=== PATIENT | male | born 1950 | race Caucasian/White ===

== ENCOUNTER 2020-02-17 01:40 | Emergency (ER) | payer MEDICARE ==
[2020-02-17] MEDS ORDERED: fentaNYL (PF) 50 MCG/ML 2 ML AMP IV STA (02:01)
[2020-02-17] MEDS ORDERED: ONDANSETRON 4 MG/2 ML VIAL IVP STA (02:01)
[2020-02-17 02:23] LABS: Basophils # (A) 0.1 k/uL (0-0.2); Basophils % (A) 1 %; Eosinophils # (A) 0.2 k/uL (0-0.7); Eosinophils % (A) 2 %; HCT 42.3 % (39.0-53.0); Lymphocytes # (A) 2.2 k/uL (1.0-4.8); Lymphocytes % (A) 15 %; MCH 30.6 pg (25.0-35.0); MCHC 35.5 g/dL (31.0-37.0); MCV 86.2 fL (80.0-100.0); Mean Platelet Volume 7.1; Monocytes # (A) 0.7 k/uL (0-1.0); Monocytes % (A) 5 %; Neutrophils # (A) 11.3 k/uL (1.3-7.7); Neutrophils % (A) 78 %; Platelet Count 192 k/uL (150-450); RDW 14.1 % (11.5-15.5); WBC 14.6 k/uL (3.8-10.6)
--- NOTE | 2020-02-17 02:24 | ED ---
Abdominal Pain HPI - General Chief Complaint: Abdominal Pain Stated Complaint: Abd Pain Time Seen by Provider: 02/17/20 01:51 Source: EMS Mode of arrival: EMS Limitations: no limitations - History of Present Illness Initial Comments: This patient is a 70-year-old man who complains of having bilateral low back pain and low abdominal pain. He states that things had started around 3 in the afternoon. Initially the pain was mild to moderate but it became severe tonight and he called EMS. The patient was given ketorolac 15 mg for the pain and ondansetron 4 mg for nausea. On arrival he patient states that the nausea has improved but he is still having severe pain. Patient denies change in bowel movement. Patient states that he has felt urge to urinate but has not noted any other changes. MD Complaint: abdominal pain, flank pain Location: LLQ, RLQ, L flank, R flank Radiation: none Migration to: no migration Severity: severe Quality: aching Consistency: constant Improves With: other (Nausea) Worsens With: nothing Associated Symptoms: nausea - Related Data Allergies Allergy/AdvReac Type Severity Reaction Status Date / Time No Known Allergies Allergy Verified 02/17/20 02:01 Review of Systems ROS Statement: Those systems with pertinent positive or pertinent negative responses have been documented in the HPI. ROS Other: All systems not noted in ROS Statement are negative. Constitutional: Denies: fever, chills Respiratory: Denies: cough, dyspnea Cardiovascular: Denies: chest pain, palpitations, edema, syncope Gastrointestinal: Reports: as per HPI, abdominal pain, nausea. Denies: vomiting, diarrhea, constipation, melena, hematochezia Genitourinary: Denies: dysuria, frequency, hematuria, testicular pain, testicular mass Musculoskeletal: Reports: as per HPI, back pain Skin: Denies: rash Neurological: Denies: headache, weakness, numbness Past Medical History Past Medical History: Prostate Disorder History of Any Multi-Drug Resistant Organisms: None Reported Past Surgical History: Orthopedic Surgery, Prostate Surgery Additional Past Surgical History / Comment(s): abdominal aortic stent Past Psychological History: No Psychological Hx Reported Smoking Status: Current every day smoker Past Alcohol Use History: None Reported Past Drug Use History: None Reported General Exam Limitations: no limitations General appearance: alert, in no apparent distress Head exam: Present: atraumatic, normocephalic Eye exam: Present: normal appearance. Absent: scleral icterus, conjunctival injection ENT exam: Present: normal oropharynx Neck exam: Present: normal inspection. Absent: full ROM Respiratory exam: Present: normal lung sounds bilaterally. Absent: respiratory distress, wheezes, rales, rhonchi, stridor Cardiovascular Exam: Present: regular rate, normal rhythm, normal heart sounds. Absent: systolic murmur, diastolic murmur, rubs, gallop GI/Abdominal exam: Present: soft, normal bowel sounds. Absent: distended, tenderness, guarding, rebound, rigid, mass, pulsatile mass, hernia Extremities exam: Present: normal inspection, normal capillary refill. Absent: pedal edema, calf tenderness Back exam: Present: normal inspection. Absent: tenderness, CVA tenderness (R), CVA tenderness (L) Neurological exam: Present: alert. Absent: motor sensory deficit Skin exam: Present: warm, dry, intact, normal color. Absent: rash Course Vital Signs 02/17/20 02/17/20 02/17/20 01:49 02:23 03:05 Temperature 97.9 F Pulse Rate 93 92 85 Respiratory 18 19 18 Rate Blood Pressure 138/100 151/91 141/92 O2 Sat by Pulse 99 96 97 Oximetry 02/17/20 02/17/20 02/17/20 04:00 04:55 05:00 Temperature Pulse Rate 79 91 90 Respiratory 18 18 18 Rate Blood Pressure 126/90 163/106 135/89 O2 Sat by Pulse 97 97 98 Oximetry 02/17/20 05:57 Temperature 98.1 F Pulse Rate 88 Respiratory 18 Rate Blood Pressure 130/87 O2 Sat by Pulse 98 Oximetry Medical Decision Making - Medical Decision Making Patient is 70-year-old man with history of endovascular stenting for AAA which was performed at [facility] in [place] in 2013. The patient on the CAT scan does appear to have small amount leak in the abdominal graft. I did discuss with the vascular surgeon at when [facility] and they do not feel that the patient requires immediate intervention or transfer there. Case also discussed with Dr. Caballero, who is covering rest or surgery here tonight and she did review the computed tomography scan and feels that the patient is stable for follow-up and that the small leak that is visualized is not responsive for the patient's pain. On reevaluation, patient's symptoms have resolved and he states that he would like to go home. Discussed appropriate further care and follow-up as well as return parameters. - Lab Data Result diagrams: 02/17/20 02:13 02/17/20 02:13 Lab Results 02/17/20 02/17/20 02/17/20 Range/Units 02:13 02:13 02:13 WBC 14.6 H (3.8-10.6) k/uL RBC 4.90 (4.30-5.90) m/uL Hgb 15.0 (13.0-17.5) gm/dL Hct 42.3 (39.0-53.0) % MCV 86.2 (80.0-100.0) fL MCH 30.6 (25.0-35.0) pg MCHC 35.5 (31.0-37.0) g/dL RDW 14.1 (11.5-15.5) % Plt Count 192 (150-450) k/uL Neutrophils % 78 % Lymphocytes % 15 % Monocytes % 5 % Eosinophils % 2 % Basophils % 1 % Neutrophils # 11.3 H (1.3-7.7) k/uL Lymphocytes # 2.2 (1.0-4.8) k/uL Monocytes # 0.7 (0-1.0) k/uL Eosinophils # 0.2 (0-0.7) k/uL Basophils # 0.1 (0-0.2) k/uL Sodium 134 L (137-145) mmol/L Potassium 4.0 (3.5-5.1) mmol/L Chloride 105 (98-107) mmol/L Carbon Dioxide 21 L (22-30) mmol/L Anion Gap 8 mmol/L BUN 11 (9-20) mg/dL Creatinine 0.81 (0.66-1.25) mg/dL Est GFR (CKD-EPI)AfAm >90 (>60 ml/min/1.73 sqM) Est GFR (CKD-EPI)NonAf 89 (>60 ml/min/1.73 sqM) Glucose 158 H (74-99) mg/dL Calcium 9.0 (8.4-10.2) mg/dL Total Bilirubin 0.7 (0.2-1.3) mg/dL AST 21 (17-59) U/L ALT 13 (4-49) U/L Alkaline Phosphatase 101 (38-126) U/L Total Protein 7.0 (6.3-8.2) g/dL Albumin 4.0 (3.5-5.0) g/dL Amylase 81 (30-110) U/L Lipase 172 (23-300) U/L Urine Color Yellow Urine Appearance Clear (Clear) Urine pH 7.0 (5.0-8.0) Ur Specific [place] 1.014 (1.001-1.035) Urine Protein Negative (Negative) Urine Glucose (UA) 1+ H (Negative) Urine Ketones 1+ H (Negative) Urine Blood Negative (Negative) Urine Nitrite Negative (Negative) Urine Bilirubin Negative (Negative) Urine Urobilinogen <2.0 (<2.0) mg/dL Ur Leukocyte Esterase Negative (Negative) - EKG Data -: EKG Interpreted by Me EKG shows normal: sinus rhythm, axis (Normal), intervals (OR interval 208 ms, prolonged consistent with first-degree AV block. QRS duration 94 ms, QTC 445 ms, both normal), QRS complexes (Left anterior fascicular block. Possible old septal infarct), ST-T waves (Normal) Rate: normal (Rate 87 bpm) Disposition Clinical Impression: Abdominal pain Narrative: Possible endovascular stent leak. Disposition: HOME SELF-CARE Condition: Fair Instructions (If sedation given, give patient instructions): Abdominal Pain (ED) Additional Instructions: As we discussed, call your vascular surgeon to have follow-up as soon as they're available. Should you have any recurrence of symptoms returned emergency department immediately. Is patient prescribed a controlled substance at d/c from ED?: No Referrals: Moise French MD [Primary Care Provider] - 1-2 days
[2020-02-17 02:31] LABS: ALT 13 U/L (4-49); AST 21 U/L (17-59); African American GFR (CKD) >90 (>60 ml/min/1.73 sqM); Alkaline Phosphatase 101 U/L (38-126); Amylase 81 U/L (30-110); Anion Gap 8 mmol/L; Blood Urea Nitrogen 11 mg/dL (9-20); Carbon Dioxide 21 mmol/L (22-30); Chloride 105 mmol/L (98-107); Glucose 158 mg/dL (74-99); Non-African American GFR(CKD) 89 (>60 ml/min/1.73 sqM); Sodium 134 mmol/L (137-145); Total Bilirubin 0.7 mg/dL (0.2-1.3)
[2020-02-17 03:06] VITALS: RESP 18
[2020-02-17 03:06] LABS: Appearance,Urine Clear (Clear); Bilirubin,Urine Negative (Negative); Blood,Urine Negative (Negative); Color,Urine Yellow; Glucose,Urine (UA) 1+ (Negative); Ketones,Urine 1+ (Negative); Leukocyte Esterase,Urine Negative (Negative); Nitrite,Urine Negative (Negative); Protein,Urine Negative (Negative); Specific Gravity,Urine 1.014 (1.001-1.035); Urobilinogen,Urine <2.0 mg/dL (<2.0)
--- NOTE | 2020-02-17 03:06 | CT ---
EXAMINATION TYPE: CT abdomen pelvis wo con DATE OF EXAM: 02/17/2020 COMPARISON: None HISTORY: Abdominal pain CT DLP: 464.30 mGycm Automated exposure control for dose reduction was used. There is mild pulmonary emphysema. Lung bases are clear. Heart size is normal. There is no pericardia l effusion. There is aortoiliac stent noted. Stent appears in good position. Liver spleen pancreas st omach gallbladder appear intact. Bile ducts are not dilated. There is no adrenal mass. Kidneys have n ormal size. There is cortical thinning lower pole right kidney. There is some cortical thinning anter ior left kidney. There is no hydronephrosis. There is no evidence of a renal mass. There is 5.6 cm an eurysm of the lower abdominal aorta. Bladder distends smoothly. There is no evidence of abdominal or pelvic lymphadenopathy. There is no inguinal hernia. There is no free fluid in the pelvis. Bladder distends smoothly. There a re numerous sigmoid diverticula. There is no sign of diverticulitis. Appendix is posterior and appear s normal. There is no mesenteric edema. There is no ascites or free air. There is no sign of a bowel obstructio n. Lumbar vertebra have normal alignment. There is no compression fracture. The posterior elements are i ntact. Bony pelvis is intact. Hip joints are intact. IMPRESSION: Abdominal aortic aneurysm. No evidence of rupture. Aortoiliac stent appears in good position. Bilateral renal focal cortical atrophy. This could relate to ischemia or chronic pyelonephritis. No e vidence of renal obstruction.
[2020-02-17] MEDS ORDERED: HYDROmorphone 0.5 MG/0.5 ML SYRINGE IVP STA (03:25)
--- NOTE | 2020-02-17 04:29 | CT ---
EXAMINATION TYPE: CT angio thor/abd pel aorta DATE OF EXAM: 02/17/2020 COMPARISON: None HISTORY: Abdominal pain/Flank pain CT DLP: 1077.3 mGycm Automated exposure control for dose reduction was used. CONTRAST: Performed with IV Contrast, patient injected with 100 mL of Isovue 370. Images were obtained from the thoracic inlet to the floor the pelvis without and subsequently with IV contrast Isovue 100 mL. There are 3-D post processed images. FINDINGS: There is diffuse pulmonary emphysema. There is no evidence of a pulmonary mass. There is no pleural e ffusion. Heart size is normal. There is no pericardial effusion. There is no mediastinal adenopathy. Thoracic aorta is atheromatous. The ascending aorta measures 3.5 cm. There is no aneurysm or dissecti on. There is normal contrast opacification of the pulmonary arteries. There are no filling defects. There is patency of the celiac artery and superior mesenteric artery. There is aortoiliac stent. Ther e is bilateral arterial flow in the renal arteries. There is 5.5 cm aneurysm of the lower abdominal a tiffanie. The aortoiliac stent appears in good position. There is arterial flow in the common internal an d external iliac arteries bilaterally. There is arterial flow in both proximal femoral arteries. Blad brittany distends smoothly. There are numerous sigmoid diverticula. There is no sign of diverticulitis. Th ere is no free fluid in the pelvis. There is no mesenteric edema. There is no ascites or free air. There is no sign of a bowel obstructio n. There is small amount of contrast enhancement outside of the stent of the lower abdominal aorta. T his is seen on the left lateral wall of the stent and measures 15 x 10 mm. I see no extravasation of contrast outside of the abdominal aorta. Liver spleen stomach pancreas gallbladder appear normal. Bile ducts are nondilated. Kidneys show sati sfactory contrast opacification. There is no hydronephrosis. There is some cortical thinning anterior left kidney and lower pole right kidney. The thoracic and lumbar spine are intact. IMPRESSION: Aneurysm of the lower abdominal aorta with aortoiliac stent in good position. There is evidence of a small leak of this stent on the left lateral wall. The leak is contained by the picayune abdominal aort a. No evidence of pulmonary embolism. Emphysema. Colonic diverticulosis.
[2020-02-17] MEDS ORDERED: LABETALOL 5 MG/ML VIAL MDV IVP STA (04:40)
[2020-02-17 06:31] VITALS: BP 130/87; PULSE 88; TEMP 98.1
== END 2020-02-17 07:18 | disposition home or self-care (01) ==
LOC: EC 01:40
DX: R10.31 Right lower quadrant pain (principal); R10.32 Left lower quadrant pain; M54.5 Low back pain; F17.200 Nicotine dependence, unspecified, uncomplicated
CPT/HCPCS: 36415; 80053; 82150; 83690; 85025; 81003; 71275; 74176; 74174; 99285; 96374; 96375 ×3; J2405; J3010; J1170; Q9967; 93005

== ENCOUNTER 2020-02-17 13:06 | Emergency (ER) | payer MEDICARE ==
[2020-02-17 13:12] VITALS: TEMP 97.9
--- NOTE | 2020-02-17 13:19 | ED ---
Abdominal Pain HPI - General Chief Complaint: Abdominal Pain Stated Complaint: revisit-abd pain Time Seen by Provider: 02/17/20 13:16 Source: patient Mode of arrival: wheelchair Limitations: no limitations - History of Present Illness Initial Comments: Patient is 70-year-old male with history of intravascular stenting for AAA presenting to the emergency department with a chief complaint of abdominal and back pain. Patient states he was emergency department this morning after developing the exact same pain which has been ongoing for the past day. Patient states upon discharge, he felt much better after he was given pain medication. Patient states he went home and slept. States when he woke up he attempted to have some coffee and the pain gradually return with the same severity as his previous visit. He denies any numbness or tingling or any weakness in his bilateral lower extremity. States most of his pain is located in the lower abdomen and bilateral flank region. Denies any nausea vomiting. Denies any chest pain or shortness of breath. - Related Data Home Medications Medication Instructions Recorded Confirmed Aspirin EC [Ecotrin Low Dose] 81 mg PO BID 02/17/20 02/17/20 Atorvastatin Calcium [Lipitor] 40 mg PO DAILY 02/17/20 02/17/20 Meclizine HCl 12.5 mg PO TID PRN 02/17/20 02/17/20 Warfarin Sodium 2.5 mg PO MOTUWETHFR 02/17/20 02/17/20 Warfarin [Coumadin] 5 mg PO SUSA 02/17/20 02/17/20 amLODIPine [Norvasc] 5 mg PO DAILY 02/17/20 02/17/20 carvediloL [Coreg] 6.25 mg PO BID 02/17/20 02/17/20 Allergies Allergy/AdvReac Type Severity Reaction Status Date / Time morphine AdvReac Nausea & Verified 02/17/20 15:11 Vomiting Review of Systems ROS Statement: Those systems with pertinent positive or pertinent negative responses have been documented in the HPI. ROS Other: All systems not noted in ROS Statement are negative. Past Medical History Past Medical History: Prostate Disorder History of Any Multi-Drug Resistant Organisms: None Reported Past Surgical History: Orthopedic Surgery, Prostate Surgery Additional Past Surgical History / Comment(s): abdominal aortic stent Past Psychological History: No Psychological Hx Reported Smoking Status: Current every day smoker Past Alcohol Use History: None Reported Past Drug Use History: None Reported General Exam Limitations: no limitations General appearance: alert, in no apparent distress Head exam: Present: atraumatic, normocephalic, normal inspection Eye exam: Present: normal appearance, PERRL, EOMI Pupils: Present: normal accommodation ENT exam: Present: normal exam, normal oropharynx, mucous membranes moist, TM's normal bilaterally, normal external ear exam Neck exam: Present: normal inspection, full ROM. Absent: tenderness Respiratory exam: Present: normal lung sounds bilaterally. Absent: respiratory distress, wheezes, rales Cardiovascular Exam: Present: regular rate, normal rhythm, normal heart sounds GI/Abdominal exam: Present: soft, tenderness (Lower abdominal pain). Absent: distended, guarding, rebound, rigid, pulsatile mass Extremities exam: Present: normal inspection, full ROM, normal capillary refill, other (+2 dorsalis pedis and posterior tibials bilaterally.). Absent: tenderness, pedal edema, joint swelling, calf tenderness Back exam: Present: normal inspection, full ROM. Absent: tenderness Neurological exam: Present: alert, oriented X3 Psychiatric exam: Present: normal affect, normal mood Skin exam: Present: warm, dry, intact, normal color Course Vital Signs 02/17/20 02/17/20 02/17/20 13:08 14:24 16:05 Temperature 97.9 F Pulse Rate 87 89 85 Respiratory 20 18 18 Rate Blood Pressure 117/70 135/79 138/85 O2 Sat by Pulse 98 98 98 Oximetry 02/17/20 16:28 Temperature Pulse Rate 87 Respiratory 18 Rate Blood Pressure 136/89 O2 Sat by Pulse 98 Oximetry Medical Decision Making - Medical Decision Making Patient is 70-year-old male presenting to the emergency department with a chief complaint of abdominal pain. Patient has history of AAA with stent repair in 2013. Patient was in emergency department earlier today and was discharged upon clearance from vascular surgery at [facility] and the vascular surgeon from this hospital. Patient returns with the exact same symptoms which include lower abdominal pain that tends to radiate to the back. CBC reveals mild leukocytosis of 14 K. Elevated coags with INR of 4.2. Patient is currently on Coumadin. EKG shows first-degree A-V block. Initial troponin is negative. Repeat CT of the abdominal aorta reveals increase of the size of the aneurysm. 5.7 cm to 5.9 cm. I spoke with [facility] emergency medicine physician, Dr. Perez, who will accept the transfer. The endovascular surgeon was . Patient will be transferred via ambulance. Patient is otherwise hemodynamic stable and his pain is under control. Case discussed with . - Lab Data Result diagrams: 02/17/20 13:29 02/17/20 13:29 Lab Results 02/17/20 02/17/20 02/17/20 Range/Units 13:29 13:29 13:29 WBC 14.6 H (3.8-10.6) k/uL RBC 5.19 (4.30-5.90) m/uL Hgb 15.2 (13.0-17.5) gm/dL Hct 44.1 (39.0-53.0) % MCV 85.0 (80.0-100.0) fL MCH 29.3 (25.0-35.0) pg MCHC 34.5 (31.0-37.0) g/dL RDW 14.2 (11.5-15.5) % Plt Count 258 (150-450) k/uL Neutrophils % 78 % Lymphocytes % 13 % Monocytes % 6 % Eosinophils % 2 % Basophils % 1 % Neutrophils # 11.4 H (1.3-7.7) k/uL Lymphocytes # 1.9 (1.0-4.8) k/uL Monocytes # 0.9 (0-1.0) k/uL Eosinophils # 0.2 (0-0.7) k/uL Basophils # 0.1 (0-0.2) k/uL PT 41.9 H (9.0-12.0) sec INR 4.2 H (<1.2) APTT 43.4 H (22.0-30.0) sec Sodium 133 L (137-145) mmol/L Potassium 4.5 (3.5-5.1) mmol/L Chloride 103 (98-107) mmol/L Carbon Dioxide 22 (22-30) mmol/L Anion Gap 8 mmol/L BUN 10 (9-20) mg/dL Creatinine 0.80 (0.66-1.25) mg/dL Est GFR (CKD-EPI)AfAm >90 (>60 ml/min/1.73 sqM) Est GFR (CKD-EPI)NonAf >90 (>60 ml/min/1.73 sqM) Glucose 124 H (74-99) mg/dL Plasma Lactic Acid Nico (0.7-2.0) mmol/L Calcium 9.2 (8.4-10.2) mg/dL Total Bilirubin 0.8 (0.2-1.3) mg/dL AST 22 (17-59) U/L ALT 13 (4-49) U/L Alkaline Phosphatase 97 (38-126) U/L Troponin I (0.000-0.034) ng/mL Total Protein 7.3 (6.3-8.2) g/dL Albumin 4.1 (3.5-5.0) g/dL Lipase 26 (23-300) U/L Blood Type Blood Type Recheck Bld Type Recheck Status Antibody Screen Spec Expiration Date 02/17/20 02/17/20 02/17/20 Range/Units 13:29 13:29 13:29 WBC (3.8-10.6) k/uL RBC (4.30-5.90) m/uL Hgb (13.0-17.5) gm/dL Hct (39.0-53.0) % MCV (80.0-100.0) fL MCH (25.0-35.0) pg MCHC (31.0-37.0) g/dL RDW (11.5-15.5) % Plt Count (150-450) k/uL Neutrophils % % Lymphocytes % % Monocytes % % Eosinophils % % Basophils % % Neutrophils # (1.3-7.7) k/uL Lymphocytes # (1.0-4.8) k/uL Monocytes # (0-1.0) k/uL Eosinophils # (0-0.7) k/uL Basophils # (0-0.2) k/uL PT (9.0-12.0) sec INR (<1.2) APTT (22.0-30.0) sec Sodium (137-145) mmol/L Potassium (3.5-5.1) mmol/L Chloride (98-107) mmol/L Carbon Dioxide (22-30) mmol/L Anion Gap mmol/L BUN (9-20) mg/dL Creatinine (0.66-1.25) mg/dL Est GFR (CKD-EPI)AfAm (>60 ml/min/1.73 sqM) Est GFR (CKD-EPI)NonAf (>60 ml/min/1.73 sqM) Glucose (74-99) mg/dL Plasma Lactic Acid Nico 1.4 (0.7-2.0) mmol/L Calcium (8.4-10.2) mg/dL Total Bilirubin (0.2-1.3) mg/dL AST (17-59) U/L ALT (4-49) U/L Alkaline Phosphatase (38-126) U/L Troponin I <0.012 (0.000-0.034) ng/mL Total Protein (6.3-8.2) g/dL Albumin (3.5-5.0) g/dL Lipase (23-300) U/L Blood Type A Positive Blood Type Recheck A Pos Bld Type Recheck Status No Antibody Screen NEGATIVE Spec Expiration Date 02/20/2020 - 7750 - EKG Data EKG Comments: First-degree AV block. Ventricular rate 78, OR 232, QRS 92, QTC 414. Disposition Clinical Impression: Abdominal pain Disposition: OTHER INSTITUTION NOT DEFINED Condition: Good Instructions (If sedation given, give patient instructions): Abdominal Pain (ED) Is patient prescribed a controlled substance at d/c from ED?: No Referrals: Moise French MD [Primary Care Provider] - 1-2 days Time of Disposition: 17:41 - Out of Hospital Transfer - Req. Specs Out of Hospital Transfer - Requested Specifics: Other Emergency Center ([facility])
[2020-02-17] MEDS ORDERED: HYDROmorphone 0.5 MG/0.5 ML SYRINGE IVP STA ×2 (13:30→16:07)
[2020-02-17] MEDS ORDERED: ONDANSETRON 4 MG/2 ML VIAL IVP STA (14:10)
[2020-02-17 14:25] VITALS: RESP 18
[2020-02-17 14:55] LABS: Basophils # (A) 0.1 k/uL (0-0.2); Basophils % (A) 1 %; Eosinophils # (A) 0.2 k/uL (0-0.7); Eosinophils % (A) 2 %; HCT 44.1 % (39.0-53.0); HGB 15.2 gm/dL (13.0-17.5); Lymphocytes # (A) 1.9 k/uL (1.0-4.8); Lymphocytes % (A) 13 %; MCH 29.3 pg (25.0-35.0); MCHC 34.5 g/dL (31.0-37.0); Mean Platelet Volume 7.3; Monocytes # (A) 0.9 k/uL (0-1.0); Monocytes % (A) 6 %; Neutrophils # (A) 11.4 k/uL (1.3-7.7); Neutrophils % (A) 78 %; Platelet Count 258 k/uL (150-450); RBC 5.19 m/uL (4.30-5.90); RDW 14.2 % (11.5-15.5); WBC 14.6 k/uL (3.8-10.6)
[2020-02-17 15:03] LABS: ALT 13 U/L (4-49); AST 22 U/L (17-59); African American GFR (CKD) >90 (>60 ml/min/1.73 sqM); Albumin 4.1 g/dL (3.5-5.0); Alkaline Phosphatase 97 U/L (38-126); Anion Gap 8 mmol/L; Blood Urea Nitrogen 10 mg/dL (9-20); Calcium 9.2 mg/dL (8.4-10.2); Carbon Dioxide 22 mmol/L (22-30); Chloride 103 mmol/L (98-107); Glucose 124 mg/dL (74-99); Lipase 26 U/L (23-300); Non-African American GFR(CKD) >90 (>60 ml/min/1.73 sqM); Potassium 4.5 mmol/L (3.5-5.1); Sodium 133 mmol/L (137-145); Total Bilirubin 0.8 mg/dL (0.2-1.3); Total Protein 7.3 g/dL (6.3-8.2)
[2020-02-17 15:07] LABS: INR 4.2 (<1.2); Partial Thromboplastin Time 43.4 sec (22.0-30.0); Prothrombin Time 41.9 sec (9.0-12.0)
[2020-02-17] MEDS ORDERED: SODIUM CHLORIDE 0.9% 1,000 ML IV STA ×2 (15:37)
[2020-02-17 16:29] VITALS: PULSE 87
--- NOTE | 2020-02-17 16:58 | CT ---
EXAMINATION TYPE: CT angio thor/abd pel aorta DATE OF EXAM: 02/17/2020 COMPARISON: Prior exam CTA of the thoracic and abdominal aorta 02/17/2020 and earlier time HISTORY: Increased Abdominal pain with nausea. CT DLP: 668 mGycm. Automated Exposure Control for Dose Reduction was Utilized. CONTRAST: CT scan of the thorax, abdomen and pelvis is performed with IV Contrast, patient injected with 100 mL of Isovue 370. Three-dimensional reconstructions performed on an alternate workstation FINDINGS: LUNGS: The lungs are grossly clear, there is no concerning parenchymal mass or nodule identified. Em physematous changes are present. There is no pleural effusion or pneumothorax seen. The tracheobronc hial tree is patent. MEDIASTINUM: There are no greater than 1 cm hilar or mediastinal lymph nodes. No pericardial effusi on is seen. The aorta is patent. The innominate, left and right common carotid, left and right subclavian, left a nd right vertebral arteries are patent. Aortic root shows a diameter of 3.9 cm. Proximal descending a tiffanie measures approximately 3 cm. At the level of the aortic hiatus there is an aortic stent is been placed across the celiac axis, superior mesenteric artery, renal arteries which are patent. Maximum d iameter is approximately 4.4 cm, there is contrast noted outside of the upper portion of the stent gr aft at the level of the abdominal aorta just cephalad to the renal arteries and just caudal to the drew perior mesenteric artery as noted on prior exam, correlate for device and whether the stent is covere d at this level. Renal arteries is suspected across the stent graft however the superior mesenteric a rtery and celiac axis are not. Infrarenal abdominal aorta measures approximately 5.9 cm, aneurysm licha sured approximately 5.7 cm on prior exam. There is contrast enhancement outside of the stent graft ju st cephalad to the bifurcation level, within the aneurysm. The common iliac branches are patent. LIVER/GB: Contrast in the gallbladder may be due to vicarious excretion, the liver is stable. PANCREAS: No significant abnormality is seen. SPLEEN: No significant abnormality is seen. ADRENALS: No significant abnormality is seen. KIDNEYS: No significant interval change is seen. BOWEL: Diverticular change noted in the sigmoid colon GENITAL ORGANS: 1 surgical clips are present wi thin the pelvis LYMPH NODES: No greater than 1cm abdominal or pelvic lymph nodes are appreciated. OSSEOUS STRUCTURES: No significant abnormality is seen. OTHER: urinary bladder has contrast material likely from prior contrast enhanced study IMPRESSION: [place] of the stent graft peripherally is again noted. Proximal extent may be uncovered portion of the graft. Abdominal aortic aneurysm may have grown slightly in the interval.
[2020-02-17 17:40] VITALS: BP 138/87
== END 2020-02-17 18:07 | disposition other institution (70) ==
LOC: EC 13:06
DX: R10.9 Unspecified abdominal pain (principal); M54.9 Dorsalgia, unspecified; F17.200 Nicotine dependence, unspecified, uncomplicated; Z79.82 Long term (current) use of aspirin; Z79.01 Long term (current) use of anticoagulants; Z79.899 Other long term (current) drug therapy; Z79.02 Long term (current) use of antithrombotics/antiplatelets; Z88.5 Allergy status to narcotic agent
CPT/HCPCS: 99284 ×2; 96374 ×2; 96375 ×2; 96376 ×2; 96361 ×3; 99285; 36415; 93005; 86900; 86901; 80053; 82150; 83605; 83690; 84484; 85025; 85610; 85730; 86850; 81003; 71275; 74176; 74174; J2405; J3010; J1170; Q9967

== ENCOUNTER 2021-06-30 00:56 | Emergency (ER) | payer MEDICARE ==
[2021-06-30] MEDS ORDERED: ONDANSETRON 4 MG/2 ML VIAL IVP STA (01:13)
[2021-06-30] MEDS ORDERED: SODIUM CHLORIDE 0.9% 1,000 ML IV STA (01:13)
[2021-06-30] MEDS ORDERED: HYDROmorphone 1 MG/ML 1 ML SYRINGE IVP STA (01:13)
--- NOTE | 2021-06-30 01:14 | ED ---
Abdominal Pain HPI - General Stated Complaint: Abd Pain Time Seen by Provider: 06/30/21 01:06 Source: RN notes reviewed, old records reviewed Mode of arrival: EMS Limitations: no limitations - History of Present Illness Initial Comments: This is a 71-year-old male DF for evaluation. Patient has history of abdominal aneurysm with multiple stents. Patient is coming in for evaluation regarding severe abdominal pain which feels a prior issue with stents. Patient has surgeries to [facility] normal. Ration started today. He is on Coumadin. Patient otherwise has no fevers no nausea vomiting, no bowel issues or urinary issues. MD Complaint: abdominal pain -: hour(s) Location: LLQ, epigastric Radiation: L flank Migration to: epigastric Severity: moderate Severity scale (1-10): 8 Quality: stabbing, aching Consistency: constant Improves With: nothing Worsens With: nothing Context: recent surgery/procedure (Most recent surgery was 2 years ago) Associated Symptoms: nausea Treatments Prior to Arrival: prescription analgesics - Related Data Home Medications Medication Instructions Recorded Confirmed Aspirin EC [Ecotrin Low Dose] 81 mg PO BID 02/17/20 02/17/20 Atorvastatin Calcium [Lipitor] 40 mg PO DAILY 02/17/20 02/17/20 Meclizine HCl 12.5 mg PO TID PRN 02/17/20 02/17/20 Warfarin Sodium 2.5 mg PO MOTUWETHFR 02/17/20 02/17/20 Warfarin [Coumadin] 5 mg PO SUSA 02/17/20 02/17/20 amLODIPine [Norvasc] 5 mg PO DAILY 02/17/20 02/17/20 carvediloL [Coreg] 6.25 mg PO BID 02/17/20 02/17/20 Allergies Allergy/AdvReac Type Severity Reaction Status Date / Time morphine AdvReac Nausea & Verified 02/17/20 15:11 Vomiting Review of Systems ROS Statement: Those systems with pertinent positive or pertinent negative responses have been documented in the HPI. ROS Other: All systems not noted in ROS Statement are negative. Past Medical History Past Medical History: Prostate Disorder History of Any Multi-Drug Resistant Organisms: None Reported Past Surgical History: Orthopedic Surgery, Prostate Surgery Additional Past Surgical History / Comment(s): abdominal aortic stent Past Psychological History: No Psychological Hx Reported Smoking Status: Current every day smoker Past Alcohol Use History: None Reported Past Drug Use History: None Reported General Exam General appearance: alert, in no apparent distress Head exam: Present: atraumatic, normocephalic, normal inspection Eye exam: Present: normal appearance, PERRL, EOMI. Absent: scleral icterus, conjunctival injection, periorbital swelling ENT exam: Present: normal exam, mucous membranes moist Neck exam: Present: normal inspection. Absent: tenderness, meningismus, lymphadenopathy Respiratory exam: Present: normal lung sounds bilaterally. Absent: respiratory distress, wheezes, rales, rhonchi, stridor Cardiovascular Exam: Present: regular rate, normal rhythm, normal heart sounds. Absent: systolic murmur, diastolic murmur, rubs, gallop, clicks GI/Abdominal exam: Present: soft, normal bowel sounds. Absent: distended, tenderness, guarding, rebound, rigid Extremities exam: Present: normal inspection, full ROM, normal capillary refill. Absent: tenderness, pedal edema, joint swelling, calf tenderness Back exam: Present: normal inspection Neurological exam: Present: alert, oriented X3, CN II-XII intact Psychiatric exam: Present: normal affect, normal mood Skin exam: Present: warm, dry, intact, normal color. Absent: rash Course Vital Signs 06/30/21 06/30/21 01:17 03:38 Temperature 98.5 F Pulse Rate 84 94 Respiratory 16 16 Rate Blood Pressure 139/87 146/92 O2 Sat by Pulse 96 99 Oximetry - Reevaluation(s) Reevaluation #1: 06/30/21 02:01 Medical record is reviewed Reevaluation #2: 06/30/21 03:46 States pain is well-controlled currently Reevaluation #3: 06/30/21 03:46 Patient is informed of results, questions have been answered, agrees to transfer Reevaluation #4: 06/30/21 03:46 Patient will need Coumadin reversed - Consultations Consultation #1: Spoke with [facility] who agree to accept patient in transfer Medical Decision Making - Medical Decision Making 71 male to the emergency department for evaluation of abdominal pain feels just a prior and awake and psychiatric current endoleak here in the emergency department with a complaint of 3.6, patient given medication for Coumadin here in the ER, pain is well-controlled currently and patient can be transferred to see his vascular surgeon - Lab Data Result diagrams: 06/30/21 01:42 06/30/21 01:42 Lab Results 06/30/21 06/30/21 06/30/21 Range/Units 01:42 01:42 01:42 WBC 12.0 H (3.8-10.6) k/uL RBC 4.58 (4.30-5.90) m/uL Hgb 14.0 (13.0-17.5) gm/dL Hct 39.7 (39.0-53.0) % MCV 86.6 (80.0-100.0) fL MCH 30.6 (25.0-35.0) pg MCHC 35.3 (31.0-37.0) g/dL RDW 14.3 (11.5-15.5) % Plt Count 220 (150-450) k/uL MPV 7.5 Neutrophils % 75 % Lymphocytes % 16 % Monocytes % 6 % Eosinophils % 1 % Basophils % 1 % Neutrophils # 9.0 H (1.3-7.7) k/uL Lymphocytes # 1.9 (1.0-4.8) k/uL Monocytes # 0.7 (0-1.0) k/uL Eosinophils # 0.1 (0-0.7) k/uL Basophils # 0.1 (0-0.2) k/uL PT (9.0-12.0) sec INR (<1.2) APTT (22.0-30.0) sec Sodium 132 L (137-145) mmol/L Potassium 3.8 (3.5-5.1) mmol/L Chloride 103 (98-107) mmol/L Carbon Dioxide 21 L (22-30) mmol/L Anion Gap 8 mmol/L BUN 10 (9-20) mg/dL Creatinine 0.78 (0.66-1.25) mg/dL Est GFR (CKD-EPI)AfAm >90 (>60 ml/min/1.73 sqM) Est GFR (CKD-EPI)NonAf >90 (>60 ml/min/1.73 sqM) Glucose 125 H (74-99) mg/dL Plasma Lactic Acid Nico 0.9 (0.7-2.0) mmol/L Calcium 8.9 (8.4-10.2) mg/dL Total Bilirubin 1.1 (0.2-1.3) mg/dL AST 22 (17-59) U/L ALT 12 (4-49) U/L Alkaline Phosphatase 92 (38-126) U/L Total Protein 6.4 (6.3-8.2) g/dL Albumin 3.6 (3.5-5.0) g/dL Amylase 46 (30-110) U/L Lipase 32 (23-300) U/L 06/30/21 Range/Units 01:42 WBC (3.8-10.6) k/uL RBC (4.30-5.90) m/uL Hgb (13.0-17.5) gm/dL Hct (39.0-53.0) % MCV (80.0-100.0) fL MCH (25.0-35.0) pg MCHC (31.0-37.0) g/dL RDW (11.5-15.5) % Plt Count (150-450) k/uL MPV Neutrophils % % Lymphocytes % % Monocytes % % Eosinophils % % Basophils % % Neutrophils # (1.3-7.7) k/uL Lymphocytes # (1.0-4.8) k/uL Monocytes # (0-1.0) k/uL Eosinophils # (0-0.7) k/uL Basophils # (0-0.2) k/uL PT 35.7 H (9.0-12.0) sec INR 3.6 H (<1.2) APTT 30.1 H (22.0-30.0) sec Sodium (137-145) mmol/L Potassium (3.5-5.1) mmol/L Chloride (98-107) mmol/L Carbon Dioxide (22-30) mmol/L Anion Gap mmol/L BUN (9-20) mg/dL Creatinine (0.66-1.25) mg/dL Est GFR (CKD-EPI)AfAm (>60 ml/min/1.73 sqM) Est GFR (CKD-EPI)NonAf (>60 ml/min/1.73 sqM) Glucose (74-99) mg/dL Plasma Lactic Acid Nico (0.7-2.0) mmol/L Calcium (8.4-10.2) mg/dL Total Bilirubin (0.2-1.3) mg/dL AST (17-59) U/L ALT (4-49) U/L Alkaline Phosphatase (38-126) U/L Total Protein (6.3-8.2) g/dL Albumin (3.5-5.0) g/dL Amylase (30-110) U/L Lipase (23-300) U/L - Radiology Data Radiology results: report reviewed (CT abdpelvis is positive for endoleak ), image reviewed Critical Care Time Critical Care Time: Yes Total Critical Care Time: 31 Disposition Clinical Impression: Abdominal pain, AAA (abdominal aortic aneurysm), 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 Specs Out of Hospital Transfer - Requested Specifics: Other Emergency Center ([facility])
[2021-06-30 01:23] VITALS: RESP 16; TEMP 98.5
[2021-06-30 02:20] LABS: Basophils # (A) 0.1 k/uL (0-0.2); Basophils % (A) 1 %; Eosinophils # (A) 0.1 k/uL (0-0.7); Eosinophils % (A) 1 %; HCT 39.7 % (39.0-53.0); Lymphocytes # (A) 1.9 k/uL (1.0-4.8); Lymphocytes % (A) 16 %; MCH 30.6 pg (25.0-35.0); MCHC 35.3 g/dL (31.0-37.0); MCV 86.6 fL (80.0-100.0); Mean Platelet Volume 7.5; Monocytes # (A) 0.7 k/uL (0-1.0); Monocytes % (A) 6 %; Neutrophils % (A) 75 %; Platelet Count 220 k/uL (150-450); RBC 4.58 m/uL (4.30-5.90); RDW 14.3 % (11.5-15.5)
[2021-06-30 02:27] LABS: INR 3.6 (<1.2); Partial Thromboplastin Time 30.1 sec (22.0-30.0); Prothrombin Time 35.7 sec (9.0-12.0)
[2021-06-30 02:30] LABS: ALT 12 U/L (4-49); AST 22 U/L (17-59); African American GFR (CKD) >90 (>60 ml/min/1.73 sqM); Albumin 3.6 g/dL (3.5-5.0); Alkaline Phosphatase 92 U/L (38-126); Amylase 46 U/L (30-110); Anion Gap 8 mmol/L; Blood Urea Nitrogen 10 mg/dL (9-20); Calcium 8.9 mg/dL (8.4-10.2); Carbon Dioxide 21 mmol/L (22-30); Chloride 103 mmol/L (98-107); Glucose 125 mg/dL (74-99); Lipase 32 U/L (23-300); Non-African American GFR(CKD) >90 (>60 ml/min/1.73 sqM); Potassium 3.8 mmol/L (3.5-5.1); Sodium 132 mmol/L (137-145); Total Bilirubin 1.1 mg/dL (0.2-1.3); Total Protein 6.4 g/dL (6.3-8.2)
--- NOTE | 2021-06-30 03:06 | CT ---
EXAMINATION TYPE: CT abdomen pelvis w con DATE OF EXAM: 06/30/2021 COMPARISON: 02/17/2020 HISTORY: ABDOMINAL PAIN. AAA. H/O STENTS CT DLP: 764.8 mGycm Automated exposure control for dose reduction was used. CONTRAST: Performed with IV Contrast, patient injected with 100 mL of Isovue 300. Images obtained from the diaphragm to the floor the pelvis with IV contrast. There is aortoiliac stent noted. There is 6 cm aneurysm of the lower abdominal aorta. There is normal contrast opacification of the stent. There are small areas of contrast material outside of the stent in the aneurysm. There is no evidence of leakage around the abdominal aorta. There is subsegmental atelectasis at the lung bases. There is mild pulmonary emphysema. There is no p leural effusion. Liver is intact. There is no pancreatic mass. There are small calcified gallstones. Spleen is intact. Stomach has normal size and contour. There is no adrenal mass. Kidneys show satisfactory contrast opacification. There is no hydronephrosi s. Ureters are not dilated. Delayed images show normal renal excretion. There is some cortical thinni ng anterior left kidney and lower pole right kidney. There is no evidence of a solid renal mass. There is no retroperitoneal adenopathy. There are multiple sigmoid diverticula. There is no diverticu litis. Bladder distends smoothly. There is no inguinal hernia. There are multiple bilateral inguinal lymph nodes measuring up to 1.3 cm. There is no free fluid in the pelvis. Appendix is posterior and a ppears normal. The lumbar vertebrae have normal alignment. The posterior elements are intact. There is no compressio n fracture. There is mild hypertrophic facet arthropathy. The bony pelvis is intact. The hip joints a re intact. IMPRESSION: There is aortoiliac endograft in good position. There is abdominal aortic aneurysm increased 5 mm in diameter compared to last exam. Spondylotic changes in the lumbar spine with some spinal stenosis at L3-4 and L4-5. There is minimal subsegmental atelectasis left posterior lung base which is new compared to old exam. Mild pulmonary emphysema. Sigmoid diverticulosis without diverticulitis unchanged.
[2021-06-30 03:39] VITALS: BP 146/92; PULSE 94
[2021-06-30] MEDS ORDERED: PHYTONADIONE 5 MG in SODIUM CHLORIDE 0.9% 50 ML IVPB ONE (04:00)
== END 2021-06-30 06:05 | disposition short-term general hospital (02) ==
LOC: EC 00:56
DX: I71.4 Abdominal aortic aneurysm, without rupture (principal); T82.390A Other mechanical complication of aortic (bifurcation) graft (replacement), initial encounter; T45.511A Poisoning by anticoagulants, accidental (unintentional), initial encounter; F17.200 Nicotine dependence, unspecified, uncomplicated; Z79.82 Long term (current) use of aspirin; Z79.01 Long term (current) use of anticoagulants; Z88.5 Allergy status to narcotic agent; X58.XXXA Exposure to other specified factors, initial encounter
CPT/HCPCS: 99291; 96365; 96375 ×2; 96361 ×3; 36415; 80053; 82150; 83605; 83690; 85025; 85610; 85730; 74177; J3430; J2405; J1170; Q9967

== ENCOUNTER 2022-03-27 01:12 | Emergency (ER) | payer MEDICARE ==
[2022-03-27] MEDS ORDERED: SODIUM CHLORIDE 0.9% 1,000 ML IV STA (01:18)
[2022-03-27] MEDS ORDERED: SODIUM CHLORIDE 0.9% 500 ML 500 ML IV STA (01:18)
[2022-03-27] MEDS ORDERED: HYDROmorphone 1 MG/ML 1 ML SYRINGE IVP STA (01:18)
[2022-03-27] MEDS ORDERED: ONDANSETRON 4 MG/2 ML VIAL IVP STA (01:18)
--- NOTE | 2022-03-27 01:20 | ED ---
Abdominal Pain HPI - General Stated Complaint: Abdominal Pain Time Seen by Provider: 03/27/22 01:19 Source: RN notes reviewed, old records reviewed Limitations: no limitations - History of Present Illness MD Complaint: abdominal pain Location: periumbilical, LLQ Radiation: suprapubic, L flank Migration to: suprapubic Severity: moderate Severity scale (1-10): 7 Quality: fullness, sharp Consistency: intermittent Improves With: nothing Worsens With: nothing Context: recent surgery/procedure Associated Symptoms: nausea Treatments Prior to Arrival: other (0) - Related Data Home Medications Medication Instructions Recorded Confirmed Aspirin EC [Ecotrin Low Dose] 81 mg PO BID 02/17/20 02/17/20 Atorvastatin Calcium [Lipitor] 40 mg PO DAILY 02/17/20 02/17/20 Meclizine HCl 12.5 mg PO TID PRN 02/17/20 02/17/20 Warfarin Sodium 2.5 mg PO MOTUWETHFR 02/17/20 02/17/20 Warfarin [Coumadin] 5 mg PO SUSA 02/17/20 02/17/20 amLODIPine [Norvasc] 5 mg PO DAILY 02/17/20 02/17/20 carvediloL [Coreg] 6.25 mg PO BID 02/17/20 02/17/20 Previous Rx's Medication Instructions Recorded Amoxic-Pot Clav 875-125Mg 1 tab PO Q12HR #20 tablet 03/27/22 [Augmentin 875-125] Ondansetron Odt [Zofran ODT] 4 mg PO Q8HR PRN #10 tab 03/27/22 Allergies Allergy/AdvReac Type Severity Reaction Status Date / Time morphine AdvReac Nausea & Verified 02/17/20 15:11 Vomiting Review of Systems ROS Statement: Those systems with pertinent positive or pertinent negative responses have been documented in the HPI. ROS Other: All systems not noted in ROS Statement are negative. Past Medical History Past Medical History: Prostate Disorder History of Any Multi-Drug Resistant Organisms: None Reported Past Surgical History: Orthopedic Surgery, Prostate Surgery Additional Past Surgical History / Comment(s): abdominal aortic stent Past Psychological History: No Psychological Hx Reported Smoking Status: Current every day smoker Past Alcohol Use History: None Reported Past Drug Use History: None Reported General Exam General appearance: alert, in no apparent distress Head exam: Present: atraumatic, normocephalic, normal inspection Eye exam: Present: normal appearance, PERRL, EOMI. Absent: scleral icterus, conjunctival injection, periorbital swelling ENT exam: Present: normal exam, mucous membranes moist Neck exam: Present: normal inspection. Absent: tenderness, meningismus, lympha denopathy Respiratory exam: Present: normal lung sounds bilaterally. Absent: respiratory distress, wheezes, rales, rhonchi, stridor Cardiovascular Exam: Present: regular rate, normal rhythm, normal heart sounds. Absent: systolic murmur, diastolic murmur, rubs, gallop, clicks GI/Abdominal exam: Present: soft, tenderness, guarding, normal bowel sounds. Absent: distended, rebound, rigid Extremities exam: Present: normal inspection, full ROM, normal capillary refill. Absent: tenderness, pedal edema, joint swelling, calf tenderness Back exam: Present: normal inspection Neurological exam: Present: alert, oriented X3, CN II-XII intact Psychiatric exam: Present: normal affect, normal mood Skin exam: Present: warm, dry, intact, normal color. Absent: rash Course Vital Signs 03/27/22 03/27/22 01:13 02:42 Temperature 100.0 F H Pulse Rate 81 73 Respiratory 16 16 Rate Blood Pressure 123/81 130/45 O2 Sat by Pulse 97 97 Oximetry Medical Decision Making - Lab Data Result diagrams: 03/27/22 01:21 03/27/22 01:21 Lab Results 03/27/22 03/27/22 03/27/22 Range/Units 01:21 01:21 01:21 WBC 11.3 H (3.8-10.6) k/uL RBC 4.92 (4.30-5.90) m/uL Hgb 15.0 (13.0-17.5) gm/dL Hct 41.8 (39.0-53.0) % MCV 84.9 (80.0-100.0) fL MCH 30.4 (25.0-35.0) pg MCHC 35.8 (31.0-37.0) g/dL RDW 13.9 (11.5-15.5) % Plt Count 245 (150-450) k/uL MPV 7.7 Neutrophils % 77 % Lymphocytes % 13 % Monocytes % 6 % Eosinophils % 1 % Basophils % 1 % Neutrophils # 8.7 H (1.3-7.7) k/uL Lymphocytes # 1.5 (1.0-4.8) k/uL Monocytes # 0.7 (0-1.0) k/uL Eosinophils # 0.2 (0-0.7) k/uL Basophils # 0.1 (0-0.2) k/uL PT 23.7 H (9.0-12.0) sec INR 2.4 H (<1.2) APTT 32.1 H (22.0-30.0) sec Sodium 134 L (137-145) mmol/L Potassium 3.9 (3.5-5.1) mmol/L Chloride 104 (98-107) mmol/L Carbon Dioxide 22 (22-30) mmol/L Anion Gap 8 mmol/L BUN 8 L (9-20) mg/dL Creatinine 0.81 (0.66-1.25) mg/dL Est GFR (CKD-EPI)AfAm >90 (>60 ml/min/1.73 sqM) Est GFR (CKD-EPI)NonAf 88 (>60 ml/min/1.73 sqM) Glucose 116 H (74-99) mg/dL Plasma Lactic Acid Nico (0.7-2.0) mmol/L Calcium 9.0 (8.4-10.2) mg/dL Total Bilirubin 0.8 (0.2-1.3) mg/dL AST 20 (17-59) U/L ALT 15 (4-49) U/L Alkaline Phosphatase 94 (38-126) U/L Total Protein 6.8 (6.3-8.2) g/dL Albumin 4.0 (3.5-5.0) g/dL Amylase 66 (30-110) U/L Lipase 45 (23-300) U/L 03/27/22 Range/Units 01:21 WBC (3.8-10.6) k/uL RBC (4.30-5.90) m/uL Hgb (13.0-17.5) gm/dL Hct (39.0-53.0) % MCV (80.0-100.0) fL MCH (25.0-35.0) pg MCHC (31.0-37.0) g/dL RDW (11.5-15.5) % Plt Count (150-450) k/uL MPV Neutrophils % % Lymphocytes % % Monocytes % % Eosinophils % % Basophils % % Neutrophils # (1.3-7.7) k/uL Lymphocytes # (1.0-4.8) k/uL Monocytes # (0-1.0) k/uL Eosinophils # (0-0.7) k/uL Basophils # (0-0.2) k/uL PT (9.0-12.0) sec INR (<1.2) APTT (22.0-30.0) sec Sodium (137-145) mmol/L Potassium (3.5-5.1) mmol/L Chloride (98-107) mmol/L Carbon Dioxide (22-30) mmol/L Anion Gap mmol/L BUN (9-20) mg/dL Creatinine (0.66-1.25) mg/dL Est GFR (CKD-EPI)AfAm (>60 ml/min/1.73 sqM) Est GFR (CKD-EPI)NonAf (>60 ml/min/1.73 sqM) Glucose (74-99) mg/dL Plasma Lactic Acid Nico 1.3 (0.7-2.0) mmol/L Calcium (8.4-10.2) mg/dL Total Bilirubin (0.2-1.3) mg/dL AST (17-59) U/L ALT (4-49) U/L Alkaline Phosphatase (38-126) U/L Total Protein (6.3-8.2) g/dL Albumin (3.5-5.0) g/dL Amylase (30-110) U/L Lipase (23-300) U/L Disposition Clinical Impression: Abdominal pain, Colitis Disposition: HOME SELF-CARE Condition: Good Instructions (If sedation given, give patient instructions): Infectious Colitis (ED), Colitis (ED) Prescriptions: Amoxic-Pot Clav 875-125Mg [Augmentin 875-125] 1 tab PO Q12HR #20 tablet Ondansetron Odt [Zofran ODT] 4 mg PO Q8HR PRN #10 tab PRN Reason: nausea/vomiting Is patient prescribed a controlled substance at d/c from ED?: No Referrals: Moise French MD [Primary Care Provider] - 1-2 days Time of Disposition: 02:55
[2022-03-27 01:21] VITALS: RESP 16; TEMP 100
[2022-03-27 01:29] LABS: Basophils # (A) 0.1 k/uL (0-0.2); Basophils % (A) 1 %; Eosinophils # (A) 0.2 k/uL (0-0.7); Eosinophils % (A) 1 %; HCT 41.8 % (39.0-53.0); Lymphocytes # (A) 1.5 k/uL (1.0-4.8); Lymphocytes % (A) 13 %; MCH 30.4 pg (25.0-35.0); MCHC 35.8 g/dL (31.0-37.0); MCV 84.9 fL (80.0-100.0); Mean Platelet Volume 7.7; Monocytes # (A) 0.7 k/uL (0-1.0); Monocytes % (A) 6 %; Neutrophils # (A) 8.7 k/uL (1.3-7.7); Neutrophils % (A) 77 %; Platelet Count 245 k/uL (150-450); RBC 4.92 m/uL (4.30-5.90); RDW 13.9 % (11.5-15.5); WBC 11.3 k/uL (3.8-10.6)
[2022-03-27 01:37] LABS: INR 2.4 (<1.2); Partial Thromboplastin Time 32.1 sec (22.0-30.0); Prothrombin Time 23.7 sec (9.0-12.0)
[2022-03-27 01:39] LABS: ALT 15 U/L (4-49); AST 20 U/L (17-59); African American GFR (CKD) >90 (>60 ml/min/1.73 sqM); Alkaline Phosphatase 94 U/L (38-126); Amylase 66 U/L (30-110); Anion Gap 8 mmol/L; Blood Urea Nitrogen 8 mg/dL (9-20); Carbon Dioxide 22 mmol/L (22-30); Chloride 104 mmol/L (98-107); Glucose 116 mg/dL (74-99); Lipase 45 U/L (23-300); Non-African American GFR(CKD) 88 (>60 ml/min/1.73 sqM); Potassium 3.9 mmol/L (3.5-5.1); Sodium 134 mmol/L (137-145); Total Bilirubin 0.8 mg/dL (0.2-1.3); Total Protein 6.8 g/dL (6.3-8.2)
--- NOTE | 2022-03-27 02:12 | CT ---
EXAM: CT Abdomen and Pelvis With Intravenous Contrast CLINICAL HISTORY: ITS.REASON CT Reason: abdominal pain TECHNIQUE: Axial computed tomography images of the abdomen and pelvis with intravenous contrast. CTDI is 15.57 mGy and DLP is 862.2 mGy-cm. This CT exam was performed using one or more of the following dose reduction techniques: automated exposure control, adjustment of the mA and/or kV according to patient size, and/or use of iterative reconstruction technique. COMPARISON: Comparison made to prior CT scan of abdomen pelvis from 2021. FINDINGS: Lung bases: Unremarkable. No mass. No consolidation. ABDOMEN: Liver: Hepatic steatosis. No mass. Gallbladder and bile ducts: Small amount of calcified sludge in the decompressed gallbladder. No ductal dilation. Pancreas: Unremarkable. No mass. No ductal dilation. Spleen: Unremarkable. No splenomegaly. Adrenals: Unremarkable. No mass. Kidneys and ureters: Bilateral renal cyst. Remote injury of the left kidney. No solid mass. No hydronephrosis. Stomach and bowel: There is thickening and edema of the sigmoid colon wall with subtle inflammation of the surrounding mesenteric fat. Diverticulosis of the descending and sigmoid colon. There is thickening and edema of the gastric wall. There is thickening and edema of the terminal ileum. PELVIS: Appendix: No findings to suggest acute appendicitis. Bladder: Unremarkable. No mass. Reproductive: Status post prostatectomy. ABDOMEN and PELVIS: Intraperitoneal space: Unremarkable. No free air. No significant fluid collection. Bones/joints: Moderate disc degeneration at L1-2, L2-3, L3-4 and L5-S1. No acute fracture. No dislocation. Soft tissues: There is a 6 mm fat-containing umbilical hernia. There is a moderate sized fat-containing left inguinal hernia. Vasculature: Aortobiiliac stent graft in place without evidence of leak. There is a persistent 47 mm aneurysm of the distal aorta. Lymph nodes: Unremarkable. No enlarged lymph nodes. IMPRESSION: Findings concerning for sigmoid colitis, which may be of infectious or inflammatory etiologies. Findings concerning for terminal ileitis. Findings concerning for gastritis. Diverticulosis of the descending and sigmoid colon. Status post aortobiiliac stent graft in place without evidence of leak. 47 mm persistent distal aortic aneurysm. Hepatic steatosis.
[2022-03-27] MEDS ORDERED: ONDANSETRON 4 MG ODT STARTER PACK 2 TAB BTL PO STA (02:38)
[2022-03-27] MEDS ORDERED: AMPICILLIN-SULBACTAM 3 GM in SODIUM CHLORIDE 0.9% 100 ML IVPB STA (02:38)
[2022-03-27] MEDS ORDERED: ACET/COD 300 MG/30 MG STARTER PACK 6 TAB BTL PO STA (02:38)
[2022-03-27] MEDS ORDERED: AMOXIC-POT CLAV 875MG STARTER PACK 2 TAB BTL PO STA (02:38)
[2022-03-27 02:43] VITALS: BP 130/45; PULSE 73
== END 2022-03-27 03:22 | disposition home or self-care (01) ==
LOC: EC 01:12
DX: K52.9 Noninfective gastroenteritis and colitis, unspecified (principal); F17.200 Nicotine dependence, unspecified, uncomplicated; Z88.5 Allergy status to narcotic agent
CPT/HCPCS: 99285 ×2; 96374 ×2; 96375 ×2; 96361 ×4; 36415; 80053; 82150; 83605; 83690; 85025; 85610; 85730; 74177; J2405; J1170; S0119; Q9967

== ENCOUNTER 2022-05-16 20:26 | Observation (INO) | payer MEDICARE ==
[2022-05-16] MEDS ORDERED: SODIUM CHLORIDE 0.9% 1,000 ML IV STA (21:49)
[2022-05-16] MEDS ORDERED: HYDROmorphone 0.5 MG/0.5 ML SYRINGE IVP STA (21:50)
--- NOTE | 2022-05-16 21:51 | ED ---
Chest Pain HPI - General Chief Complaint: Chest Pain Stated Complaint: chest pain Time Seen by Provider: 05/16/22 21:32 Source: EMS, RN notes reviewed, old records reviewed Mode of arrival: EMS Limitations: no limitations - History of Present Illness Initial Comments: This is a 72-year-old male to the emergency department for evaluation presents today for evaluation of chest pain, patient does admit to fall fall with abdominal pain and chest pain. Patient has persistent chest pain here in the ER no shortness of breath mild nausea no vomiting no other complaints is still complaining of chest pain here MD Complaint: chest pain -: hour(s) Onset: during rest, during exertion Pain Location: substernal, left chest Severity: moderate Severity scale (1-10): 4 Quality: tightness, aching Consistency: intermittent Improves With: nothing Worsens With: nothing Context: trauma/injury Anginal Symptoms: dyspnea Treatments Prior to Arrival: none - Related Data Home Medications Medication Instructions Recorded Confirmed Aspirin EC [Ecotrin Low Dose] 81 mg PO BID 02/17/20 05/16/22 Atorvastatin Calcium [Lipitor] 40 mg PO HS 02/17/20 05/16/22 Warfarin [Coumadin] 2.5 mg PO DAILY 02/17/20 05/16/22 amLODIPine [Norvasc] 5 mg PO DAILY 02/17/20 05/16/22 carvediloL [Coreg] 6.25 mg PO BID 02/17/20 05/16/22 Allergies Allergy/AdvReac Type Severity Reaction Status Date / Time morphine AdvReac Nausea & Verified 05/16/22 23:06 Vomiting Review of Systems ROS Statement: Those systems with pertinent positive or pertinent negative responses have been documented in the HPI. ROS Other: All systems not noted in ROS Statement are negative. EKG Findings - EKG Comments: EKG Findings:: EKG interpreted by me shows sinus 91 MN 210 QRS 91 QTC 379 Past Medical History Past Medical History: Prostate Disorder History of Any Multi-Drug Resistant Organisms: None Reported Past Surgical History: Orthopedic Surgery, Prostate Surgery Additional Past Surgical History / Comment(s): abdominal aortic stent Past Psychological History: No Psychological Hx Reported Smoking Status: Current every day smoker Past Alcohol Use History: None Reported Past Drug Use History: None Reported General Exam Limitations: no limitations Course Vital Signs 05/16/22 05/16/22 05/16/22 20:35 20:50 21:10 Temperature 98.8 F Pulse Rate 82 83 82 Respiratory 16 16 16 Rate Blood Pressure 144/78 141/92 139/84 O2 Sat by Pulse 98 Oximetry 05/16/22 05/16/22 21:30 23:10 Temperature Pulse Rate 80 85 Respiratory 16 16 Rate Blood Pressure 139/84 137/77 O2 Sat by Pulse Oximetry - Reevaluation(s) Reevaluation #1: 05/17/22 00:12 Medical records reviewed Reevaluation #2: 05/17/22 00:12 Patient sonorous chest pain here in the ER although more comfortable Reevaluation #3: 05/17/22 00:12 Patient informed of results and questions answered Reevaluation #4: 05/17/22 00:12 Differential Chest Pain: Stable Angina, Unstable Angina, STEMI, NSTEMI Aortic Dissection, Pneumothorax, Musculoskeletal, Esophageal Spasm GERD, Cholecystitis, Pancreatitis, Zoster, this is not meant to be an all-inclusive list. Reevaluation #5: 05/17/22 00:12 Was pt. sent in by a medical professional or institution? @ -no Did you speak to anyone other than the patient for history? @ -no Did you review nursing and triage notes? @ -agree Were old charts reviewed? @ -no Differential Diagnosis? @ -prior EKG interpreted by me (3pts min.)? @ -yes X-rays interpreted by me (1pt min.)? @ -yes CT interpreted by me (1pt min.)? @ -no U/S interpreted by me (1pt. min.)? @ -[none] What testing was considered but not performed? (CT, X-rays, U/S, labs)? Why? @ no What meds were considered but not given? Why? @ -[none] Did you discuss the management of the patient with other professionals? @ -no Did you reconcile home meds? @ -[none] Was smoking cessation discussed for >3mins.? @ -[none] Was critical care preformed (if so, how long)? @ -[none] Were there social determinants of health that impacted care today? How? (Homelessness, low income, unemployed, alcoholism, drug addiction, transportation, low edu. Level, literacy, decrease access to med. care, prison, rehab)? @ -no Was there de-escalation of care discussed even if they declined? (Discuss DNR or withdrawal of care, Hospice)? @ -no What co-morbidities impacted this encounter? (DM, HTN, Smoking, COPD, CAD, Cancer, CVA, Hep., AIDS, mental health diagnosis, sleep apnea, morbid obesity)? @ -no Was patient admitted / discharged? @ -admit Undiagnosed new problem with uncertain prognosis? @ -[none] Drug Therapy requiring intensive monitoring for toxicity (Heparin, Nitro, Insulin, Cardizem)? @ -[none] Were any procedures done? @ -[none] Diagnosis/symptom? @ -[default] Acute, or Chronic, or Acute on Chronic? @ -[default] Uncomplicated (without systemic symptoms) or Complicated (systemic symptoms)? @ -[default] Side effects of treatment? @ -[none] Exacerbation, Progression, or Severe Exacerbation] @ -[no] Poses a threat to life or bodily function? @ -[no] - Consultations Consultation #1: Spoke with Dr. Colunga we'll admit this patient Chest Pain MDM - MDM 72 male for chest pain will be admitted as a chest pain observation he does have history of aneurysms vascular disease. Patient has a chronic abdominal pain ever since he had colitis. Patient be admitted for pain control and cardiology observation Disposition Clinical Impression: Chest pain Disposition: ADMITTED IP TO THIS HOSP Condition: Good Is patient prescribed a controlled substance at d/c from ED?: No Referrals: Moise French MD [Primary Care Provider] - 1-2 days Time of Disposition: 00:20
--- NOTE | 2022-05-16 22:32 | CT ---
EXAM: CT Abdomen and Pelvis Without Intravenous Contrast CLINICAL HISTORY: ITS.REASON CT Reason: fall TECHNIQUE: Axial computed tomography images of the abdomen and pelvis without intravenous contrast. CTDI is 7.5 mGy and DLP is 457.9 mGy-cm. This CT exam was performed using one or more of the following dose reduction techniques: automated exposure control, adjustment of the mA and/or kV according to patient size, and/or use of iterative reconstruction technique. COMPARISON: No relevant prior studies available. FINDINGS: Lung bases: Emphysema at the lung bases. ABDOMEN: Liver: Unremarkable. Gallbladder and bile ducts: Cholelithiasis. No ductal dilation. Pancreas: Unremarkable. No ductal dilation. Spleen: Unremarkable. No splenomegaly. Adrenals: Unremarkable. No mass. Kidneys and ureters: No hydronephrosis or objective uropathy. Scarring of the bilateral kidneys. Bilateral renal cysts. Stomach and bowel: Diverticulosis, without acute diverticulitis. No small bowel obstruction. PELVIS: Appendix: No findings to suggest acute appendicitis. Bladder: Unremarkable. No stones. Reproductive: Unremarkable as visualized. ABDOMEN and PELVIS: Intraperitoneal space: No traumatic findings in the abdomen and pelvis. No free air. No significant fluid collection. Bones/joints: No lumbar spine or pelvic fracture. Degenerative changes of the spine. No acute fractures. No dislocation. Soft tissues: No soft tissue hematoma. Vasculature: Abdominal aortic aneurysm, status post endovascular stent graft. Evaluation of the stent graft is limited due to lack of contrast. Bilateral renal artery stents are also present. Lymph nodes: Unremarkable. No enlarged lymph nodes. IMPRESSION: 1. No traumatic findings in the abdomen and pelvis. 2. No lumbar spine or pelvic fracture. 3. Abdominal aortic aneurysm, status post endovascular stent graft. Bilateral renal artery stents are also present. Evaluation of the stent graft is limited due to lack of contrast.
--- NOTE | 2022-05-16 22:40 | XR ---
EXAMINATION TYPE: XR chest 1V DATE OF EXAM: 05/16/2022 10:11 PM COMPARISON: None TECHNIQUE: XR chest 1V Frontal view of the chest. CLINICAL INDICATION:Male, 72 years old with history of fall; FINDINGS: Lungs/Pleura: There is no evidence of pleural effusion, focal consolidation, or pneumothorax. Pulmonary vascularity: Unremarkable. Heart/mediastinum: Cardiomediastinal silhouette is unremarkable. Musculoskeletal: Degenerative changes of the shoulder joints. IMPRESSION: Basilar atelectasis without acute cardiopulmonary disease/process.
[2022-05-16 23:36] LABS: Basophils # (A) 0.1 k/uL (0-0.2); Basophils % (A) 1 %; Eosinophils # (A) 0.2 k/uL (0-0.7); Eosinophils % (A) 2 %; HCT 43.7 % (39.0-53.0); HGB 15.4 gm/dL (13.0-17.5); Lymphocytes # (A) 1.6 k/uL (1.0-4.8); Lymphocytes % (A) 16 %; MCHC 35.3 g/dL (31.0-37.0); Monocytes # (A) 1.2 k/uL (0-1.0); Monocytes % (A) 12 %; Neutrophils # (A) 6.5 k/uL (1.3-7.7); Neutrophils % (A) 67 %; Platelet Count 220 k/uL (150-450); RBC 5.14 m/uL (4.30-5.90); RDW 13.4 % (11.5-15.5); WBC 9.6 k/uL (3.8-10.6)
[2022-05-16 23:44] LABS: INR 1.7 (<1.2); Partial Thromboplastin Time 28.1 sec (22.0-30.0); Prothrombin Time 16.5 sec (9.0-12.0)
[2022-05-17] MEDS ORDERED: NALOXONE 0.4 MG/ML 1 ML VIAL IV PRN (00:06)
[2022-05-17] MEDS ORDERED: ONDANSETRON 4 MG/2 ML VIAL IVP PRN (00:06)
[2022-05-17] MEDS ORDERED: HYDROmorphone 0.5 MG/0.5 ML SYRINGE IVP PRN (00:08)
[2022-05-17] MEDS: SODIUM CHLORIDE 0.9% 1,000 ML IV SCH (00:25)
[2022-05-17 00:41] LABS: ALT 18 U/L (4-49); AST 26 U/L (17-59); African American GFR (CKD) >90 (>60 ml/min/1.73 sqM); Albumin 4.1 g/dL (3.5-5.0); Alkaline Phosphatase 105 U/L (38-126); Anion Gap 9 mmol/L; Blood Urea Nitrogen 10 mg/dL (9-20); Calcium 9.2 mg/dL (8.4-10.2); Carbon Dioxide 22 mmol/L (22-30); Chloride 104 mmol/L (98-107); Glucose 90 mg/dL (74-99); Lipase 54 U/L (23-300); Magnesium 1.8 mg/dL (1.6-2.3); Non-African American GFR(CKD) 90 (>60 ml/min/1.73 sqM); Phosphorus 3.3 mg/dL (2.5-4.5); Potassium 4.1 mmol/L (3.5-5.1); Sodium 135 mmol/L (137-145); Total Bilirubin 0.6 mg/dL (0.2-1.3); Total Protein 7.1 g/dL (6.3-8.2)
[2022-05-17] MEDS: amLODIPine 5 MG TAB PO SCH (10:09)
[2022-05-17 11:15] LABS: INR 1.8 (<1.2); Prothrombin Time 17.9 sec (9.0-12.0)
--- NOTE | 2022-05-17 11:25 | CT ---
EXAMINATION TYPE: CT angio abdomen pelvis CT DLP: 1376.9 mGycm, Automated exposure control for dose reduction was used. DATE OF EXAM: 05/17/2022 10:43 AM COMPARISON: CT abdomen pelvis 05/16/2022, 03/27/2022. CLINICAL INDICATION:Male, 72 years old with history of evaluate AAA, previous repair; AAA TECHNIQUE: Multiple thin slice sub-millimeter images were obtained through the abdomen and pelvis bef ore and after the administration of contrast. Patient was given Isovue 370, 100 cc intravenously. 3 -D reconstructed images and maximum intensity projection images were obtained of the abdomen and pelv is.. FINDINGS: CTA Abdomen and pelvis: No intramural hematoma or dissection. The thoracic aorta is normal in caliber . Redemonstrated are postsurgical changes from abdominal aortobiiliac stent graft. There is again con trast noted outside the upper portion of the stent graft at the level of the abdominal aorta just cep halad to the renal arteries and just caudal to the superior mesenteric artery as noted on prior exami nation., Correlate for device and whether the stent is covered at this level. The excluded infrarenal abdominal fusiform aneurysm measures 4.7 x 3.8 cm which is stable. Bilateral renal artery stents tio ntified and are patent. Vascular calcification of the aorta and its branches. The origins of the supe rior mesenteric artery, inferior mesenteric artery, and celiac axis are patent. . Atherosclerotic p laquing with some mural thrombus formation is identified in the common iliac arteries. VISCERA: The liver, spleen, adrenal glands, kidneys, pancreas, and gallbladder are not optimally enha nced due the arterial phase utilized. LIVER: Unremarkable GALLBLADDER AND BILE DUCTS: Cholelithiasis within the surrounding inflammatory changes. No biliary du ctal dilatation. PANCREAS: Unremarkable. SPLEEN: Unremarkable. ADRENAL GLANDS: Unremarkable. KIDNEYS AND URETERS: No evidence of hydronephrosis or renal calculus. Cortical thinning involving the CT midportion of the left kidney and inferior pole of the right kidney with cysts identified likely related to prior insult. PELVIS BLADDER: Unremarkable REPRODUCTIVE: Prostate gland is surgically absent with multiple surgical clips identified. ABDOMEN & PELVIS STOMACH AND BOWEL: Stomach and duodenum are unremarkable . Distal colonic diverticulosis without evid ence for acute diverticulitis. The appendix is within normal limits. No evidence of bowel obstruction . PERITONEUM: No evidence of pneumoperitoneum or free fluid. MUSCULOSKELETAL: No acute osseous abnormalities. Grade 1 anterolisthesis of L4 and L5 without evidenc e of pars defects. Mild multilevel degenerative disc disease. LYMPH NODES: No gross evidence for lymphadenopathy. SOFT TISSUE/ABDOMINAL WALL: Bilateral gynecomastia. Small fat filled umbilical hernia. CHEST: Mild centrilobular and paraseptal emphysematous changes. Bibasilar subsegmental atelectasis. N o focal consolidation. No pneumothorax or pleural effusion. Scarring within the anterior right upper lobe. Nodular consolidation within the medial aspect of the right upper lobe measuring up to 1 cm (se laurie 506, image 75). The heart isn't enlarged. No pericardial effusion. Coronary arterial calcificati ons. The visualized pulmonary vasculature is patent. IMPRESSION: 1. Stable appearance of abdominal aortobiiliac stent graft with stable creek distal aortic aneurysm measuring up to 4.7 cm. There is unchanged small endoleak involving the proximal end of the stent gr aft dating back to 2019. 2. Colonic diverticulosis without evidence for acute diverticulitis. 3. Cholelithiasis. 4. Nodular consolidation within the medial aspect of the right upper lobe measuring about 1 cm. Foll ow-up CT chest in 3 months is recommended. 5. COPD changes.
--- NOTE | 2022-05-17 11:50 | P.CRDCN ---
History of Present Illness Consult date: 05/17/22 History of present illness: HISTORY OF PRESENT ILLNESS: This is a 72-year-old male with a past medical history significant for DVT on Coumadin, hypertension, hyperlipidemia, and AAA with surgical repair. Patient does not follow with a home health clinical supervisor. We have been asked to see the patient in consultation for chest pain. Patient examined at the bedside. Patient states he presented to the hospital with a chief complaint of abdominal pain. He states he was diagnosed with colitis in the past. He states he has been having abdominal pain for the past 8 weeks. He also reports he fell at home a week before [place] and has been having left sided chest/rib pain since falling. He does report tenderness with palpation. He denies any shortness of breath. He denies any diaphoresis. He reports a history of AAA repair in 2013. He states approximately 2 years ago he had to have a revision of his repair at [facility] by Dr. Tomlinson. * EKG reveals sinus mechanism with no signs of acute ischemia * Chest xray basilar atelectasis without acute cardiopulmonary disease/process * Laboratory data: WBC 9.6. Hemoglobin 15.4. Platelet count 220. INR 1.8. Sodium 135. Potassium 4.1. BUN 10. Creatinine 0.78. Magnesium 1.8. Troponin negative 3. * Current home cardiac medications include carvedilol 6.25 mg twice a day, amlodipine 5 mg daily, aspirin 81 mg twice a day, Lipitor 40 mg at night, and warfarin 2.5 mg daily REVIEW OF SYSTEMS: At the time of my exam: CONSTITUTIONAL: Denies fever or chills. HEENT: Denies blurred vision, vision changes, or eye pain. Denies hemoptysis CARDIOVASCULAR: Denies chest pain. Denies orthopnea. Denies PND. Denies palpitations RESPIRATORY: Denies shortness of breath. GASTROINTESTINAL: Denies abdominal pain. Denies nausea or vomiting. HEMATOLOGIC: Denies bleeding disorders. GENITOURINARY: Denies any blood in urine. SKIN: Denies pruitis. Denies rash. PHYSICAL EXAM: VITAL SIGNS: Reviewed. GENERAL: Well-developed in no acute distress. HEENT: Head is normocephalic. Pupils are equal, round. Sclerae anicteric. Mucous membranes of the mouth are moist. Neck supple. No JVD or thyromegaly LUNGS: Respirations even and unlabored. Lungs essentially clear to auscultation bilaterally. HEART: Regular rate and rhythm. S1 and S2 heard. ABDOMEN: Soft. Nondistended. Tenderness upon palpation EXTREMITIES: Normal range of motion. No clubbing or cyanosis. Peripheral pulses intact. No lower extremity edema NEUROLOGIC: Awake and alert. Oriented x 3. ASSESSMENT: Abdominal pain x 8 weeks Left-sided chest/rib pain status post fall History of DVT, on Coumadin Hypertension Hyperlipidemia History of AAA with surgical repair PLAN: An acute coronary event has been ruled out Resume home cardiac medications Obtain 2-D echo to assess [place] structure and function Obtain CT abdomen and pelvis with contrast to evaluate aortic stent graft Further recommendations pending patient course Nurse practitioner note has been reviewed by physician. Signing provider agrees with the documented findings, assessment, and plan of care. Past Medical History Past Medical History: Prostate Disorder History of Any Multi-Drug Resistant Organisms: None Reported Past Surgical History: Orthopedic Surgery, Prostate Surgery Additional Past Surgical History / Comment(s): abdominal aortic stent Past Psychological History: No Psychological Hx Reported Smoking Status: Current every day smoker Past Alcohol Use History: None Reported Past Drug Use History: None Reported Medications and Allergies Home Medications Medication Instructions Recorded Confirmed Type Aspirin EC [Ecotrin Low Dose] 81 mg PO BID 02/17/20 05/16/22 History Atorvastatin Calcium [Lipitor] 40 mg PO HS 02/17/20 05/16/22 History Warfarin [Coumadin] 2.5 mg PO DAILY 02/17/20 05/16/22 History amLODIPine [Norvasc] 5 mg PO DAILY 02/17/20 05/16/22 History carvediloL [Coreg] 6.25 mg PO BID 02/17/20 05/16/22 History Allergies Allergy/AdvReac Type Severity Reaction Status Date / Time morphine AdvReac Nausea & Verified 05/16/22 23:06 Vomiting Physical Exam Vitals: Vital Signs Temp Pulse Resp BP Pulse Ox 05/17/22 06:20 70 22 109/77 05/17/22 06:10 79 19 109/77 05/17/22 06:00 75 13 124/76 05/17/22 05:50 92 15 124/76 05/17/22 05:44 76 18 98 05/17/22 05:40 77 16 124/76 05/17/22 04:10 78 16 143/77 05/17/22 03:30 80 16 128/78 05/17/22 03:00 78 16 130/116 05/17/22 01:10 89 16 118/76 05/17/22 00:40 87 16 129/79 05/16/22 23:10 85 16 137/77 05/16/22 21:30 80 16 139/84 05/16/22 21:10 82 16 139/84 05/16/22 20:50 83 16 141/92 05/16/22 20:35 98.8 F 82 16 144/78 98 Intake and Output 05/16/22 05/17/22 05/17/22 22:59 06:59 14:59 Other: Weight 72.575 kg Results 05/16/22 20:31 05/16/22 20:31 Cardiac Enzymes 05/16/22 05/16/22 05/17/22 Range/Units 20:31 20:31 04:19 AST 26 (17-59) U/L Troponin I <0.012 <0.012 (0.000-0.034) ng/mL Coagulation 05/16/22 Range/Units 20:31 PT 16.5 H (9.0-12.0) sec APTT 28.1 (22.0-30.0) sec CBC 05/16/22 Range/Units 20:31 WBC 9.6 (3.8-10.6) k/uL RBC 5.14 (4.30-5.90) m/uL Hgb 15.4 (13.0-17.5) gm/dL Hct 43.7 (39.0-53.0) % Plt Count 220 (150-450) k/uL Comprehensive Metabolic Panel 05/16/22 Range/Units 20:31 Sodium 135 L (137-145) mmol/L Potassium 4.1 (3.5-5.1) mmol/L Chloride 104 (98-107) mmol/L Carbon Dioxide 22 (22-30) mmol/L BUN 10 (9-20) mg/dL Creatinine 0.78 (0.66-1.25) mg/dL Glucose 90 (74-99) mg/dL Calcium 9.2 (8.4-10.2) mg/dL AST 26 (17-59) U/L ALT 18 (4-49) U/L Alkaline Phosphatase 105 (38-126) U/L Total Protein 7.1 (6.3-8.2) g/dL Albumin 4.1 (3.5-5.0) g/dL Current Medications Generic Name Dose Route Start Last Admin Trade Name Freq PRN Reason Stop Dose Admin Hydromorphone HCl 0.5 mg 05/17/22 00:08 Hydromorphone 0.5 Mg/0.5 Ml Syringe IVP Q4HR PRN Pain Sodium Chloride 1,000 mls @ 20 mls/hr 05/17/22 00:15 05/17/22 00:25 Saline 0.9% IV 20 mls/hr .Q24H HECTOR Administration Naloxone HCl 0.2 mg 05/17/22 00:06 Naloxone 0.4 Mg/Ml 1 Ml Vial IV Q2M PRN Opioid Reversal Ondansetron HCl 4 mg 05/17/22 00:06 Ondansetron 4 Mg/2 Ml Vial IVP Q8HR PRN Nausea And Vomiting Intake and Output 05/16/22 05/17/22 05/17/22 22:59 06:59 14:59 Other: Weight 72.575 kg 05/16/22 20:31 05/16/22 20:31
[2022-05-17] MEDS ORDERED: IOPAMIDOL CONTRAST (ORAL USE) VIAL PO PRN (17:29)
--- NOTE | 2022-05-17 17:31 | P.HPIM ---
History of Present Illness H&P Date: 05/17/22 Chief Complaint: Abdominal pain This is a 72-year-old patient who follows with Dr. Moise French. Chronic stable medical conditions include COPD, hyperlipidemia, Coumadin for aortic stents, osteoarthritis. Patient is an active smoker. Since March of last year patient been having generalized abdominal pain. He did present chair to the hospital in the ER was told he possibly is colitis low-grade and symptoms some antibiotics. Patient never followed up. Patient states the pain has been progressively getting worse. Normally has a bowel movement every other day. Miranda s not lost weight.The pain is been bothering him. No nausea vomiting. Patient does not remember having EGD colonoscope in the past. Just before patient fell down and her left-sided chest wall. She describes as being black and blue. Subsequently the patient did improve. I said having some pain on the right rib cage. Decided to come in. 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 Smokes a pack a day for 50 years. Had a 20-year-old grandson at his house. No alcohol. Physical examination: VITAL SIGNS: 98.5, 77, 18, 132.75, 96% room air GENERAL: BMI 23.6, sitting at the edge of bed, not in distress EYES: Pupils equal. Conjunctiva normal. HEENT: External appearance of nose and ears normal, oral cavity grossly normal. NECK: JVD not raised; masses not palpable. HEART: First and second heart sounds are normal; no edema. LUNGS: Respiratory rate normal; decreased breath sounds. ABDOMEN: Soft, minimally tender, no guarding rigidity, liver spleen not palpable, no masses palpable. PSYCH: Alert and oriented x3; mood and affect normal. MUSCULOSKELETAL:No Clubbing/cyanosis;muscles-grossly intact, evidence of OA NEUROLOGICAL: Cranial nerves grossly intact; no facial asymmetry, power and sensation grossly intact. LYMPHATICS: No lymph nodes palpable in the axilla and neck INVESTIGATIONS, reviewed in the clinical context: White count 9.6 hemoglobin 15.4 platelets 220 progression 4.1 BUN 10 creatinine 0.78 Troponin I less than 0.0123 EKG tracing personally reviewed by me-normal sinus rhythm. First-degree AV block. Chest x-ray film personally reviewed by me-hyperinflation, prominent pulmonary artery Assessment plan: -Anterior chest wall pain bilaterally. Patient had a fall about 2 weeks ago that was significant. Describes the chest wall becoming black and blue. It improved. Not having pain on the right side also. Possibly muscular schedule. Patient's cardiac risk factors include smoking. Hypertension. Troponins are negative. Patient will probably benefit from stress test at some point -Abdominal pain that has been progressive. Computed tomography scan of the aorta shows stable appearances. Patient is to follow-up with his vascular surgeon at [place]. We will have GI evaluate the patient -COPD in a current smoker Albuterol when necessary -Chronic nicotine dependence and the cigarette smoker Nicotine patch -Gallstones asymptomatic -Colonic diverticulosis, asymptomatic -Nodular consolidation within the medial aspect of right upper lobe measuring 1 cm. Follow-up with Dr. Dupont outpatient -Essential hypertension Coreg, amlodipine -History of aortic graft and stent Continue Coumadin Consult cardiology. GI. Discussed with the patient. We will order a computed tomography scan abdomen and pelvis by mouth with by mouth contrast. Past Medical History Past Medical History: Prostate Disorder History of Any Multi-Drug Resistant Organisms: None Reported Past Surgical History: Orthopedic Surgery, Prostate Surgery Additional Past Surgical History / Comment(s): abdominal aortic stent Past Psychological History: No Psychological Hx Reported Smoking Status: Current every day smoker Past Alcohol Use History: None Reported Past Drug Use History: None Reported Medications and Allergies Home Medications Medication Instructions Recorded Confirmed Type Aspirin EC [Ecotrin Low Dose] 81 mg PO BID 02/17/20 05/16/22 History Atorvastatin Calcium [Lipitor] 40 mg PO HS 02/17/20 05/16/22 History Warfarin [Coumadin] 2.5 mg PO DAILY 02/17/20 05/16/22 History amLODIPine [Norvasc] 5 mg PO DAILY 02/17/20 05/16/22 History carvediloL [Coreg] 6.25 mg PO BID 02/17/20 05/16/22 History Allergies Allergy/AdvReac Type Severity Reaction Status Date / Time morphine AdvReac Nausea & Verified 05/16/22 23:06 Vomiting Physical Exam Vitals: Vital Signs Temp Pulse Resp BP Pulse Ox 05/17/22 07:00 92 17 124/77 97 05/17/22 06:20 70 22 109/77 05/17/22 06:10 79 19 109/77 05/17/22 06:00 75 13 124/76 05/17/22 05:50 92 15 124/76 05/17/22 05:44 76 18 98 05/17/22 05:40 77 16 124/76 05/17/22 04:10 78 16 143/77 05/17/22 03:30 80 16 128/78 05/17/22 03:00 78 16 130/116 05/17/22 01:10 89 16 118/76 05/17/22 00:40 87 16 129/79 05/16/22 23:10 85 16 137/77 05/16/22 21:30 80 16 139/84 05/16/22 21:10 82 16 139/84 05/16/22 20:50 83 16 141/92 05/16/22 20:35 98.8 F 82 16 144/78 98 Intake and Output 05/16/22 05/17/22 05/17/22 22:59 06:59 14:59 Other: Weight 72.575 kg Results CBC & Chem 7: 05/16/22 20:31 05/16/22 20:31 Labs: Abnormal Lab Results - Last 24 Hours (Table) 05/16/22 05/16/22 05/16/22 Range/Units 20:31 20:31 20:31 Monocytes # 1.2 H (0-1.0) k/uL PT 16.5 H (9.0-12.0) sec INR 1.7 H (<1.2) Sodium 135 L (137-145) mmol/L
[2022-05-17] MEDS ORDERED: WARFARIN 2.5 MG TAB PO SCH (18:00)
[2022-05-17] MEDS: carvediloL 6.25 MG TAB PO SCH (20:08)
[2022-05-17] MEDS: IOPAMIDOL CONTRAST (ORAL USE) VIAL PO PRN ×2 (20:08→21:15)
[2022-05-17] MEDS ORDERED: ATORVASTATIN 40 MG TAB PO SCH (21:00)
--- NOTE | 2022-05-17 23:27 | CT ---
EXAMINATION TYPE: CT abdomen pelvis wo con DATE OF EXAM: 05/17/2022 COMPARISON: Today HISTORY: Abdominal pain and diarrhea p0hidoxe. CT DLP: 380.8 mGycm Automated exposure control for dose reduction was used. The lung bases are clear. No pleural effusion. There are some emphysematous changes in the lower lobe s. Heart size is normal. No pericardial effusion. There is aortoiliac endograft. There is 4.3 cm aneu rysm of the midabdominal aorta. The liver and spleen are intact. The bowel gas are not dilated. Gallb ladder appears normal in size. There is multiple small calcified gallstones. The bowel is nondilated. There is no pancreatic mass. The stomach is intact. There is contrast in both kidneys from recent co ntrast CT scan. No hydronephrosis. Urinary bladder is empty. There is no free fluid in the pelvis. No pelvic mass. There are numerous sigmoid diverticula. No diverticulitis. There is contrast in the sma ll bowel and large bowel. No bowel obstruction. Appendix is posterior and appears normal. The lumbar vertebrae have normal alignment. No compression fracture. There is multilevel hypertrophic facet arth ropathy. There is spurring of the endplates and spurring at the facet joints at levels from L3 to S1. The bony pelvis is intact. No hip fracture. Sacroiliac joints are intact. IMPRESSION: Aneurysm of the abdominal aorta with aortoiliac endograft. No evidence of a leak. No change compared to exam earlier today. Normal appendix. Colonic diverticulosis without diverticulitis. COPD. Atherosclerotic vascular diseas e.
[2022-05-18] MEDS: SODIUM CHLORIDE 0.9% 1,000 ML IV SCH (08:04)
[2022-05-18 09:01] VITALS: BP 109/67; PULSE 71; RESP 17; TEMP 98
--- NOTE | 2022-05-18 09:16 | US ---
EXAMINATION TYPE: US gallbladder DATE OF EXAM: 05/18/2022 COMPARISON: CT abdomen pelvis 05/17/2022 CLINICAL HISTORY: abdominal pain. epigastric pain TECHNIQUE: Multiple sonographic images of the right upper quadrant are obtained. FINDINGS: EXAM MEASUREMENTS: Liver Length: 16.0 cm Gallbladder Wall: 0.2 cm CBD: 0.4 cm Right Kidney: 9.6 x 4.6 x 5.3 cm Pancreas: wnl Liver: wnl Gallbladder: layering, shadowing stones seen within body of GB Evidence for sonographic Valderrama's sign: no CBD: wnl Right Kidney: wnl The visualized pancreas is within normal limits. Liver is unremarkable without evidence of focal lesi on. Layering gallstones identified without evidence of pericardial fluid or wall thickening. Common b ile duct within normal limits. No hydronephrosis, shadowing calculi, or contour deforming mass involv ing the right kidney. IMPRESSION: 1. No acute process. 2. Cholelithiasis without evidence for acute cholecystitis.
[2022-05-18] MEDS: amLODIPine 5 MG TAB PO SCH (09:58)
[2022-05-18] MEDS: carvediloL 6.25 MG TAB PO SCH (09:58)
--- NOTE | 2022-05-18 10:36 | P.CONS ---
History of Present Illness - Reason for Consult Consult date: 05/18/22 Abdominal pain Requesting physician: Oziel Colunga - Chief Complaint Chest pain - History of Present Illness 72-year-old male who presented to the emergency department with complaints of chest pain and abdominal pain. Apparently patient had a fall recently and came in for evaluation of chest and abdominal pain. He denied any shortness of breath complaints of some mild nausea no vomiting. He is seen and examined today and states that he has had abdominal pain in the upper abdomen since last November. He states he has pain all the time. He is not associated with any nausea or vomiting. Bowel movements have been normal. He has not had colonoscopy and no history of EGD. Abdominal scar midline for history of prostate cancer and surgery. He had a CT of the abdomen and pelvis without contrast reporting no traumatic findings in the abdomen or pelvis, no lumbar spine or pelvic fracture, abdominal aortic aneurysm status post endovascular stent graft with bilateral renal artery stents. He then had a CT angiogram of the abdomen/pelvis that showed again a stable appearance of abdominal aortic stent graft, colonic diverticulosis without any acute diverticulitis, cholelithiasis and nodular consolidation right upper lobe of lung. He states today abdominal pain is improved. He is tolerating a diet. He denies any fevers or chills. He states he has not seen anybody regarding his abdominal pain for EGD or colonoscopy. Labs WBC 9.6 hemoglobin 15 hematocrit 43 platelet count 220,000 INR 1.7 sodium 135 potassium 4.1 BUN 10 creatinine 0.7 total bilirubin 0.6 AST 26 ALT 18 alkaline phosphatase 105 lipase 54 Review of Systems REVIEW OF SYSTEMS: CARDIOPULMONARY: No chest pain or shortness of breath. Gastrointestinal: Upper abdominal pain now resolved. No nausea or vomiting. No hematemesis, coffee-ground emesis. No rectal bleeding, or melena. GENITOURINARY: No dysuria or hematuria. MUSCULOSKELETAL: Reports normal range of motion., Joint pain. SKIN: No rashes. No jaundice. ENDOCRINE: No chills, fevers. No excessive weight gain or loss. No polydipsia or polyuria. PSYCHIATRIC: Unremarkable. NEUROLOGY: No change in mental status. Denies dizziness, headache. ENT: Vision unremarkable. CONSTITUTIONAL: No recent weight loss. No fever, chills, night sweats. Past Medical History Past Medical History: Prostate Disorder Additional Past Medical History / Comment(s): Prostate CA History of Any Multi-Drug Resistant Organisms: None Reported Past Surgical History: Orthopedic Surgery, Prostate Surgery Additional Past Surgical History / Comment(s): abdominal aortic stent Past Anesthesia/Blood Transfusion Reactions: No Reported Reaction Past Psychological History: No Psychological Hx Reported Smoking Status: Current every day smoker Past Alcohol Use History: None Reported Past Drug Use History: None Reported Medications and Allergies Home Medications Medication Instructions Recorded Confirmed Type Aspirin EC [Ecotrin Low Dose] 81 mg PO BID 02/17/20 05/16/22 History Atorvastatin Calcium [Lipitor] 40 mg PO HS 02/17/20 05/16/22 History Warfarin [Coumadin] 2.5 mg PO DAILY 02/17/20 05/16/22 History amLODIPine [Norvasc] 5 mg PO DAILY 02/17/20 05/16/22 History carvediloL [Coreg] 6.25 mg PO BID 02/17/20 05/16/22 History Omeprazole Magnesium [PriLOSEC OTC] 20 mg PO DAILY #30 tab 05/18/22 Rx Allergies Allergy/AdvReac Type Severity Reaction Status Date / Time morphine AdvReac Nausea & Verified 05/16/22 23:06 Vomiting Physical Exam Vitals: Vital Signs Temp Pulse Pulse Pulse Resp BP BP 05/18/22 07:28 05/18/22 01:59 98.3 F 87 18 93/58 05/17/22 20:00 77 18 05/17/22 19:27 98.6 F 73 16 122/70 05/17/22 15:00 98.5 F 77 18 100/64 05/17/22 11:18 73 15 132/75 Pulse Ox 05/18/22 07:28 97 05/18/22 01:59 97 05/17/22 20:00 05/17/22 19:27 98 05/17/22 15:00 96 05/17/22 11:18 99 Intake and Output 05/17/22 05/18/22 05/18/22 22:59 06:59 14:59 Intake Total 240 Output Total 400 Balance -160 Intake: Oral 240 Output: Urine 400 Other: # Voids 2 2 General appearance: The patient is alert, oriented, appears in no acute distress. HET: Head is normocephalic and atraumatic. Conjunctiva pink. Sclera anicteric. Neck: Supple without lymphadenopathy. Trachea midline. Heart: S1 S2. Regular rate and rhythm. Lungs: Clear to auscultation. Abdomen: Soft, nontender, nondistended with bowel sounds. No guarding or rigidity. Skin: No rashes. No jaundice. Extremities: Normal skin color and turgor. No pedal edema. Neurological: No focal deficits. Alert and oriented x3. Results CBC & Chem 7: 05/16/22 20:31 05/16/22 20:31 Labs: Abnormal Lab Results - Last 24 Hours (Table) 05/17/22 Range/Units 10:28 PT 17.9 H (9.0-12.0) sec INR 1.8 H (<1.2) Assessment and Plan (1) Abdominal pain Narrative/Plan: 72-year-old male who presented to the emergency department with complaints of chest pain and abdominal pain after sustaining a fall now improved. Patient states he has ongoing abdominal pain since November of last month however has not followed up with anybody for EGD colonoscopy. States is mostly in the upper abdomen and is usually constant. He has no nausea or vomiting and no reported weight loss. He had CT of the abdomen and pelvis with no acute findings. Ultrasound of gallbladder ordered showing no acute process cholelithiasis without evidence for acute cholecystitis. Patient symptoms have significantly improved today. We'll plan for outpatient follow-up with EGD and colonoscopy. Patient is agreeable to plan. Current Visit: Yes Status: Acute Code(s): R10.9 - UNSPECIFIED ABDOMINAL PAIN SNOMED Code(s): 69184491 (2) Chest pain Current Visit: Yes Status: Acute Code(s): R07.9 - CHEST PAIN, UNSPECIFIED SNOMED Code(s): 52789827 Plan: 1. Continue symptomatic and supportive care 2. Protonix 40 mg daily 3. Diet as tolerated 4. Gallbladder ultrasound ordered and reviewed 5. Recommend outpatient EGD colonoscopy, this has been set up for June 20, [address] Hamilton Thank you for this consultation, patient is clear from gastroenterology for discharge. Dr. Veronica Hamilton I agree with the dictator's note, documented as a scribe by Cici Montana.
--- NOTE | 2022-05-18 10:41 | CA ---
Transthoracic Echo Report Name: Ehsan Bui Age: 72 Gender: M : 1950 Exam Date: 05/17/2022 14:08 Exam Location: [facility] Ht (in): 69 Wt (lb): 160 Ordering Physician: Silva Moncada Attending/Referring Phys: [id number], [employer] Faculty Member Kirsty Palacios RDCS Procedure CPT: Indications: LV function Cardiac Hx: Technical Quality: Fair Contrast 1: Total Dose (mL): Contrast 2: Total Dose (mL): MEASUREMENTS (Male / Female) Normal Values 2D ECHO LV Diastolic Diameter PLAX 3.6 cm 4.2 - 5.9 / 3.9 - 5.3 cm LV Systolic Diameter PLAX 2.5 cm IVS Diastolic Thickness 1.3 cm 0.6 - 1.0 / 0.6 - 0.9 cm LVPW Diastolic Thickness 1.2 cm 0.6 - 1.0 / 0.6 - 0.9 cm LV Relative Wall Thickness 0.7 LA Volume 38.2 cm??? 18 - 58 / 22 - 52 cm??? M-MODE Aortic Root Diameter MM 3.2 cm LA Systolic Diameter MM 4.1 cm LA Ao Ratio MM 1.3 AV Cusp Separation MM 2.2 cm DOPPLER LVOT Peak Velocity 74.8 cm/s LVOT Peak Gradient 2.2 mmHg MV Area PHT 3.6 cm??? Mitral E Point Velocity 80.2 cm/s Mitral A Point Velocity 112.4 cm/s Mitral E to A Ratio 0.7 MV Deceleration Time 212.3 ms FINDINGS Left Ventricle Mildly increased left ventricular wall thickness. Normal left ventricular systolic function with no obvious regional wall motion abnormalities. Left ventricular ejection fraction is estimated at 55 %. Right Ventricle Mild right ventricular dilatation. Right ventricular systolic pressure within normal limits. Right Atrium Mild right atrial dilatation. Left Atrium Normal left atrial size. Mitral Valve Structurally normal mitral valve. Mild mitral annular calcification. Trace mitral regurgitation. Aortic Valve No aortic valve stenosis or regurgitation. Thickened aortic valve without stenosis. Aortic valve sclerosis. Tricuspid Valve Structurally normal tricuspid valve. Trace tricuspid regurgitation. Pulmonic Valve Trace pulmonic regurgitation. Pericardium No pericardial effusion. Aorta Normal size aortic root and proximal ascending aorta. CONCLUSIONS Mildly increased left ventricular wall thickness Left ventricular ejection fraction 55% Trace mitral regurgitation Mild mitral annular calcification Moderate aortic sclerosis without significant aortic stenosis Trace tricuspid regurgitation No pericardial effusion Previewed by: Dr. Aayush Whyte DO (Electronically Signed) Final Date: 18 May 2022 10:41
[2022-05-18 11:09] LABS: INR 1.46 (0.90-1.11); Prothrombin Time 16.3 sec (9.9-11.9)
--- NOTE | 2022-05-18 11:23 | P.PN ---
Subjective Progress Note Date: 05/18/22 HISTORY OF PRESENT ILLNESS: This is a 72-year-old male with a past medical history significant for DVT on Coumadin, hypertension, hyperlipidemia, and AAA with surgical repair. Patient does not follow with a business analytics faculty member. We have been asked to see the patient in consultation for chest pain. Patient examined at the bedside. Patient states he presented to the hospital with a chief complaint of abdominal pain. He states he was diagnosed with colitis in the past. He states he has been having abdominal pain for the past 8 weeks. He also reports he fell at home a week before [facility] and has been having left sided chest/rib pain since falling. He does report tenderness with palpation. He denies any shortness of breath. He denies any diaphoresis. He reports a history of AAA repair in 2013. He states approximately 2 years ago he had to have a revision of his repair at [facility] by Dr. Tomlinson. * EKG reveals sinus mechanism with no signs of acute ischemia * Chest xray basilar atelectasis without acute cardiopulmonary disease/process * Laboratory data: WBC 9.6. Hemoglobin 15.4. Platelet count 220. INR 1.8. Sodium 135. Potassium 4.1. BUN 10. Creatinine 0.78. Magnesium 1.8. Troponin negative 3. * Current home cardiac medications include carvedilol 6.25 mg twice a day, amlodipine 5 mg daily, aspirin 81 mg twice a day, Lipitor 40 mg at night, and warfarin 2.5 mg daily 05/18/2022 Patient examined this morning at the bedside. Patient denies chest pain or pressure. He reports continued abdominal pain and is currently undergoing an ul trasound at the time of examination. Chest and pelvic CT completed with unchanged small endoleak involving the proximal end of the graft stent dating back to 2019. Her tachycardia gram completed revealing ejection fraction 55%, trace mitral regurgitation, trace tricuspid regurgitation. PHYSICAL EXAM: VITAL SIGNS: Reviewed. GENERAL: Well-developed in no acute distress. HEENT: Head is normocephalic. Pupils are equal, round. Sclerae anicteric. Mucous membranes of the mouth are moist. Neck supple. No JVD or thyromegaly LUNGS: Respirations even and unlabored. Lungs essentially clear to auscultation bilaterally. HEART: Regular rate and rhythm. S1 and S2 heard. ABDOMEN: Soft. Nondistended. Tenderness upon palpation EXTREMITIES: Normal range of motion. No clubbing or cyanosis. Peripheral pulses intact. No lower extremity edema NEUROLOGIC: Awake and alert. Oriented x 3. ASSESSMENT: Abdominal pain x 8 weeks Left-sided chest/rib pain status post fall History of DVT, on Coumadin Hypertension Hyperlipidemia History of AAA with surgical repair PLAN: Continue current cardiac medications Patient is stable for discharge home today from a cardiac standpoint We will sign off. Please reconsult if needed. Nurse practitioner note has been reviewed by physician. Signing provider agrees with the documented findings, assessment, and plan of care. Objective - Vital Signs Vital signs: Vital Signs Temp 98 F 05/18/22 07:00 Pulse 71 05/18/22 07:00 Resp 17 05/18/22 07:00 BP 109/67 05/18/22 07:00 Pulse Ox 97 05/18/22 07:28 FiO2 Intake & Output 05/17/22 05/18/22 05/18/22 18:59 06:59 18:59 Intake Total 360 Output Total 400 Balance -40 Weight 72.575 kg Intake: Oral 360 Output: Urine 400 Other: # Voids 1 2 - Labs CBC & Chem 7: 05/16/22 20:31 05/16/22 20:31 Labs: Abnormal Lab Results - Last 24 Hours (Table) 05/18/22 Range/Units 06:30 PT 16.3 H (9.9-11.9) sec INR 1.46 H (0.90-1.11)
--- NOTE | 2022-05-18 16:05 | P.DS ---
Providers Date of admission: 05/17/22 00:06 Expected date of discharge: 05/18/22 Attending physician: Oziel Colunga Consults: 05/17/22 17:18 Consult Physician Routine Consulting Provider: Vilma Hamilton Consult Reason/Comments: Abdominal pain Do you want consulting provider notified?: Yes Primary care physician: Moise French Procedures: Chief Complaint: Abdominal pain This is a 72-year-old patient who follows with Dr. Moise French. Chronic stable medical conditions include COPD, hyperlipidemia, Coumadin for aortic stents, osteoarthritis. Patient is an active smoker. Since March of last year patient been having generalized abdominal pain. He did present chair to the hospital in the ER was told he possibly is colitis low-grade and symptoms some antibiotics. Patient never followed up. Patient states the pain has been progressively getting worse. Normally has a bowel movement every other day. Has not lost weight.The pain is been bothering him. No nausea vomiting. Patient does not remember having EGD colonoscope in the past. Just before patient fell down and her left-sided chest wall. She describes as being black and blue. Subsequently the patient did improve. I said having some pain on the right rib cage. Decided to come in. 05/18/2022. Chest pain felt to be musculoskeletal per cardiology. Seen by GI Dr. Veronica Hamilton. Outpatient EGD colonoscopy. Care was discussed with the patient. Also discussed with Yvon from GI. 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 Smokes a pack a day for 50 years. Had a 20-year- old grandson at his house. No alcohol. Physical examination: VITAL SIGNS: 98, 71, 17, 109/67, 96% room air GENERAL: BMI 23.6, sitting at the edge of bed, not in distress EYES: Pupils equal. Conjunctiva normal. HEENT: External appearance of nose and ears normal, oral cavity grossly normal. NECK: JVD not raised; masses not palpable. HEART: First and second heart sounds are normal; no edema. LUNGS: Respiratory rate normal; decreased breath sounds. ABDOMEN: Soft, minimally tender, no guarding rigidity, liver spleen not palpable, no masses palpable. PSYCH: Alert and oriented x3; mood and affect normal. MUSCULOSKELETAL:No Clubbing/cyanosis;muscles-grossly intact, evidence of OA INVESTIGATIONS, reviewed in the clinical context: White count 9.6 hemoglobin 15.4 platelets 220 progression 4.1 BUN 10 creatinine 0.78 Troponin I less than 0.0123 EKG tracing personally reviewed by me-normal sinus rhythm. First-degree AV block. Chest x-ray film personally reviewed by me-hyperinflation, prominent pulmonary artery Assessment plan: -Anterior chest wall pain bilaterally. Patient had a fall about 2 weeks ago that was significant. Describes the chest wall becoming black and blue. It improved. Not having pain on the right side also. : Probably musculoskeletal Seen by cardiology -Abdominal pain that has been progressive. Computed tomography scan of the aorta shows stable appearances. Patient is to follow-up with his vascular surgeon at [place]. Also being scheduled for outpatient EGD colonoscopy by Dr. Veronica Hamilton -COPD in a current smoker Albuterol when necessary -Chronic nicotine dependence and the cigarette smoker Nicotine patch -Gallstones asymptomatic -Colonic diverticulosis, asymptomatic -Nodular consolidation within the medial aspect of right upper lobe measuring 1 cm. Follow-up with Dr. Dupont outpatient -Essential hypertension Coreg, amlodipine -History of aortic graft and stent Continue Coumadin Disposition: Home Patient Condition at Discharge: Good Plan - Discharge Summary Discharge Rx Participant: No New Discharge Prescriptions: New Omeprazole Magnesium [PriLOSEC OTC] 20 mg PO DAILY #30 tab Continue amLODIPine [Norvasc] 5 mg PO DAILY Aspirin EC [Ecotrin Low Dose] 81 mg PO BID Atorvastatin Calcium [Lipitor] 40 mg PO HS carvediloL [Coreg] 6.25 mg PO BID Warfarin [Coumadin] 2.5 mg PO DAILY Discharge Medication List Aspirin EC [Ecotrin Low Dose] 81 mg PO BID 02/17/20 [History] Atorvastatin Calcium [Lipitor] 40 mg PO HS 02/17/20 [History] Warfarin [Coumadin] 2.5 mg PO DAILY 02/17/20 [History] amLODIPine [Norvasc] 5 mg PO DAILY 02/17/20 [History] carvediloL [Coreg] 6.25 mg PO BID 02/17/20 [History] Omeprazole Magnesium [PriLOSEC OTC] 20 mg PO DAILY #30 tab 05/18/22 [Rx] Follow up Appointment(s)/Referral(s): Moise French MD [Primary Care Provider] - 1-2 days Aayush Whyte DO [STAFF PHYSICIAN] - 1 Week Vilma Hamilton MD [STAFF PHYSICIAN] - 06/20/22 (You have appointment for EGD/Colonoscopy on 06/20/[address] Hamilton at [facility]. The office will call you regarding prep and time.)
[2022-05-18] MEDS ORDERED: WARFARIN 3 MG TAB PO ONE (18:00)
== END 2022-05-18 13:18 ==
LOC: EC 20:26 → 6NMEDSUR 05-17 00:06
PROVIDERS: ADMIT Hospitalist; ATTEND Hospitalist
DX: R07.89 Other chest pain (principal); J44.9 Chronic obstructive pulmonary disease, unspecified; I10 Essential (primary) hypertension; R07.81 Pleurodynia; G89.29 Other chronic pain; R10.84 Generalized abdominal pain; E78.5 Hyperlipidemia, unspecified; M19.90 Unspecified osteoarthritis, unspecified site; K57.30 Diverticulosis of large intestine without perforation or abscess without bleeding; K80.20 Calculus of gallbladder without cholecystitis without obstruction; I08.0 Rheumatic disorders of both mitral and aortic valves; R91.8 Other nonspecific abnormal finding of lung field; F17.210 Nicotine dependence, cigarettes, uncomplicated; W19.XXXA Unspecified fall, initial encounter; Y92.009 Unspecified place in unspecified non-institutional (private) residence as the place of occurrence of the external cause; Z79.82 Long term (current) use of aspirin; Z79.01 Long term (current) use of anticoagulants; Z79.899 Other long term (current) drug therapy; Z88.5 Allergy status to narcotic agent; Z95.828 Presence of other vascular implants and grafts; Z98.890 Other specified postprocedural states; Z86.718 Personal history of other venous thrombosis and embolism; Z87.19 Personal history of other diseases of the digestive system; Z85.46 Personal history of malignant neoplasm of prostate; Z86.79 Personal history of other diseases of the circulatory system
CPT/HCPCS: 96361; 96374; 99285; 36415; 94760; 93005; 93306; 83880; 80053; 83690; 83735; 84100; 84484 ×2; 85025; 85610 ×3; 85730; 71045; 76705; 74176 ×2; 74174; G0378 ×2; J1170; Q9967

== ENCOUNTER 2023-10-12 17:33 | Observation (INO) | payer MEDICARE ==
--- NOTE | 2023-10-12 17:49 | ED ---
General Adult HPI - General Stated complaint: dizziness,nausea Time Seen by Provider: 10/12/23 17:36 Source: patient, RN notes reviewed Limitations: no limitations - History of Present Illness Initial comments: Patient is a 73-year-old male present to the emergency department with concerns with dizziness. Onset of symptoms was just an hour or so prior to arrival. Sudden onset. Patient feels dizzy as he feels he is spinning. Patient also has associated nausea and dry heaves. Patient has had similar episodes a few times in the past however not as severe. No weakness. No confusion. No visual c hanges. Patient is not off balance. - Related Data Home Medications Medication Instructions Recorded Confirmed Aspirin EC [Ecotrin Low Dose] 81 mg PO BID 02/17/20 06/20/22 Atorvastatin Calcium [Lipitor] 40 mg PO HS 02/17/20 06/20/22 Warfarin [Coumadin] 2.5 mg PO DAILY 02/17/20 06/20/22 amLODIPine [Norvasc] 5 mg PO DAILY 02/17/20 06/20/22 carvediloL [Coreg] 6.25 mg PO BID 02/17/20 06/20/22 Previous Rx's Medication Instructions Recorded Omeprazole Magnesium [PriLOSEC OTC] 20 mg PO DAILY #30 tab 05/18/22 Meclizine [Antivert] 25 mg PO TID PRN #12 tab 10/12/23 Allergies Allergy/AdvReac Type Severity Reaction Status Date / Time morphine AdvReac Nausea & Verified 06/20/22 11:23 Vomiting Review of Systems ROS Statement: Those systems with pertinent positive or pertinent negative responses have been documented in the HPI. ROS Other: All systems not noted in ROS Statement are negative. Constitutional: Denies: fever Eyes: Denies: eye pain ENT: Denies: ear pain Respiratory: Denies: cough Cardiovascular: Denies: chest pain Gastrointestinal: Reports: as per HPI, nausea Neurological: Reports: vertigo. Denies: headache, weakness, confusion, abnormal gait Past Medical History Past Medical History: Prostate Disorder Additional Past Medical History / Comment(s): Prostate CA History of Any Multi-Drug Resistant Organisms: None Reported Past Surgical History: Orthopedic Surgery, Prostate Surgery Additional Past Surgical History / Comment(s): abdominal aortic stent Past Anesthesia/Blood Transfusion Reactions: No Reported Reaction Past Psychological History: No Psychological Hx Reported Smoking Status: Current every day smoker Past Alcohol Use History: None Reported Past Drug Use History: None Reported General Exam Limitations: no limitations General appearance: alert, in no apparent distress Head exam: Present: atraumatic Eye exam: Present: normal appearance, PERRL, EOMI ENT exam: Present: normal oropharynx Neck exam: Present: normal inspection Respiratory exam: Present: normal lung sounds bilaterally Cardiovascular Exam: Present: regular rate, normal rhythm GI/Abdominal exam: Present: soft. Absent: tenderness Extremities exam: Present: normal inspection Neurological exam: Present: alert, oriented X3, CN II-XII intact. Absent: motor sensory deficit Expanded Neurological exam: Present: protecting the airway Patient oriented to: Present: person, place, time Speech: Present: fluid speech Cranial nerves: EOM's Intact: Normal Sensory exam: Upper Extremity Light Touch: Normal, Lower Extremity Light Touch: Normal Motor strength exam: RUE: 5, LUE: 5, RLE: 5, LLE: 5 Eye Response: (4) open spontaneously Motor Response: (6) obeys commands Verbal Response: (5) oriented Psychiatric exam: Present: normal affect, normal mood Skin exam: Present: normal color Course Vital Signs 10/12/23 10/12/23 17:36 20:26 Temperature 97.0 F L Pulse Rate 80 86 Respiratory 18 16 Rate Blood Pressure 144/83 134/75 O2 Sat by Pulse 99 99 Oximetry EKG Findings - EKG Results: EKG: interpreted by ERMD (Left axis. First-degree AV block with a IN of 230. Septal Q waves. No acute ST change.), sinus rhythm Medical Decision Making - Medical Decision Making Was pt. sent in by a medical professional or institution (, PA, STANDARDS ANALYST, urgent care, hospital, or [facility]...) When possible be specific @ -No Did you speak to anyone other than the patient for history (EMS, parent, family, police, friend...)? What history was obtained from this source @ -No Did you review nursing and triage notes (agree or disagree)? Why? @ -I reviewed and agree with nursing and triage notes Were old charts reviewed (outside hosp., previous admission, EMS record, old EKG, old radiological studies, urgent care reports/EKG's, [facility] records)? Report findings @ -No old charts were reviewed Differential Diagnosis (chest pain, altered mental status, abdominal pain women, abdominal pain men, vaginal bleeding, weakness, fever, dyspnea, syncope, headache, dizziness, GI bleed, back pain, seizure, CVA, palpatations, mental health, musculoskeletal)? @ -Differential Dizziness: Benign paroxysmal positional Vertigo, Menieres disease, otitis media, acoustic neuroma, vertebrobasilar insufficiency, cerebellar stroke, encephalitis, hypovolemic, arrhythmia, coronary artery syndrome, anemia, this is not meant to be an all-inclusive list EKG interpreted by me (3pts min.). @ -As above X-rays interpreted by me (1pt min.). @ -None done CT interpreted by me (1pt min.). @ -CT brain shows no acute process U/S interpreted by me (1pt. min.). @ -None done What testing was considered but not performed or refused? (CT, X-rays, U/S, labs)? Why? @ -None What meds were considered but not given or refused? Why? @ -None Did you discuss the management of the patient with other professionals (professionals i.e. , PA, STANDARDS ANALYST, lab, RT, psych nurse, long term care social worker, masking machine operator, teacher, benefits officer, bilingual patient support caseworker)? Give summary @ -No Was smoking cessation discussed for >3mins.? @ -No Was critical care preformed (if so, how long)? @ -No Were there social determinants of health that impacted care today? How? (Homelessness, low income, unemployed, alcoholism, drug addiction, transportation, low edu. Level, literacy, decrease access to med. care, fdc, rehab)? @ -No Was there de-escalation of care discussed even if they declined (Discuss DNR or withdrawal of care, Hospice)? DNR status @ -No What co-morbidities impacted this encounter? (DM, HTN, Smoking, COPD, CAD, Cancer, CVA, ARF, Chemo, Hep., AIDS, mental health diagnosis, sleep apnea, morbid obesity)? @ -None Was patient admitted / discharged? Hospital course, mention meds given and route, prescriptions, significant lab abnormalities, going to OR and other pertinent info. @ -Patient reevaluated and feeling much better. Patient is able to get up and ambulate without difficulty. Patient states he did have some abdominal discomfort earlier and does request further imaging of the abdomen. Abdomen soft with mild diffuse tenderness. CT ordered Undiagnosed new problem with uncertain prognosis? @ -No Drug Therapy requiring intensive monitoring for toxicity (Heparin, Nitro, Insulin, Cardizem)? @ -No Were any procedures done? @ -No Diagnosis/symptom? @ -Vertigo Acute, or Chronic, or Acute on Chronic? @ -Acute Uncomplicated (without systemic symptoms) or Complicated (systemic symptoms)? @ -Default Side effects of treatment? @ -No Exacerbation, Progression, or Severe Exacerbation? @ -No Poses a threat to life or bodily function? How? (Chest pain, USA, MS, pneumonia, PE, COPD, DKA, ARF, appy, cholecystitis, CVA, Diverticulitis, Homicidal, Suicidal, threat to staff... and all critical care pts) @ -No 2100 CT scan abdomen and pelvis still pending. Patient is feeling dizzy again and more nausea and did vomit. Case discussed with Dr. Martinez who will admit covering Dr. Colunga who admits for Dr. Ch. He is aware of pending abdominal CT. Patient updated. - Lab Data Result diagrams: 10/12/23 19:02 10/12/23 19:02 Lab Results 10/12/23 10/12/23 10/12/23 Range/Units 19:02 19:02 19:02 WBC 12.0 H (3.8-10.6) k/uL RBC 4.88 (4.30-5.90) m/uL Hgb 14.4 (13.0-17.5) gm/dL Hct 43.5 (39.0-53.0) % MCV 89.2 (80.0-100.0) fL MCH 29.5 (25.0-35.0) pg MCHC 33.1 (31.0-37.0) g/dL RDW 13.8 (11.5-15.5) % Plt Count 199 (150-450) k/uL MPV 7.6 Neutrophils % 77 % Lymphocytes % 14 % Monocytes % 6 % Eosinophils % 2 % Basophils % 1 % Neutrophils # 9.3 H (1.3-7.7) k/uL Lymphocytes # 1.7 (1.0-4.8) k/uL Monocytes # 0.7 (0-1.0) k/uL Eosinophils # 0.2 (0-0.7) k/uL Basophils # 0.1 (0-0.2) k/uL PT 31.4 H (10.0-12.5) sec INR 3.2 H (<1.2) APTT 28.4 (22.0-30.0) sec Sodium 137 (137-145) mmol/L Potassium 3.6 (3.5-5.1) mmol/L Chloride 109 H (98-107) mmol/L Carbon Dioxide 20 L (22-30) mmol/L Anion Gap 8 mmol/L BUN 12 (9-20) mg/dL Creatinine 0.78 (0.66-1.25) mg/dL Est GFR (CKD-EPI)AfAm >90 (>60 ml/min/1.73 sqM) Est GFR (CKD-EPI)NonAf 89 (>60 ml/min/1.73 sqM) Glucose 102 H (74-99) mg/dL Calcium 8.5 (8.4-10.2) mg/dL Total Bilirubin 0.7 (0.2-1.3) mg/dL AST 20 (17-59) U/L ALT 12 (4-49) U/L Alkaline Phosphatase 89 (38-126) U/L Total Protein 6.5 (6.3-8.2) g/dL Albumin 3.7 (3.5-5.0) g/dL Disposition Clinical Impression: Vertigo Disposition: ADMITTED IP TO THIS HOSP Prescriptions: Meclizine [Antivert] 25 mg PO TID PRN #12 tab PRN Reason: dizziness Is patient prescribed a controlled substance at d/c from ED?: No Referrals: Moise French MD [Primary Care Provider] - 1-2 days Time of Disposition: 21:01
[2023-10-12] MEDS: METOCLOPRAMIDE 5 MG/ML 2 ML VIAL IVP STA (18:27)
[2023-10-12] MEDS: MECLIZINE 12.5 MG TAB PO STA (18:27)
--- NOTE | 2023-10-12 18:28 | CT ---
EXAMINATION TYPE: CT brain wo con DATE OF EXAM: 10/12/2023 COMPARISON: MRI brain 07/05/2010 INDICATION: BECAME DIZZY WHILE CUTTING THE GRASS DLP: 1154.2 mGycm, Automated exposure control for dose reduction was used. CONTRAST: None CT of the brain is performed utilizing 3 mm thick sections through the posterior fossa and 3 mm thick sections through the remaining calvarium. Study is performed within 24 hours of arrival to the hosp ital. No abnormal hyperdensity is present to suggest an acute intracranial hemorrhage. No mass lesion is evident. No acute infarcts are evident. Ventricles and sulci are appropriate for the patient age. Paranasal sinuses and mastoid air cells within the [id number] are clear. Left septal deviation is present. IMPRESSION: 1. No acute intracranial process. Follow-up MRI as clinically indicated
[2023-10-12 19:11] LABS: Basophils # (A) 0.1 k/uL (0-0.2); Basophils % (A) 1 %; Eosinophils # (A) 0.2 k/uL (0-0.7); Eosinophils % (A) 2 %; HCT 43.5 % (39.0-53.0); HGB 14.4 gm/dL (13.0-17.5); Lymphocytes # (A) 1.7 k/uL (1.0-4.8); Lymphocytes % (A) 14 %; MCH 29.5 pg (25.0-35.0); MCHC 33.1 g/dL (31.0-37.0); MCV 89.2 fL (80.0-100.0); Mean Platelet Volume 7.6; Monocytes # (A) 0.7 k/uL (0-1.0); Monocytes % (A) 6 %; Neutrophils # (A) 9.3 k/uL (1.3-7.7); Neutrophils % (A) 77 %; Platelet Count 199 k/uL (150-450); RBC 4.88 m/uL (4.30-5.90); RDW 13.8 % (11.5-15.5)
[2023-10-12 19:20] LABS: INR 3.2 (<1.2); Partial Thromboplastin Time 28.4 sec (22.0-30.0); Prothrombin Time 31.4 sec (10.0-12.5)
[2023-10-12 19:25] LABS: ALT 12 U/L (4-49); AST 20 U/L (17-59); African American GFR (CKD) >90 (>60 ml/min/1.73 sqM); Albumin 3.7 g/dL (3.5-5.0); Alkaline Phosphatase 89 U/L (38-126); Anion Gap 8 mmol/L; Blood Urea Nitrogen 12 mg/dL (9-20); Calcium 8.5 mg/dL (8.4-10.2); Carbon Dioxide 20 mmol/L (22-30); Chloride 109 mmol/L (98-107); Glucose 102 mg/dL (74-99); Non-African American GFR(CKD) 89 (>60 ml/min/1.73 sqM); Potassium 3.6 mmol/L (3.5-5.1); Sodium 137 mmol/L (137-145); Total Bilirubin 0.7 mg/dL (0.2-1.3); Total Protein 6.5 g/dL (6.3-8.2)
[2023-10-12] MEDS: SODIUM CHLORIDE 0.9% 1,000 ML IV STA (20:17)
[2023-10-12] MEDS: ONDANSETRON 4 MG/2 ML VIAL IVP STA (20:55)
[2023-10-12] MEDS ORDERED: MIDAZOLAM 1 MG/ML 5 ML VIAL IV PRN (21:02)
[2023-10-12] MEDS ORDERED: NALOXONE 0.4 MG/ML 1 ML VIAL IV PRN (21:03)
[2023-10-12] MEDS ORDERED: ONDANSETRON 4 MG/2 ML VIAL IVP PRN (21:03)
--- NOTE | 2023-10-12 23:08 | CT ---
EXAMINATION TYPE: CT abdomen pelvis w con CT DLP: 636.6 mGycm, Automated exposure control for dose reduction was used. DATE OF EXAM: 10/12/2023 8:00 PM COMPARISON: 05/17/2022 CLINICAL INDICATION:Male, 73 years old with history of abp; abdominal pain TECHNIQUE: Axial CT of the abdomen and pelvis. Sagittal and coronal reformats were created on a [employer] workstation. Contrast used:100 ml mL of Isovue 300 with IV Contrast, (none if empty) Oral contrast used: without Oral Contrast (none if empty) FINDINGS: LOWER CHEST: Emphysematous changes and mild scarring or atelectasis. Heart size upper normal. No sign ificant pericardial fluid. Densities consistent with coronary calcifications and/or postoperative jarocho nges. ABDOMEN LIVER: Unremarkable GALLBLADDER AND BILE DUCTS: Gallbladder is nondistended, with some layering density suggestive of slu dge. Biliary tree is nondilated. PANCREAS: Unremarkable. SPLEEN: Unremarkable. ADRENAL GLANDS: Unremarkable. KIDNEYS AND URETERS: Kidneys enhance symmetrically, appears somewhat lobular which could be developme ntal and/or due to scarring. Small hypodensities are seen most likely cysts. No definite urinary trac t calculi or obstructive uropathy. Vascular calcifications are present. PELVIS BLADDER: Unremarkable REPRODUCTIVE: Surgical clips likely from prostatectomy. ABDOMEN & PELVIS STOMACH AND BOWEL: Stomach and small bowel are nondistended, no evidence of obstruction. Pathologic thickening of the mid to distal gastric wall in particular cannot be excluded. No evidence of appen dicitis. There is moderate stool throughout the colon without evidence of acute inflammatory change. Multiple diverticula are present distally. PERITONEUM/RETROPERITONEUM: No evidence of pneumoperiton eum or free fluid. VASCULATURE: Tortuous aorta with aneurysm excluded by aortobiiliac stent graft, grossly unchanged in appearance compared to the prior study. No dissection flap or periaortic fluid is seen. IVC is mikhail l caliber. LYMPH NODES: No enlarged nodes by CT size criteria. SOFT TISSUE/ABDOMINAL WALL: Unremarkable MUSCULOSKELETAL: No clearly acute osseous abnormalities. Slight step-off appearance of a couple late ral ribs on the right could be related to healed/healing fractures versus motion blurring artifact. M oderate degenerative changes throughout the spine. No suspicious lytic/blastic lesion is detected. IMPRESSION: 1. No acute abnormality in the abdomen or pelvis. 2. Other stable chronic and likely incidental findings, as described above.
[2023-10-13] MEDS: METOCLOPRAMIDE 5 MG/ML 2 ML VIAL IVP SCH (01:58)
[2023-10-13] MEDS: PANTOPRAZOLE 40 MG/10 ML VIAL IV SCH (09:16)
[2023-10-13 09:20] LABS: Eosinophils # (A) 0.07 X 10*3/uL (0.04-0.35); Eosinophils % (A) 0.7 %; HCT 40.9 % (39.6-50.0); HGB 13.7 g/dL (13.0-17.0); Lymphocytes # (A) 2.51 X 10*3/uL (0.90-5.00); Lymphocytes % (A) 25.6 %; MCH 30.1 pg (27.0-32.0); MCHC 33.5 g/dL (32.0-37.0); MCV 89.9 FL (80.0-97.0); Mean Platelet Volume 9.8 FL (9.5-12.2); Monocytes # (A) 0.81 X 10*3/uL (0.20-1.00); Monocytes % (A) 8.3 %; NRBC Per 100 WBC 0 X 10*3/uL (0.00-0.01); Neutrophils # (A) 6.29 X 10*3/uL (1.80-7.70); Neutrophils % (A) 64.2 %; Platelet Count 215 X 10*3/uL (140-440); RBC 4.55 X 10*6/uL (4.40-5.60); RDW 13.7 % (11.5-14.5)
[2023-10-13 09:24] LABS: BUN/Creat Ratio 11.75 Ratio (12.00-20.00); Blood Urea Nitrogen 9.4 mg/dL (9.0-27.0); Calcium 8.7 mg/dL (8.7-10.3); Carbon Dioxide 22.5 mmol/L (21.6-31.8); Chloride 106 mmol/L (96-109); Glucose 103 mg/dL (70-110); Potassium 4.1 mmol/L (3.5-5.5); Sodium 139 mmol/L (135-145)
[2023-10-13 10:18] LABS: INR 2.95 sec (0.93-1.11); Prothrombin Time 29.7 sec (9.9-11.9)
[2023-10-13] MEDS: ASPIRIN 81 MG PO SCH (12:36)
[2023-10-13] MEDS: amLODIPine 5 MG TAB PO SCH (12:36)
--- NOTE | 2023-10-13 12:53 | P.HPIM ---
History of Present Illness H&P Date: 10/13/23 History of present illness; patient is a 73-year-old gentleman with past medical history significant for hypertension, hyperlipidemia, atrial fibrillation who presented to the ER because of complaint of dizziness. Patient stated that he was all right 1 hour prior to the arrival when he started noticing that he was getting dizzy. Episode very sudden onset and was very severe, patient felt as if the whole room was spinning. Patient was complaining of nausea and vomiting at the time as well. There was no complaint of weakness of any extremity. Patient was complaining of blurred vision as well. There was no complaint of feeling of passing out. Denied any slurred speech. There was no complaint of bowel or urine incontinence. Denied any chest pain or shortness of breath. Because of dizziness, patient came to the ER. Initial lab work done in the ER showed WBC 12, hemoglobin 14.4, platelet count 199, INR 3.2, sodium 137 potassium 3.6, BUN 8, creatinine 12, glucose 102, calcium 8.5, albumin 3.7 EKG done in the ER showed heart rate of 73, no ST segment elevation or depression seen, no T-wave inversions seen. CT head done showed no acute intracranial process CT abdominal pelvis done showed no acute intra-abdominal process Patient admitted to internal medicine service REVIEW OF SYSTEMS: CONSTITUTIONAL: No fever, no malaise, no fatigue. HEENT: No recent visual problems or hearing problems. Denied any sore throat. CARDIOVASCULAR: No chest pain, orthopnea, PND, no palpitations, no syncope. PULMONARY: No shortness of breath, no cough, no hemoptysis. GASTROINTESTINAL: As mentioned above NEUROLOGICAL: As mentioned above HEMATOLOGICAL: Denies any bleeding or petechiae. GENITOURINARY: Denies any burning micturition, frequency, or urgency. MUSCULOSKELETAL/RHEUMATOLOGICAL: Denies any joint pain, swelling, or any muscle pain. ENDOCRINE: Denies any polyuria or polydipsia. The rest of the 14-point review of systems is negative. PHYSICAL EXAMINATION: GENERAL: The patient is alert and oriented x3, not in any acute distress. Well developed, well nourished. HEENT: Pupils are round and equally reacting to light. EOMI. No scleral icterus. No conjunctival pallor. Normocephalic, atraumatic. No pharyngeal erythema. No thyromegaly. CARDIOVASCULAR: S1 and S2 present. No murmurs, rubs, or gallops. PULMONARY: Chest is clear to auscultation, no wheezing or crackles. ABDOMEN: Soft, nontender, nondistended, normoactive bowel sounds. No palpable organomegaly. MUSCULOSKELETAL: No joint swelling or deformity. EXTREMITIES: No cyanosis, clubbing, or pedal edema. NEUROLOGICAL: Gross neurological examination did not reveal any focal deficits. SKIN: No rashes. Assessment and plan Joo ago Nausea and vomiting Hypertension hyperlipidemia Atrial fibrillation History of prostate cancer Monitor vital signs Monitor CBC Monitor CMP Continue telemetry monitoring Continue neurochecks Continue Antivert Continue aspirin and Lipitor Resume Coreg and Norvasc. Will repeat CT head better without contrast in 24 hours as patient unable to get MRI because of stents Consult neurology Labs and medication were reviewed.. Continue same treatment. Continue with symptomatic treatment. Resume home medication. Monitor labs and vitals. DVT and GI prophylaxis. Further recommendations as per clinical course of the patient Dictation was produced using [employer] dictation software. please excuse any grammatical, word or spelling errors. 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 Last Myocardial Infarction Date:: 2008 History of Any Multi-Drug Resistant Organisms: None Reported Past Surgical History: Orthopedic Surgery, Prostate Surgery Additional Past Surgical History / Comment(s): abdominal aortic stent Past Anesthesia/Blood Transfusion Reactions: No Reported Reaction Past Psychological History: No Psychological Hx Reported Smoking Status: Current every day smoker Past Alcohol Use History: None Reported Past Drug Use History: None Reported Medications and Allergies Home Medications Medication Instructions Recorded Confirmed Type Aspirin EC [Ecotrin Low Dose] 81 mg PO BID 02/17/20 10/13/23 History Atorvastatin Calcium [Lipitor] 40 mg PO HS 02/17/20 10/13/23 History Warfarin [Coumadin] 2.5 mg PO DAILY 02/17/20 10/13/23 History amLODIPine [Norvasc] 5 mg PO DAILY 02/17/20 10/13/23 History carvediloL [Coreg] 6.25 mg PO BID 02/17/20 10/13/23 History Meclizine [Antivert] 25 mg PO TID PRN #12 tab 10/12/23 Rx Allergies Allergy/AdvReac Type Severity Reaction Status Date / Time morphine AdvReac Nausea & Verified 10/13/23 09:01 Vomiting Physical Exam Vitals: Vital Signs Temp Pulse Pulse Resp BP BP Pulse Ox 10/13/23 08:10 97.7 F 65 16 165/76 96 10/13/23 07:08 78 18 135/75 96 10/13/23 02:44 80 18 137/82 100 10/13/23 00:59 80 20 127/75 95 10/12/23 20:26 86 16 134/75 99 10/12/23 17:36 97.0 F L 80 18 144/83 99 Intake and Output 10/12/23 10/13/23 10/13/23 22:59 06:59 14:59 Other: Weight 68.039 kg 68.039 kg Results CBC & Chem 7: 10/13/23 03:22 10/13/23 03:22 Labs: Abnormal Lab Results - Last 24 Hours (Table) 10/12/23 10/12/23 10/12/23 Range/Units 19:02 19:02 19:02 WBC 12.0 H (3.8-10.6) k/uL Neutrophils # 9.3 H (1.3-7.7) k/uL PT 31.4 H (10.0-12.5) sec INR 3.2 H (<1.2) Chloride 109 H (98-107) mmol/L Carbon Dioxide 20 L (22-30) mmol/L BUN/Creatinine Ratio (12.00-20.00) Ratio Glucose 102 H (74-99) mg/dL 10/13/23 Range/Units 03:22 WBC (3.8-10.6) k/uL Neutrophils # (1.3-7.7) k/uL PT (10.0-12.5) sec INR (<1.2) Chloride (98-107) mmol/L Carbon Dioxide (22-30) mmol/L BUN/Creatinine Ratio 11.75 L (12.00-20.00) Ratio Glucose (74-99) mg/dL Thrombosis Risk Factor Assmnt - Choose All That Apply Any of the Below Risk Factors Present?: No Other Risk Factors: Yes Each Risk Factor Represents 2 Points: Age 61-74 years Other congenital or acquired thrombophilia - If yes, enter type in comment: No Thrombosis Risk Factor Assessment Total Risk Factor Score: 2 Thrombosis Risk Factor Assessment Level: Low Risk
[2023-10-13] MEDS: carvediloL 6.25 MG TAB PO SCH (18:55)
--- NOTE | 2023-10-13 19:06 | P.CNNES ---
History of Present Illness Consult date: 10/13/23 Requesting physician: Richard Wild Reason for Consult: Vertigo History of Present Illness: Patient is a 73-year-old right-handed male came to the hospital by ambulance yesterday at 5:33 PM for dizziness, weakness. Patient states that yesterday he was cutting the grass in the weeds at 3 PM. He got done, drove home, sat in the lawn chair. He started feeling dizzy, fell out of chair on the ground. He has to grab something and worked way around to get to the bathroom. He fell generalized weakness. He also noticed some blurred vision, "hard time seeing". He thought he was having a stroke, like all the symptoms happen when he had a stroke 2011. He denied any slurred speech or facial droop or any focal weakness or numbness. As per EMS flowsheet, when they arrived, patient was laying prone on the front yard of the residence. Patient was alert and orient x 4, stating that he has a complaint of dizziness and nausea. The patient stated that he was cutting grass when this complaint started and that he laid down on the ground prior to EMS arrival. Patient states that he was still currently dizzy and nauseated and felt like he needed to defecate. Patient has history of aortic stents, hypertension and stroke. He was having some abdominal cramping as well. Patient denied any chest pain or difficulty breathing. Patient's vitals at the scene was blood pressure 158/87, pulse rate 76 respiration 18 saturation 94%. Blood sugar 179, temperature 97.5. Blood test shows normal CBC, INR 3.2. Basic metabolic panel normal. CT head showed no acute intracranial process. I personally reviewed CT head and agree with the findings. Visualized paranasal sinuses are clear. EAC are clear bilaterally. EKG showed sinus rhythm with first-degree AV block. CT of abdomen pelvis revealed no acute abnormality in the abdomen or pelvis. Patient was not a candidate for tPA, as he was on Coumadin with therapeutic INR. This a.m. patient still feels dizzy if he gets up, difficulty to go to the bathroom. He complains of some blurred vision, but can see distant but somewhat blurred. Patient states that he has smoked 1 pack/day for 50 years, still smokes. He used to drink beer "quite a bit", none since 1990. Denies any marijuana use. Patient states that he had history of a stroke in 2013, when he could not see, got weak, lost vision. He was hospitalized and was found to have aortic aneurysm. He undergone abdominal aortic aneurysm repair, had 8 stents. Home medications include warfarin, aspirin 81 mg twice daily, Lipitor 40 mg, Coreg and amlodipine. Review of Systems All other review of systems unremarkable except as mentioned in HPI. Past Medical History Past Medical History: Myocardial Infarction (ID), Prostate Disorder Additional Past Medical History / Comment(s): Prostate 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 Last Myocardial Infarction Date:: 2008 History of Any Multi-Drug Resistant Organisms: None Reported Past Surgical History: Orthopedic Surgery, Prostate Surgery Additional Past Surgical History / Comment(s): abdominal aortic stent Past Anesthesia/Blood Transfusion Reactions: No Reported Reaction Past Psychological History: No Psychological Hx Reported Smoking Status: Current every day smoker (1 PPD for 50 years) Past Alcohol Use History: None Reported Additional Past Alcohol Use History / Comment(s): Used to drink beer "quite a bit", none since 1990. Past Drug Use History: None Reported Medications and Allergies Home Medications Medication Instructions Recorded Confirmed Type Aspirin EC [Ecotrin Low Dose] 81 mg PO BID 02/17/20 10/13/23 History Atorvastatin Calcium [Lipitor] 40 mg PO HS 02/17/20 10/13/23 History Warfarin [Coumadin] 2.5 mg PO DAILY 02/17/20 10/13/23 History amLODIPine [Norvasc] 5 mg PO DAILY 02/17/20 10/13/23 History carvediloL [Coreg] 6.25 mg PO BID 02/17/20 10/13/23 History Meclizine [Antivert] 25 mg PO TID PRN #12 tab 10/12/23 Rx Allergies Allergy/AdvReac Type Severity Reaction Status Date / Time morphine AdvReac Nausea & Verified 10/13/23 09:01 Vomiting Physical Examination - Vital Signs Vital Signs: Vital Signs Temp Pulse Pulse Resp BP BP Pulse Ox 10/13/23 13:45 98.0 F 66 15 113/61 95 10/13/23 08:10 97.7 F 65 16 165/76 96 10/13/23 07:08 78 18 135/75 96 10/13/23 02:44 80 18 137/82 100 10/13/23 00:59 80 20 127/75 95 10/12/23 20:26 86 16 134/75 99 Intake and Output 10/13/23 10/13/23 10/13/23 06:59 14:59 22:59 Intake Total 472 Balance 472 Intake: Oral 472 Other: # Voids 2 Weight 68.039 kg Patient is an elderly male, very pleasant, in no acute distress. Patient is alert awake oriented to time place and person. Speech and language functions are normal. Patient can name and repeat very well. No aphasia or dysarthria. Attention, concentration and fund of knowledge is adequate. On cranial nerve examination, pupils are equal, round and reacting to light, visual jesus are full on confrontation, with no neglect on double simultaneous stimulation. Extraocular muscles are intact with no nystagmus. Face is symmetric, tongue protrudes to the midline. Palatal elevation and sensation normal, hearing and shoulder shrug normal, facial sensation normal. On muscle strength testing, there is no pronator drift and the strength is normal in arms and legs distally and proximally. Deep tendon reflexes are asymmetric (right/left) biceps 1+/trace, brachio radialis 1+/trace, knees 2+/2+, ankles 2/2 and plantars downgoing bilaterally. Sensory to touch is equal with no neglect on double simultaneous stimulation. Cerebellar function showed no ataxia for [id number] testing on the right, although he was tremulous on the left. No ataxia for [id number] testing on either side. Tone and bulk of muscles normal. Gait deferred.. On general examination, there is no carotid bruit or murmur, S1-S2 audible. Chest is clear on consultation. Abdomen is soft nontender. No organomegaly, bowel sounds present. Peripheral pulses are present. No peripheral edema. Results - Laboratory Findings CBC and BMP: 10/13/23 03:22 10/13/23 03:22 Abnormal Lab Findings: Abnormal Labs 10/12/23 10/12/23 10/12/23 19:02 19:02 19:02 WBC 12.0 H Neutrophils # 9.3 H PT 31.4 H INR 3.2 H Chloride 109 H Carbon Dioxide 20 L BUN/Creatinine Ratio Glucose 102 H 10/13/23 10/13/23 03:22 03:22 WBC Neutrophils # PT 29.7 H INR 2.95 H Chloride Carbon Dioxide BUN/Creatinine Ratio 11.75 L Glucose Assessment and Plan Assessment: * 73-year-old male came with sudden onset of generalized weakness, dizziness, blurred vision. Symptoms have improved, but still with dizziness with ambulation. Current NIH stroke scale is 0. * Hypertension * Tobacco use * History of aortic aneurysm repair, with multiple aortic stents. * History of possible CVA 2013. No residual deficits. * History of prostate cancer Plan: * CTA of head and neck rule out any vertebrobasilar insufficiency. * 2D echo * Fasting lipid panel * Hemoglobin A1c * I discussed with patient about MRI of the brain, but he states that he was told not to have because of aortic stents. * Continue meclizine. * Continue aspirin 81 mg twice daily. * Patient is not sure as to the reason why he is on Coumadin. Neurologically, there is no contraindication to resume Coumadin. Informed the nurse. * Recommend complete tobacco cessation. * PT, OT, evaluate gait. * Dr. Noble Andujar will resume neurology service in the morning. Thank you for the consult
[2023-10-13] MEDS: ATORVASTATIN 40 MG TAB PO SCH (20:03)
[2023-10-14 09:16] LABS: BUN/Creat Ratio 12.44 Ratio (12.00-20.00); Blood Urea Nitrogen 11.2 mg/dL (9.0-27.0); Calcium 8.7 mg/dL (8.7-10.3); Carbon Dioxide 23.8 mmol/L (21.6-31.8); Chloride 107 mmol/L (96-109); Chol/HDL Ratio 3.63 Ratio; Glucose 90 mg/dL (70-110); LDL Cholesterol,Calculated 82.3 mg/dL (0.0-131.0); Potassium 4.3 mmol/L (3.5-5.5); Sodium 141 mmol/L (135-145); VLDL Calculation 17.02 mg/dL (5.00-40.00)
--- NOTE | 2023-10-14 09:35 | CT ---
EXAMINATION TYPE: CT angio head neck DATE OF EXAM: 10/14/2023 COMPARISON: None HISTORY: 73-year-old male vertigo, weakness, r/o VBI TECHNIQUE: Contiguous axial scanning of the head and neck performed with IV Contrast, patient injecte d with 65 mL of Isovue 370. Coronal/sagittal reconstructions performed. 3-D reconstructions generated on a dedicated independent workstation. CT DLP: 302.40 mGycm Automated exposure control for dose reduction was used. FINDINGS: NECK: Moderate atherosclerotic plaque within the aortic arch. Mild ectasia upper descending thoracic aorta to 3.3 cm. Bovine configuration to the aortic arch. Moderate atherosclerotic narrowing at the origin of the bilateral vertebral arteries. Both vertebral arteries are codominant and otherwise maintained throughout their course. Moderate atherosclerotic change at the right carotid bifurcation with borderline moderate, 50% stenos is at the distal right common carotid artery prior to the bifurcation. Additional moderate atherosclerotic calcifications within the proximal left ICA contributing to a mil d, just under 50% proximal ICA stenosis. Remainder of the right ICA is patent. Prominent atherosclerotic calcification is present of the left carotid bifurcation with mild, 20% dimitris nosis distal CCA. There is dilatation of the proximal left ICA up to 1.0 cm with possible mildly thic kened intimal flap suggesting a chronic dissection spanning 2.0 cm. The suspected true lumen shows pr ominent atherosclerotic calcification and severe focal stenosis just over 70%, refer to thin cut axia l series 4 image 558. Moderate emphysematous change in the visualized upper lungs. NASCET criteria was utilized. HEAD: The codominant vertebral arteries as well as the basilar artery appear patent. No significant stenosi s. There is a hypoplastic P1 segment left posterior cerebral artery with persistent origin left PC A. Mild atherosclerotic change in the bilateral carotid siphons without significant narrowing. The bilat eral ICAs as well as the remainder of the anterior circulation is patent. No aneurysmal change. Dural venous sinuses are patent. IMPRESSION: NECK: 1. MODERATE ATHEROSCLEROTIC CHANGE OF THE BILATERAL CAROTID BIFURCATIONS. ON THE LEFT, THE PROXIMAL I CA IS DILATED AT 1 CM AND THERE IS A POSSIBLE 2 CM LONG CHRONIC DISSECTION OF THE PROXIMAL LEFT ICA. THE TRUE LUMEN SHOWS SEVERE STENOSIS, JUST OVER 70%. 2. ON THE RIGHT, THERE IS BORDERLINE MODERATE, 50% DISTAL CCA STENOSIS PRIOR TO THE BIFURCATION. GRETCHEN TIONAL MODERATE, JUST OVER 50% PROXIMAL RIGHT ICA STENOSIS. 3. CODOMINANT VERTEBRAL ARTERIES WITH MODERATE ATHEROSCLEROTIC STENOSES AT THEIR ORIGINS. HEAD: 4. PATENT VERTEBRAL AND BASILAR ARTERIES WITH RELATIVELY NORMAL CALIBERS. 5. NO LARGE VESSEL INTRACRANIAL ARTERIAL OCCLUSION, SIGNIFICANT STENOSIS, OR ANEURYSMAL CHANGE IS SEE N. 6. 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
[2023-10-14 11:39] LABS: INR 2.5 (<1.2)
--- NOTE | 2023-10-14 13:15 | P.PN ---
Subjective Progress Note Date: 10/14/23 patient is a 73-year-old gentleman with past medical history significant for hypertension, hyperlipidemia, atrial fibrillation who presented to the ER because of complaint of dizziness. Patient stated that he was all right 1 hour prior to the arrival when he started noticing that he was getting dizzy. Ep isode very sudden onset and was very severe, patient felt as if the whole room was spinning. Patient was complaining of nausea and vomiting at the time as well. There was no complaint of weakness of any extremity. Patient was complaining of blurred vision as well. There was no complaint of feeling of passing out. Denied any slurred speech. There was no complaint of bowel or urine incontinence. Denied any chest pain or shortness of breath. Because of dizziness, patient came to the ER. Initial lab work done in the ER showed WBC 12, hemoglobin 14.4, platelet count 199, INR 3.2, sodium 137 potassium 3.6, BUN 8, creatinine 12, glucose 102, calcium 8.5, albumin 3.7 EKG done in the ER showed heart rate of 73, no ST segment elevation or depression seen, no T-wave inversions seen. CT head done showed no acute intracranial process CT abdominal pelvis done showed no acute intra-abdominal process Patient admitted to internal medicine service 10/13. Patient seen and examined. States dizziness is improved. REVIEW OF SYSTEMS: CONSTITUTIONAL: No fever, no malaise,. CARDIOVASCULAR: No chest pain, no palpitations, no syncope. PULMONARY: No shortness of breath, no cough, GASTROINTESTINAL: No diarrhea, no nausea, no vomiting, no abdominal pain. NEUROLOGICAL: No headaches, no weakness, PHYSICAL EXAMINATION: GENERAL: The patient is alert and oriented x3, not in any acute distress. Well developed, well nourished. HEENT: Pupils are round and equally reacting to light. EOMI. No scleral icterus. No conjunctival pallor. Normocephalic, atraumatic. No pharyngeal erythema. No thyromegaly. CARDIOVASCULAR: S1 and S2 present. No murmurs, rubs, or gallops. PULMONARY: Chest is clear to auscultation, no wheezing or crackles. ABDOMEN: Soft, nontender, nondistended, normoactive bowel sounds. No palpable organomegaly. MUSCULOSKELETAL: No joint swelling or deformity. EXTREMITIES: No cyanosis, clubbing, or pedal edema. NEUROLOGICAL: Gross neurological examination did not reveal any focal deficits. SKIN: No rashes. Assessment and plan Vertigo Nausea and vomiting Hypertension hyperlipidemia Atrial fibrillation History of prostate cancer Monitor vital signs Monitor CBC Monitor CMP Continue telemetry monitoring Continue neurochecks Continue Antivert Continue aspirin and Lipitor Continue Coreg and Norvasc. Resume Coumadin Neurology following Labs and medication were reviewed.. Continue same treatment. Continue with symptomatic treatment. Resume home medication. Monitor labs and vitals. DVT and GI prophylaxis. Further recommendations as per clinical course of the p atient Dictation was produced using [employer] dictation software. please excuse any grammatical, word or spelling errors. Objective - Vital Signs Vital signs: Vital Signs Temp 97.8 F 10/14/23 07:09 Pulse 56 L 10/14/23 07:09 Resp 16 10/14/23 09:26 BP 155/82 10/14/23 07:09 Pulse Ox 98 10/14/23 07:09 FiO2 Intake & Output 10/13/23 10/14/23 10/14/23 18:59 06:59 18:59 Intake Total 590 Balance 590 Intake: Oral 590 Other: Voiding Method Toilet Toilet # Voids 2 2 - Labs CBC & Chem 7: 10/13/23 03:22 10/14/23 04:22 Labs: Abnormal Lab Results - Last 24 Hours (Table) 10/14/23 Range/Units 04:22 HDL Cholesterol 37.70 L (40.00-60.00) mg/dL
--- NOTE | 2023-10-14 14:16 | US ---
EXAMINATION TYPE: US carotid duplex BILAT DATE OF EXAM: 10/14/2023 COMPARISON: NONE CLINICAL INDICATION: Male, 73 years old with history of Carotid stenosis; stenosis follow up to ct sc an. TECHNIQUE: Carotid duplex ultrasound examination. Indirect Doppler criteria was utilized. FINDINGS: EXAM MEASUREMENTS: RIGHT: Peak Systolic Velocity (PSV) cm/sec ----- Right CCA: 70 ----- Right ICA: 148 ----- Right ECA: 133 ICA/CCA ratio: 2.1 RIGHT: End Diastole cm/sec ----- Right CCA: 13 ----- Right ICA: 19.9 ----- Right ECA: 0 LEFT: Peak Systolic Velocity (PSV) cm/sec ----- Left CCA: 87 ----- Left ICA: 178 ----- Left ECA: 116 ICA/CCA ratio: 2.0 LEFT: End Diastole cm/sec ----- Left CCA: 19 ----- Left ICA: 43.6 ----- Left ECA: 0 VERTEBRALS (direction of flow): Right Vertebral: Antegrade Left Vertebral: Antegrade Rhythm: Normal CABLE HOOKER NOTES: Bilateral plaque visualized. IMPRESSION: 50-69% stenosis of the bilateral carotid bifurcations. Criteria for Assigning % of Stenosis / Diameter reduction (Estimation based on the indirect measurements of the internal carotid artery velocities (ICA PSV). 1. Normal (no stenosis)=ICA PSV < 125 cm/s: ratio < 2.0: ICA EDV<40 cm/s. 2. Less than 50% stenosis=ICA PSV < 125 cm/s: ratio < 2.0: ICA EDV<40 cm/s. 3. 50 to 69% stenosis=ICA PSV of 125 to 230 cm/s: ration 2.0 ? 4.0: ICA EDV 40-100 cm/s. 4. Greater than 70% stenosis to near occlusion= ICA PSV > 230 cm/s: ratio > 4.0: ICA EDV > 100 cm/s. 5. Near occlusion= ICA PSV velocities may be low or undetectable: variable ratio and ICA EDV. 6. Total occlusion=unable to detect flow.
--- NOTE | 2023-10-14 14:24 | P.GSCN ---
History of Present Illness Consult date: 10/14/23 Reason for Consult: Bilateral carotid artery stenosis Requesting physician: Christian Wilson History of present illness: This is a pleasant 73-year-old male who presented to the emergency department 2 days ago with complaints of dizziness and the room spinning. Patient states symptoms were sudden onset and associated with nausea and dry heaves. Patient states he has had a history in the past of vertigo and he had seen Dr. Duval and was on medication for it but stopped taking it. He denies any other focal deficits such as visual changes, speech deficit, weakness in upper or lower extremities. Past medical history includes history of prostate cancer, atrial fibrillation on Coumadin, abdominal aortic aneurysm with stent, and current everyday smoker. Patient states he smokes 3/4 pack of cigarettes a day for many years. Patient currently denies any focal deficits. No shortness of breath or chest pain, no abdominal pain nausea or vomiting. States most of the dizziness occurs when he goes from sitting to standing but has improved since occurring 2 days ago. As part of his workup he underwent a brain CT with no acute findings and a CT angiogram head and neck reporting bilateral carotid stenosis and a possible 2 cm long chronic dissection of the proximal left ICA. Vascular surgery was consulted for bilateral ICA stenosis. Review of Systems A 14 point review systems was completed all pertinent positives and negatives as stated in the HPI. Past Medical History Past Medical History: Myocardial Infarction ([place]), Prostate Disorder Additional Past Medical History / Comment(s): Prostate 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 Last Myocardial Infarction Date:: 2008 History of Any Multi-Drug Resistant Organisms: None Reported Past Surgical History: Orthopedic Surgery, Prostate Surgery Additional Past Surgical History / Comment(s): abdominal aortic stent Past Anesthesia/Blood Transfusion Reactions: No Reported Reaction Past Psychological History: No Psychological Hx Reported Smoking Status: Current every day smoker (1 PPD for 50 years) Past Alcohol Use History: None Reported Additional Past Alcohol Use History / Comment(s): Used to drink beer "quite a bit", none since 1990. Past Drug Use History: None Reported Medications and Allergies Home Medications Medication Instructions Recorded Confirmed Type Aspirin EC [Ecotrin Low Dose] 81 mg PO BID 02/17/20 10/13/23 History Atorvastatin Calcium [Lipitor] 40 mg PO HS 02/17/20 10/13/23 History Warfarin [Coumadin] 2.5 mg PO DAILY 02/17/20 10/13/23 History amLODIPine [Norvasc] 5 mg PO DAILY 02/17/20 10/13/23 History carvediloL [Coreg] 6.25 mg PO BID 02/17/20 10/13/23 History Meclizine [Antivert] 25 mg PO TID PRN #12 tab 10/12/23 Rx Allergies Allergy/AdvReac Type Severity Reaction Status Date / Time morphine AdvReac Nausea & Verified 10/13/23 09:01 Vomiting Surgical - Exam Vital Signs Temp Pulse Resp BP Pulse Ox 97.0 F L 80 18 144/83 99 10/12/23 17:36 10/12/23 17:36 10/12/23 17:36 10/12/23 17:36 10/12/23 17:36 General appearance: The patient is alert, oriented, appears in no acute distress. HET: Head is normocephalic and atraumatic. Pupils are equal and reactive. Neck: Supple. No audible bruit. Heart: Regular. Lungs: Equal expansion, normal respiratory effort. Abdomen: Soft, nontender, nondistended. Extremities: Normal skin color and turgor. Palpable radial pulses bilaterally. Lower extremities warm to the touch with good cap refill Neurological: No focal deficits. Strength and sensation are grossly intact. Results - Labs 10/13/23 03:22 10/14/23 04:22 Abnormal Lab Results - Last 24 Hours (Table) 10/14/23 10/14/23 Range/Units 04:22 11:02 PT 25.0 H (10.0-12.5) sec INR 2.5 H (<1.2) HDL Cholesterol 37.70 L (40.00-60.00) mg/dL Diabetes panel 10/14/23 10/14/23 Range/Units 04:22 04:22 Sodium 141 (135-145) mmol/L Potassium 4.3 (3.5-5.5) mmol/L Chloride 107 (96-109) mmol/L Carbon Dioxide 23.8 (21.6-31.8) mmol/L BUN 11.2 (9.0-27.0) mg/dL Creatinine 0.9 (0.6-1.5) mg/dL Glucose 90 (70-110) mg/dL Hemoglobin A1c 6.0 (<=6.0) % Calcium 8.7 (8.7-10.3) mg/dL Triglycerides 85.10 (0.00-149.00) mg/dL HDL Cholesterol 37.70 L (40.00-60.00) mg/dL Calcium panel 10/14/23 Range/Units 04:22 Calcium 8.7 (8.7-10.3) mg/dL Pituitary panel 10/14/23 Range/Units 04:22 Sodium 141 (135-145) mmol/L Potassium 4.3 (3.5-5.5) mmol/L Chloride 107 (96-109) mmol/L Carbon Dioxide 23.8 (21.6-31.8) mmol/L BUN 11.2 (9.0-27.0) mg/dL Creatinine 0.9 (0.6-1.5) mg/dL Glucose 90 (70-110) mg/dL Calcium 8.7 (8.7-10.3) mg/dL Adrenal panel 10/14/23 Range/Units 04:22 Sodium 141 (135-145) mmol/L Potassium 4.3 (3.5-5.5) mmol/L Chloride 107 (96-109) mmol/L Carbon Dioxide 23.8 (21.6-31.8) mmol/L BUN 11.2 (9.0-27.0) mg/dL Creatinine 0.9 (0.6-1.5) mg/dL Glucose 90 (70-110) mg/dL Calcium 8.7 (8.7-10.3) mg/dL - Imaging Comments: CTA head and neck reports: Neck: Moderate arthrosclerotic change of the bilateral carotid bifurcations on the left, the proximal ICA is dilated at 1 cm and there is a possible 2 cm long chronic dissection of the proximal left ICA. The true lumen shows severe stenosis, just over 70%. On the right there is borderline moderate, 50% distal CCA stenosis prior to the bifurcation. Additional moderate just over 50% proximal right ICA stenosis. Codominant vertebral arteries with moderate arthrosclerotic stenosis at the origins. Head: patent vertebral and basilar arteries with relatively normal calipers. No large vessel intracranial arterial occlusion, significant stenosis, or aneu rysmal changes seen. Anatomic variation with persistent origin left [employer] Brain CT reports no acute intracranial process. Follow-up MRI as clinically indicated. Assessment and Plan Assessment: 1. Dizziness/vertigo 2. Asymptomatic bilateral internal carotid artery stenosis, chronic left proximal ICA dissection 3. Atrial fibrillation on Coumadin 4. History of abdominal aortic aneurysm status post stent 5. Nicotine dependence Plan: CT angiogram head and neck independently reviewed by Dr. Caballero. There is no indication for any acute intervention. Recommend outpatient follow-up with vascular surgery in the next 1 to 2 weeks for further discussion of carotid disease and possible surgical intervention. Continue Coumadin. Carotid duplex ordered. Continue with recommendations from neurology and primary medical team. Recommend smoking cessation. Nicotine patch offered to patient however he declined. Thank you for this consultation, patient is cleared from vascular surgery for discharge. The impression and plan of care has been dictated as directed. Dr. Caballero I performed a history and examination of this patient, discussed the same with the dictator. I agree with the dictator's note ,documented as a scribe. Any additional findings or plans will be noted.
--- NOTE | 2023-10-14 15:26 | P.PN ---
Subjective Progress Note Date: 10/14/23 I am seeing the patient for the first time during this admission. Please refer to Dr. Serrano's notes for further details. Seems the patient presented to the hospital because of generalized weakness dizziness and blurred vision symptoms resolved. He states he smokes course of a pack daily. CT angiography shows carotid stenosis about 50% on the right and proximal ICA is just over 50%. It shows possible chronic dissection of the proximal left ICA. Severe stenosis just over 70% on the left. Patient feels back to baseline. Denies of headache nausea vomiting. Objective - Vital Signs Vital signs: Vital Signs Temp 98.1 F 10/14/23 12:49 Pulse 55 L 10/14/23 12:49 Resp 16 10/14/23 12:49 BP 120/70 10/14/23 12:49 Pulse Ox 97 10/14/23 12:49 FiO2 Intake & Output 10/13/23 10/14/23 10/14/23 18:59 06:59 18:59 Intake Total 590 Balance 590 Intake: Oral 590 Other: Voiding Method Toilet Toilet # Voids 2 2 2 - Exam General: Lying in bed and is not in acute distress. Neuro: The patient is awake alert oriented to self place and time. Is following simple commands. No aphasia no neglect Pupils are round equal reactive to light. Visual jesus are full to confrontation. No facial weakness. No dysarthria Motor is strength is left in all extremities above gravity symmetrically. - Labs CBC & Chem 7: 10/13/23 03:22 10/14/23 04:22 Labs: Abnormal Lab Results - Last 24 Hours (Table) 10/14/23 10/14/23 Range/Units 04:22 11:02 PT 25.0 H (10.0-12.5) sec INR 2.5 H (<1.2) HDL Cholesterol 37.70 L (40.00-60.00) mg/dL Assessment and Plan Assessment: * 73-year-old male came with sudden onset of generalized weakness, dizziness, blurred vision seems due transient ischemic attack. Current NIH stroke scale is 0. Has left ICA stenosis >70% with suspicious of chronic left ICA dissection on CTA * Hypertension * Tobacco use * History of aortic aneurysm repair, with multiple aortic stents. * History of possible CVA 2013. No residual deficits. * History of atrial fibrillation on Coumadin * History of prostate cancer Plan: * CTA of head and neck: Close moderate atherosclerotic change of bilateral carotid bifurcation. 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 There is a lumen shows severe stenosis just over 70%. On the right there is moderate 50% distal common carotid artery stenosis prior to the bifurcation. Right ICA stenosis just over 50%. There is moderate atherosclerotic changes of vertebral artery at the origin. * Consulted vascular surgery team for the carotid stenosis and dissection. Ordered carotid duplex and I spoke with the nurse practitioner from vascular surgery team and she stated unlikely there is any intervention and patient will follow-up as an outpatient with the vascular surgery team for possible intervention. * 2D echo: Pending report * Fasting lipid panel: Triglycerides 85, cholesterol 137, LDL is 82 and HDL is 37. * Hemoglobin A1cL 6.0 * Dr. Serrano, discussed with patient about MRI of the brain, but he states that he was told not to have because of aortic stents. * Continue meclizine. * Continue aspirin 81 mg twice daily. Patient is on Coumadin. Is on Lipitor 40mg qhs. * Recommend complete tobacco cessation. * PT, OT, evaluate gait. * Discharge recommended patient to follow-up with a neurologist as an outpatient within 2 to 3 weeks * Will defer the rest of the medical management to primary team and other specialists The plan discussed with the patient and his nurse. Tomorrow patient continues to be stable and no further intervention and the echo looks normal and then the patient is cleared from neurology perspective. Time with Patient: Less than 30
[2023-10-14] MEDS: WARFARIN 2.5 MG TAB PO ONE (17:07)
--- NOTE | 2023-10-14 18:14 | CA ---
Transthoracic Echo Report Name: Ehsan Bui Age: 73 Gender: M : 1950 Exam Date: 10/14/2023 07:57 Exam Location: [facility] Ht (in): 71 Wt (lb): 150 Ordering Physician: Jose Antonio Serrano MD Attending/Referring Phys: [employer] Mariya Coe RDCS Procedure CPT: Indications: Dizziness, weakness, rule out TIA Cardiac Hx: Technical Quality: Good Contrast 1: Total Dose (mL): Contrast 2: Total Dose (mL): MEASUREMENTS (Male / Female) Normal Values 2D ECHO LV Diastolic Diameter PLAX 4.6 cm 4.2 - 5.9 / 3.9 - 5.3 cm LV Systolic Diameter PLAX 3.1 cm IVS Diastolic Thickness 0.7 cm 0.6 - 1.0 / 0.6 - 0.9 cm LVPW Diastolic Thickness 0.8 cm 0.6 - 1.0 / 0.6 - 0.9 cm LV Relative Wall Thickness 0.3 RV Internal Dim ED PLAX 3.0 cm LVOT Diameter 2.3 cm Aortic Root Diameter 4.0 cm LV Diastolic Volume MOD BP 95.8 cm??? 67 - 155 / 56 - 104 cm??? LV Systolic Volume MOD BP 42.0 cm??? 22 - 58 / 19 - 49 cm??? LV Ejection Fraction MOD BP 56.2 % >= 55 % LV Cardiac Index MOD BP 1432.4 cm???/min???m??? LV Diastolic Volume MOD 4C 95.0 cm??? LV Systolic Volume MOD 4C 39.5 cm??? LV Ejection Fraction MOD 4C 58.4 % LV Cardiac Index MOD 4C 1477.3 cm???/min???m??? LV Diastolic Length 4C 8.1 cm LV Systolic Length 4C 6.5 cm LV Diastolic Volume MOD 2C 96.4 cm??? LV Systolic Volume MOD 2C 42.8 cm??? LV Ejection Fraction MOD 2C 55.6 % LV Cardiac Index MOD 2C 1428.0 cm???/min???m??? LV Diastolic Length 2C 8.0 cm LV Systolic Length 2C 7.0 cm LA Volume 47.0 cm??? 18 - 58 / 22 - 52 cm??? LA Volume Index 25.5 cm???/m??? 16 - 28 cm???/m??? Ascending Aorta Diameter 3.6 cm DOPPLER AV Peak Velocity 130.9 cm/s AV Peak Gradient 6.9 mmHg AV Mean Velocity 86.8 cm/s AV Mean Gradient 3.5 mmHg AV Velocity Time Integral 30.6 cm LVOT Peak Velocity 90.5 cm/s LVOT Peak Gradient 3.3 mmHg LVOT Velocity Time Integral 20.7 cm LVOT Stroke Volume 85.2 cm??? LVOT Stroke Volume Index 45.7 ml/m??? LVOT Cardiac Index 2268.3 cm???/min???m??? AV Area Cont Eq vti 2.8 cm??? AV Area Cont Eq pk 2.9 cm??? MV Area PHT 3.5 cm??? Mitral E Point Velocity 66.1 cm/s Mitral A Point Velocity 91.3 cm/s Mitral E to A Ratio 0.7 MV Deceleration Time 214.7 ms PV Peak Velocity 74.0 cm/s PV Peak Gradient 2.2 mmHg FINDINGS Left Ventricle Left ventricular ejection fraction is estimated at 55-60 %. Left ventricular cavity size normal. Left ventricular wall thickness normal. No obvious regional wall motion abnormalities. Right Ventricle Normal right ventricular size and function. Unable to estimate the right ventricular systolic pressure. Right Atrium Normal right atrial size. Left Atrium Normal left atrial size. Mitral Valve Structurally normal mitral valve. No evidence for mitral valve prolapse. No mitral stenosis. Trace mitral regurgitation. Aortic Valve Trileaflet aortic valve. No aortic stenosis. Trace aortic regurgitation. Tricuspid Valve Structurally normal tricuspid valve. No tricuspid stenosis. Trace tricuspid regurgitation. Pulmonic Valve Structurally normal pulmonic valve. No pulmonic stenosis. Trace pulmonic regurgitation. Pericardium No pericardial effusion. Aorta Normal size aortic root and proximal ascending aorta. CONCLUSIONS Normal LV function Previewed by: Dr. Nik Hamilton MD (Electronically Signed) Final Date: 14 October 2023 18:13
[2023-10-15 07:35] VITALS: BP 151/80; PULSE 56; RESP 16; TEMP 98
[2023-10-15 08:18] LABS: Prothrombin Time 20.2 sec (10.0-12.5)
--- NOTE | 2023-10-15 10:01 | P.DS ---
Providers Date of admission: 10/12/23 21:03 Expected date of discharge: 10/15/23 Attending physician: Oswaldo Martinez MD Consults: 10/12/23 21:03 Consult Physician Routine Consulting Provider: Jose Antonio Serrano Consult Reason/Comments: vertigo Do you want consulting provider notified?: Yes 10/14/23 10:23 Consult Physician Routine Consulting Provider: Mitchell Chen Consult Reason/Comments: Bilateral carotid artery stenosis Do you want consulting provider notified?: Yes Primary care physician: [facility] Course: Discharge diagnoses; Vertigo Nausea and vomiting Hypertension hyperlipidemia Atrial fibrillation History of prostate cancer Asymptomatic bilateral internal carotid artery stenosis chronic left proximal ICA dissection Hospital course; patient is a 73-year-old gentleman with past medical history significant for hypertension, hyperlipidemia, atrial fibrillation who presented to the ER because of complaint of dizziness. Patient stated that he was all right 1 hour prior to the arrival when he started noticing that he was getting dizzy. Episode very sudden onset and was very severe, patient felt as if the whole room was spinning. Patient was complaining of nausea and vomiting at the time as well. There was no complaint of weakness of any extremity. Patient was complaining of blurred vision as well. There was no complaint of feeling of pa ssing out. Denied any slurred speech. There was no complaint of bowel or urine incontinence. Denied any chest pain or shortness of breath. Because of dizziness, patient came to the ER. Initial lab work done in the ER showed WBC 12, hemoglobin 14.4, platelet count 199, INR 3.2, sodium 137 potassium 3.6, BUN 8, creatinine 12, glucose 102, calcium 8.5, albumin 3.7 EKG done in the ER showed heart rate of 73, no ST segment elevation or depression seen, no T-wave inversions seen. CT head done showed no acute intracranial process CT abdominal pelvis done showed no acute intra-abdominal process Patient admitted to internal medicine service 10/13. Patient seen and examined. States dizziness is improved. 10/14. Patient seen and examined. 2D echo done showed normal LV function, no wall motion abnormalities. Ultrasound carotids done showed 50-69 % stenosis of bilateral carotid bifurcations. 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 Neurology also evaluated the patient recommended continuation of aspirin and Lipitor and outpatient follow-up with neurologist PHYSICAL EXAMINATION: GENERAL: The patient is alert and oriented x3, not in any acute distress. Well developed, well nourished. HEENT: Pupils are round and equally reacting to light. EOMI. No scleral icterus. No conjunctival pallor. Normocephalic, atraumatic. No pharyngeal erythema. No thyromegaly. CARDIOVASCULAR: S1 and S2 present. No murmurs, rubs, or gallops. PULMONARY: Chest is clear to auscultation, no wheezing or crackles. ABDOMEN: Soft, nontender, nondistended, normoactive bowel sounds. No palpable organomegaly. MUSCULOSKELETAL: No joint swelling or deformity. EXTREMITIES: No cyanosis, clubbing, or pedal edema. NEUROLOGICAL: Gross neurological examination did not reveal any focal deficits. SKIN: No rashes. Dictation was produced using [employer] dictation software. please excuse any grammatical, word or spelling errors. Patient Condition at Discharge: Good Plan - Discharge Summary Discharge Rx Participant: No New Discharge Prescriptions: New Meclizine [Antivert] 25 mg PO TID PRN #12 tab PRN Reason: dizziness No Action amLODIPine [Norvasc] 5 mg PO DAILY Aspirin EC [Ecotrin Low Dose] 81 mg PO BID Atorvastatin Calcium [Lipitor] 40 mg PO HS carvediloL [Coreg] 6.25 mg PO BID Warfarin [Coumadin] 2.5 mg PO DAILY Discharge Medication List Aspirin EC [Ecotrin Low Dose] 81 mg PO BID 02/17/20 [History] Atorvastatin Calcium [Lipitor] 40 mg PO HS 02/17/20 [History] Warfarin [Coumadin] 2.5 mg PO DAILY 02/17/20 [History] amLODIPine [Norvasc] 5 mg PO DAILY 02/17/20 [History] carvediloL [Coreg] 6.25 mg PO BID 02/17/20 [History] Meclizine [Antivert] 25 mg PO TID PRN #12 tab 10/12/23 [Rx] Follow up Appointment(s)/Referral(s): Moise French MD [Primary Care Provider] - 1-2 days Jessica Caballero DO [STAFF PHYSICIAN] - 1 Week
[2023-10-15] MEDS: MECLIZINE 25 MG TAB PO PRN (11:45)
--- NOTE | 2023-10-15 11:57 | P.PN ---
Subjective Progress Note Date: 10/15/23 Principal diagnosis: Carotid stenosis Patient was seen and examined today as a follow-up. He states he still having some dizziness. Meclizine is ordered but he did not know and has not been taking it. Patient has been cleared by neurology and discharged by primary medical team. He denies any focal deficits. Denies any shortness of breath, chest pain, abdominal pain nausea or vomiting. Carotid duplex reports 50 to 69% stenosis of bilateral carotid bifurcations. Patient's daughters are at the bedside. Patient does not have a known cardiac history or atrial fibrillation, states that the Coumadin is believed secondary to his aortic aneurysm and stents. Objective - Vital Signs Vital signs: Vital Signs Temp 98.0 F 10/15/23 07:00 Pulse 56 L 10/15/23 08:00 Resp 16 10/15/23 08:00 BP 151/80 10/15/23 07:00 Pulse Ox 97 10/15/23 07:00 FiO2 Intake & Output 10/14/23 10/15/23 10/15/23 18:59 06:59 18:59 Intake Total 118 Balance 118 Intake: Oral 118 Other: Voiding Method Toilet Toilet Toilet # Voids 2 2 - Exam General appearance: The patient is alert, oriented, appears in no acute distress. HET: Head is normocephalic and atraumatic. Pupils are equal and reactive. Neck: Supple. Heart: Regular. Lungs: Equal expansion, normal respiratory effort. Abdomen: Soft, nontender, nondistended. Extremities: Normal skin color and turgor. Neurological: No focal deficits. Strength and sensation are grossly intact. - Labs CBC & Chem 7: 10/13/23 03:22 10/14/23 04:22 Labs: Abnormal Lab Results - Last 24 Hours (Table) 10/14/23 10/15/23 Range/Units 11:02 07:04 PT 25.0 H 20.2 H (10.0-12.5) sec INR 2.5 H 2.0 H (<1.2) Assessment and Plan Assessment: 1. Dizziness/vertigo 2. Asymptomatic bilateral internal carotid artery stenosis, chronic left proximal ICA dissection 3. History of abdominal aortic aneurysm status post stent on Coumadin 4. Nicotine dependence Plan: CT angiogram head and neck independently reviewed by Dr. Caballero. There is no indication for any acute intervention. Recommend outpatient follow-up with vascular surgery in the next 1 to 2 weeks for further discussion of carotid disease and possible surgical intervention. Continue Coumadin. Carotid duplex ordered and reviewed. Continue with meclizine as needed. Plan of care discussed both with patient and his daughters who were at the bedside. Recommend smoking cessation. Nicotine patch offered to patient again, however he declined. Thank you for this consultation, patient is cleared from vascular surgery for discharge. The impression and plan of care has been dictated as directed. Dr. Caballero I performed a history and examination of this patient, discussed the same with the dictator. I agree with the dictator's note ,documented as a scribe. Any additional findings or plans will be noted.
[2023-10-15] MEDS ORDERED: WARFARIN 2.5 MG TAB PO SCH (18:00)
== END 2023-10-15 11:51 | disposition home or self-care (01) ==
LOC: EC 17:33 → 6NMEDSUR 21:03
PROVIDERS: ADMIT Internal Medicine; ATTEND Internal Medicine
DX: R53.1 Weakness (principal); R42 Dizziness and giddiness; R11.2 Nausea with vomiting, unspecified; H53.8 Other visual disturbances; I65.23 Occlusion and stenosis of bilateral carotid arteries; I77.71 Dissection of carotid artery; I10 Essential (primary) hypertension; E78.5 Hyperlipidemia, unspecified; I48.91 Unspecified atrial fibrillation; F17.210 Nicotine dependence, cigarettes, uncomplicated; I25.2 Old myocardial infarction; Z85.46 Personal history of malignant neoplasm of prostate; Z86.73 Personal history of transient ischemic attack (TIA), and cerebral infarction without residual deficits; Z86.79 Personal history of other diseases of the circulatory system; Z79.01 Long term (current) use of anticoagulants; Z79.82 Long term (current) use of aspirin; Z79.899 Other long term (current) drug therapy; Z88.5 Allergy status to narcotic agent
CPT/HCPCS: 96376 ×4; 96361 ×3; 96375 ×2; 96374; 99285; 36415; 93005; 93306; 97162; 80061; 80053; 80048 ×2; 82607; 82746; 85025 ×2; 85610 ×4; 85730; 83036; 93880; 70496; 70450; 70498; 74177; G0378 ×4; J2765 ×2; J2405; C9113 ×3; Q9967 ×2

== ENCOUNTER → 2024-01-22 | Outpatient (CLI) | payer MEDICARE ==
--- NOTE | 2024-01-22 17:38 | CTL ---
EXAMINATION TYPE: CT Low Dose Lung DATE OF EXAM ORDERED: 01/22/2024 HISTORY: Personal tobacco use. 55 pack-year history. Current smoker. Lung cancer screening CT DLP: [address] CTDI: 1.5 mGy Automated exposure control for dose reduction was used. SCREENING VISIT: First screening visit COMPARISON: CT 02/17/2020 TECHNIQUE: Low dose computed tomography scan was performed through the chest at 1 mm thick sections a nd reconstructed images in multiple planes at 1 mm and [address] DIAGNOSTIC QUALITY: Satisfactory FINDINGS: Nodules: Few scattered punctate nodules along the right minor fissure. Largest is identified anteriorly measur ing up to 3 mm (series 6, image 38). Favored to represent intrafissural lymph nodes. LUNGS: COPD: Severity: Mild paraseptal emphysematous changes with scattered thin walled pulmonary cysts rede monstrated. Fibrosis: Severity: None Lymph nodes: Enlarged 1.2 cm short axis precarinal lymph node. Other findings: Trace secretion along the right lateral trachea and within the right mainstem bronchu s. Minimal left lower lobe dependent linear atelectasis. Development of 3.8 x 1.4 cm linear consolida tive opacity (series 6, image 31). RIGHT PLEURAL SPACE: Effusion: None Calcification: None Thickening: None Pneumothorax: None LEFT PLEURAL SPACE: Effusion: None Calcification: None Thickening: None Pneumothorax: None HEART: Heart Size: Mildly Enlarged Coronary Calcification: Moderate Pericardial Effusion: None OTHER FINDINGS: Upper abdomen: Partial visualization of abdominal aortic stent graft beginning at the aortic hiatus. Similar outpouching along the posterior left aspect of the aorta around the stent graft related to kn own endoleak. Bony thorax: Multilevel degenerative disease of the thoracic spine. Supraclavicular region: None Other: Bilateral gynecomastia. Atherosclerotic calcification of the aorta and its branches. IMPRESSION: 1. Development of linear anterior right upper lobe consolidated opacity. Etiologies include infectiou s/ inflammatory process and/or atelectasis. Malignancy is not excluded. 2. Additionally there is secretions identified within the trachea extending into the right mainstem b ronchus. Possibly related to aspiration. May result in #1. 3. Development of nonspecific enlarged precarinal lymph node. May be reactive to #1. 4. Similar paraseptal emphysematous changes with scattered pulmonary cysts. 5. Few small nodules along the right minor fissure. Favor to represent intrafissural lymph nodes. CT LUNG RAD AND CT CHEST RECOMMENDATION: Lung Rad 0 . Follow-up CT chest in 1 to 3 months is recommen ded. S Modifier (other clinically significant findings): S
== END | disposition home or self-care (01) ==
LOC: RADCTMAIN 10:55
PROVIDERS: ATTEND Family Medicine
DX: Z12.2 Encounter for screening for malignant neoplasm of respiratory organs
CPT/HCPCS: 71271

== ENCOUNTER 2024-02-17 14:49 | Emergency (ER) | payer MEDICARE ==
[2024-02-17 14:53] VITALS: RESP 18; TEMP 98.1
--- NOTE | 2024-02-17 15:06 | ED ---
Upper Extremity HPI - General Chief Complaint: Extremity Injury, Upper Stated Complaint: R arm injury Time Seen by Provider: 02/17/24 15:02 Source: patient, RN notes reviewed Mode of arrival: ambulatory Limitations: no limitations - History of Present Illness Initial Comments: This is a 74-year-old male presents emergency department with his grandson for chief complaint of right elbow pain. Patient states that approximately 1 week ago he was getting up from his couch in his living room when he felt his right leg gave way causing him to fall forward onto his right elbow. Patient denies hitting his head or loss conscious at the time of this injury. States that he was also having left-sided pain after the injury however this subsided approximately 5 days ago. Patient's pain is most severe over the olecranon process and endorses pain with range of motion of the elbow. He denies right shoulder or wrist pain. Denies paresthesias. No other acute complaints at this time. - Related Data Home Medications Medication Instructions Recorded Confirmed Aspirin EC [Ecotrin Low Dose] 81 mg PO BID 02/17/20 10/13/23 Atorvastatin Calcium [Lipitor] 40 mg PO HS 02/17/20 10/13/23 Warfarin [Coumadin] 2.5 mg PO DAILY 02/17/20 10/13/23 amLODIPine [Norvasc] 5 mg PO DAILY 02/17/20 10/13/23 carvediloL [Coreg] 6.25 mg PO BID 02/17/20 10/13/23 Previous Rx's Medication Instructions Recorded Meclizine [Antivert] 25 mg PO TID PRN #12 tab 10/12/23 Allergies Allergy/AdvReac Type Severity Reaction Status Date / Time morphine AdvReac Nausea & Verified 02/17/24 14:53 Vomiting Review of Systems ROS Statement: Those systems with pertinent positive or pertinent negative responses have been documented in the HPI. ROS Other: All systems not noted in ROS Statement are negative. Past Medical History Past Medical History: Myocardial Infarction ([place]), Prostate Disorder Additional Past Medical History / Comment(s): Prostate 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 Last Myocardial Infarction Date:: 2008 History of Any Multi-Drug Resistant Organisms: None Reported Past Surgical History: Orthopedic Surgery, Prostate Surgery Additional Past Surgical History / Comment(s): abdominal aortic stent Past Anesthesia/Blood Transfusion Reactions: No Reported Reaction Past Psychological History: No Psychological Hx Reported Smoking Status: Current every day smoker Past Alcohol Use History: None Reported Past Drug Use History: None Reported General Exam Limitations: no limitations General appearance: alert, in no apparent distress Eye exam: Present: normal appearance, PERRL, EOMI. Absent: scleral icterus, conjunctival injection, periorbital swelling ENT exam: Present: normal exam, mucous membranes moist Neck exam: Present: normal inspection. Absent: tenderness, meningismus, lymphadenopathy Respiratory exam: Present: normal lung sounds bilaterally. Absent: respiratory distress, wheezes, rales, rhonchi, stridor Cardiovascular Exam: Present: regular rate, normal rhythm, normal heart sounds. Absent: systolic murmur, diastolic murmur, rubs, gallop, clicks GI/Abdominal exam: Present: soft, normal bowel sounds. Absent: distended, tenderness, guarding, rebound, rigid Right Upper Arm exam: Present: full ROM Elbow exam: Present: full ROM (pain with active and passive ROM), tenderness. Absent: swelling, ecchymosis, deformity, crepitus Forearm Wrist exam: Present: full ROM Neuro motor exam: Present: wrist extension intact, thumb opposition intact Vascular: Present: normal capillary refill, radial pulse (2+). Absent: vascular compromise Back exam: Present: normal inspection Skin exam: Present: warm, dry, intact, normal color. Absent: rash Course Vital Signs 02/17/24 02/17/24 14:50 17:00 Temperature 98.1 F Pulse Rate 74 64 Respiratory 18 18 Rate Blood Pressure 161/80 130/81 O2 Sat by Pulse 99 98 Oximetry Procedures - Orthopedic Splinting/Casting Injury #1 Side: right Upper Extremity Injury Location: elbow Upper Extremity Immobilizer: sling/shoulder immobilizer (sling), posterior splint, Esdras wrap, synthetic pre-padded splint Medical Decision Making - Medical Decision Making Was pt. sent in by a medical professional or institution (, PA, PIPE RECOVERY SPECIALIST, urgent care, hospital, or [facility]...) When possible be specific @ -No Did you speak to anyone other than the patient for history (EMS, parent, family, police, friend...)? What history was obtained from this source @ -No Did you review nursing and triage notes (agree or disagree)? Why? @ -I reviewed and agree with nursing and triage notes Were old charts reviewed (outside hosp., previous admission, EMS record, old EKG, old radiological studies, urgent care reports/EKG's, [facility] records)? Report findings @ -No old charts were reviewed Differential Diagnosis (chest pain, altered mental status, abdominal pain women, abdominal pain men, vaginal bleeding, weakness, fever, dyspnea, syncope, headache, dizziness, GI bleed, back pain, seizure, CVA, palpatations, mental health, musculoskeletal)? @ -Differential Musculoskeletal Muscular strain, contusion, ligament sprain, fracture, arthritis, septic arthritis, bursitis, cellulitis, muscle spasm, nerve compression, DVT, arterial occlusion, herpes zoster, electrolyte abnormality, tumor.... This is not meant to be in all inclusive list EKG interpreted by me (3pts min.). @ -None X-rays interpreted by me (1pt min.). @ -X-ray of the right elbow mild degenerative changes with no acute trauma. CT interpreted by me (1pt min.). @ -None done U/S interpreted by me (1pt. min.). @ -None done What testing was considered but not performed or refused? (CT, X-rays, U/S, labs)? Why? @ -None What meds were considered but not given or refused? Why? @ -None Did you discuss the management of the patient with other professionals (professionals i.e. , PA, PIPE RECOVERY SPECIALIST, lab, RT, psych nurse, social human services assistants, plastic surgery assistant, t eacher, corporate development officer, telephonic nurse case manager)? Give summary @ -No Was smoking cessation discussed for >3mins.? @ -No Was critical care preformed (if so, how long)? @ -No Were there social determinants of health that impacted care today? How? (Homelessness, low income, unemployed, alcoholism, drug addiction, transportation, low edu. Level, literacy, decrease access to med. care, fpc, rehab)? @ -No Was there de-escalation of care discussed even if they declined (Discuss DNR or withdrawal of care, Hospice)? DNR status @ -No What co-morbidities impacted this encounter? (DM, HTN, Smoking, COPD, CAD, Cance r, CVA, ARF, Chemo, Hep., AIDS, mental health diagnosis, sleep apnea, morbid obesity)? @ -None Was patient admitted / discharged? Hospital course, mention meds given and route, prescriptions, significant lab abnormalities, going to OR and other pertinent info. @ -Discharged. 74-year-old male with right elbow pain. On my evaluation patient noted to have pain to palpation over the right olecranon process. There are no musculoskeletal deficits of the right wrist or shoulder as these display full range of motion. Patient is neuro vastly intact as well. Patient will be evaluated via x-ray imaging for further evaluation. X-rays negative for acute process. As patient is expressing pain to palpation over the olecranon process with no acute findings on x-ray he will still be placed in a posterior arm splint and provided with follow-up to eye specialist for further evaluation for potential small injury. Additionally, he is provided with a sling and instructed to use the sling and keep splint in place until follow-up with eye specialist. All questions answered at bedside intact return parameters as of the patient has verbalized understanding. Case discussed with Dr. Ely Undiagnosed new problem with uncertain prognosis? @ -No Drug Therapy requiring intensive monitoring for toxicity (Heparin, Nitro, Insulin, Cardizem)? @ -No Were any procedures done? @ -Orthopedic splinting Diagnosis/symptom? @ -Right elbow pain Acute, or Chronic, or Acute on Chronic? @ -acute Uncomplicated (without systemic symptoms) or Complicated (systemic symptoms)? @ -Uncomplicated Side effects of treatment? @ -No Exacerbation, Progression, or Severe Exacerbation? @ -No Poses a threat to life or bodily function? How? (Chest pain, [place], [place], pneumonia, PE, COPD, DKA, ARF, appy, cholecystitis, CVA, Diverticulitis, Homicidal, Suicidal, threat to staff... and all critical care pts) @ -No Disposition Clinical Impression: Right elbow pain Disposition: HOME SELF-CARE Condition: Stable Instructions (If sedation given, give patient instructions): Elbow Sprain (ED) Additional Instructions: Return to the emergency department for any new or worsening symptoms. Recommend keep splint in place and follow-up with provide eye specialist for further evaluation. Continue to wear sling as well. Is patient prescribed a controlled substance at d/c from ED?: No Referrals: Moise French MD [Primary Care Provider] - 1-2 days Kamila Resendiz DO [Doctor of Osteopathic Medicine] - 1-2 days Time of Disposition: 16:24
[2024-02-17] MEDS: ACETAMINOPHEN TAB 500 MG TAB PO STA (15:18)
--- NOTE | 2024-02-17 16:04 | XR ---
Right elbow HISTORY: Fall 2 weeks ago on right arm with pain. COMPARISON: None. TECHNIQUE: 4 views of the right elbow were obtained. There is no acute fracture, dislocation or focal intraosseous abnormality. There is an ill-defined 14 .6 mm calcification in the soft tissues anterior to the distal humerus. There are mild degenerative c hanges of the elbow with hypertrophic spurring. IMPRESSION: 1. Mild degenerative arthritis. No acute trauma. 2. Focal soft tissue calcification of indeterminate etiology. MRI might be useful for further evaluat ion. [facility], , 02/17/2024 4:01 PM
[2024-02-17 17:01] VITALS: BP 130/81; PULSE 64
== END 2024-02-17 17:01 | disposition home or self-care (01) ==
LOC: EC 14:49
CPT/HCPCS: 99283

== ENCOUNTER 2024-02-20 17:59 | Emergency (ER) | payer MEDICARE ==
[2024-02-20 18:57] VITALS: RESP 18; TEMP 97.9
[2024-02-20] MEDS: ACETAMINOPHEN TAB 500 MG TAB PO STA (19:56)
--- NOTE | 2024-02-20 21:32 | XR ---
EXAMINATION TYPE: XR elbow complete RT DATE OF EXAM: 02/20/2024 8:03 PM CLINICAL INDICATION:Male, 74 years old with history of fall injury; [facility] COMPARISON: X-rays 02/17/2024 TECHNIQUE: The right elbow was examined in AP, lateral, and oblique projections. FINDINGS: Overall appearance is unchanged. No acute fracture lucency or dislocation is demonstrated. There are moderate degenerative changes of the elbow joint, limiting evaluation. There is again amorphous calci fic density seen projected anterior to the distal humerus which could represent a joint mouse. Small joint effusion cannot excluded. No metallic foreign body. If there is persistent clinical concern, follow-up CT or MRI may be of benefit. IMPRESSION: 1. Presumed chronic/degenerative changes redemonstrated. 2. No definite acute fracture or dislocation. [facility], , 02/20/2024 9:30 PM
--- NOTE | 2024-02-20 22:12 | ED ---
Upper Extremity HPI - General Chief Complaint: Extremity Injury, Upper Stated Complaint: R arm pain Time Seen by Provider: 02/20/24 22:11 Source: patient, family, RN notes reviewed Mode of arrival: ambulatory Limitations: no limitations - History of Present Illness Initial Comments: 74-year-old male presented the ER with a chief complaint of right elbow pain. Patient was seen here on 02-17-2024 for similar complaint. Patient states approximately 2 weeks ago he fell landing on this elbow. He has had an increase in pain over the past 2 weeks. Patient had x-rays completed on 02/16 which were negative. Patient was placed in a splint for comfort. He was instructed to follow-up with orthopedics, Dr. Resendiz. Patient reports he has an appointment on , 02-25-2024. Patient reports he has had an increase of pain over the past 24 hours in his elbow. He is been taking [id number] Tylenol without relief. Denies any new injuries or complaints. Denies any paresthesias. No other complaints. - Related Data Home Medications Medication Instructions Recorded Confirmed Aspirin EC [Ecotrin Low Dose] 81 mg PO BID 02/17/20 10/13/23 Atorvastatin Calcium [Lipitor] 40 mg PO HS 02/17/20 10/13/23 Warfarin [Coumadin] 2.5 mg PO DAILY 02/17/20 10/13/23 amLODIPine [Norvasc] 5 mg PO DAILY 02/17/20 10/13/23 carvediloL [Coreg] 6.25 mg PO BID 02/17/20 10/13/23 Previous Rx's Medication Instructions Recorded Meclizine [Antivert] 25 mg PO TID PRN #12 tab 10/12/23 Allergies Allergy/AdvReac Type Severity Reaction Status Date / Time morphine AdvReac Nausea & Verified 02/17/24 14:53 Vomiting Review of Systems ROS Statement: Those systems with pertinent positive or pertinent negative responses have been documented in the HPI. ROS Other: All systems not noted in ROS Statement are negative. 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 Last Myocardial Infarction Date:: 2008 History of Any Multi-Drug Resistant Organisms: None Reported Past Surgical History: Orthopedic Surgery, Prostate Surgery Additional Past Surgical History / Comment(s): abdominal aortic stent Past Anesthesia/Blood Transfusion Reactions: No Reported Reaction Past Psychological History: No Psychological Hx Reported Smoking Status: Current every day smoker Past Alcohol Use History: None Reported Past Drug Use History: None Reported General Exam Limitations: no limitations General appearance: alert, in no apparent distress Respiratory exam: Present: normal lung sounds bilaterally. Absent: respiratory distress, wheezes, rales, rhonchi, stridor Cardiovascular Exam: Present: regular rate, normal rhythm, normal heart sounds. Absent: systolic murmur, diastolic murmur, rubs, gallop, clicks Extremities exam: Present: tenderness (Lateral upper condyle right elbow. Limited active and passive range of motion. 2+ right radial pulse. 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 sent in by a medical professional or institution (, PA, DRILLER'S ASSISTANT, urgent care, hospital, or half-way...) When possible be specific @ -No Did you speak to anyone other than the patient for history (EMS, parent, family, police, friend...)? What history was obtained from this source @ -No Did you review nursing and triage notes (agree or disagree)? Why? @ -I reviewed and agree with nursing and triage notes Were old charts reviewed (outside hosp., previous admission, EMS record, old EKG, old radiological studies, urgent care reports/EKG's, half-way records)? Report findings @ -I reviewed ER visit and x-ray from 02-17-2024. X-rays negative at that time. Differential Diagnosis (chest pain, altered mental status, abdominal pain women, abdominal pain men, vaginal bleeding, weakness, fever, dyspnea, syncope, headache, dizziness, GI bleed, back pain, seizure, CVA, palpatations, mental health, musculoskeletal)? @ -[Differential Musculoskeletal Muscular strain, contusion, ligament sprain, fracture, arthritis, septic arthritis, bursitis, cellulitis, muscle spasm, nerve compression, DVT, arterial occlusion, herpes zoster, electrolyte abnormality, tumor.... This is not meant to be in all inclusive list EKG interpreted by me (3pts min.). @ -None done X-rays interpreted by me (1pt min.). @ -Right elbow x-ray completed today negative for acute process. CT interpreted by me (1pt min.). @ -None done U/S interpreted by me (1pt. min.). @ -None done What testing was considered but not performed or refused? (CT, X-rays, U/S, labs)? Why? @ -None What meds were considered but not given or refused? Why? @ -None Did you discuss the management of the patient with other professionals (professionals i.e. , PA, DRILLER'S ASSISTANT, lab, RT, psych nurse, social work nurse, poultice machine operator, teacher, police officer crime prevention, casework supervisor)? Give summary @ -No Was smoking cessation discussed for >3mins.? @ -No Was critical care preformed (if so, how long)? @ -No Were there social determinants of health that impacted care today? How? (Homelessness, low income, unemployed, alcoholism, drug addiction, transportation, low edu. Level, literacy, decrease access to med. care, residential, rehab)? @ -No Was there de-escalation of care discussed even if they declined (Discuss DNR or withdrawal of care, Hospice)? DNR status @ -No What co-morbidities impacted this encounter? (DM, HTN, Smoking, COPD, CAD, Cancer, CVA, ARF, Chemo, Hep., AIDS, mental health diagnosis, sleep apnea, morbid obesity)? @ -None Was patient admitted / discharged? Hospital course, mention meds given and route, prescriptions, significant lab abnormalities, going to OR and other pertinent info. @ -[Discharge. 74-year-old male presented to the ER with a chief complaint of right elbow pain. Patient seen here on 02-17-2024 for similar complaint. Chapis t was placed in a splint and instructed to follow-up with orthopedics. History and physical exam completed. Vitals within normal limits. Tenderness to lateral epicondyle of right elbow. No overlying skin changes. Right upper extremity neurovascular intact. Limited active and passive range of motion of elbow due to pain. Patient received p.o. Tylenol for pain control in the ER. X-rays completed today negative. Patient placed in a splint and instructed to follow-up closely with Dr. Resendiz as scheduled. Strict return parameters discussed. Patient discharged in stable condition with follow-up to PCP. Patient verbally expressed understanding and agreement with care plan. Case discussed with ED attending, . Undiagnosed new problem with uncertain prognosis? @ -No Drug Therapy requiring intensive monitoring for toxicity (Heparin, Nitro, Insulin, Cardizem)? @ -No Were any procedures done? @ -No Diagnosis/symptom? @ -Elbow sprain Acute, or Chronic, or Acute on Chronic? @ -Acute Uncomplicated (without systemic symptoms) or Complicated (systemic symptoms)? @ -Uncomplicated Side effects of treatment? @ -No Exacerbation, Progression, or Severe Exacerbation? @ -No Poses a threat to life or bodily function? How? (Chest pain, [place], [place], pneumonia, PE, COPD, DKA, ARF, appy, cholecystitis, CVA, Diverticulitis, Homicidal, Suicidal, threat to staff... and all critical care pts) @ -No - Radiology Data Radiology results: report reviewed, image reviewed Disposition Clinical Impression: Right elbow pain Disposition: HOME SELF-CARE Condition: Stable Instructions (If sedation given, give patient instructions): Elbow Sprain (ED) Additional Instructions: May take [id number] Tylenol for pain control. Follow-up with Dr. Resendiz as scheduled on Saturday. Return to the ER for any new or worsening concerns. Is patient prescribed a controlled substance at d/c from ED?: No Referrals: Moise French MD [Primary Care Provider] - 1-2 days Kamila Resendiz DO [Doctor of Osteopathic Medicine] - 1-2 days Time of Disposition: 22:12
[2024-02-20 22:33] VITALS: BP 158/85; PULSE 71
== END 2024-02-20 22:31 | disposition home or self-care (01) ==
LOC: EC 17:59
CPT/HCPCS: 29105; 99283

== ENCOUNTER 2024-07-18 00:48 | Inpatient (IN) | payer MEDICARE ==
--- NOTE | 2024-07-18 01:19 | ED ---
SOB HPI - General Chief Complaint: Shortness of Breath Stated Complaint: JESSY Time Seen by Provider: 07/18/24 01:16 Source: patient, EMS, RN notes reviewed, old records reviewed Mode of arrival: EMS Limitations: no limitations - History of Present Illness Initial Comments: Patient is a 74-year-old male presented the ER via EMS for evaluation of shortness of breath. Patient is a past medical history significant of COPD, myocardial infarction and prostate disorder. He states throughout the day today he does have progressively worsening shortness of breath. He also states he feels very weak and when exiting the bathroom this evening he fell as he was feeling weak. He states his right side fell into the wall but denies any head injury or loss of consciousness. Patient does take Coumadin. Patient reports this prompted EMS to be called. Patient does not typically wear oxygen at home. He denies any peripheral edema. He denies any fevers or chills. He does report a productive cough. He has been using at home inhalers without relief of shortness of breath. He does report a housemate has been ill with influenza A. Patient was admitted to this facility on 06-28-2024. He states at that time he had fluid drained off of his right lung. He denies any chest pain, abdominal pain, constipation/diarrhea, nausea or vomiting or urinary complaints. - Related Data Home Medications Medication Instructions Recorded Confirmed Aspirin EC [Ecotrin Low Dose] 81 mg PO BID 02/17/20 06/29/24 Atorvastatin Calcium [Lipitor] 40 mg PO HS 02/17/20 06/29/24 Warfarin [Coumadin] 2.5 mg PO W/LUNCH 02/17/20 06/29/24 amLODIPine [Norvasc] 5 mg PO DAILY 02/17/20 06/29/24 carvediloL [Coreg] 6.25 mg PO BID 02/17/20 06/29/24 Previous Rx's Medication Instructions Recorded Albuterol Inhaler [Ventolin Hfa 4 puff INHALATION RT-Q4H PRN #1 07/02/24 Inhaler] each Budesonide-Formot 160-4.5 Mcg 2 puff INHALATION RT-BID #1 each 07/02/24 [Symbicort 160-4.5 Mcg Inhaler] Nicotine 21Mg/24Hr Patch [Habitrol] 1 patch TRANSDERM DAILY #30 patch 07/02/24 cefuroxime axetiL [Ceftin] 500 mg PO BID #10 tab 07/02/24 predniSONE 10 mg PO DAILY #30 tab 07/02/24 Allergies Allergy/AdvReac Type Severity Reaction Status Date / Time morphine AdvReac Nausea & Verified 06/29/24 07:38 Vomiting Review of Systems ROS Statement: Those systems with pertinent positive or pertinent negative responses have been documented in the HPI. ROS Other: All systems not noted in ROS Statement are negative. 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 Last Myocardial Infarction Date:: 2008 History of Any Multi-Drug Resistant Organisms: None Reported Past Surgical History: Orthopedic Surgery, Prostate Surgery Additional Past Surgical History / Comment(s): abdominal aortic stent Past Anesthesia/Blood Transfusion Reactions: No Reported Reaction Past Psychological History: No Psychological Hx Reported Smoking Status: Current every day smoker Past Alcohol Use History: None Reported Past Drug Use History: None Reported General Exam Limitations: no limitations General appearance: alert, in no apparent distress Head exam: Present: atraumatic, normocephalic, normal inspection ENT exam: Present: normal exam, normal oropharynx, mucous membranes moist Respiratory exam: Present: decreased breath sounds (Throughout) Cardiovascular Exam: Present: regular rate, normal rhythm, normal heart sounds. Absent: systolic murmur, diastolic murmur, rubs, gallop, clicks GI/Abdominal exam: Present: soft, normal bowel sounds. Absent: distended, tenderness, guarding, rebound, rigid Extremities exam: Present: normal inspection, full ROM, normal capillary refill. Absent: tenderness, pedal edema, joint swelling, calf tenderness Neurological exam: Present: alert, oriented X3, CN II-XII intact Skin exam: Present: warm, dry, intact, normal color. Absent: rash Course Vital Signs 07/18/24 07/18/24 07/18/24 00:51 01:32 01:42 Temperature 98.1 F Pulse Rate 86 92 96 Respiratory 18 Rate Blood Pressure 134/72 O2 Sat by Pulse 92 L Oximetry - Reevaluation(s) Reevaluation #1: 07/18/24 04:10 Case discussed With Sound, Dr. Calvo, for admission. Medical Decision Making - Medical Decision Making Was pt. sent in by a medical professional or institution ([employer] [facility], [employer] DIRECTOR, urgent care, hospital, or [facility]...) When possible be specific @ -No Did you speak to anyone other than the patient for history (EMS, parent, family, police, friend...)? What history was obtained from this source @ -No Did you review nursing and triage notes (agree or disagree)? Why? @ -I reviewed and agree with nursing and triage notes Were old charts reviewed (outside hosp., previous admission, EMS record, old EKG, old radiological studies, urgent care reports/EKG's, [facility] records)? Report findings @ -Yes, I reviewed admission notes and discharge summary from 06-28-2024. I also reviewed culture results from 07 02 24 showing metastatic pulmonary adenocarcinoma findings from thoracentesis Differential Diagnosis (chest pain, altered mental status, abdominal pain women, abdominal pain men, vaginal bleeding, weakness, fever, dyspnea, syncope, headache, dizziness, GI bleed, back pain, seizure, CVA, palpatations, mental health, musculoskeletal)? @ -Differential Dyspnea:Coronary syndrome, arrhythmia, tamponade, asthma, COPD, pulmonary embolism, pneumonia, pneumothorax, pulmonary effusion, anaphylaxis, diabetic ketoacidosis, flailed chest, pulmonary contusion, diaphragmatic rupture, anemia, neuromuscular, this is not meant to be an all-inclusive list. EKG interpreted by me (3pts min.). @ -As above X-rays interpreted by me (1pt min.). @ -CXR interpreted me showing a right pleural effusion CT interpreted by me (1pt min.). @ -None done U/S interpreted by me (1pt. min.). @ -None done What testing was considered but not performed or refused? (CT, X-rays, U/S, labs)? Why? @ -None What meds were considered but not given or refused? Why? @ -None Did you discuss the management of the patient with other professionals (professionals i.e. [employer], [employer] DIRECTOR, lab, RT, psych nurse, social security assessor, food stand manager, teacher, space operations officer, senior case manager)? Give summary @ -Yes, case discussed with sound physician, Dr. Calvo, for admission. Was smoking cessation discussed for >3mins.? @ -No Was critical care preformed (if so, how long)? @ -No Were there social determinants of health that impacted care today? How? (Homelessness, low income, unemployed, alcoholism, drug addiction, transportation, low edu. Level, literacy, decrease access to med. care, shelter, rehab)? @ -No Was there de-escalation of care discussed even if they declined (Discuss DNR or withdrawal of care, Hospice)? DNR status @ -No What co-morbidities impacted this encounter? (DM, HTN, Smoking, COPD, CAD, Cancer, CVA, ARF, Chemo, Hep., AIDS, mental health diagnosis, sleep apnea, morbid obesity)? @ -COPD, [place], malignancy Was patient admitted / discharged? Hospital course, mention meds given and route, prescriptions, significant lab abnormalities, going to OR and other pertinent info. @ -Admitted. 74-year-old male presented the ER for evaluation of shortness of breath. Upon rooming, patient resting company in stretcher no signs of acute distress. Vitals within acceptable limits. Patient stating 94% on room air. Patient placed on 2 L nasal cannula oxygen for comfort. He does not typically wear oxygen at home. Laboratory studies obtained in the ER showed a WBC of 10.3 left shift. INR 5.4. Patient does take warfarin due to abdominal aortic stent placement. Warfarin will be on hold with daily PT/INR's. Troponin undetectable. BNP 220. COVID-positive. Chest x-ray showing a right pleural effusion. EKG showing a sinus rhythm. No acute evidence of infarct or ischemia. Given right pleural effusion, admission was considered and discussed with sound physician, Dr. Calvo. Patient started on IV Solu-Medrol. DuoNeb given. Pulmonology and oncology on consult. Patient agreeable for admission. Patient been in stable condition. Case discussed with ED attending, Dr. Hackett. Undiagnosed new problem with uncertain prognosis? @ -No Drug Therapy requiring intensive monitoring for toxicity (Heparin, Nitro, Insulin, Cardizem)? @ -No Were any procedures done? @ -No Diagnosis/symptom? @ -Right pleural effusion/COVID/acute viral sinusitis Acute, or Chronic, or Acute on Chronic? @ -Acute Uncomplicated (without systemic symptoms) or Complicated (systemic symptoms)? @ -Complicated Side effects of treatment? @ -No Exacerbation, Progression, or Severe Exacerbation? @ -No Poses a threat to life or bodily function? How? (Chest pain, [place], [place], pneumonia, PE, COPD, DKA, ARF, appy, cholecystitis, CVA, Diverticulitis, Homicidal, Suicidal, threat to staff... and all critical care pts) @ -Yes, malignancy - Lab Data Result diagrams: 07/18/24 01:45 07/18/24 01:45 Lab Results 07/18/24 07/18/24 07/18/24 Range/Units 01:45 01:45 01:45 WBC 10.3 (3.8-10.6) k/uL RBC 4.76 (4.30-5.90) m/uL Hgb 13.5 (13.0-17.5) gm/dL Hct 41.2 (39.0-53.0) % MCV 86.5 (80.0-100.0) fL MCH 28.2 (25.0-35.0) pg MCHC 32.6 (31.0-37.0) g/dL RDW 14.3 (11.5-15.5) % Plt Count 236 (150-450) k/uL MPV 7.6 Neutrophils % 78 % Lymphocytes % 12 % Monocytes % 7 % Eosinophils % 2 % Basophils % 0 % Neutrophils # 8.1 H (1.3-7.7) k/uL Lymphocytes # 1.2 (1.0-4.8) k/uL Monocytes # 0.7 (0-1.0) k/uL Eosinophils # 0.2 (0-0.7) k/uL Basophils # 0.0 (0-0.2) k/uL PT 53.4 H (10.0-12.5) sec INR 5.4 H* (<1.2) APTT 38.4 H (22.0-30.0) sec Sodium 130 L (137-145) mmol/L Potassium 3.7 (3.5-5.1) mmol/L Chloride 101 (98-107) mmol/L Carbon Dioxide 27 (22-30) mmol/L Anion Gap 2 mmol/L BUN 8 L (9-20) mg/dL Creatinine 0.60 L (0.66-1.25) mg/dL Est GFR (CKD-EPI)AfAm >90 (>60 ml/min/1.73 sqM) Est GFR (CKD-EPI)NonAf >90 (>60 ml/min/1.73 sqM) Glucose 89 (74-99) mg/dL Plasma Lactic Acid Nico (0.7-2.0) mmol/L Calcium 8.3 L (8.4-10.2) mg/dL Magnesium 1.7 (1.6-2.3) mg/dL Total Bilirubin 1.6 H (0.2-1.3) mg/dL AST 18 (17-59) U/L ALT 20 (4-49) U/L Alkaline Phosphatase 95 (38-126) U/L Troponin I (0.000-0.034) ng/mL NT-Pro-B Natriuret Pep 220 pg/mL Total Protein 5.3 L (6.3-8.2) g/dL Albumin 2.7 L (3.5-5.0) g/dL Influenza Type A (PCR) (Not Detectd) Influenza Type B (PCR) (Not Detectd) RSV (PCR) (Not Detectd) SARS-CoV-2 (PCR) (Not Detectd) 07/18/24 07/18/24 07/18/24 Range/Units 01:45 01:45 01:45 WBC (3.8-10.6) k/uL RBC (4.30-5.90) m/uL Hgb (13.0-17.5) gm/dL Hct (39.0-53.0) % MCV (80.0-100.0) fL MCH (25.0-35.0) pg MCHC (31.0-37.0) g/dL RDW (11.5-15.5) % Plt Count (150-450) k/uL MPV Neutrophils % % Lymphocytes % % Monocytes % % Eosinophils % % Basophils % % Neutrophils # (1.3-7.7) k/uL Lymphocytes # (1.0-4.8) k/uL Monocytes # (0-1.0) k/uL Eosinophils # (0-0.7) k/uL Basophils # (0-0.2) k/uL PT (10.0-12.5) sec INR (<1.2) APTT (22.0-30.0) sec Sodium (137-145) mmol/L Potassium (3.5-5.1) mmol/L Chloride (98-107) mmol/L Carbon Dioxide (22-30) mmol/L Anion Gap mmol/L BUN (9-20) mg/dL Creatinine (0.66-1.25) mg/dL Est GFR (CKD-EPI)AfAm (>60 ml/min/1.73 sqM) Est GFR (CKD-EPI)NonAf (>60 ml/min/1.73 sqM) Glucose (74-99) mg/dL Plasma Lactic Acid Nico 1.0 (0.7-2.0) mmol/L Calcium (8.4-10.2) mg/dL Magnesium (1.6-2.3) mg/dL Total Bilirubin (0.2-1.3) mg/dL AST (17-59) U/L ALT (4-49) U/L Alkaline Phosphatase (38-126) U/L Troponin I <0.012 (0.000-0.034) ng/mL NT-Pro-B Natriuret Pep pg/mL Total Protein (6.3-8.2) g/dL Albumin (3.5-5.0) g/dL Influenza Type A (PCR) Not Detected (Not Detectd) Influenza Type B (PCR) Not Detected (Not Detectd) RSV (PCR) Not Detected (Not Detectd) SARS-CoV-2 (PCR) Detected A (Not Detectd) - EKG Data -: EKG Interpreted by Sd EKG Comments: EKG taken at 2: Await showing a sinus rhythm. No ST segment elevations or depressions. No T wave inversions. Ventricular rate 81, NC interval 193, QRS duration 93, QT/QTc 330/367. - Radiology Data Radiology results: report reviewed, image reviewed Disposition Clinical Impression: Pleural effusion, COVID-19, Acute viral sinusitis Disposition: ADMITTED IP TO THIS HOSP Condition: Stable Referrals: None,Stated [Primary Care Provider] - 1-2 days Time of Disposition: 04:15
[2024-07-18] MEDS: IPRATROPIUM-ALBUTEROL 3 ML NEB INHALATION STA (01:32)
[2024-07-18 02:11] LABS: Basophils % (A) 0 %; Eosinophils # (A) 0.2 k/uL (0-0.7); Eosinophils % (A) 2 %; HCT 41.2 % (39.0-53.0); HGB 13.5 gm/dL (13.0-17.5); Lymphocytes # (A) 1.2 k/uL (1.0-4.8); Lymphocytes % (A) 12 %; MCH 28.2 pg (25.0-35.0); MCHC 32.6 g/dL (31.0-37.0); MCV 86.5 fL (80.0-100.0); Mean Platelet Volume 7.6; Monocytes # (A) 0.7 k/uL (0-1.0); Monocytes % (A) 7 %; Neutrophils # (A) 8.1 k/uL (1.3-7.7); Neutrophils % (A) 78 %; Platelet Count 236 k/uL (150-450); RBC 4.76 m/uL (4.30-5.90); RDW 14.3 % (11.5-15.5); WBC 10.3 k/uL (3.8-10.6)
--- NOTE | 2024-07-18 02:36 | XR ---
EXAM: XR Chest, 2 Views CLINICAL HISTORY: Difficulty breathing TECHNIQUE: Frontal and lateral views of the chest. COMPARISON: Chest 2 views dated 06/28/2024 FINDINGS: Lungs: Stable hyperexpansion of the lungs. Platelike linear changes in the right midlung zone with increased subsegmental changes at the right lung base. The left lung remains well aerated. The pulmonary vasculature demonstrates no segment radiographic abnormality. Pleural space: Interval increase in the right pleural effusion, now moderate in size. Heart: Unremarkable. No cardiomegaly. Mediastinum: The mediastinal contours are stable. The trachea is midline. Bones/joints: Unremarkable. No acute fracture. Upper abdomen: Incidental abdominal aortic stent graft minimally included. IMPRESSION: 1. Interval increase in the right pleural effusion, now moderate in size. 2. Stable hyperexpansion of the lungs. Platelike linear changes in the right midlung zone with increased subsegmental changes at the right lung base. Suspect increasing compressive atelectasis; however, subtle infection at the right lung base is not excluded. The left lung is unremarkable.
[2024-07-18 02:37] LABS: ALT 20 U/L (4-49); AST 18 U/L (17-59); African American GFR (CKD) >90 (>60 ml/min/1.73 sqM); Albumin 2.7 g/dL (3.5-5.0); Alkaline Phosphatase 95 U/L (38-126); Anion Gap 2 mmol/L; Blood Urea Nitrogen 8 mg/dL (9-20); Calcium 8.3 mg/dL (8.4-10.2); Carbon Dioxide 27 mmol/L (22-30); Chloride 101 mmol/L (98-107); Glucose 89 mg/dL (74-99); Magnesium 1.7 mg/dL (1.6-2.3); Non-African American GFR(CKD) >90 (>60 ml/min/1.73 sqM); Potassium 3.7 mmol/L (3.5-5.1); Sodium 130 mmol/L (137-145); Total Bilirubin 1.6 mg/dL (0.2-1.3); Total Protein 5.3 g/dL (6.3-8.2)
[2024-07-18 02:46] LABS: NT-Pro-B-Type Natriuretic Pept 220 pg/mL
[2024-07-18 02:47] LABS: Partial Thromboplastin Time 38.4 sec (22.0-30.0)
[2024-07-18 03:00] LABS: Prothrombin Time 53.4 sec (10.0-12.5)
[2024-07-18 03:03] LABS: INR 5.4 (<1.2)
[2024-07-18 03:08] LABS: Influenza A Not Detected (Not Detectd); Influenza B Not Detected (Not Detectd); RSV Not Detected (Not Detectd)
[2024-07-18] MEDS ORDERED: NALOXONE 0.4 MG/ML 1 ML VIAL IV PRN (04:41)
[2024-07-18] MEDS ORDERED: ACETAMINOPHEN TAB 325 MG TAB PO PRN (04:41)
[2024-07-18] MEDS: methylPREDNISolone SOD SUCCI 125 MG/2 ML VIAL IV STA (05:21)
--- NOTE | 2024-07-18 07:05 | P.HPIM ---
History of Present Illness H&P Date: 07/18/24 Chief Complaint: Generalized weakness fall 74-year-old male with COPD Patient coming in for evaluation due to progressive weakness shortness of breath and a fall at home in the hallway patient has been having chronic right-sided lower chest upper abdominal pain which has been chronic. He was recently hospitalized for pneumonia secondary to underlying COVID was also treated with antibiotics and steroids for COPD exacerbation. Discharged about a week ago. At that time he was also found to have right pleural effusion status post 1.3 L thoracentesis later on cytopathology showed metastatic adenocarcinoma of the lung. Patient also takes Coumadin for aortic grafting and stenting. Patient denies any fevers chills denies any head injury or loss of consciousness he reports that the fall was mechanical as he is feeling weak and tired denies any associated heart racing shortness of breath or dizziness he denies any GI bleeding review of systems Pertinent positives as noted in HPI. All other systems were reviewed and are negative on exam Constitutional: No acute distress, conversant, pleasant Eyes: Anicteric sclerae, moist conjunctiva, Pupils equal round reactive to light ENMT: NC/AT Oropharynx clear, no erythema, or exudates Neck: Supple, no masses, or JVD No carotid bruits No thyromegaly Lungs: Diminished breath sounds on the right side no wheezing rhonchi Normal respiratory effort, no accessory muscle use Cardiovascular: Heart regular in rate and rhythm, No murmurs, gallops, or rubs No peripheral edema Abdominal: Soft Tenderness to palpation of the rib cage over the right upper quadrant of the abdomen no bruising ecchymosis or open wounds r, no guarding, rebound or rigidity Abdomen moving with respiration Normoactive bowel sounds Extremities: No digital cyanosis Pedal pulses intact and symmetrical Radial pulses intact and symmetrical No calf tenderness Psychiatric: Alert and oriented to person, place and time Appropriate affect fair judgement Neuro Muscles Strength 4/5 in all 4 extremities Sensation to light touch grossly present throughout Cranial nerves II-XII grossly intact Past Medical History Past Medical History: COPD, Myocardial Infarction ([place]), Prostate Disorder Additional Past Medical History / Comment(s): Prostate 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 Last Myocardial Infarction Date:: 2008 History of Any Multi-Drug Resistant Organisms: None Reported Past Surgical History: Orthopedic Surgery, Prostate Surgery Additional Past Surgical History / Comment(s): abdominal aortic stent Past Anesthesia/Blood Transfusion Reactions: No Reported Reaction Past Psychological History: No Psychological Hx Reported Smoking Status: Current every day smoker Past Alcohol Use History: None Reported Past Drug Use History: None Reported Medications and Allergies Home Medications Medication Instructions Recorded Confirmed Type Aspirin EC [Ecotrin Low Dose] 81 mg PO BID 02/17/20 06/29/24 History Atorvastatin Calcium [Lipitor] 40 mg PO HS 02/17/20 06/29/24 History Warfarin [Coumadin] 2.5 mg PO W/LUNCH 02/17/20 06/29/24 History amLODIPine [Norvasc] 5 mg PO DAILY 02/17/20 06/29/24 History carvediloL [Coreg] 6.25 mg PO BID 02/17/20 06/29/24 History Albuterol Inhaler [Ventolin Hfa 4 puff INHALATION RT-Q4H PRN #1 07/02/24 Rx Inhaler] each Budesonide-Formot 160-4.5 Mcg 2 puff INHALATION RT-BID #1 each 07/02/24 Rx [Symbicort 160-4.5 Mcg Inhaler] Nicotine 21Mg/24Hr Patch [Habitrol] 1 patch TRANSDERM DAILY #30 patch 07/02/24 Rx cefuroxime axetiL [Ceftin] 500 mg PO BID #10 tab 07/02/24 Rx predniSONE 10 mg PO DAILY #30 tab 07/02/24 Rx Allergies Allergy/AdvReac Type Severity Reaction Status Date / Time morphine AdvReac Nausea & Verified 06/29/24 07:38 Vomiting Physical Exam Vitals: Vital Signs Temp Pulse Resp BP Pulse Ox 07/18/24 06:54 97.8 F 84 20 115/67 96 07/18/24 06:16 85 18 121/74 96 07/18/24 04:12 101 H 20 133/83 98 07/18/24 02:05 82 18 126/78 94 L 07/18/24 01:42 96 07/18/24 01:32 92 07/18/24 00:55 24 07/18/24 00:51 98.1 F 86 18 134/72 92 L Intake and Output 07/17/24 07/17/24 07/18/24 14:59 22:59 06:59 Other: Weight 61.689 kg Results CBC & Chem 7: 07/18/24 01:45 07/18/24 01:45 Labs: Abnormal Lab Results - Last 24 Hours (Table) 07/18/24 07/18/24 07/18/24 Range/Units 01:45 01:45 01:45 Neutrophils # 8.1 H (1.3-7.7) k/uL PT 53.4 H (10.0-12.5) sec INR 5.4 H* (<1.2) APTT 38.4 H (22.0-30.0) sec Sodium 130 L (137-145) mmol/L BUN 8 L (9-20) mg/dL Creatinine 0.60 L (0.66-1.25) mg/dL Calcium 8.3 L (8.4-10.2) mg/dL Total Bilirubin 1.6 H (0.2-1.3) mg/dL Total Protein 5.3 L (6.3-8.2) g/dL Albumin 2.7 L (3.5-5.0) g/dL SARS-CoV-2 (PCR) (Not Detectd) 07/18/24 Range/Units 01:45 Neutrophils # (1.3-7.7) k/uL PT (10.0-12.5) sec INR (<1.2) APTT (22.0-30.0) sec Sodium (137-145) mmol/L BUN (9-20) mg/dL Creatinine (0.66-1.25) mg/dL Calcium (8.4-10.2) mg/dL Total Bilirubin (0.2-1.3) mg/dL Total Protein (6.3-8.2) g/dL Albumin (3.5-5.0) g/dL SARS-CoV-2 (PCR) Detected A (Not Detectd) Assessment and Plan Assessment: 74-year-old male with COPD not on home oxygen coming in for PT. Progressively weak and falling at home patient on Coumadin for aortic grafting and stenting discussed case with ED doctor and accepted the admission for generalized weakness and recurrent right-sided pleural effusion Recurrent right-sided pleural effusion suspected secondary to adenocarcinoma of the lung COPD not on home oxygen Status post 1.3 L paracentesis 2 weeks ago Chest x-ray shows moderate right-sided pleural effusion Recent pathology from paracentesis suggestive of possible metastatic adenocarcinoma of the lung Pulmonary consult Supplemental oxygen as needed DuoNebs scheduled and as needed Resume home inhalers COVID-positive however of note patient was COVID-positive since June 28 Continue with prednisone 10 mg p.o. daily Supratherapeutic INR Patient on Coumadin for aortic graft and stenting Hold Coumadin for now dosing by pharmacy Hemoglobin stable at 13.5 Patient denies any bleeding Right upper quadrant abdominal pain Check abdominal ultrasound rule out gallstones If ultrasound negative consider CT of the chest to rule out any mets to the bone resulting in pain Pain control with morphine 2 mg as needed IV push every 4 hours Generalized weakness and debility PT OT evaluation Hypertension Continue with Carvedilol and amlodipine Hyperlipidemia Continue with atorvastatin Blood work overall unremarkable hemoglobin 15.5 white count 10.3 Sodium 130 potassium 3.7 BUN 8 creatinine 0.6 unremarkable Troponins negative Full code DVT prophylaxis Lovenox 40 mg subcu daily
[2024-07-18 07:11] LABS: INR 5.2 (<1.2)
[2024-07-18] MEDS: amLODIPine 5 MG TAB PO SCH (08:36)
[2024-07-18] MEDS: ASPIRIN 81 MG PO SCH (08:36)
[2024-07-18] MEDS: predniSONE 10 MG TAB PO SCH (08:37)
[2024-07-18] MEDS: carvediloL 6.25 MG TAB PO SCH (08:37)
[2024-07-18] MEDS: IPRATROPIUM-ALBUTEROL 3 ML NEB INHALATION SCH (09:09)
[2024-07-18] MEDS: SYMBICORT 160-4.5 MCG INHALER INHALATION SCH (09:09)
--- NOTE | 2024-07-18 12:40 | P.CONS ---
History of Present Illness - Reason for Consult Consult date: 07/18/24 Newly diagnosed NSCLC - Chief Complaint Dyspnea - History of Present Illness Mr. Camarena is a 74-year-old gentleman with a past medical history significant for abdominal aortic aneurysm on anticoagulation with Coumadin, COPD, CAD, and cigarette smoking for whom we are consulted with regards to recent diagnosis of adenocarcinoma of the lung. He was admitted at [facility] from 06/29/2024 through 07/02/2024 with increased dyspnea and was noted to be positive for COVID-19. Chest x-ray noted right lower lobe infiltrate with small pleural effusion on admission that was noted to be growing in size. CT of the chest on 06/29/2024 noted scattered small nodularities with increased density along the right mediastinal border along with enlarged mediastinal lymph nodes and potential hypodensity within the liver. Thoracentesis was performed on 07/01/2024 removing 1.3 L of turbid colored fluid that was exudative in nature. Cytology was consistent with pulmonary adenocarcinoma that was positive for MOC31, CK7, Napsin A, and TTF-1. It was negative for CDX2, CK20, and PSAP. Of note, he did have low-dose CT of the chest on 01/22/2024 revealing right upper lobe consolidated opacity with nonspecific enlarged precarinal lymph node and few small nodules along the right minor fissure favoring intrafissural lymph nodes and was recommended to have follow-up CT of the chest in 1 to 3 months. He presented on 07/18/2024 with progressive weakness and dyspnea. He is currently saturating between 90 to 98% on 2 L nasal cannula and does not typically wear oxygen at home. He is otherwise hemodynamically stable and afebrile. CMP revealed sodium of 130 with creatinine at 0.6. CBC revealed WBC 10.3 (ANC 8.1), hemoglobin 13.5, platelets 236. INR was noted to be 5.4. Viral PCR was positive for COVID-19. Chest x-ray on admission revealed interval increase in right pleural effusion, now moderate in size. He received 80 mg IV methylprednisolone along with DuoNeb breathing treatment and was admitted to internal medicine for additional management. He notes continuing to have persistent dyspnea. He has had anorexia with early satiety and approximately 25 to 30 pound weight loss over the past 3 to 6 months. He does have discomfort in the lateral portion of the right upper quadrant. He denies any hemoptysis, headaches, blurred vision, or focal neurologic deficits. He smoked a quarter to half a pack of cigarettes daily for 50 to 55 years. He does live at home with his grandson and is able to perform most ADLs independently without assistance. He has felt slightly limited recently with the increased dyspnea. Review of Systems 14 point review of systems was conducted with pertinent positives and negatives as noted per HPI Past Medical History Past Medical History: COPD, Myocardial Infarction ([place]), Prostate Disorder Additional Past Medical History / Comment(s): Prostate 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 Last Myocardial Infarction Date:: 2008 History of Any Multi-Drug Resistant Organisms: None Reported Past Surgical History: Orthopedic Surgery, Prostate Surgery Additional Past Surgical History / Comment(s): abdominal aortic stent Past Anesthesia/Blood Transfusion Reactions: No Reported Reaction Past Psychological History: No Psychological Hx Reported Smoking Status: Current every day smoker Past Alcohol Use History: None Reported Additional Past Alcohol Use History / Comment(s): Used to drink beer "quite a bit", none since 1990. Past Drug Use History: None Reported - Past Family History Brother(s) Family Medical History: Diabetes Mellitus Medications and Allergies Home Medications Medication Instructions Recorded Confirmed Type Aspirin EC [Ecotrin Low Dose] 81 mg PO BID 02/17/20 06/29/24 History Atorvastatin Calcium [Lipitor] 40 mg PO HS 02/17/20 06/29/24 History Warfarin [Coumadin] 2.5 mg PO W/LUNCH 02/17/20 06/29/24 History amLODIPine [Norvasc] 5 mg PO DAILY 02/17/20 06/29/24 History carvediloL [Coreg] 6.25 mg PO BID 02/17/20 06/29/24 History Albuterol Inhaler [Ventolin Hfa 4 puff INHALATION RT-Q4H PRN #1 07/02/24 Rx Inhaler] each Budesonide-Formot 160-4.5 Mcg 2 puff INHALATION RT-BID #1 each 07/02/24 Rx [Symbicort 160-4.5 Mcg Inhaler] Nicotine 21Mg/24Hr Patch [Habitrol] 1 patch TRANSDERM DAILY #30 patch 07/02/24 Rx cefuroxime axetiL [Ceftin] 500 mg PO BID #10 tab 02/20/25 Rx predniSONE 10 mg PO DAILY #30 tab 07/02/24 Rx Allergies Allergy/AdvReac Type Severity Reaction Status Date / Time morphine AdvReac Nausea & Verified 06/29/24 07:38 Vomiting Physical Exam Vitals: Vital Signs Temp Pulse Resp BP Pulse Ox 07/18/24 06:54 97.8 F 84 20 115/67 96 07/18/24 06:16 85 18 121/74 96 07/18/24 04:12 101 H 20 133/83 98 07/18/24 02:05 82 18 126/78 94 L 07/18/24 01:42 96 07/18/24 01:32 92 07/18/24 00:55 24 07/18/24 00:51 98.1 F 86 18 134/72 92 L Intake and Output 07/17/24 07/18/24 07/18/24 22:59 06:59 14:59 Other: Weight 61.689 kg 61.689 kg - Constitutional General appearance: no acute distress - EENT Eyes: EOMI - Respiratory Respiratory: right: diminished (Right lung base) - Cardiovascular Rhythm: regular - Gastrointestinal General gastrointestinal: no hepatomegaly, normal bowel sounds, tenderness Localized gastrointestinal: tender: RUQ (Lateral portion of the right upper quadrant) - Integumentary Integumentary: pale, no rash - Neurologic Neurologic: CNII-XII intact - Psychiatric Psychiatric: A&O x's 3, appropriate affect Results CBC & Chem 7: 07/18/24 01:45 07/18/24 01:45 Labs: Abnormal Lab Results - Last 24 Hours (Table) 07/18/24 07/18/24 07/18/24 Range/Units 01:45 01:45 01:45 Neutrophils # 8.1 H (1.3-7.7) k/uL PT 53.4 H (10.0-12.5) sec INR 5.4 H* (<1.2) APTT 38.4 H (22.0-30.0) sec Sodium 130 L (137-145) mmol/L BUN 8 L (9-20) mg/dL Creatinine 0.60 L (0.66-1.25) mg/dL Calcium 8.3 L (8.4-10.2) mg/dL Total Bilirubin 1.6 H (0.2-1.3) mg/dL Total Protein 5.3 L (6.3-8.2) g/dL Albumin 2.7 L (3.5-5.0) g/dL SARS-CoV-2 (PCR) (Not Detectd) 07/18/24 07/18/24 Range/Units 01:45 06:45 Neutrophils # (1.3-7.7) k/uL PT 52.0 H (10.0-12.5) sec INR 5.2 H* (<1.2) APTT (22.0-30.0) sec Sodium (137-145) mmol/L BUN (9-20) mg/dL Creatinine (0.66-1.25) mg/dL Calcium (8.4-10.2) mg/dL Total Bilirubin (0.2-1.3) mg/dL Total Protein (6.3-8.2) g/dL Albumin (3.5-5.0) g/dL SARS-CoV-2 (PCR) Detected A (Not Detectd) Assessment and Plan (1) Stage 4 malignant neoplasm of lung Current Visit: Yes Status: Acute Code(s): C34.90 - MALIGNANT NEOPLASM OF UNSP PART OF UNSP BRONCHUS OR LUNG SNOMED Code(s): 82080050 (2) Supratherapeutic INR Current Visit: Yes Status: Acute Code(s): R79.1 - ABNORMAL COAGULATION PROFILE SNOMED Code(s): 193848973 (3) Neutrophilic leukocytosis Current Visit: Yes Status: Acute Code(s): D72.828 - OTHER ELEVATED WHITE BLOOD CELL COUNT SNOMED Code(s): 296929911 Plan: #Metastatic non-small cell lung cancer -Presented in June 2024 to [facility] with increased dyspnea -CT of the chest noted scattered small nodularities with increased density along the right mediastinal border with mediastinal lymphadenopathy and possible hypodensity within the liver in addition to right pleural effusion -Thoracentesis was performed on 07/01/2024 with cytology consistent with pulmonary adenocarcinoma -Since discharge on 07/02/2024, he has had progressive dyspnea and noted to have interval enlargement of right pleural effusion on chest x-ray on admission -Discussed the findings of malignancy with Ehsan and how this was consistent with stage IV lung cancer -We did discuss that there could be different treatment options based off of molecular profiling from tissue and the peripheral blood -Recommend Pleurx catheter placement for recurrent effusion secondary to malignancy -Recommended MRI brain to ensure there is no evidence of intracranial metas tases, ordered today -PET/CT can be obtained outpatient, but if there will be significant delay with regards to discharge or if he will be going to subacute rehab on discharge, he may be better served obtaining staging CT scans and patient. There is abdominal ultrasound ordered for today -We will attempt to send pleural fluid for NGS/PD-L1 testing and will need circulating tumor DNA molecular profiling outpatient #Supratherapeutic INR -Likely due to poor oral intake and acute illness -No signs or symptoms of active bleeding at this time -Agree with holding Coumadin and letting INR drift down to normal -No vitamin K is required at this time #Neutrophilic leukocytosis -Mildly elevated ANC on admission -Secondary to corticosteroid use with recent COPD exacerbation/COVID-19 -Continue to monitor Eric Salcedo MD Time with Patient: Greater than 30
--- NOTE | 2024-07-18 15:48 | P.CRDCN ---
History of Present Illness Consult date: 07/18/24 History of present illness: HISTORY OF PRESENTING ILLNESS: 74-year-old male with COPD not on oxygen, presents to the hospital because of progressively getting weak and falling at home. He was also on warfarin for aortic graft and stenting in the past. She also has prior history of DVT. He presented to the hospital because of increased worsening shortness of breath, generalized weakness and fall in the home. Patient denies any loss of consciousness. He was recently hospitalized for pneumonia secondary to underlying COVID-19 and was treated with antibiotic and steroids for COPD exacerbation. He was discharged a week ago. At that time he was also found to have right pleural effusion status post 1.3 L thoracentesis later on cytopathology showed metastatic adenocarcinoma of the lung. Cardiology was consulted for atrial fibrillation with RVR. However on my review of telemetry and EKG have not picked up any atrial fibrillation like activity Admission Vitals: 122/71, heart rate 91 Admission Labs: Hb 13, INR 5.4, BUN 8, creatinine 0.6 NT-proBNP 220, troponins negative Admission EKG: Sinus rhythm, low voltage, no obvious ST or T wave changes that are diagnostic for ischemia at rest. Imaging: Chest x-ray shows right pleural effusion with fluid in the fissure on the right side. Mild pulmonary congestion. No consolidation. Prior cardiac testing: Echo from October 2023 shows EF of 55 to 60%, No obvious regional wall motion abnormality, trace mitral regurgitation REVIEW OF SYSTEMS: 14 point review of system is negative except what is mentioned above in HPI. PHYSICAL EXAMINATION: Neck: Brisk carotid upstroke, no jugular venous distention. Lungs: Clear to auscultation. Heart: Regular rate and rhythm, S1-S2, , no murmur or rub. Abdomen: Soft nontender, positive bowel sounds. Extremities: No edema, intact distal pulses. Neuro: Alert, oritented, no focal deficits. Detailed neuro exam was not performed. ASSESSMENT: # Supratherapeutic INR with no active bleeding # History of DVT # History of AAA with graft repair surgically # COVID-19 infection # Generalized weakness and debility # Fall, likely suspected to be mechanical # Recurrent right-sided pleural effusion suspected due to lung malignancy # COPD PLAN: Cardiology was consulted for atrial fibrillation. On my evaluation of EKG and telemetry I have not seen any A-fib activity. Continue to monitor telemetry. If we notice any atrial fibrillation please notify cardiology. Continue aspirin, Lipitor, amlodipine Hold warfarin. No need to reverse supratherapeutic nature. Monitor INR. Once therapeutic resume warfarin with goal INR of 1-2. Obtain updated limited echocardiogram Further recommendations to follow Prognosis is guarded Juanjo Yan MD, FAC, RPVI Thank you for allowing [facility] to participate in this patient's care. Feel free to reach out in case of any followup questions. Past Medical History Past Medical History: COPD, Myocardial Infarction ([place]), Prostate Disorder Additional Past Medical History / Comment(s): Prostate 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 Last Myocardial Infarction Date:: 2008 History of Any Multi-Drug Resistant Organisms: None Reported Past Surgical History: Orthopedic Surgery, Prostate Surgery Additional Past Surgical History / Comment(s): abdominal aortic stent Past Anesthesia/Blood Transfusion Reactions: No Reported Reaction Past Psychological History: No Psychological Hx Reported Smoking Status: Current every day smoker Past Alcohol Use History: None Reported Additional Past Alcohol Use History / Comment(s): Used to drink beer "quite a bit", none since 1990. Past Drug Use History: None Reported - Past Family History Brother(s) Family Medical History: Diabetes Mellitus Medications and Allergies Home Medications Medication Instructions Recorded Confirmed Type Aspirin EC [Ecotrin Low Dose] 81 mg PO BID 02/17/20 07/18/24 History Atorvastatin Calcium [Lipitor] 40 mg PO HS 02/17/20 07/18/24 History Warfarin [Coumadin] 2.5 mg PO W/LUNCH 02/17/20 07/18/24 History amLODIPine [Norvasc] 5 mg PO DAILY 02/17/20 07/18/24 History carvediloL [Coreg] 6.25 mg PO BID 02/17/20 07/18/24 History Albuterol Inhaler [Ventolin Hfa 4 puff INHALATION RT-Q4H PRN #1 07/02/24 07/18/24 Rx Inhaler] each Budesonide-Formot 160-4.5 Mcg 2 puff INHALATION RT-BID #1 each 07/02/24 07/18/24 Rx [Symbicort 160-4.5 Mcg Inhaler] Nicotine 21Mg/24Hr Patch [Habitrol] 1 patch TRANSDERM DAILY #30 patch 07/02/24 07/18/24 Rx Allergies Allergy/AdvReac Type Severity Reaction Status Date / Time morphine AdvReac Nausea & Verified 07/18/24 13:20 Vomiting Physical Exam Vitals: Vital Signs Temp Pulse Pulse Resp BP BP Pulse Ox 07/18/24 09:24 101 H 07/18/24 09:10 104 H 96 07/18/24 07:53 98.4 F 96 17 122/71 96 07/18/24 06:54 97.8 F 84 20 115/67 96 07/18/24 06:16 85 18 121/74 96 07/18/24 04:12 101 H 20 133/83 98 07/18/24 02:05 82 18 126/78 94 L 07/18/24 01:42 96 07/18/24 01:32 92 07/18/24 00:55 24 07/18/24 00:51 98.1 F 86 18 134/72 92 L Intake and Output 07/17/24 07/18/24 07/18/24 22:59 06:59 14:59 Other: Weight 61.689 kg 61.689 kg Results 07/18/24 01:45 07/18/24 01:45 Cardiac Enzymes 07/18/24 07/18/24 Range/Units 01:45 01:45 AST 18 (17-59) U/L Troponin I <0.012 (0.000-0.034) ng/mL Coagulation 07/18/24 07/18/24 Range/Units 01:45 06:45 PT 53.4 H 52.0 H (10.0-12.5) sec APTT 38.4 H (22.0-30.0) sec CBC 07/18/24 Range/Units 01:45 WBC 10.3 (3.8-10.6) k/uL RBC 4.76 (4.30-5.90) m/uL Hgb 13.5 (13.0-17.5) gm/dL Hct 41.2 (39.0-53.0) % Plt Count 236 (150-450) k/uL Comprehensive Metabolic Panel 07/18/24 Range/Units 01:45 Sodium 130 L (137-145) mmol/L Potassium 3.7 (3.5-5.1) mmol/L Chloride 101 (98-107) mmol/L Carbon Dioxide 27 (22-30) mmol/L BUN 8 L (9-20) mg/dL Creatinine 0.60 L (0.66-1.25) mg/dL Glucose 89 (74-99) mg/dL Calcium 8.3 L (8.4-10.2) mg/dL AST 18 (17-59) U/L ALT 20 (4-49) U/L Alkaline Phosphatase 95 (38-126) U/L Total Protein 5.3 L (6.3-8.2) g/dL Albumin 2.7 L (3.5-5.0) g/dL Current Medications Generic Name Dose Route Start Last Admin Trade Name Freq PRN Reason Stop Dose Admin Acetaminophen 650 mg 07/18/24 04:41 Acetaminophen Tab 325 Mg Tab PO Q6HR PRN Mild Pain or Fever > 100.5 Albuterol/Ipratropium 3 ml 07/18/24 08:00 07/18/24 09:09 Ipratropium-Albuterol 3 Ml Neb INHALATION 3 ml RT-Q4H HECTOR Administration Amlodipine Besylate 5 mg 07/18/24 09:00 07/18/24 08:36 Amlodipine 5 Mg Tab PO 5 mg DAILY HECTOR Administration Aspirin 81 mg 07/18/24 09:00 07/18/24 08:36 Aspirin 81 Mg PO 81 mg BID HECTOR Administration Atorvastatin Calcium 40 mg 07/18/24 21:00 Atorvastatin 40 Mg Tab PO HS HECTOR Budesonide/Formoterol Fumarate 2 puff 07/18/24 08:00 07/18/24 09:09 Symbicort 160-4.5 Mcg Inhaler INHALATION 2 puff RT-BID HECTOR Administration Carvedilol 6.25 mg 07/18/24 09:00 07/18/24 08:37 Carvedilol 6.25 Mg Tab PO 6.25 mg AC-BID HECTOR Administration Miscellaneous Information 1 each 07/18/24 07:06 Warfarin Per Pharmacy MISCELLANE DIRECTED PRN Per Protocol Protocol Naloxone HCl 0.2 mg 07/18/24 04:41 Naloxone 0.4 Mg/Ml 1 Ml Vial IV Q2M PRN Opioid Reversal Prednisone 10 mg 07/18/24 09:00 07/18/24 08:37 Prednisone 10 Mg Tab PO 10 mg DAILY HECTOR Administration Warfarin Sodium 0 mg 07/18/24 18:00 Warfarin 0.5 Mg Tab PO 07/18/24 18:01 ONCE@1800 ONE Intake and Output 07/17/24 07/18/24 07/18/24 22:59 06:59 14:59 Other: Weight 61.689 kg 61.689 kg Patient Weight 07/19/24 07:59 Weight 61.689 kg 07/18/24 01:45 07/18/24 01:45
--- NOTE | 2024-07-18 16:12 | US ---
EXAMINATION TYPE: US abdomen limited DATE OF EXAM: 07/18/2024 COMPARISON: CT CHEST 06/29/24 CLINICAL INDICATION: Male, 74 years old with history of RUQ pain rule gall stones; RUQ pain x 1 year TECHNIQUE: Grayscale and color Doppler imaging of the right upper quadrant was performed. FINDINGS: EXAM MEASUREMENTS: Liver Length: 13.8 cm Gallbladder Wall: 0.2 cm CBD: 0.1 cm Right Kidney: 10.1x4.2x5.3 cm [employer] REPRESENTATIVE NOTES: Pancreas: Tail obscured by overlying bowel gas, multiple lymph nodes in the superior abdomen. Liver: at least 5 hypoechoic solid areas noted within the liver. Largest area also noted on prior [facility] CT 06/29/24 but new from 10/12/23 CT measures 3.2x2.8x3.6cm with internal vascularity and high resis tive flow. Irregular margins and distortion of the liver capsule Gallbladder: gravel like stones again noted Evidence for sonographic Valderrama's sign: No CBD: wnl Right Kidney: inferior pole cyst again noted: 1.9x1.5x1.5cm free fluid noted around heart and in the right pleural space exam limited by bowel gas, patient mobility IMPRESSION: 1. Cholelithiasis without definite sonographic evidence of acute cholecystitis. 2. Increasing size and number of hypoechoic metastatic liver lesions. 3. Partially visualized right pleural effusion. [facility], , 07/18/2024 4:10 PM
[2024-07-18] MEDS ORDERED: IPRATROPIUM-ALBUTEROL 3 ML NEB INHALATION PRN (16:32)
--- NOTE | 2024-07-18 16:43 | P.PN ---
Subjective Progress Note Date: 07/18/24 Hospital course: Patient is a very pleasant 74-year-old male with a past medical history of recently diagnosed adenocarcinoma of right lung, abdominal aortic aneurysm status post graft currently on Coumadin, COPD with continued nicotine dependence, CAD with reports of previous NH, hypertension, and hyperlipidemia. He presented to the hospital 07/18/2024 with chief complaint of shortness of breath. Upon arrival to our facility, patient underwent evaluation in the emergency department. Vital signs upon arrival show blood pressure 134/72, heart rate 86, respiratory rate 18, temp 98.1 F, and SpO2 of 92% on room air. EKG completed showing normal sinus rhythm at 81 bpm with no significant T wave or ST abnormality showing no signs of acute ischemia upon personal review and interpretation. Chest x-ray completed showing right pleural effusion increased in size compared to x-rays completed 06/28/2024 and stable hyperexpansion of lungs. Labs completed and reviewed. CBC unremarkable with the exception of elevated neutrophils of 8.1. Coagulation profile showing elevated PT of 53.4, PTT of 38.4 and supratherapeutic INR of 5.4. BMP showing hyponatremia magnesium slightly low at 1.7. Liver profile showing elevated total bili of 1.6. Troponin was negative at less than 0.012 and proBNP was 220. Influenza A, influenza B, and RSV were negative. COVID PCR positive. Patient admitted under services with consultation to and pulmonology. Patient reported right-sided rib/abdominal/chest pain. Ultrasound gallbladder was completed showing cholelithiasis without evidence of acute cholecystitis and increasing size and number of hypoechoic metastatic liver lesions. Physical exam: Vital signs reviewed and stable. General: Nontoxic, no distress and appears stated age. Derm: Skin warm and dry, normal coloration for ethnicity. Head: Atraumatic, normocephalic and symmetric. Eyes: EOM's intact, no lid lag, and anicteric sclera Mouth: no lip lesions, mucus membranes moist Cardiovascular: regular rate and rhythm with normal S1S2, no murmur, positive posterior tibial pulses bilaterally, and cap refill < 2 seconds. Lungs: Respirations even, regular, and unlabored on 2 L O2 via nasal cannula. Lungs with diffuse rhonchi with significantly decreased lung sounds throughout right lower and middle lobe.. Abdominal: soft and nondistended. Patient does report tenderness right upper quadrant, beneath right rib order on palpation and with movement. Ext: No gross muscle atrophy, no edema, no contractures. Movement and sensation intact. Neuro: Speech clear, face symmetrical and CN II-XII grossly intact with no noted focal neuro deficits Psych: Alert and oriented to person, place, time, and situation. Appropriate and pleasant affect. Assessment and Plan of Care: Recurrent right-sided pleural effusion, metastatic effusions resulting from adenocarcinoma of the lung. Non small cell lung cancer with metastasis Acute respiratory failure with hypoxia, secondary to above COPD with continued nicotine dependence, not in acute exacerbation COVID-19 positive -Consult to Pulmonology for evaluation for thoracentesis. -Patient is status post recent right-sided thoracentesis on 07/01/23 with a documented removal of 1.3 L with cytology results of right pleural fluid positi ve for metastatic pulmonary adenocarcinoma. -Oxygenation to be administered and titrated as needed to maintain SPO2 equal to or greater than 92% -Telemetry monitoring. -Monitor pulse-oximetry -Duonebs scheduled every 4 hours and as needed for SOB and/or wheezing. Continue Symbicort 160-4.5 mcg inhaler 2 puffs twice daily. -Steroids: Continue home prednisone 10 mg daily -Oncology following, order placed for MRI brain to rule out brain mets -COVID-positive however of note patient was COVID-positive since June 28 Abdominal aortic aneurysm status post stent and graft Supratherapeutic INR -Patient on Coumadin for aortic graft and stenting -Hold Coumadin for now dosing by pharmacy to maintain therapeutic INR of 2-3 -Hemoglobin stable at 13.5, will continue to monitor hemoglobin closely with repeat a.m. labs. -Patient denies any bleeding -Maintain fall precautions. Right upper quadrant abdominal pain, likely secondary to metastatic liver lesions - Ultrasound gallbladder was completed showing cholelithiasis without evidence of acute cholecystitis and increasing size and number of hypoechoic metastatic liver lesions. -Symptomatic care and pain management with Tylenol 650 mg p.o. for mild pain, [place] 5/325 mg every 4 hours as needed for moderate pain, and Dilaudid 1 mg IVP every 4 hours as needed for severe pain. Generalized weakness and debility -PT OT consulted for evaluation evaluation. -Maintain fall precautions. Hypertension -Continue with Carvedilol 6.25 mg twice daily and amlodipine 5 mg daily Hyperlipidemia -Continue with atorvastatin 40 mg nightly CODE STATUS: Full code DVT prophylaxis: Coumadin Anticipated discharge date: Pending clinical course Anticipated discharge place: Pending clinical course Patient was seen independently by Nurse Pracitioner. This document was prepared using [employer] dictation software. Please allow for errors in [place] seamer, while rare they do occur. Earnest Vaughan EMT/DISPATCHER rendered care for this patient independently, reviewed the findings and plan as documented in the note above and agree with plan. I did not physically speak with or examine the patient on this date. Objective - Vital Signs Vital signs: Vital Signs Temp 98.4 F 07/18/24 07:53 Pulse 101 H 07/18/24 09:24 Resp 17 07/18/24 07:53 BP 122/71 07/18/24 07:53 Pulse Ox 96 07/18/24 09:10 FiO2 Intake & Output 07/17/24 07/18/24 07/18/24 18:59 06:59 18:59 Weight 61.689 kg 61.689 kg - Labs CBC & Chem 7: 07/18/24 01:45 07/18/24 01:45 Labs: Abnormal Lab Results - Last 24 Hours (Table) 07/18/24 07/18/24 07/18/24 Range/Units 01:45 01:45 01:45 Neutrophils # 8.1 H (1.3-7.7) k/uL PT 53.4 H (10.0-12.5) sec INR 5.4 H* (<1.2) APTT 38.4 H (22.0-30.0) sec Sodium 130 L (137-145) mmol/L BUN 8 L (9-20) mg/dL Creatinine 0.60 L (0.66-1.25) mg/dL Calcium 8.3 L (8.4-10.2) mg/dL Total Bilirubin 1.6 H (0.2-1.3) mg/dL Total Protein 5.3 L (6.3-8.2) g/dL Albumin 2.7 L (3.5-5.0) g/dL SARS-CoV-2 (PCR) (Not Detectd) 07/18/24 07/18/24 Range/Units 01:45 06:45 Neutrophils # (1.3-7.7) k/uL PT 52.0 H (10.0-12.5) sec INR 5.2 H* (<1.2) APTT (22.0-30.0) sec Sodium (137-145) mmol/L BUN (9-20) mg/dL Creatinine (0.66-1.25) mg/dL Calcium (8.4-10.2) mg/dL Total Bilirubin (0.2-1.3) mg/dL Total Protein (6.3-8.2) g/dL Albumin (3.5-5.0) g/dL SARS-CoV-2 (PCR) Detected A (Not Detectd)
[2024-07-18] MEDS: WARFARIN 0.5 MG TAB PO ONE (16:47)
[2024-07-18] MEDS: ATORVASTATIN 40 MG TAB PO SCH (19:53)
[2024-07-19 06:57] LABS: INR 4.5 (<1.2); Prothrombin Time 44.6 sec (10.0-12.5)
[2024-07-19] MEDS: WARFARIN 0.5 MG TAB PO ONE (07:53)
--- NOTE | 2024-07-19 08:08 | US ---
EXAMINATION TYPE: US chest DATE OF EXAM: 07/19/2024 COMPARISON: NONE CLINICAL INDICATION: Male, 74 years old with history of Markings for thoracentesis by pulmonary staff ; right effusion TECHNIQUE: Grayscale imaging of the chest. Targeted ultrasound of the posterior lower right hemithor ax FINDINGS: EXAM MEASUREMENTS: Right Pleural Effusion pocket size: 13.4 cm Right skin surface to fluid distance: 1.6 cm Right side marked for possible thoracentesis outside the dept. Pulmonologists are able to review the images in the patient?s EMR. internal echoes/debris noted IMPRESSIONS: Large right pleural effusion. [facility], , 07/19/2024 8:05 AM
[2024-07-19] MEDS: HYDROcodone/APAP 5-325MG 1 EACH TAB PO PRN (08:15)
[2024-07-19] MEDS: IPRATROPIUM-ALBUTEROL 3 ML NEB INHALATION SCH (09:31)
[2024-07-19 09:34] LABS: HGB 13.4 g/dL (13.0-17.0); MCH 28.6 pg (27.0-32.0); MCHC 32.7 g/dL (32.0-37.0); MCV 87.4 FL (80.0-97.0); Mean Platelet Volume 9.8 FL (9.5-12.2); NRBC Per 100 WBC 0 X 10*3/uL (0.00-0.01); Platelet Count 240 X 10*3/uL (140-440); RBC 4.69 X 10*6/uL (4.40-5.60); RDW 14.3 % (11.5-14.5); WBC 15.38 X 10*3/uL (4.50-10.00)
[2024-07-19 10:19] LABS: ALT 19 U/L (10-49); AST 16 U/L (14-35); Alkaline Phosphatase 95 U/L (41-126); BUN/Creat Ratio 19.43 Ratio (12.00-20.00); Blood Urea Nitrogen 13.6 mg/dL (9.0-27.0); Calcium 8.5 mg/dL (8.7-10.3); Carbon Dioxide 25.2 mmol/L (21.6-31.8); Chloride 102 mmol/L (96-109); Globulin 2.3 g/dL (1.6-3.3); Glucose 128 mg/dL (70-110); Magnesium 1.9 mg/dL (1.5-2.4); Potassium 4.2 mmol/L (3.5-5.5); Sodium 136 mmol/L (135-145); Total Bilirubin 0.5 mg/dL (0.3-1.2); Total Protein 5.3 g/dL (6.2-8.2)
--- NOTE | 2024-07-19 14:31 | P.CNPUL ---
History of Present Illness Consult date: 07/19/24 Requesting physician: Reynold Calvo Reason for consult: dyspnea, pleural effusion Chief complaint: Shortness of breath History of present illness: This is a thin, disheveled 74-year-old male patient with a history of myocardial infarction, prostate cancer, CVA, abdominal aortic aneurysm stenting, chronic and ongoing tobacco dependence of 55 years, chronic obstructive pulmonary disease who was recently diagnosed with pulmonary adenocarcinoma found on a pleural fluid pathology during his last admission on 07/01/2024. He had not been seen by any healthcare providers in the outpatient setting prior to being readmitted last night with complaints of increasing shortness of breath. Chest x-ray reveals a recurrent right sided pleural effusion. Abdominal x-ray revealed cholelithiasis without evidence of acute cholecystitis. There is increasing size and number of hypoechoic metastatic liver lesions. White count 15.3. Hemoglobin 13.4. Platelets 240. INR 4.5. Sodium 136. Potassium 4.2. Bicarb 25. BUN 14. Creatinine 0.7. Glucose 128. Viral screen positive for COVID infection. He is seen today in consultation on the regular medical floor. He is currently sitting up in bed. Awake and alert in no acute distress. He is dyspneic with conversation. Dyspneic with minimal exertion. Maintaining good O2 saturations in the 90s on 2 L/min per nasal cannula. No IV fluids. Ultrasound of the right chest revealed a 3.4 cm pocket however there is internal echoes/debris noted within the fluid. Review of Systems REVIEW OF SYSTEMS: CONSTITUTIONAL: Denies any recent significant weight loss or weight gain. EYES: Denies change in vision. EARS, NOSE, MOUTH, THROAT: Denies headaches, denies sore throat. CARDIOVASCULAR: Denies chest pain, palpitations or syncopal episodes. RESPIRATORY: Positive for shortness of breath, no cough, congestion or hemoptysis. GASTROINTESTINAL: Denies change in appetite, denies abdominal pain GENITOURINARY: Denies hematuria, denies infections. MUSKULOSKELETAL: Denies pain, denies swelling. INTEGUMENTARY: Denies rash, denies eczema. NEUROLOGICAL: Denies recent memory loss, no recent seizure activity. PSYCHIATRIC: Denies anxiety, denies depression. HEMATOLOGIC/LYMPHATIC: Denies anemia, denies enlarged lymph nodes. 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 Last Myocardial Infarction Date:: 2008 History of Any Multi-Drug Resistant Organisms: None Reported Past Surgical History: Orthopedic Surgery, Prostate Surgery Additional Past Surgical History / Comment(s): abdominal aortic stent Past Anesthesia/Blood Transfusion Reactions: No Reported Reaction Past Psychological History: No Psychological Hx Reported Smoking Status: Current every day smoker Past Alcohol Use History: None Reported Additional Past Alcohol Use History / Comment(s): Used to drink beer "quite a bit", none since 1990. Past Drug Use History: None Reported - Past Family History Brother(s) Family Medical History: Diabetes Mellitus Medications and Allergies Home Medications Medication Instructions Recorded Confirmed Type Aspirin EC [Ecotrin Low Dose] 81 mg PO BID 02/17/20 07/18/24 History Atorvastatin Calcium [Lipitor] 40 mg PO HS 02/17/20 07/18/24 History Warfarin [Coumadin] 2.5 mg PO W/LUNCH 02/17/20 07/18/24 History amLODIPine [Norvasc] 5 mg PO DAILY 02/17/20 07/18/24 History carvediloL [Coreg] 6.25 mg PO BID 02/17/20 07/18/24 History Albuterol Inhaler [Ventolin Hfa 4 puff INHALATION RT-Q4H PRN #1 07/02/24 07/18/24 Rx Inhaler] each Budesonide-Formot 160-4.5 Mcg 2 puff INHALATION RT-BID #1 each 07/02/24 07/18/24 Rx [Symbicort 160-4.5 Mcg Inhaler] Nicotine 21Mg/24Hr Patch [Habitrol] 1 patch TRANSDERM DAILY #30 patch 07/02/24 07/18/24 Rx Allergies Allergy/AdvReac Type Severity Reaction Status Date / Time morphine AdvReac Nausea & Verified 07/18/24 13:20 Vomiting Physical Exam Vitals: Vital Signs Temp Pulse Pulse Resp BP Pulse Ox 07/19/24 13:15 96 07/19/24 13:06 95 07/19/24 09:47 70 07/19/24 09:31 72 07/19/24 06:50 97.5 F L 101 H 18 147/74 95 07/19/24 00:10 97.9 F 87 15 131/78 96 07/18/24 20:12 75 03/08/25 20:02 77 07/18/24 19:19 97.6 F 90 17 143/67 97 07/18/24 16:23 76 07/18/24 16:11 78 07/18/24 14:19 97.6 F 74 17 122/73 98 Intake and Output 07/18/24 07/19/24 07/19/24 21:59 06:59 14:59 Intake Total Balance Intake: Oral Other: Voiding Method # Voids GENERAL EXAM: Alert, oriented, disheveled thin 74-year-old male, on 2 L nasal cannula, fairly comfortable in no apparent distress. HEAD: Normocephalic. EYES: Normal reaction of pupils, equal size. NOSE: Clear with pink turbinates. THROAT: No erythema or exudates. NECK: No masses, no JVD. CHEST: No chest wall deformity. LUNGS: Equal air entry with crackles and dullness over the right lung, diminished. CVS: S1 and S2 normal with no audible murmur, regular rhythm. ABDOMEN: No hepatosplenomegaly, normal bowel sounds, no guarding or rigidity. SPINE: No scoliosis or deformity SKIN: No rashes CENTRAL NERVOUS SYSTEM: No focal deficits, tone is normal in all 4 extremities. EXTREMITIES: There is no peripheral edema. No clubbing, no cyanosis. Peripheral pulses are intact. Results - Laboratory Findings CBC and BMP: 07/19/24 05:32 07/19/24 05:32 PT/INR, D-dimer PT 44.6 sec (10.0-12.5) H 07/19/24 05:32 INR 4.5 (<1.2) H 07/19/24 05:32 Abnormal lab findings: Abnormal Labs 07/18/24 07/18/24 07/18/24 01:45 01:45 01:45 WBC Neutrophils # 8.1 H PT 53.4 H INR 5.4 H* APTT 38.4 H Sodium 130 L BUN 8 L Creatinine 0.60 L Glucose Calcium 8.3 L Total Bilirubin 1.6 H Total Protein 5.3 L Albumin 2.7 L Albumin/Globulin Ratio SARS-CoV-2 (PCR) 07/18/24 07/18/24 07/19/24 01:45 06:45 05:32 WBC 15.38 H Neutrophils # PT 52.0 H INR 5.2 H* APTT Sodium BUN Creatinine Glucose Calcium Total Bilirubin Total Protein Albumin Albumin/Globulin Ratio SARS-CoV-2 (PCR) Detected A 07/19/24 07/19/24 05:32 05:32 WBC Neutrophils # PT 44.6 H INR 4.5 H APTT Sodium BUN Creatinine Glucose 128 H Calcium 8.5 L Total Bilirubin Total Protein 5.3 L Albumin 3.0 L Albumin/Globulin Ratio 1.30 L SARS-CoV-2 (PCR) - Diagnostic Findings Chest x-ray: image reviewed Assessment and Plan Assessment: Acute hypoxemic respiratory failure secondary to recurrent right sided pleural effusion. Recently had undergone a right sided thoracentesis on previous admission on 07/01/2024 with 1.3 L of fluid removed. Fluid was positive for metastatic pulmonary adenocarcinoma. None of the chest today reveals a 13.4 cm pocket however there is internal echoes/debris noted within the fluid. Ultrasound of the abdomen reveals increasing size and numbers of hypoechoic metastatic liver lesions COVID-19 infection still positive from last month Chronic obstructive pulmonary disease Chronic and ongoing tobacco dependence Hypertension Hyperlipidemia History of CVA History of abdominal aortic aneurysm status post aortobiiliac stent, maintained on warfarin Supratherapeutic INR History of prostate cancer History of carotid artery disease and chronic dissection of the left ICA Plan: The patient was seen and evaluated Imaging, labs and medications reviewed INR supra therapeutic at 4.5 Continue to hold warfarin for now Consult CT services for possible Pleurx catheter placement Currently stable on 2 L nasal cannula Titrate the FiO2 as tolerated Educated regarding smoking cessation NicoDerm patch will be offered Informed of his stage IV lung cancer Seen and evaluated by medical oncology MRI of the brain pending We will continue to follow and make further recommendations based on his clini stefano status I have personally seen and examined the patient, performed the documentation and the assessment and plan as written. Number of minutes spent on the visit: 20 Dictation was produced using [employer] dictation software. Please excuse any grammatical, word or spelling errors.
--- NOTE | 2024-07-19 15:23 | P.PN ---
Subjective Progress Note Date: 07/19/24 Hospital course: Patient is a very pleasant 74-year-old male with a past medical history of recently diagnosed adenocarcinoma of right lung, abdominal aortic aneurysm status post graft currently on Coumadin, COPD with continued nicotine dependence, CAD with reports of previous OR, hypertension, and hyperlipidemia. He presented to the hospital 07/18/2024 with chief complaint of shortness of breath. Upon arrival to our facility, patient underwent evaluation in the emergency department. Vital signs upon arrival show blood pressure 134/72, heart rate 86, respiratory rate 18, temp 98.1 F, and SpO2 of 92% on room air. EKG completed showing normal sinus rhythm at 81 bpm with no significant T wave or ST abnormality showing no signs of acute ischemia upon personal review and interpretation. Chest x-ray completed showing right pleural effusion increased in size compared to x-rays completed 06/28/2024 and stable hyperexpansion of lungs. Labs completed and reviewed. CBC unremarkable with the exception of elevated neutrophils of 8.1. Coagulation profile showing elevated PT of 53.4, PTT of 38.4 and supratherapeutic INR of 5.4. BMP showing hyponatremia magnesium slightly low at 1.7. Liver profile showing elevated total bili of 1.6. Troponin was negative at less than 0.012 and proBNP was 220. Influenza A, influenza B, and RSV were negative. COVID PCR positive. Patient admitted under services with consultation to and pulmonology. Patient reported right-sided rib/abdominal/chest pain. Ultrasound gallbladder was completed showing cholelithiasis without evidence of acute cholecystitis and increasing size and number of hypoechoic metastatic liver lesions. Physical exam: Patient seen and fully evaluated at bedside. Vital signs reviewed and stable. General: Nontoxic, no distress and appears stated age. Thin and frail. Derm: Skin warm and dry, normal coloration for ethnicity. Head: Atraumatic, normocephalic and symmetric. Eyes: EOM's intact, no lid lag, and anicteric sclera Mouth: no lip lesions, mucus membranes moist Cardiovascular: regular rate and rhythm with normal S1S2, no murmur, positive posterior tibial pulses bilaterally, and cap refill < 2 seconds. Lungs: Respirations even, regular, and unlabored on 2 L O2 via nasal cannula. Lungs with diffuse soft rhonchi with significantly decreased lung sounds throughout right lower and middle lobe.. Abdominal: soft and nondistended. Patient does report tenderness right upper quadrant, beneath right rib order on palpation and with movement. Ext: No gross muscle atrophy, no edema, no contractures. Movement and sensation intact. Neuro: Speech clear, face symmetrical and CN II-XII grossly intact with no noted focal neuro deficits Psych: Alert and oriented to person, place, time, and situation. Appropriate and pleasant affect. Assessment and Plan of Care: Recurrent right-sided pleural effusion, metastatic effusions resulting from adenocarcinoma of the lung. Non small cell lung cancer with metastasis Acute respiratory failure with hypoxia, secondary to above COPD with continued nicotine dependence, not in acute exacerbation COVID-19 positive -Pulmonology following, discussed plan of care with pulmonary BARREL LOADER recommending cardiothoracic surgery consult to evaluate for Pleurx catheter placement. -Cardiothoracic surgery consulted -Patient is status post recent right-sided thoracentesis on 07/01/23 with a documented removal of 1.3 L with cytology results of right pleural fluid positive for metastatic pulmonary adenocarcinoma. -Oxygenation to be administered and titrated as needed to maintain SPO2 equal to or greater than 92% -Telemetry monitoring. -Monitor pulse-oximetry -Duonebs scheduled every 4 hours and as needed for SOB and/or wheezing. Continue Symbicort 160-4.5 mcg inhaler 2 puffs twice daily. -Steroids: Continue home prednisone 10 mg daily, patient received a one-time dos e of Solu-Medrol at 80 mg IVP in ER upon admission. -Oncology following, order placed for MRI brain to rule out brain mets -COVID-positive however of note patient was COVID-positive since June 28 Abdominal aortic aneurysm status post stent and graft Supratherapeutic INR -Patient on Coumadin for aortic graft and stenting, INR currently supratherapeutic and being held pending evaluation by cardiothoracic surgery and placement of Pleurx catheter. -Hold Coumadin for now, once Pleurx catheter is placed may resume dosing by pharmacy to maintain therapeutic INR of 2-3 -Hemoglobin stable at 13.5, will continue to monitor hemoglobin closely with repeat a.m. labs. -Patient denies any bleeding -Maintain fall precautions. Right upper quadrant abdominal pain, likely secondary to metastatic liver lesions - Ultrasound gallbladder was completed showing cholelithiasis without evidence of acute cholecystitis and increasing size and number of hypoechoic metastatic liver lesions. -Symptomatic care and pain management with Tylenol 650 mg p.o. for mild pain, [place] 5/325 mg every 4 hours as needed for moderate pain, and Dilaudid 1 mg IVP every 4 hours as needed for severe pain. Leukocytosis -WBC count increased from 10.3-15.38, likely reactive secondary to steroid administration received in ED upon admission. Will continue to monitor closely with repeat a.m. labs. Generalized weakness and debility -PT OT consulted for evaluation evaluation. -Maintain fall precautions. Hypertension -Continue with Carvedilol 6.25 mg twice daily and amlodipine 5 mg daily Hyperlipidemia -Continue with atorvastatin 40 mg nightly Data and imaging reviewed: -Vital signs reviewed. Blood pressure 147/74, heart rate 101, respiratory rate 18, temp 97.5 F, and SpO2 of 95% on 2 L. -Labs reviewed. CBC showing leukocytosis with WBC count of 15.38, likely reactive secondary to steroid administration. Hemoglobin remained stable at 13.4. INR remains supratherapeutic at 4.5. BMP unremarkable. Blood glucose 128. Magnesium 1.9. Liver profile normal findings with exception of hypoalbuminemia with albumin of 3.0. CODE STATUS: Full code DVT prophylaxis: Coumadin Anticipated discharge date: Pending clinical course Anticipated discharge place: Pending clinical course Patient was seen independently by Nurse Pracitioner. This document was prepared using [employer] dictation software. Please allow for errors in tattoo and body artist, while rare they do occur. Earnest Vaughan NP rendered care for this patient independently, reviewed the findings and plan as documented in the note above and agree with plan. I did not physically speak with or examine the patient on this date. Objective - Vital Signs Vital signs: Vital Signs Temp 97.5 F L 07/19/24 06:50 Pulse 72 07/19/24 09:31 Resp 18 07/19/24 06:50 BP 147/74 07/19/24 06:50 Pulse Ox 95 07/19/24 06:50 FiO2 Intake & Output 07/18/24 07/19/24 07/19/24 17:59 06:59 18:59 Intake Total Balance Weight Intake: Oral Other: Voiding Method # Voids - Labs CBC & Chem 7: 07/19/24 05:32 07/19/24 05:32 Labs: Abnormal Lab Results - Last 24 Hours (Table) 07/19/24 07/19/24 Range/Units 05:32 05:32 WBC 15.38 H (4.50-10.00) X 10*3/uL PT 44.6 H (10.0-12.5) sec INR 4.5 H (<1.2)
--- NOTE | 2024-07-19 20:23 | P.PN ---
Subjective Progress Note Date: 07/19/24 HISTORY OF PRESENTING ILLNESS: 74-year-old male with COPD not on oxygen, presents to the hospital because of progressively getting weak and falling at home. He was also on warfarin for aortic graft and stenting in the past. She also has prior history of DVT. He presented to the hospital because of increased worsening shortness of breath, generalized weakness and fall in the home. Patient denies any loss of consciousness. He was recently hospitalized for pneumonia secondary to underlying COVID-19 and was treated with antibiotic and steroids for COPD exacerbation. He was discharged a week ago. At that time he was also found to have right pleural effusion status post 1.3 L thoracentesis later on cytopathology showed metastatic adenocarcinoma of the lung. Cardiology was consulted for atrial fibrillation with RVR. However on my review of telemetry and EKG have not picked up any atrial fibrillation like activity Admission Vitals: 122/71, heart rate 91 Admission Labs: Hb 13, INR 5.4, BUN 8, creatinine 0.6 NT-proBNP 220, troponins negative Admission EKG: Sinus rhythm, low voltage, no obvious ST or T wave changes that are diagnostic for ischemia at rest. Imaging: Chest x-ray shows right pleural effusion with fluid in the fissure on the right side. Mild pulmonary congestion. No consolidation. Prior cardiac testing: Echo from October 2023 shows EF of 55 to 60%, No obvious regional wall motion abnormality, trace mitral regurgitation Progress note 07/19/2024 Patient is seen and examined bedside this a.m. Patient denies having any active chest pain chest pressure. No acute cardiac event overnight. BP 128/76, heart rate 92 bpm, Telemetry significant wandering baseline however appears to be sinus rhythm as has regular RR interval. PHYSICAL EXAMINATION: Neck: Brisk carotid upstroke, no jugular venous distention. Lungs: Clear to auscultation. Heart: Regular rate and rhythm, S1-S2, , no murmur or rub. Abdomen: Soft nontender, positive bowel sounds. Extremities: No edema, intact distal pulses. Neuro: Alert, oritented, no focal deficits. Detailed neuro exam was not performed. ASSESSMENT: # Supratherapeutic INR with no active bleeding # History of DVT # History of AAA with graft repair surgically # COVID-19 infection # Generalized weakness and debility # Fall, likely suspected to be mechanical # Recurrent right-sided pleural effusion suspected due to lung malignancy # COPD PLAN: Cardiology was consulted for atrial fibrillation. On my evaluation of EKG and telemetry I have not seen any A-fib activity. Continue to monitor telemetry. If we notice any atrial fibrillation please notify cardiology. Continue aspirin, Lipitor, amlodipine Hold warfarin. No need to reverse supratherapeutic nature. Monitor INR. Once therapeutic resume warfarin with goal INR of 1-2. Obtain updated limited echocardiogram Further recommendations to follow Prognosis is guarded Objective - Vital Signs Vital signs: Vital Signs Temp 97.5 F L 07/19/24 14:23 Pulse 88 07/19/24 17:04 Resp 16 07/19/24 14:23 BP 128/76 07/19/24 14:23 Pulse Ox 96 07/19/24 14:23 FiO2 Intake & Output 07/19/24 07/19/24 07/20/24 06:59 18:59 06:59 Intake Total Balance Intake: Oral Other: Voiding Method # Voids 3 - Labs CBC & Chem 7: 07/19/24 05:32 07/19/24 05:32 Labs: Abnormal Lab Results - Last 24 Hours (Table) 07/19/24 07/19/24 07/19/24 Range/Units 05:32 05:32 05:32 WBC 15.38 H (4.50-10.00) X 10*3/uL PT 44.6 H (10.0-12.5) sec INR 4.5 H (<1.2) Glucose 128 H (70-110) mg/dL Calcium 8.5 L (8.7-10.3) mg/dL Total Protein 5.3 L (6.2-8.2) g/dL Albumin 3.0 L (3.8-4.9) g/dL Albumin/Globulin Ratio 1.30 L (1.60-3.17) Ratio
[2024-07-20 04:32] LABS: INR 2.4 (<1.2); Prothrombin Time 23.8 sec (10.0-12.5)
[2024-07-20] MEDS: ALBUTEROL HFA INHALER INHALATION SCH (06:10)
[2024-07-20] MEDS: TIOTROPIUM 2.5 MCG INHALER INHALATION SCH (06:10)
[2024-07-20 08:18] LABS: ALT 19 U/L (10-49); AST 16 U/L (14-35); Albumin 2.9 g/dL (3.8-4.9); Albumin/Globulin Ratio 1.38 Ratio (1.60-3.17); Alkaline Phosphatase 83 U/L (41-126); Blood Urea Nitrogen 15.3 mg/dL (9.0-27.0); Calcium 8.2 mg/dL (8.7-10.3); Carbon Dioxide 29.2 mmol/L (21.6-31.8); Chloride 102 mmol/L (96-109); Globulin 2.1 g/dL (1.6-3.3); Glucose 93 mg/dL (70-110); Magnesium 1.9 mg/dL (1.5-2.4); Potassium 4.3 mmol/L (3.5-5.5); Sodium 137 mmol/L (135-145); Total Bilirubin 0.6 mg/dL (0.3-1.2)
[2024-07-20 09:02] LABS: HGB 12.7 g/dL (13.0-17.0); MCH 28.9 pg (27.0-32.0); MCHC 32.6 g/dL (32.0-37.0); MCV 88.8 FL (80.0-97.0); Mean Platelet Volume 10.2 FL (9.5-12.2); NRBC Per 100 WBC 0 X 10*3/uL (0.00-0.01); Platelet Count 208 X 10*3/uL (140-440); RBC 4.39 X 10*6/uL (4.40-5.60); RDW 14.5 % (11.5-14.5); WBC 10.73 X 10*3/uL (4.50-10.00)
--- NOTE | 2024-07-20 10:56 | P.GSCN ---
History of Present Illness Consult date: 07/20/24 Reason for Consult: Recurrent right-sided pleural effusion Requesting physician: Myrna Garsia History of present illness: This is a 74-year-old gentleman who follows outpatient with Dr. Spencer for internal medicine. He has a previous medical history of current longstanding tobacco dependence, COPD, Myocardial infarction, AAA with endovascular repair, DVT on Coumadin outpatient, hypertension, hyperlipidemia, CVA, and prostate cancer. He was recently admitted in June for shortness of breath. During that time he had a right sided thoracentesis by Dr. Dupont on July 01, fluid cytology was positive for metastatic pulmonary adenocarcinoma. He had not followed up with oncology after discharge on July 02. He presented back to [facility] emergency room July 18 with complaints of progressive s hortness of breath. Chest x-ray revealed moderate right-sided pleural effusion. Lab work revealed WBC 10.3, hemoglobin 13.5, INR 5.4, creatinine 0.6, magnesium 1.7, lactic acid 1.0, negative troponin, BNP 220, and viral serology was positive for COVID. Of note during his admission in June he was also positive for COVID. Chest ultrasound was completed yesterday revealing 13.4 cm fluid pocket which was marked for thoracentesis. The patient was admitted for evaluation and treatment with consultation placed to oncology as well as pulmonology. Due to recurrent right pleural effusion consultation was placed to cardiothoracic surgery for consideration for Pleurx catheter placement. Review of Systems Review of systems was completed and was negative except as noted - Respiratory Reports as per HPI, Reports dyspnea Past Medical History Past Medical History: Coronary Artery Disease (CAD), Cancer, COPD, CVA/TIA, Hyperlipidemia, Hypertension, Myocardial Infarction (MA), Prostate Disorder, Vascular Disorder Additional Past Medical History / Comment(s): Prostate CA, stroke x3 last 2011, peripheral vascular disease, recent fall at home, metastatic pulmonary adenocarcinoma with recurrent right-sided pleural effusion Last Myocardial Infarction Date:: 2008 History of Any Multi-Drug Resistant Organisms: None Reported Past Surgical History: Orthopedic Surgery, Prostate Surgery Additional Past Surgical History / Comment(s): abdominal aortic stent; right sided thoracentesis 07/01/24-fluid cytology positive for metastatic pulmonary adenocarcinoma Past Anesthesia/Blood Transfusion Reactions: No Reported Reaction Past Psychological History: No Psychological Hx Reported Smoking Status: Current every day smoker Past Alcohol Use History: None Reported Additional Past Alcohol Use History / Comment(s): Used to drink beer "quite a bit", none since 1990. Past Drug Use History: None Reported Additional History: Has been smoking for 55 years, currently smokes half a pack a day - Past Family History Brother(s) Family Medical History: Diabetes Mellitus Medications and Allergies Home Medications Medication Instructions Recorded Confirmed Type Aspirin EC [Ecotrin Low Dose] 81 mg PO BID 02/17/20 07/18/24 History Atorvastatin Calcium [Lipitor] 40 mg PO HS 02/17/20 07/18/24 History Warfarin [Coumadin] 2.5 mg PO W/LUNCH 02/17/20 07/18/24 History amLODIPine [Norvasc] 5 mg PO DAILY 02/17/20 07/18/24 History carvediloL [Coreg] 6.25 mg PO BID 02/17/20 07/18/24 History Albuterol Inhaler [Ventolin Hfa 4 puff INHALATION RT-Q4H PRN #1 07/02/24 07/18/24 Rx Inhaler] each Budesonide-Formot 160-4.5 Mcg 2 puff INHALATION RT-BID #1 each 07/02/24 07/18/24 Rx [Symbicort 160-4.5 Mcg Inhaler] Nicotine 21Mg/24Hr Patch [Habitrol] 1 patch TRANSDERM DAILY #30 patch 07/02/24 07/18/24 Rx Allergies Allergy/AdvReac Type Severity Reaction Status Date / Time morphine AdvReac Nausea & Verified 07/18/24 13:20 Vomiting Surgical - Exam Vital Signs Temp Pulse Resp BP Pulse Ox 98.1 F 86 18 134/72 92 L 07/18/24 00:51 07/18/24 00:51 07/18/24 00:51 07/18/24 00:51 07/18/24 00:51 CONSTITUTIONAL: Awake and alert, appears somewhat comfortable, cooperative, well-developed, well-nourished, no pain, does appear short of breath EYES: Pupils equal, round, reactive to light, normal ocular movement ENT: Moist mucous membranes without oral lesions present, missing multiple teeth, poor dentition NECK: No masses, no bruits, trachea midline RESPIRATORY: Lungs sounds very diminished bilaterally especially in the right base. Respirations even, slightly labored. Currently on 2 L nasal cannula with oxygen saturation 95%. Strong cough CARDIOVASCULAR: S1, S2 present. Regular rate and rhythm, sinus rhythm on telemetry. Palpable peripheral pulses bilaterally. No edema present. No calf pain or tenderness noted GASTROINTESTINAL: Abdomen soft, nontender, nondistended without masses or organomegaly noted. There is no rebound or guarding present. Active bowel sounds present 4 quadrants. GENITOURINARY: Deferred INTEGUMENTARY: Skin is warm and dry NEUROLOGIC: Cranial nerves II through XII intact, normal coordination, no obvious motor or sensory deficits, speech is normal MUSKULOSKELETAL: Able to move all extremities, strength equal bilaterally, normal posture PSYCHIATRIC: Alert and oriented to person place and time, appropriate affect, intact judgment and insight Results - Labs 07/20/24 03:53 07/20/24 03:53 Abnormal Lab Results - Last 24 Hours (Table) 07/20/24 07/20/24 07/20/24 Range/Units 03:53 03:53 03:53 WBC 10.73 H (4.50-10.00) X 10*3/uL RBC 4.39 L (4.40-5.60) X 10*6/uL Hgb 12.7 L (13.0-17.0) g/dL Hct 39.0 L (39.6-50.0) % PT 23.8 H (10.0-12.5) sec INR 2.4 H (<1.2) BUN/Creatinine Ratio 25.50 H (12.00-20.00) Ratio Calcium 8.2 L (8.7-10.3) mg/dL Total Protein 5.0 L (6.2-8.2) g/dL Albumin 2.9 L (3.8-4.9) g/dL Albumin/Globulin Ratio 1.38 L (1.60-3.17) Ratio Diabetes panel 07/20/24 Range/Units 03:53 Sodium 137 (135-145) mmol/L Potassium 4.3 (3.5-5.5) mmol/L Chloride 102 (96-109) mmol/L Carbon Dioxide 29.2 (21.6-31.8) mmol/L BUN 15.3 (9.0-27.0) mg/dL Creatinine 0.6 (0.6-1.5) mg/dL Glucose 93 (70-110) mg/dL Calcium 8.2 L (8.7-10.3) mg/dL AST 16 (14-35) U/L ALT 19 (10-49) U/L Alkaline Phosphatase 83 (41-126) U/L Total Protein 5.0 L (6.2-8.2) g/dL Albumin 2.9 L (3.8-4.9) g/dL Calcium panel 07/20/24 Range/Units 03:53 Calcium 8.2 L (8.7-10.3) mg/dL Albumin 2.9 L (3.8-4.9) g/dL Pituitary panel 07/20/24 Range/Units 03:53 Sodium 137 (135-145) mmol/L Potassium 4.3 (3.5-5.5) mmol/L Chloride 102 (96-109) mmol/L Carbon Dioxide 29.2 (21.6-31.8) mmol/L BUN 15.3 (9.0-27.0) mg/dL Creatinine 0.6 (0.6-1.5) mg/dL Glucose 93 (70-110) mg/dL Calcium 8.2 L (8.7-10.3) mg/dL Adrenal panel 07/20/24 Range/Units 03:53 Sodium 137 (135-145) mmol/L Potassium 4.3 (3.5-5.5) mmol/L Chloride 102 (96-109) mmol/L Carbon Dioxide 29.2 (21.6-31.8) mmol/L BUN 15.3 (9.0-27.0) mg/dL Creatinine 0.6 (0.6-1.5) mg/dL Glucose 93 (70-110) mg/dL Calcium 8.2 L (8.7-10.3) mg/dL Total Bilirubin 0.6 (0.3-1.2) mg/dL AST 16 (14-35) U/L ALT 19 (10-49) U/L Alkaline Phosphatase 83 (41-126) U/L Total Protein 5.0 L (6.2-8.2) g/dL Albumin 2.9 L (3.8-4.9) g/dL - Imaging Chest x-ray: report reviewed, image reviewed Additional studies: Ultrasound of the chest reviewed with Dr. Rollins as well as all previous chest x -rays and CT completed in June 2024 Assessment and Plan Assessment: Recurrent right-sided pleural effusion Acute hypoxic respiratory failure Recent diagnosis of metastatic pulmonary adenocarcinoma COVID positive Shortness of breath secondary to above Supratherapeutic INR History of current longstanding tobacco dependence COPD Myocardial infarction AAA with endovascular repair DVT on Coumadin outpatient Hypertension Hyperlipidemia CVA Prostate cance Plan: The patient was seen and examined sitting up in bed on 4 S. in no acute distress although he does appear short of breath even with conversation. Remains on 2 L nasal cannula with oxygen saturation in the mid 90s. Chart and all diagnostics were reviewed with Dr. Rollins. At this time recommend medical management per oncology, pulmonology. If patient is felt to need acute right pleural effusion drainage would recommend thoracentesis at this time. May consider palliative right sided Pleurx as an outpatient in the future if patient continues to have recurrence of pleural effusion. This was discussed with the patient. Continued medical management per internal medicine, pulmonology, oncology. Thank you for this consult, please call us with any further questions. I have personally seen and examined the patient, performed the documentation and the assessment and plan as written. Number of minutes spent on the visit: 30. ISIDRO Hebert
--- NOTE | 2024-07-20 12:14 | P.PN ---
Subjective Progress Note Date: 07/20/24 Hospital course: Patient is a very pleasant 74-year-old male with a past medical history of recently diagnosed adenocarcinoma of right lung, abdominal aortic aneurysm status post graft currently on Coumadin, COPD with continued nicotine dependence, CAD with reports of previous OR, hypertension, and hyperlipidemia. He presented to the hospital 07/18/2024 with chief complaint of shortness of breath. Upon arrival to our facility, patient underwent evaluation in the emergency department. Vital signs upon arrival show blood pressure 134/72, heart rate 86, respiratory rate 18, temp 98.1 F, and SpO2 of 92% on room air. EKG completed showing normal sinus rhythm at 81 bpm with no significant T wave or ST abnormality showing no signs of acute ischemia upon personal review and interpretation. Chest x-ray completed showing right pleural effusion increased in size compared to x-rays completed 06/28/2024 and stable hyperexpansion of lungs. Labs completed and reviewed. CBC unremarkable with the exception of elevated neutrophils of 8.1. Coagulation profile showing elevated PT of 53.4, PTT of 38.4 and supratherapeutic INR of 5.4. BMP showing hyponatremia magnesium slightly low at 1.7. Liver profile showing elevated total bili of 1.6. Troponin was negative at less than 0.012 and proBNP was 220. Influenza A, influenza B, and RSV were negative. COVID PCR positive. Patient admitted under services with consultation to and pulmonology. Patient reported right-sided rib/abdominal/chest pain. Ultrasound gallbladder was completed showing cholelithiasis without evidence of acute cholecystitis and increasing size and number of hypoechoic metastatic liver lesions. Physical exam: Patient seen and fully evaluated at bedside. He was sitting up in bed at this time. Patient reports he is comfortable at this time but continues to have pain in right upper quadrant beneath ribs but states he does not like to take pain medications and his breathing is much better since arrival to our facility. He is currently on 2 L O2 via nasal cannula with SpO2 of 96%. Vital signs reviewed and stable. General: Nontoxic, no distress and appears stated age. Thin and frail. Derm: Skin warm and dry, normal coloration for ethnicity. Head: Atraumatic, normocephalic and symmetric. Eyes: EOM's intact, no lid lag, and anicteric sclera Mouth: no lip lesions, mucus membranes moist Cardiovascular: regular rate and rhythm with normal S1S2, no murmur, positive posterior tibial pulses bilaterally, and cap refill < 2 seconds. Lungs: Respirations even, regular, and unlabored on 2 L O2 via nasal cannula. Lungs with diffuse soft rhonchi with significantly decreased lung sounds throughout right lower and middle lobe.. Abdominal: soft and nondistended. Patient does report tenderness right upper quadrant, beneath right rib order on palpation and with movement. Ext: No gross muscle atrophy, no edema, no contractures. Movement and sensation intact. Neuro: Speech clear, face symmetrical and CN II-XII grossly intact with no noted focal neuro deficits Psych: Alert and oriented to person, place, time, and situation. Appropriate and pleasant affect. Assessment and Plan of Care: Recurrent right-sided pleural effusion, metastatic effusions resulting from adenocarcinoma of the lung. Non small cell lung cancer with metastasis Acute respiratory failure with hypoxia, secondary to above COPD with continued nicotine dependence, not in acute exacerbation COVID-19 positive -Pulmonology following, discussed plan of care with Dr. De La Garza and informed him that if cardiothoracic surgery recommending medical management and if needed thoracentesis for treatment of pleural effusion. -Cardiothoracic surgery evaluated, recommending medical management and thoracentesis if needed for treatment of pleural effusion. -Patient is status post recent right-sided thoracentesis on 07/01/23 with a d ocumented removal of 1.3 L with cytology results of right pleural fluid positive for metastatic pulmonary adenocarcinoma. -Oxygenation to be administered and titrated as needed to maintain SPO2 equal to or greater than 92% -Telemetry monitoring. -Monitor pulse-oximetry -Duonebs scheduled every 4 hours and as needed for SOB and/or wheezing. Continue Symbicort 160-4.5 mcg inhaler 2 puffs twice daily. -Steroids: Continue home prednisone 10 mg daily, patient received a one-time dose of Solu-Medrol at 80 mg IVP in ER upon admission. -Oncology following, order placed for MRI brain to rule out brain mets -COVID-positive however of note patient was COVID-positive since June 28 Abdominal aortic aneurysm status post stent and graft Supratherapeutic INR, resolved now therapeutic at 2.4 -Patient on Coumadin for aortic graft and stenting, INR currently supratherapeutic and being held pending evaluation by cardiothoracic surgery and placement of Pleurx catheter. -Hold Coumadin for now, pending further recommendations of solution lead on whether or not thoracentesis will be completed. If no plans for thoracentesis will resume Coumadin pharmacy to dose for goal therapeutic INR of 2-3. -Hemoglobin stable at 12.7, will continue to monitor hemoglobin closely with repeat a.m. labs. -INR therapeutic this morning at 2.4. -Maintain fall precautions. Right upper quadrant abdominal pain, likely secondary to metastatic liver lesion s - Ultrasound gallbladder was completed showing cholelithiasis without evidence of acute cholecystitis and increasing size and number of hypoechoic metastatic liver lesions. - Symptomatic care and pain management with Tylenol 650 mg p.o. for mild pain, [place] 5/325 mg every 4 hours as needed for moderate pain, and Dilaudid 1 mg IVP every 4 hours as needed for severe pain. Leukocytosis -WBC count improving and is 10.73 this morning., likely reactive secondary to steroid administration received in ED upon admission. Will continue to monitor closely with repeat a.m. labs. Generalized weakness and debility -PT OT following -Maintain fall precautions. Hypertension -Continue with Carvedilol 6.25 mg twice daily and amlodipine 5 mg daily Hyperlipidemia -Continue with atorvastatin 40 mg nightly Data and imaging reviewed: -Vital signs reviewed. Blood pressure 129/75, heart rate 77, respiratory rate 18, temp 97.4 F, SpO2 of 96% on 2 L. -Labs reviewed. CBC showing improvement of leukocytosis with WBC count of 10.73, hemoglobin stable at 12.7. Coagulation profile showing therapeutic INR of 2.4. BMP unremarkable. Blood glucose 93. Liver profile normal findings with exception of hypoalbuminemia with albumin of 2.9. CODE STATUS: Full code DVT prophylaxis: Coumadin Anticipated discharge date: Pending clinical course Anticipated discharge place: Pending clinical course Patient was seen independently by Nurse Pracitioner. This document was prepared using [employer] 2020 dictation software. Please allow for errors in youth care worker, while rare they do occur. Earnest Vaughan NP rendered care for this patient independently, reviewed the findings and plan as documented in the note above and agree with plan. I did not physically speak with or examine the patient on this date. Objective - Vital Signs Vital signs: Vital Signs Temp 97.4 F L 07/20/24 07:20 Pulse 77 07/20/24 07:20 Resp 18 07/20/24 07:20 BP 129/75 07/20/24 07:20 Pulse Ox 96 07/20/24 07:20 FiO2 Intake & Output 07/19/24 07/20/24 07/20/24 18:59 06:59 18:59 Intake Total 1650 Balance 1650 Intake: Oral 1650 Other: # Voids 3 4 - Labs CBC & Chem 7: 07/20/24 03:53 07/20/24 03:53 Labs: Abnormal Lab Results - Last 24 Hours (Table) 07/19/24 07/19/24 07/20/24 Range/Units 05:32 05:32 03:53 WBC 15.38 H (4.50-10.00) X 10*3/uL PT (10.0-12.5) sec INR (<1.2) BUN/Creatinine Ratio 25.50 H (12.00-20.00) Ratio Glucose 128 H (70-110) mg/dL Calcium 8.5 L 8.2 L (8.7-10.3) mg/dL Total Protein 5.3 L 5.0 L (6.2-8.2) g/dL Albumin 3.0 L 2.9 L (3.8-4.9) g/dL Albumin/Globulin Ratio 1.30 L 1.38 L (1.60-3.17) Ratio 07/20/24 Range/Units 03:53 WBC (4.50-10.00) X 10*3/uL PT 23.8 H (10.0-12.5) sec INR 2.4 H (<1.2) BUN/Creatinine Ratio (12.00-20.00) Ratio Glucose (70-110) mg/dL Calcium (8.7-10.3) mg/dL Total Protein (6.2-8.2) g/dL Albumin (3.8-4.9) g/dL Albumin/Globulin Ratio (1.60-3.17) Ratio
[2024-07-20 14:37] VITALS: BMI 19.5
--- NOTE | 2024-07-20 15:36 | MR ---
EXAMINATION TYPE: MR brain wo/w con DATE OF EXAM: 07/20/2024 3:30 PM COMPARISON: 06/19/2011. CLINICAL INDICATION: Male, 74 years old with history of New NSCLC dx, r/o brain mets; PHH, New NSCLC dx, R/O brain mets, TECHNIQUE: Multi planar, multi sequence imaging was performed through the brain including: T1, T2, In version recovery, susceptibility weighted imaging and gradient echo imaging and Diffusion weighted im aging. The patient was then given intravenous contrast and multi planar, T1 fat-saturation images wer e obtained. IV Contrast: 6 mL Gadobutrol FINDINGS: Mild cerebral atrophy with proportional dilation of ventricular system. Remote injury to the right c erebellar hemisphere Diffusion-weighted imaging shows no evidence of restricted diffusion to suggest acute/subacute infarct. Intracranial arterial flow voids are maintained. Midline structures show no a bnormality. Scattered foci of high T2 signal intensity are seen within the periventricular white glen er. The susceptibility weighted images do not reveal any evidence for micro-hemorrhage. After adminis tration of gadolinium, no abnormal enhancement is seen. The bone marrow signal is within normal limits. Paranasal sinuses and mastoid air cells: No significant paranasal sinus disease. Visualized orbits: Orbital contents are intact. IMPRESSION: 1. No evidence of intracranial mass, acute/subacute infarct, or abnormal enhancement. 2. Nonspecific white matter changes, likely related to small vessel ischemic disease. 3. Remote right cerebellar hemisphere injury suggested. [facility], , 07/20/2024 3:34 PM
--- NOTE | 2024-07-20 16:44 | P.PN ---
Subjective Progress Note Date: 07/20/24 On 07/20/2024, patient is being seen for a follow-up. The patient is known to have stage IV pulmonary adenocarcinoma and this was diagnosed during an earlier admission where the patient came in with a right-sided pleural effusion and a total of 1.3 L of fluid was aspirated from the right lung and a fluid cytology was positive for pulm adenocarcinoma. The patient is presenting for the same. He is short of breath. He is also known to have COPD. Note that he during his previous admission, the patient had COVID-19 infection and his COVID-19 testing remains positive. Meanwhile, his repeat chest x-ray showed interval increase in the right-sided pleural effusion which is currently moderate in size. MRI of the brain was also done for metastatic workup and MRI showed no evidence of any intracranial masses or infarcts and there is a remote right cerebellar hemisphere injury as suggested. Nonspecific chronic white matter disease was also noted. The patient is currently on 2 L of oxygen by nasal cannula. I was planning to do a thoracentesis on this patient. Nevertheless, he is running an INR of 2.4 while being off Coumadin. Will monitor his INR and will plan for thoracentesis in a.m. Electrolytes are all within normal limits. BUN is 15 with a creatinine of 0.6. White cell count of 10.7 with a hemoglobin of 12.7. Ultrasound of the chest was done confirming the presence of a right-sided pleural effusion. The patient has no dyspnea at rest. However, he gets short of breath with limited amount of activity. Objective - Vital Signs Vital signs: Vital Signs Temp 97.4 F L 07/20/24 07:20 Pulse 77 07/20/24 08:55 Resp 18 07/20/24 08:55 BP 129/75 07/20/24 07:20 Pulse Ox 96 07/20/24 07:20 FiO2 Intake & Output 07/19/24 07/20/24 07/20/24 18:59 06:59 18:59 Intake Total 1650 Balance 1650 Intake: Oral 1650 Other: Voiding Method Toilet # Voids 3 4 - Exam GENERAL EXAM: Alert, oriented, disheveled thin 74-year-old male, on 2 L nasal cannula, fairly comfortable in no apparent distress. HEAD: Normocephalic. EYES: Normal reaction of pupils, equal size. NOSE: Clear with pink turbinates. THROAT: No erythema or exudates. NECK: No masses, no JVD. CHEST: No chest wall deformity. LUNGS: Equal air entry with crackles and dullness over the right lung, diminished. CVS: S1 and S2 normal with no audible murmur, regular rhythm. ABDOMEN: No hepatosplenomegaly, normal bowel sounds, no guarding or rigidity. SPINE: No scoliosis or deformity SKIN: No rashes CENTRAL NERVOUS SYSTEM: No focal deficits, tone is normal in all 4 extremities. EXTREMITIES: There is no peripheral edema. No clubbing, no cyanosis. Peripheral pulses are intact. - Labs CBC & Chem 7: 07/20/24 03:53 07/20/24 03:53 Labs: Abnormal Lab Results - Last 24 Hours (Table) 07/20/24 07/20/24 07/20/24 Range/Units 03:53 03:53 03:53 WBC 10.73 H (4.50-10.00) X 10*3/uL RBC 4.39 L (4.40-5.60) X 10*6/uL Hgb 12.7 L (13.0-17.0) g/dL Hct 39.0 L (39.6-50.0) % PT 23.8 H (10.0-12.5) sec INR 2.4 H (<1.2) BUN/Creatinine Ratio 25.50 H (12.00-20.00) Ratio Calcium 8.2 L (8.7-10.3) mg/dL Total Protein 5.0 L (6.2-8.2) g/dL Albumin 2.9 L (3.8-4.9) g/dL Albumin/Globulin Ratio 1.38 L (1.60-3.17) Ratio Assessment and Plan Plan: Acute hypoxemic respiratory failure secondary to recurrent right sided pleural effusion. Recently had undergone a right sided thoracentesis on previous admission on 07/01/2024 with 1.3 L of fluid removed. Fluid was positive for metastatic pulmonary adenocarcinoma. None of the chest today reveals a 13.4 cm pocket however there is internal echoes/debris noted within the fluid. Ultrasound of the abdomen reveals increasing size and numbers of hypoechoic metastatic liver lesions COVID-19 infection still positive from last month, remains positive for COVID-19 Chronic obstructive pulmonary disease Chronic and ongoing tobacco dependence Hypertension Hyperlipidemia History of CVA History of abdominal aortic aneurysm status post aortobiiliac stent, maintained on warfarin Supratherapeutic INR History of prostate cancer History of carotid artery disease and chronic dissection of the left ICA Plan: Keep the warfarin on hold Repeat INR in the morning Will do a thoracentesis if the INR drops below 2 Continue to hold warfarin for now Consult CT services for possible Pleurx catheter placement. 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 Will proceed with a therapeutic thoracentesis in a.m. if the INR is less than 2. Time with Patient: Greater than 30
--- NOTE | 2024-07-20 16:58 | CA ---
Transthoracic Echo Report Name: Ehsan Lebron Age: 74 Gender: M : 1950 Exam Date: 07/20/2024 11:20 Exam Location: [facility] Ht (in): 70 Wt (lb): 136 Ordering Physician: Juanjo Yan MD ([id number]) Attending/Referring Phys: Aligning Inspector Loida Gupta, JUAN ALBERTO Procedure CPT: Indications: cardiomyopathy and chf exacerbation Cardiac Hx: COPD, IA, abdominal aortic stent / limited, pt heart rate went up to 167 bpm, had to end scaning Technical Quality: Fair Contrast 1: Total Dose (mL): Contrast 2: Total Dose (mL): MEASUREMENTS (Male / Female) Normal Values DOPPLER TR Peak Velocity 262.8 cm/s TR Peak Gradient 27.6 mmHg FINDINGS Left Ventricle Left ventricular ejection fraction is estimated at 55 %. No obvious regional wall motion abnormalities. Right Ventricle Right Atrium Left Atrium Mitral Valve Aortic Valve Trileaflet aortic valve. Thickened aortic valve. Aortic valve sclerosis. Tricuspid Valve Structurally normal tricuspid valve. [id number] tricuspid regurgitation. Pulmonic Valve Pericardium No pericardial effusion. Aorta CONCLUSIONS Limited 2-D echo Left ventricular ejection fraction 55%. Mild to moderate tricuspid regurgitation Previewed by: Dr. Aayush Whyte DO (Electronically Signed) Final Date: 20 July 2024 16:58
--- NOTE | 2024-07-20 17:13 | P.PN ---
Subjective HISTORY OF PRESENTING ILLNESS: 74-year-old male with COPD not on oxygen, presents to the hospital because of progressively getting weak and falling at home. He was also on warfarin for aortic graft and stenting in the past. She also has prior history of DVT. He presented to the hospital because of increased worsening shortness of breath, generalized weakness and fall in the home. Patient denies any loss of consciousness. He was recently hospitalized for pneumonia secondary to underlying COVID-19 and was treated with antibiotic and steroids for COPD exacerbation. He was discharged a week ago. At that time he was also found to have right pleural effusion status post 1.3 L thoracentesis later on cytopathology showed metastatic adenocarcinoma of the lung. Cardiology was consulted for atrial fibrillation with RVR. However on my review of telemetry and EKG have not picked up any atrial fibrillation like activity Admission Vitals: 122/71, heart rate 91 Admission Labs: Hb 13, INR 5.4, BUN 8, creatinine 0.6 NT-proBNP 220, troponins negative Admission EKG: Sinus rhythm, low voltage, no obvious ST or T wave changes that are diagnostic for ischemia at rest. Imaging: Chest x-ray shows right pleural effusion with fluid in the fissure on the right side. Mild pulmonary congestion. No consolidation. Prior cardiac testing: Echo from October 2023 shows EF of 55 to 60%, No obvious regional wall motion abnormality, trace mitral regurgitation Progress note 07/19/2024 Patient is seen and examined bedside this a.m. Patient denies having any active chest pain chest pressure. No acute cardiac event overnight. BP 128/76, heart rate 92 bpm, Telemetry significant wandering baseline however appears to be sinus rhythm as has regular RR interval. 07/20 Patient seen and examined. Patient denies any chest pain or pressure. Still short of breath. Surgery was consulted for recurrent pleural effusions. PHYSICAL EXAMINATION: Neck: Brisk carotid upstroke, no jugular venous distention. Lungs: Clear to auscultation. Heart: Regular rate and rhythm, S1-S2, , no murmur or rub. Abdomen: Soft nontender, positive bowel sounds. Extremities: No edema, intact distal pulses. Neuro: Alert, oritented, no focal deficits. Detailed neuro exam was not performed. ASSESSMENT: # Supratherapeutic INR with no active bleeding # History of DVT # History of AAA with graft repair surgically # COVID-19 infection # Generalized weakness and debility # Fall, likely suspected to be mechanical # Recurrent right-sided pleural effusion suspected due to lung malignancy # COPD PLAN: Continue aspirin, Lipitor, amlodipine Hold warfarin. No need to reverse supratherapeutic nature. Monitor INR. Echo showing continued EF 55%. Continue with current supportive care. Monitor on telemetry. Objective - Vital Signs Vital signs: Vital Signs Temp 97.4 F L 07/20/24 14:22 Pulse 94 07/20/24 14:22 Resp 20 07/20/24 14:22 BP 131/79 07/20/24 14:22 Pulse Ox 94 L 07/20/24 14:22 FiO2 Intake & Output 07/19/24 07/20/24 07/20/24 18:59 06:59 18:59 Intake Total 1650 Balance 1650 Weight 61.689 kg Intake: Oral 1650 Other: Voiding Method Toilet # Voids 3 4 - Labs CBC & Chem 7: 07/20/24 03:53 07/20/24 03:53 Labs: Abnormal Lab Results - Last 24 Hours (Table) 07/20/24 07/20/24 07/20/24 Range/Units 03:53 03:53 03:53 WBC 10.73 H (4.50-10.00) X 10*3/uL RBC 4.39 L (4.40-5.60) X 10*6/uL Hgb 12.7 L (13.0-17.0) g/dL Hct 39.0 L (39.6-50.0) % PT 23.8 H (10.0-12.5) sec INR 2.4 H (<1.2) BUN/Creatinine Ratio 25.50 H (12.00-20.00) Ratio Calcium 8.2 L (8.7-10.3) mg/dL Total Protein 5.0 L (6.2-8.2) g/dL Albumin 2.9 L (3.8-4.9) g/dL Albumin/Globulin Ratio 1.38 L (1.60-3.17) Ratio
[2024-07-20] MEDS: HYDROmorphone 1 MG/ML 1 ML SYRINGE IVP PRN (18:39)
[2024-07-21] MEDS: PROCHLORPERAZINE INJ 10 MG/2 ML VIAL IVP PRN (03:01)
[2024-07-21] MEDS: ALBUTEROL HFA INHALER INHALATION PRN (03:17)
[2024-07-21 06:50] LABS: Glucose,Whole Blood 103 mg/dL (70-110)
[2024-07-21] MEDS: FUROSEMIDE 10 MG/ML 4 ML VIAL IV STA (06:59)
[2024-07-21 07:21] LABS: HCT 44.2 % (39.0-53.0); HGB 14.1 gm/dL (13.0-17.5); MCH 28.5 pg (25.0-35.0); MCHC 31.8 g/dL (31.0-37.0); MCV 89.6 fL (80.0-100.0); Mean Platelet Volume 7.2; Platelet Count 187 k/uL (150-450); RBC 4.93 m/uL (4.30-5.90); WBC 9.1 k/uL (3.8-10.6)
--- NOTE | 2024-07-21 07:23 | XR ---
EXAMINATION TYPE: XR chest 1V portable DATE OF EXAM: 07/21/2024 CLINICAL INDICATION: Male, 74 years old with history of Resp distress, progress study. TECHNIQUE: Single AP portable semiupright view of the chest is obtained. COMPARISON: Chest x-ray from 3 days earlier FINDINGS: Persistent small moderate sized right pleural effusion and right mid to lower lung increas ed opacity. Persistent mild central vascular congestion. Left lung remains clear. Silhouetting the ri ght heart border redemonstrated. Persistent atherosclerotic thoracic aorta with stent graft in the ab dominal aorta partially visualized. Osseous structures are intact. IMPRESSION: Persistent moderate central vascular congestion and hohai-so-mtyiwsiz sized right pleural effusion and associated right basilar opacity favoring atelectasis. No significant change from most recent chest x-ray. [facility], , 07/21/2024 7:21 AM
[2024-07-21 07:30] LABS: INR 1.4 (<1.2); Partial Thromboplastin Time 24.2 sec (22.0-30.0); Prothrombin Time 14.9 sec (10.0-12.5)
[2024-07-21 07:36] LABS: African American GFR (CKD) >90 (>60 ml/min/1.73 sqM); Anion Gap 6 mmol/L; Blood Urea Nitrogen 17 mg/dL (9-20); Calcium 8.3 mg/dL (8.4-10.2); Carbon Dioxide 31 mmol/L (22-30); Chloride 97 mmol/L (98-107); Glucose 96 mg/dL (74-99); Non-African American GFR(CKD) >90 (>60 ml/min/1.73 sqM); Sodium 134 mmol/L (137-145)
[2024-07-21 08:43] LABS: HCT 41.6 % (39.6-50.0); HGB 13.8 g/dL (13.0-17.0); MCHC 33.2 g/dL (32.0-37.0); MCV 87.4 FL (80.0-97.0); Mean Platelet Volume 10.3 FL (9.5-12.2); NRBC Per 100 WBC 0 X 10*3/uL (0.00-0.01); Platelet Count 188 X 10*3/uL (140-440); RBC 4.76 X 10*6/uL (4.40-5.60); RDW 14.3 % (11.5-14.5); WBC 8.97 X 10*3/uL (4.50-10.00)
[2024-07-21 09:09] LABS: ALT 20 U/L (10-49); AST 23 U/L (14-35); Albumin 3.2 g/dL (3.8-4.9); Albumin/Globulin Ratio 1.33 Ratio (1.60-3.17); Alkaline Phosphatase 99 U/L (41-126); Blood Urea Nitrogen 14.7 mg/dL (9.0-27.0); Calcium 8.6 mg/dL (8.7-10.3); Carbon Dioxide 26.9 mmol/L (21.6-31.8); Chloride 98 mmol/L (96-109); Globulin 2.4 g/dL (1.6-3.3); Glucose 80 mg/dL (70-110); Magnesium 1.9 mg/dL (1.5-2.4); Potassium 4.3 mmol/L (3.5-5.5); Sodium 136 mmol/L (135-145); Total Bilirubin 0.7 mg/dL (0.3-1.2); Total Protein 5.6 g/dL (6.2-8.2)
--- NOTE | 2024-07-21 12:08 | P.PN ---
Subjective Progress Note Date: 07/21/24 Hospital course: Patient is a very pleasant 74-year-old male with a past medical history of recently diagnosed adenocarcinoma of right lung, abdominal aortic aneurysm status post graft currently on Coumadin, COPD with continued nicotine dependence, CAD with reports of previous [place], hypertension, and hyperlipidemia. He presented to the hospital 07/18/2024 with chief complaint of shortness of breath. Upon arrival to our facility, patient underwent evaluation in the emergency department. Vital signs upon arrival show blood pressure 134/72, heart rate 86, respiratory rate 18, temp 98.1 F, and SpO2 of 92% on room air. EKG completed showing normal sinus rhythm at 81 bpm with no significant T wave or ST abnormality showing no signs of acute ischemia upon personal review and interpretation. Chest x-ray completed showing right pleural effusion increased in size compared to x-rays completed 06/28/2024 and stable hyperexpansion of lungs. Labs completed and reviewed. CBC unremarkable with the exception of elevated neutrophils of 8.1. Coagulation profile showing elevated PT of 53.4, PTT of 38.4 and supratherapeutic INR of 5.4. BMP showing hyponatremia magnesium slightly low at 1.7. Liver profile showing elevated total bili of 1.6. Troponin was negative at less than 0.012 and proBNP was 220. Influenza A, influenza B, and RSV were negative. COVID PCR positive. Patient admitted under services with consultation to and pulmonology. Patient reported right-sided rib/abdominal/chest pain. Ultrasound gallbladder was completed showing cholelithiasis without evidence of acute cholecystitis and increasing size and number of hypoechoic metastatic liver lesions. Physical exam: Patient seen and fully evaluated at bedside. He was sitting up in bed at this time. Patient reports having a very difficult morning. States after getting up and just moving a little bit he became severely short of breath and had a difficult time recovering. Patient states nursing staff ran into the room to help him and his oxygen had to be increased. He is currently on 5 L O2 via nasal cannula. Patient reports his breathing is better right now but still feels short of breath even at rest. Per patient and nursing staff patient is scheduled to undergo thoracentesis later today with Dr. Dupont. Vital signs reviewed and stable. General: Nontoxic, no distress and appears stated age. Thin and frail. Derm: Skin warm and dry, normal coloration for ethnicity. Head: Atraumatic, normocephalic and symmetric. Eyes: EOM's intact, no lid lag, and anicteric sclera Mouth: no lip lesions, mucus membranes moist Cardiovascular: regular rate and rhythm with normal S1S2, no murmur, positive posterior tibial pulses bilaterally, and cap refill < 2 seconds. Lungs: Respirations even, regular, and unlabored on 5 L O2 via nasal cannula. Lungs with diffuse soft rhonchi with significantly decreased lung sounds throughout right lower and middle lobe.. Abdominal: soft and nondistended. Patient does report tenderness right upper quadrant, beneath right rib order on palpation and with movement. Ext: No gross muscle atrophy, no edema, no contractures. Movement and sensation intact. Neuro: Speech clear, face symmetrical and CN II-XII grossly intact with no noted focal neuro deficits Psych: Alert and oriented to person, place, time, and situation. Appropriate and pleasant affect. Assessment and Plan of Care: Recurrent right-sided pleural effusion, metastatic effusions resulting from adenocarcinoma of the lung. Non small cell lung cancer with metastasis Acute respiratory failure with hypoxia, secondary to above COPD with continued nicotine dependence, not in acute exacerbation COVID-19 positive -Pulmonology following, tentatively planning for thoracentesis later today. -Cardiothoracic surgery evaluated, recommending medical management and thoracentesis if needed for treatment of pleural effusion. -Patient is status post recent right-sided thoracentesis on 07/01/23 with a do cumented removal of 1.3 L with cytology results of right pleural fluid positive for metastatic pulmonary adenocarcinoma. -Oxygenation to be administered and titrated as needed to maintain SPO2 equal to or greater than 92% -Telemetry monitoring. -Monitor pulse-oximetry -Duonebs scheduled every 4 hours and as needed for SOB and/or wheezing. Continue Symbicort 160-4.5 mcg inhaler 2 puffs twice daily. -Steroids: Continue home prednisone 10 mg daily, patient received a one-time dose of Solu-Medrol at 80 mg IVP in ER upon admission. -Oncology following, reviewed documentation in chart. -COVID-positive however of note patient was COVID-positive since June 28 Abdominal aortic aneurysm status post stent and graft Supratherapeutic INR, resolved -Patient on Coumadin for aortic graft and stenting, INR currently supratherapeutic and being held pending evaluation by cardiothoracic surgery and placement of Pleurx catheter. -Hold Coumadin for now, pending further recommendations of iron setter on whether or not thoracentesis will be completed. If no plans for thoracentesis will resume Coumadin pharmacy to dose for goal therapeutic INR of 2-3. -Hemoglobin stable at 14.1, will continue to monitor hemoglobin closely with repeat a.m. labs. -INR therapeutic this morning at 1.4. -Maintain fall precautions. Right upper quadrant abdominal pain, likely secondary to metastatic liver lesions - Ultrasound gallbladder was completed showing cholelithiasis without evidence of acute cholecystitis and increasing size and number of hypoechoic metastatic liver lesions. - Symptomatic care and pain management with Tylenol 650 mg p.o. for mild pain, [place] 5/325 mg every 4 hours as needed for moderate pain, and Dilaudid 1 mg IVP every 4 hours as needed for severe pain. Leukocytosis -Resolved. WBC count 9.1. Will continue to monitor closely with repeat a.m. labs. Generalized weakness and debility -PT OT following -Maintain fall precautions. Hypertension -Continue with Carvedilol 6.25 mg twice daily and amlodipine 5 mg daily Hyperlipidemia -Continue with atorvastatin 40 mg nightly Data and imaging reviewed: -Vital signs reviewed. Blood pressure 107/70, heart rate 78, respiratory rate 17, temp 97.9 F, and SpO2 of 90% on 5 L. -Labs reviewed. CBC unremarkable. Coagulation profile showing elevated PT of 14.9 and INR of 1.4. BMP showing sodium 134, chloride 97, bicarb 31, and anion gap of 6. Blood glucose 96. -MRI brain was completed and radiology report reviewed showing no evidence of intracranial mass acute/subacute infarct, or abnormal enhancement/lesions revealing nonspecific white matter changes likely related to small vessel ischemic disease and a remote right cerebellar hemisphere injury. CODE STATUS: Full code DVT prophylaxis: Coumadin once cleared by pulmonology to resume Anticipated discharge date: Pending clinical course Anticipated discharge place: Pending clinical course Patient was seen independently by Nurse Pracitioner. This document was prepared using [employer] dictation software. Please allow for errors in colorist photography, while rare they do occur. Earnest Vaughan NP rendered care for this patient independently, reviewed the findings and plan as documented in the note above and agree with plan. I did not physically speak with or examine the patient on this date. Objective - Vital Signs Vital signs: Vital Signs Temp 97.9 F 07/21/24 07:33 Pulse 78 07/21/24 07:33 Resp 17 07/21/24 07:33 BP 107/70 07/21/24 07:33 Pulse Ox 98 07/21/24 07:33 FiO2 Intake & Output 07/20/24 07/21/24 07/21/24 18:59 06:59 18:59 Weight 61.689 kg Other: Voiding Method Toilet Toilet # Voids 3 2 - Labs CBC & Chem 7: 07/21/24 07:09 07/21/24 07:09 Labs: Abnormal Lab Results - Last 24 Hours (Table) 07/20/24 07/21/24 07/21/24 Range/Units 03:53 07:09 07:09 WBC 10.73 H (4.50-10.00) X 10*3/uL RBC 4.39 L (4.40-5.60) X 10*6/uL Hgb 12.7 L (13.0-17.0) g/dL Hct 39.0 L (39.6-50.0) % PT 14.9 H (10.0-12.5) sec INR 1.4 H (<1.2) Sodium 134 L (137-145) mmol/L Chloride 97 L (98-107) mmol/L Carbon Dioxide 31 H (22-30) mmol/L Creatinine 0.60 L (0.66-1.25) mg/dL Calcium 8.3 L (8.4-10.2) mg/dL
--- NOTE | 2024-07-21 13:00 | P.PN ---
Subjective HISTORY OF PRESENTING ILLNESS: 74-year-old male with COPD not on oxygen, presents to the hospital because of progressively getting weak and falling at home. He was also on warfarin for aortic graft and stenting in the past. She also has prior history of DVT. He presented to the hospital because of increased worsening shortness of breath, generalized weakness and fall in the home. Patient denies any loss of consciousness. He was recently hospitalized for pneumonia secondary to underlying COVID-19 and was treated with antibiotic and steroids for COPD exacerbation. He was discharged a week ago. At that time he was also found to have right pleural effusion status post 1.3 L thoracentesis later on cytopathology showed metastatic adenocarcinoma of the lung. Cardiology was consulted for atrial fibrillation with RVR. However on my review of telemetry and EKG have not picked up any atrial fibrillation like activity Admission Vitals: 122/71, heart rate 91 Admission Labs: Hb 13, INR 5.4, BUN 8, creatinine 0.6 NT-proBNP 220, troponins negative Admission EKG: Sinus rhythm, low voltage, no obvious ST or T wave changes that are diagnostic for ischemia at rest. Imaging: Chest x-ray shows right pleural effusion with fluid in the fissure on the right side. Mild pulmonary congestion. No consolidation. Prior cardiac testing: Echo from October 2023 shows EF of 55 to 60%, No obvious regional wall motion abnormality, trace mitral regurgitation Progress note 07/19/2024 Patient is seen and examined bedside this a.m. Patient denies having any active chest pain chest pressure. No acute cardiac event overnight. BP 128/76, heart rate 92 bpm, Telemetry significant wandering baseline however appears to be sinus rhythm as has regular RR interval. 07/20 Patient seen and examined. Patient denies any chest pain or pressure. Still short of breath. Surgery was consulted for recurrent pleural effusions. 07/21 Patient seen and examined. Patient denies any chest pain or pressure. He did have some worsening shortness of breath this morning and his oxygen levels were increased. X-ray repeated with recurrent right pleural effusion. Possibility of draining theright pleural effusion today. PHYSICAL EXAMINATION: Neck: Brisk carotid upstroke, no jugular venous distention. Lungs: Clear to auscultation. Heart: Regular rate and rhythm, S1-S2, , no murmur or rub. Abdomen: Soft nontender, positive bowel sounds. Extremities: No edema, intact distal pulses. Neuro: Alert, oritented, no focal deficits. Detailed neuro exam was not perfor med. ASSESSMENT: # Supratherapeutic INR with no active bleeding # History of DVT # History of AAA with graft repair surgically # COVID-19 infection # Generalized weakness and debility # Fall, likely suspected to be mechanical # Recurrent right-sided pleural effusion suspected due to lung malignancy # COPD PLAN: Continue aspirin, Lipitor, amlodipine Hold Coumadin for possible thoracentesis and then likely restart after. Echo showing continued EF 55%. Continue with current supportive care. Monitor on telemetry. Objective - Vital Signs Vital signs: Vital Signs Temp 97.9 F 07/21/24 07:33 Pulse 78 07/21/24 07:54 Resp 17 07/21/24 07:54 BP 107/70 07/21/24 07:33 Pulse Ox 98 07/21/24 07:33 FiO2 Intake & Output 07/20/24 07/21/24 07/21/24 18:59 06:59 18:59 Weight 61.689 kg Other: Voiding Method Toilet Toilet Toilet # Voids 3 2 - Labs CBC & Chem 7: 07/21/24 07:09 07/21/24 07:09 Labs: Abnormal Lab Results - Last 24 Hours (Table) 07/21/24 07/21/24 07/21/24 Range/Units 03:34 07:09 07:09 PT 14.9 H (10.0-12.5) sec INR 1.4 H (<1.2) Sodium 134 L (137-145) mmol/L Chloride 97 L (98-107) mmol/L Carbon Dioxide 31 H (22-30) mmol/L Creatinine 0.60 L (0.66-1.25) mg/dL BUN/Creatinine Ratio 24.50 H (12.00-20.00) Ratio Calcium 8.6 L 8.3 L (8.7-10.3) mg/dL Total Protein 5.6 L (6.2-8.2) g/dL Albumin 3.2 L (3.8-4.9) g/dL Albumin/Globulin Ratio 1.33 L (1.60-3.17) Ratio
--- NOTE | 2024-07-21 15:02 | XR ---
EXAMINATION TYPE: XR chest 1V portable DATE OF EXAM: 07/21/2024 CLINICAL INDICATION: Male, 74 years old with history of thoracentesis, progress study. Right side ple ural effusion. TECHNIQUE: Single AP portable upright view of the chest is obtained. COMPARISON: Chest x-ray from earlier today FINDINGS: Persistent small right pleural effusion after thoracentesis. No pneumothorax seen. Persist ent mild central vascular congestion. Cardiac silhouette size is upper limits of normal. Left lung re brad clear. Osseous structures are intact. IMPRESSION: No pneumothorax after right-sided thoracentesis. [facility], , 07/21/2024 3:00 PM
--- NOTE | 2024-07-21 17:24 | P.PN ---
Subjective Progress Note Date: 07/21/24 Principal diagnosis: SOB, pleural effusion In f/u today pt is on 6L NC, he was not on O2 prior to admit. He did not have a pleurex placed, pending thoracentesis today. He had his staging brain MRI. No other acute physical c/o. Objective - Vital Signs Vital signs: Vital Signs Temp 97.9 F 07/21/24 07:33 Pulse 82 07/21/24 17:00 Resp 17 07/21/24 07:54 BP 154/86 07/21/24 17:00 Pulse Ox 99 07/21/24 17:00 FiO2 Intake & Output 07/20/24 07/21/24 07/21/24 18:59 06:59 18:59 Weight 61.689 kg Other: Voiding Method Toilet Toilet Toilet # Voids 3 2 - Constitutional General appearance: Present: cooperative, no acute distress, thin - EENT Eyes: Present: anicteric sclerae, EOMI ENT: Present: hearing grossly normal - Respiratory Respiratory: right: diminished - Cardiovascular Rhythm: regular - Neurologic Neurologic: Present: CNII-XII intact - Musculoskeletal Musculoskeletal: Present: strength equal bilaterally - Psychiatric Psychiatric: Present: A&O x's 3, appropriate affect, intact judgment & insight - Labs CBC & Chem 7: 07/21/24 07:09 07/21/24 07:09 Labs: Abnormal Lab Results - Last 24 Hours (Table) 07/21/24 07/21/24 07/21/24 Range/Units 03:34 07:09 07:09 PT 14.9 H (10.0-12.5) sec INR 1.4 H (<1.2) Sodium 134 L (137-145) mmol/L Chloride 97 L (98-107) mmol/L Carbon Dioxide 31 H (22-30) mmol/L Creatinine 0.60 L (0.66-1.25) mg/dL BUN/Creatinine Ratio 24.50 H (12.00-20.00) Ratio Calcium 8.6 L 8.3 L (8.7-10.3) mg/dL Total Protein 5.6 L (6.2-8.2) g/dL Albumin 3.2 L (3.8-4.9) g/dL Albumin/Globulin Ratio 1.33 L (1.60-3.17) Ratio - Imaging and Cardiology MRI - head: report reviewed Assessment and Plan (1) Stage 4 malignant neoplasm of lung Current Visit: Yes Status: Acute Priority: High Code(s): C34.90 - MALIGNANT NEOPLASM OF UNSP PART OF UNSP BRONCHUS OR LUNG SNOMED Code(s): 50591852 Plan: NSCLC stage IV, malignant pleural effusion -recent diagnosis-shee consult for Hx -Staging MRI brain neg for metastatic disease -Pulm and CTS following, pending management recommendations for malignancy pleural effusion. Pt is having a thora today -2 daughter were at bedside today. Summarized case to this point with them. Staging PET/CT will be shed for outpt. Specimen has been requested and will to be sent for NGS/PDL1. Liquid biopsy will be done at [facility]. F/U appt with Medical Oncologist for diagnosis, prognosis, treatment options-appt in DC plan. Pt/family will be contacted with date and time for scan and he can be sched for liquid biopsy at his convenience after DC. -All questions answered to the best of my ability and to pt and family satisfaction Pt ok from an Onc standpoint for DC once cleared by Attending and other consulting Physicians
--- NOTE | 2024-07-21 17:59 | P.PN ---
Subjective Progress Note Date: 07/21/24 On 07/20/2024, patient is being seen for a follow-up. The patient is known to have stage IV pulmonary adenocarcinoma and this was diagnosed during an earlier admission where the patient came in with a right-sided pleural effusion and a total of 1.3 L of fluid was aspirated from the right lung and a fluid cytology was positive for pulm adenocarcinoma. The patient is presenting for the same. He is short of breath. He is also known to have COPD. Note that he during his previous admission, the patient had COVID-19 infection and his COVID-19 testing remains positive. Meanwhile, his repeat chest x-ray showed interval increase in the right-sided pleural effusion which is currently moderate in size. MRI of the brain was also done for metastatic workup and MRI showed no evidence of any intracranial masses or infarcts and there is a remote right cerebellar hemisphere injury as suggested. Nonspecific chronic white matter disease was also noted. The patient is currently on 2 L of oxygen by nasal cannula. I was planning to do a thoracentesis on this patient. Nevertheless, he is running an INR of 2.4 while being off Coumadin. Will monitor his INR and will plan for thoracentesis in a.m. Electrolytes are all within normal limits. BUN is 15 with a creatinine of 0.6. White cell count of 10.7 with a hemoglobin of 12.7. Ultrasound of the chest was done confirming the presence of a right-sided pleural effusion. The patient has no dyspnea at rest. However, he gets short of breath with limited amount of activity. On 07/21/2024, the patient is off Coumadin and INR is down to 1.4. Doing well. No specific complaints. Her white cell count is 9.1 with a hemoglobin 14. BUN 17 with a creatinine of 0.6 and a sodium levels at 134. Awaiting a thoracentesis. No chest pain. No fever. No chills. No other complaints otherwise for now. Objective - Vital Signs Vital signs: Vital Signs Temp 97.9 F 07/21/24 07:33 Pulse 78 07/21/24 07:54 Resp 17 07/21/24 07:54 BP 107/70 07/21/24 07:33 Pulse Ox 98 07/21/24 07:33 FiO2 Intake & Output 07/20/24 07/21/24 07/21/24 18:59 06:59 18:59 Weight 61.689 kg Other: Voiding Method Toilet Toilet Toilet # Voids 3 2 - Exam GENERAL EXAM: Alert, oriented, disheveled thin 74-year-old male, on 2 L nasal cannula, fairly comfortable in no apparent distress. HEAD: Normocephalic. EYES: Normal reaction of pupils, equal size. NOSE: Clear with pink turbinates. THROAT: No erythema or exudates. NECK: No masses, no JVD. CHEST: No chest wall deformity. LUNGS: Equal air entry with crackles and dullness over the right lung, diminished. CVS: S1 and S2 normal with no audible murmur, regular rhythm. ABDOMEN: No hepatosplenomegaly, normal bowel sounds, no guarding or rigidity. SPINE: No scoliosis or deformity SKIN: No rashes CENTRAL NERVOUS SYSTEM: No focal deficits, tone is normal in all 4 extremities. EXTREMITIES: There is no peripheral edema. No clubbing, no cyanosis. Peripheral pulses are intact. - Labs CBC & Chem 7: 07/21/24 07:09 07/21/24 07:09 Labs: Abnormal Lab Results - Last 24 Hours (Table) 07/21/24 07/21/24 07/21/24 Range/Units 03:34 07:09 07:09 PT 14.9 H (10.0-12.5) sec INR 1.4 H (<1.2) Sodium 134 L (137-145) mmol/L Chloride 97 L (98-107) mmol/L Carbon Dioxide 31 H (22-30) mmol/L Creatinine 0.60 L (0.66-1.25) mg/dL BUN/Creatinine Ratio 24.50 H (12.00-20.00) Ratio Calcium 8.6 L 8.3 L (8.7-10.3) mg/dL Total Protein 5.6 L (6.2-8.2) g/dL Albumin 3.2 L (3.8-4.9) g/dL Albumin/Globulin Ratio 1.33 L (1.60-3.17) Ratio Assessment and Plan Plan: Acute hypoxemic respiratory failure secondary to recurrent right sided pleural effusion. Recently had undergone a right sided thoracentesis on previous admission on 07/01/2024 with 1.3 L of fluid removed. Fluid was positive for metastatic pulmonary adenocarcinoma. None of the chest today reveals a 13.4 cm pocket however there is internal echoes/debris noted within the fluid. Ultrasound of the abdomen reveals increasing size and numbers of hypoechoic metastatic liver lesions. COVID-19 infection still positive from last month, remains positive for COVID-19 Chronic obstructive pulmonary disease Chronic and ongoing tobacco dependence Hypertension Hyperlipidemia History of CVA History of abdominal aortic aneurysm status post aortobiiliac stent, maintained on warfarin Supratherapeutic INR History of prostate cancer History of carotid artery disease and chronic dissection of the left ICA Plan: Thoracentesis to be done today for symptomatic purposes as the patient continues to have shortness of breath Continue to hold warfarin for now Currently stable on 2 L nasal cannula Titrate the FiO2 as tolerated Educated regarding smoking cessation NicoDerm patch will be offered MRI of the brain shows no evidence of 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
--- NOTE | 2024-07-21 18:01 | P.PCN ---
Date of Procedure: 07/21/24 Preoperative Diagnosis: Pleural effusion, right-sided Postoperative Diagnosis: Pleural effusion, right-sided Procedure(s) Performed: Thoracentesis, right-sided Anesthesia: local Surgeon: Dulce Dupont Estimated Blood Loss (ml): 0 Pathology: other Condition: stable Disposition: same day Operative Findings: Thoracentesis was done with ultrasound marking. The right-sided pleural effusion was noted and marked under ultrasound. A time out was performed and the chest x-ray was reviewed, the appropriate side was confirmed and marked. My hands were washed immediately prior to the procedure. I wore a surgical cap, mask with protective eyewear, sterile gown and sterile gloves throughout the procedure. The patient was prepped and draped in a sterile manner using chlorhexidine scrub after the appropriate level was percussed and confirmed by ultrasound. 1% lidocaine was used to anesthesize the skin, subcutaneous tissue, superior aspect of the rib periosteum and parietal pleura. A finder needle was then introduced over the superior aspect of the rib to locate the pleural fluid; 2colored fluid was aspirated at a depth of approximately 2 cm. A 10-blade scalpel was used to radha the skin at the insertion site. The [id number] needle was then introduced through the skin incision into the pleural space using negative aspiration pressure and the red colometric indicator to confirm appropriate positioning of the needle. The thoracentesis catheter was then threaded without difficulty. 1200 ml of turbid colored fluid was removed without difficulty. The catheter was then removed. No immediate complications were noted during the procedure. A post-procedure chest x-ray is pending at the time of this note. The fluid will not be sent for studies. Estimated blood loss is 0cc
[2024-07-22 08:47] LABS: BUN/Creat Ratio 22.67 Ratio (12.00-20.00); Blood Urea Nitrogen 13.6 mg/dL (9.0-27.0); Glucose 88 mg/dL (70-110); Magnesium 1.8 mg/dL (1.5-2.4)
[2024-07-22 08:48] LABS: ALT 17 U/L (10-49); AST 18 U/L (14-35); Albumin 2.8 g/dL (3.8-4.9); Alkaline Phosphatase 81 U/L (41-126); Carbon Dioxide 30.4 mmol/L (21.6-31.8); Chloride 99 mmol/L (96-109); Potassium 3.7 mmol/L (3.5-5.5); Sodium 137 mmol/L (135-145); Total Bilirubin 0.7 mg/dL (0.3-1.2); Total Protein 4.8 g/dL (6.2-8.2)
[2024-07-22 09:04] LABS: HCT 36.7 % (39.6-50.0); HGB 12.3 g/dL (13.0-17.0); MCH 28.9 pg (27.0-32.0); MCHC 33.5 g/dL (32.0-37.0); MCV 86.2 FL (80.0-97.0); Mean Platelet Volume 10.4 FL (9.5-12.2); NRBC Per 100 WBC 0 X 10*3/uL (0.00-0.01); Platelet Count 149 X 10*3/uL (140-440); RBC 4.26 X 10*6/uL (4.40-5.60); RDW 14.2 % (11.5-14.5); WBC 5.94 X 10*3/uL (4.50-10.00)
[2024-07-22] MEDS: ASPIRIN 81 MG PO SCH (10:32)
--- NOTE | 2024-07-22 10:33 | P.PN ---
Subjective HISTORY OF PRESENT ILLNESS: 74-year-old male with COPD not on oxygen, presents to the hospital because of progressively getting weak and falling at home. He was also on warfarin for aortic graft and stenting in the past. She also has prior history of DVT. He presented to the hospital because of increased worsening shortness of breath, generalized weakness and fall in the home. Patient denies any loss of consciousness. He was recently hospitalized for pneumonia secondary to underlying COVID-19 and was treated with antibiotic and steroids for COPD exacerbation. He was discharged a week ago. At that time he was also found to have right pleural effusion status post 1.3 L thoracentesis later on cytopathology showed metastatic adenocarcinoma of the lung. Cardiology was consulted for atrial fibrillation with RVR. However on my review of telemetry and EKG have not picked up any atrial fibrillation like activity Admission Vitals: 122/71, heart rate 91 Admission Labs: Hb 13, INR 5.4, BUN 8, creatinine 0.6 NT-proBNP 220, troponins negative Admission EKG: Sinus rhythm, low voltage, no obvious ST or T wave changes that are diagnostic for ischemia at rest. Imaging: Chest x-ray shows right pleural effusion with fluid in the fissure on the right side. Mild pulmonary congestion. No consolidation. Prior cardiac testing: Echo from October 2023 shows EF of 55 to 60%, No obvious regional wall motion abnormality, trace mitral regurgitation Progress note 07/19/2024 Patient is seen and examined bedside this a.m. Patient denies having any active chest pain chest pressure. No acute cardiac event overnight. BP 128/76, heart rate 92 bpm, Telemetry significant wandering baseline however appears to be sinus rhythm as has regular RR interval. 07/20 Patient seen and examined. Patient denies any chest pain or pressure. Still short of breath. Surgery was consulted for recurrent pleural effusions. 07/21 Patient seen and examined. Patient denies any chest pain or pressure. He did have some worsening shortness of breath this morning and his oxygen levels were increased. X-ray repeated with recurrent right pleural effusion. Possibility of draining theright pleural effusion today. 07/22/2024 Patient examined this morning at the bedside. Patient is status post right sided thoracentesis yesterday with removal of 1200 cc of fluid. Patient reports improvement in his shortness of breath this morning. He denies any chest pain or pressure. Vital signs are stable. PHYSICAL EXAM: VITAL SIGNS: Reviewed. GENERAL: Well-developed in no acute distress. NECK: Supple. No JVD or thyromegaly LUNGS: Respirations even and unlabored. Lungs essentially clear to auscultation bilaterally. HEART: Regular rate and rhythm. S1 and S2 heard. EXTREMITIES: Normal range of motion. No clubbing or cyanosis. Peripheral pulses intact. No lower extremity edema ASSESSMENT: # Supratherapeutic INR with no active bleeding # History of DVT # History of AAA with graft repair surgically # COVID-19 infection # Generalized weakness and debility # Fall, likely suspected to be mechanical # Recurrent right-sided pleural effusion suspected due to lung malignancy # COPD PLAN: Continue current cardiac medications including aspirin, amlodipine, Lipitor, and carvedilol Resume Coumadin per primary medicine due to history of DVT Patient is currently stable from a cardiac standpoint with no further inpatient recommendations We will sign off. Please reconsult if needed. Nurse practitioner note has been reviewed by physician. Signing provider agrees with the documented findings, assessment, and plan of care documented by RIM FIRE PRIMING TOOL SETTER as a scribe. Objective - Vital Signs Vital signs: Vital Signs Temp 97.8 F 07/22/24 08:03 Pulse 72 07/22/24 08:03 Resp 18 07/22/24 08:03 BP 100/62 07/22/24 08:03 Pulse Ox 94 L 07/22/24 08:03 FiO2 Intake & Output 07/21/24 07/22/24 07/22/24 18:59 06:59 18:59 Other: Voiding Method Toilet Toilet Urinal # Voids 4 1 - Labs CBC & Chem 7: 07/22/24 02:41 07/22/24 02:41 Labs: Abnormal Lab Results - Last 24 Hours (Table) 07/22/24 07/22/24 Range/Units 02:41 02:41 RBC 4.26 L (4.40-5.60) X 10*6/uL Hgb 12.3 L (13.0-17.0) g/dL Hct 36.7 L (39.6-50.0) % BUN/Creatinine Ratio 22.67 H (12.00-20.00) Ratio Calcium 8.0 L (8.7-10.3) mg/dL Total Protein 4.8 L (6.2-8.2) g/dL Albumin 2.8 L (3.8-4.9) g/dL Albumin/Globulin Ratio 1.40 L (1.60-3.17) Ratio
--- NOTE | 2024-07-22 14:27 | P.PN ---
Subjective Progress Note Date: 07/22/24 Hospital course: Patient is a very pleasant 74-year-old male with a past medical history of recently diagnosed adenocarcinoma of right lung (non-small cell lung cancer), abdominal aortic aneurysm status post graft currently on Coumadin, COPD with continued nicotine dependence, CAD with reports of previous VA, hypertension, and hyperlipidemia. He presented to the hospital 07/18/2024 with chief complaint of shortness of breath. Patient is status post recent right-sided thoracentesis on 07/01/23 with a documented removal of 1.3 L with cytology results of right pleural fluid positive for metastatic pulmonary adenocarcinoma. Upon arrival to our facility, patient underwent evaluation in the emergency department. Vital signs upon arrival show blood pressure 134/72, heart rate 86, respiratory rate 18, temp 98.1 F, and SpO2 of 92% on room air. EKG completed showing normal sinus rhythm at 81 bpm with no significant T wave or ST abnormality showing no signs of acute ischemia upon personal review and interpretation. Chest x-ray completed showing right pleural effusion increased in size compared to x-rays completed 06/28/2024 and stable hyperexpansion of lungs. Labs completed and reviewed. CBC unremarkable with the exception of elevated neutrophils of 8.1. Coagulation profile showing elevated PT of 53.4, PTT of 38.4 and supratherapeutic INR of 5.4. BMP showing hyponatremia magnesium slightly low at 1.7. Liver profile showing elevated total bili of 1.6. Troponin was negative at less than 0.012 and proBNP was 220. Influenza A, influenza B, and RSV were negative. COVID PCR positive. Patient admitted under services with consultation to and pulmonology. Patient reported right-sided rib/abdominal/chest pain. Ultrasound gallbladder was completed showing cholelithiasis without evidence of acute cholecystitis and increasing size and number of hypoechoic metastatic liver lesions. Physical exam: Patient seen and fully evaluated at bedside. He was sitting up in bed reports feeling much better since having thoracentesis. Oxygen needs also decreased f rom previous 5 L down to 2 L this morning. Vital signs reviewed and stable. General: Nontoxic, no distress and appears stated age. Thin and frail. Derm: Skin warm and dry, normal coloration for ethnicity. Head: Atraumatic, normocephalic and symmetric. Eyes: EOM's intact, no lid lag, and anicteric sclera Mouth: no lip lesions, mucus membranes moist Cardiovascular: regular rate and rhythm with normal S1S2, no murmur, positive posterior tibial pulses bilaterally, and cap refill < 2 seconds. Lungs: Respirations even, regular, and unlabored on \2 L O2 via nasal cannula. Lungs with equal air entry, slightly diminished.. Abdominal: soft and nondistended. Patient does report tenderness right upper quadrant, beneath right rib order on palpation and with movement. Ext: No gross muscle atrophy, no edema, no contractures. Movement and sensation intact. Neuro: Speech clear, face symmetrical and CN II-XII grossly intact with no noted focal neuro deficits Psych: Alert and oriented to person, place, time, and situation. Appropriate and pleasant affect. Assessment and Plan of Care: Recurrent right-sided pleural effusion, metastatic effusions resulting from adenocarcinoma of the lung. Non small cell lung cancer with metastasis Acute respiratory failure with hypoxia, secondary to above COPD with continued nicotine dependence, not in acute exacerbation COVID-19 positive -Pulmonology following, performed right sided thoracentesis on 07/21/2024 with removal of 1200 cc of reported turbid colored pleural fluid. -Cardiothoracic surgery evaluated, recommending medical management and thoracentesis if needed for treatment of pleural effusion. -Oxygenation to be administered and titrated as needed to maintain SPO2 equal to or greater than 92% -Telemetry monitoring. -Monitor pulse-oximetry -Duonebs scheduled every 4 hours and as needed for SOB and/or wheezing. Continue Symbicort 160-4.5 mcg inhaler 2 puffs twice daily. -Steroids: Continue home prednisone 10 mg daily, patient received a one-time dose of Solu-Medrol at 80 mg IVP in ER upon admission. -Oncology following, reviewed documentation in chart. -COVID-positive however of note patient was COVID-positive since June 28 Abdominal aortic aneurysm status post stent and graft Supratherapeutic INR, resolved -Patient on Coumadin for aortic graft and stenting, INR currently supratherapeutic and being held pending evaluation by cardiothoracic surgery and placement of Pleurx catheter. -Hold Coumadin for now, pending further recommendations of marketing program coordinator on whether or not thoracentesis will be completed. If no plans for thoracentesis will resume Coumadin pharmacy to dose for goal therapeutic INR of 2-3. -Hemoglobin stable at 14.1, will continue to monitor hemoglobin closely with repeat a.m. labs. -INR therapeutic this morning at 1.4. -Maintain fall precautions. Right upper quadrant abdominal pain, likely secondary to metastatic liver lesions - Ultrasound gallbladder was completed showing cholelithiasis without evidence of acute cholecystitis and increasing size and number of hypoechoic metastatic liver lesions. - Symptomatic care and pain management with Tylenol 650 mg p.o. for mild pain, Gipsy 5/325 mg every 4 hours as needed for moderate pain, and Dilaudid 1 mg IVP every 4 hours as needed for severe pain. Leukocytosis -Resolved. WBC count 5.94. Will continue to monitor closely with repeat a.m. labs. Generalized weakness and debility -PT OT following -Maintain fall precautions. Hypertension -Continue with Carvedilol 6.25 mg twice daily and amlodipine 5 mg daily Hyperlipidemia -Continue with atorvastatin 40 mg nightly Patient is currently on 2 L O2 via nasal cannula with SpO2 of 94%. Order placed for home oxygen evaluation and discussed with nursing staff and case management. Plan is for discharge home on oxygen once cleared by marketing program coordinator. Data and imaging reviewed: -Vital signs reviewed. Blood pressure 100/62, heart rate 72, respiratory rate 18, temp 97.8 F, and SpO2 of 94% on 2 L. -Labs reviewed. CBC showing stable normocytic anemia with hemoglobin of 12.3. BMP unremarkable. Blood glucose 88. Magnesium 1.8. Liver profile unremarkable with exception of low total protein of 4.8 and albumin of 2.8. CODE STATUS: Full code DVT prophylaxis: Coumadin once cleared by pulmonology to resume Anticipated discharge date: Likely within the next 24 hours, either later today vs tomorrow morning pending home O2 evaluation and clearance by marketing program coordinator. Anticipated discharge place: Home with palliative and home care Patient was seen independently by Nurse Pracitioner. This document was prepared using [employer] dictation software. Please allow for errors in agricultural economist, while rare they do occur. Earnest Vaughan NP rendered care for this patient independently, reviewed the findings and plan as documented in the note above and agree with plan. I did not physically speak with or examine the patient on this date. Objective - Vital Signs Vital signs: Vital Signs Temp 97.8 F 07/22/24 08:03 Pulse 72 07/22/24 08:03 Resp 18 07/22/24 08:03 BP 100/62 07/22/24 08:03 Pulse Ox 94 L 07/22/24 08:03 FiO2 Intake & Output 07/21/24 07/22/24 07/22/24 18:59 06:59 18:59 Other: Voiding Method Toilet Toilet Urinal # Voids 4 1 - Labs CBC & Chem 7: 07/22/24 02:41 07/22/24 02:41 Labs: Abnormal Lab Results - Last 24 Hours (Table) 07/21/24 Range/Units 03:34 BUN/Creatinine Ratio 24.50 H (12.00-20.00) Ratio Calcium 8.6 L (8.7-10.3) mg/dL Total Protein 5.6 L (6.2-8.2) g/dL Albumin 3.2 L (3.8-4.9) g/dL Albumin/Globulin Ratio 1.33 L (1.60-3.17) Ratio
[2024-07-22 14:58] LABS: INR 1.4 (<1.2); Prothrombin Time 14.3 sec (10.0-12.5)
[2024-07-22] MEDS: IPRATROPIUM-ALBUTEROL 3 ML NEB INHALATION SCH (15:58)
--- NOTE | 2024-07-22 16:16 | P.DS ---
Providers Date of admission: 07/18/24 16:43 Expected date of discharge: 07/22/24 Attending physician: Frederick Calvo MD Consults: 07/18/24 04:41 Consult Physician Urgent Consulting Provider: Ori Mahmood Consult Reason/Comments: malignancy Do you want consulting provider notified?: Yes, Notify in am 07/18/24 16:19 Consult Physician Routine Consulting Provider: Trevor Andujar Consult Reason/Comments: eval for possible thoracentesis, mod sized R pleural metastatic effusion Do you want consulting provider notified?: Yes, Notify in am 07/19/24 10:01 Consult Physician Routine Consulting Provider: Huy Vaughan Consult Reason/Comments: Pleurx catheter Do you want consulting provider notified?: Already Contacted Primary care physician: Stated None Hospital Course: Discharge Diagnosis: Recurrent right-sided pleural effusion, metastatic effusions resulting from adenocarcinoma of the lung. 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 Acute respiratory failure with hypoxia, secondary to above. COPD with continued nicotine dependence, not in acute exacerbation. COVID-19 positive. Abdominal aortic aneurysm status post stent and graft. Hx of DVT Supratherapeutic INR, now subtherapeutic with INR of 1.4. Patient discharged home back on Coumadin and to have repeat INR drawn in 2 days at oncology office. Discussed with oncology team and Dr. Salcedo to follow-up with results and make adjustments to warfarin as needed for goal therapeutic range of 2-3. Right upper quadrant abdominal pain, likely secondary to metastatic liver lesions. Ultrasound gallbladder was completed showing cholelithiasis without evidence of acute cholecystitis and increasing size and number of hypoechoic metastatic liver lesions. Leukocytosis. Resolved. WBC count 5.94. Generalized weakness and debility Hypertension Continue with Carvedilol 6.25 mg twice daily and amlodipine 5 mg daily Hyperlipidemia Continue with atorvastatin 40 mg nightly Hospital course: Patient is a very pleasant 74-year-old male with a past medical history of recently diagnosed adenocarcinoma of right lung (non-small cell lung cancer), abdominal aortic aneurysm status post graft, hx of DVT currently on Coumadin, COPD with continued nicotine dependence, CAD with reports of previous DE, hypertension, and hyperlipidemia. He presented to the hospital 07/18/2024 with chief complaint of shortness of breath. Patient is status post recent right- sided thoracentesis on 07/01/23 with a documented removal of 1.3 L with cytology results of right pleural fluid positive for metastatic pulmonary adenocarcinoma. Upon arrival to our facility, patient underwent evaluation in the emergency department. Vital signs upon arrival show blood pressure 134/72, heart rate 86, respiratory rate 18, temp 98.1 F, and SpO2 of 92% on room air. EKG completed showing normal sinus rhythm at 81 bpm with no significant T wave or ST abnormality showing no signs of acute ischemia upon personal review and interp retation. Chest x-ray completed showing right pleural effusion increased in size compared to x-rays completed 06/28/2024 and stable hyperexpansion of lungs. Labs completed and reviewed. CBC unremarkable with the exception of elevated neutrophils of 8.1. Coagulation profile showing elevated PT of 53.4, PTT of 38.4 and supratherapeutic INR of 5.4. BMP showing hyponatremia magnesium slightly low at 1.7. Liver profile showing elevated total bili of 1.6. Troponin was negative at less than 0.012 and proBNP was 220. Influenza A, influenza B, and RSV were negative. COVID PCR positive. Patient admitted under services with consultation to and pulmonology. Patient reported right-sided rib/abdominal/chest pain. Ultrasound gallbladder was completed showing cholelithiasis without evidence of acute cholecystitis and increasing size and number of hypoechoic metastatic liver lesions. Patient received care from cardiology, hematology/oncology, and pulmonology.Cardiothoracic surgery evaluated, recommending medical management and thoracentesis if needed for treatment of pleural effusion. Pulmonology evaluated and performed right sided thoracentesis on 07/21/2024 with removal of 1200 cc of reported turbid colored pleural fluid. MRI brain was completed showing no signs of mass or metastatic lesions reported. Patient was cleared from hematology/oncology perspective, cardiology perspective, and pulmonary perspective. Home oxygen evaluation was completed patient requiring discharged home on continuous oxygen supplementation with 2 L O2 via nasal cannula. 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 Physical exam: Vital signs reviewed and stable. General: Nontoxic, no distress and appears stated age. Thin and frail. Derm: Skin warm and dry, normal coloration for ethnicity. Head: Atraumatic, normocephalic and symmetric. Eyes: EOM's intact, no lid lag, and anicteric sclera Mouth: no lip lesions, mucus membranes moist Cardiovascular: regular rate and rhythm with normal S1S2, no murmur, positive posterior tibial pulses bilaterally, and cap refill < 2 seconds. Lungs: Respirations even, regular, and unlabored on \2 L O2 via nasal cannula. Lungs with equal air entry, slightly diminished.. Abdominal: soft and nondistended. Patient does report tenderness right upper quadrant, beneath right rib order on palpation and with movement. Ext: No gross muscle atrophy, no edema, no contractures. Movement and sensation intact. Neuro: Speech clear, face symmetrical and CN II-XII grossly intact with no noted focal neuro deficits Psych: Alert and oriented to person, place, time, and situation. Appropriate and pleasant affect. A total of 39 minutes of time were spent preparing this complex discharge summary. Pt was discharged on 07/22/24 at 4:04 PM. Patient was seen independently by Nurse Practitioner. This document was prepared using Definition 6 dictation software. Please allow for errors in bag bundler while rare they do occur. Earnest Vaughan NP rendered care for this patient independently, reviewed the findings and plan as documented in the note above. I did not physically speak with or examine the patient on this date. Patient Condition at Discharge: Stable Plan - Discharge Summary Discharge Rx Participant: No New Discharge Prescriptions: New Ipratropium-Albuterol Nebulize [Duoneb 0.5 mg-3 mg/3 ml Soln] 3 ml INHALATION QID PRN 30 Days #90 ml PRN Reason: Shortness Of Breath Or Wheezing Tiotropium 2.5 Mcg/Puff [Spiriva Respimat 2.5 Mcg] 2 puff INHALATION RT-DAILY 30 Days #1 inh HYDROcodone/APAP 5-325MG [Llano 5-325] 1 each PO Q4HR PRN #18 tab PRN Reason: Moderate Pain (Scale 4 To 6) Continue amLODIPine [Norvasc] 5 mg PO DAILY Aspirin EC [Ecotrin Low Dose] 81 mg PO BID Atorvastatin Calcium [Lipitor] 40 mg PO HS carvediloL [Coreg] 6.25 mg PO BID Warfarin [Coumadin] 2.5 mg PO W/LUNCH Nicotine 21Mg/24Hr Patch [Habitrol] 1 patch TRANSDERM DAILY #30 patch Budesonide-Formot 160-4.5 Mcg [Symbicort 160-4.5 Mcg Inhaler] 2 puff INHALATION RT-BID #1 each Albuterol Inhaler [Ventolin Hfa Inhaler] 4 puff INHALATION RT-Q4H PRN #1 each PRN Reason: Wheezing Discharge Medication List Aspirin EC [Ecotrin Low Dose] 81 mg PO BID 02/17/20 [History] Atorvastatin Calcium [Lipitor] 40 mg PO HS 02/17/20 [History] Warfarin [Coumadin] 2.5 mg PO W/LUNCH 02/17/20 [History] amLODIPine [Norvasc] 5 mg PO DAILY 02/17/20 [History] carvediloL [Coreg] 6.25 mg PO BID 02/17/20 [History] Albuterol Inhaler [Ventolin Hfa Inhaler] 4 puff INHALATION RT-Q4H PRN #1 each 07/02/24 [Rx] Budesonide-Formot 160-4.5 Mcg [Symbicort 160-4.5 Mcg Inhaler] 2 puff INHALATION RT-BID #1 each 07/02/24 [Rx] Nicotine 21Mg/24Hr Patch [Habitrol] 1 patch TRANSDERM DAILY #30 patch 07/02/24 [Rx] HYDROcodone/APAP 5-325MG [Llano 5-325] 1 each PO Q4HR PRN #18 tab 07/22/24 [Rx] Ipratropium-Albuterol Nebulize [Duoneb 0.5 mg-3 mg/3 ml Soln] 3 ml INHALATION QID PRN 30 Days #90 ml 07/22/24 [Rx] Tiotropium 2.5 Mcg/Puff [Spiriva Respimat 2.5 Mcg] 2 puff INHALATION RT-DAILY 30 Days #1 inh 07/22/24 [Rx] Follow up Appointment(s)/Referral(s): Sigifredo Rollins MD [STAFF PHYSICIAN] - As Needed (For elective outpatient Pleurx catheter should pleural effusion occur again after second thoracentesis) Eric Salcedo MD [STAFF PHYSICIAN] - 08/03/24 3:15 pm (This appt is at the office located [address] [place] [address]. ) [facility] [NON-STAFF] - As Needed (Call [facility] once home to arrange delivery of the oxygen concentrator today) [facility] [NON-STAFF] - 1-2 Days Dulce Dupont MD [STAFF PHYSICIAN] - 1 Week Ambulatory/Diagnostic Orders: Prothrombin Time INR [LAB.AMB] Time Frame: 2 Days, Location: None Selected Patient Instructions/Handouts: Lung Cancer (DC), Using Oxygen at Home (DC), COPD (Chronic Obstructive Pulmonary Disease) (DC), Pleural Effusion (DC), Thoracentesis (DC) Discharge Disposition: HOME WITH HOME HEALTH SERVICES
[2024-07-22 16:27] VITALS: BP 135/81; PULSE 87; RESP 17; TEMP 97.9
[2024-07-22] MEDS: WARFARIN 2.5 MG TAB PO ONE (17:15)
--- NOTE | 2024-07-22 19:35 | P.PN ---
Subjective Progress Note Date: 07/22/24 On 07/20/2024, patient is being seen for a follow-up. The patient is known to have stage IV pulmonary adenocarcinoma and this was diagnosed during an earlier admission where the patient came in with a right-sided pleural effusion and a total of 1.3 L of fluid was aspirated from the right lung and a fluid cytology was positive for pulm adenocarcinoma. The patient is presenting for the same. He is short of breath. He is also known to have COPD. Note that he during his previous admission, the patient had COVID-19 infection and his COVID-19 testing remains positive. Meanwhile, his repeat chest x-ray showed interval increase in the right-sided pleural effusion which is currently moderate in size. MRI of the brain was also done for metastatic workup and MRI showed no evidence of any intracranial masses or infarcts and there is a remote right cerebellar hemisphere injury as suggested. Nonspecific chronic white matter disease was also noted. The patient is currently on 2 L of oxygen by nasal cannula. I was planning to do a thoracentesis on this patient. Nevertheless, he is running an INR of 2.4 while being off Coumadin. Will monitor his INR and will plan for thoracentesis in a.m. Electrolytes are all within normal limits. BUN is 15 with a creatinine of 0.6. White cell count of 10.7 with a hemoglobin of 12.7. Ultrasound of the chest was done confirming the presence of a right-sided pleural effusion. The patient has no dyspnea at rest. However, he gets short of breath with limited amount of activity. On 07/21/2024, the patient is off Coumadin and INR is down to 1.4. Doing well. No specific complaints. Her white cell count is 9.1 with a hemoglobin 14. BUN 17 with a creatinine of 0.6 and a sodium levels at 134. Awaiting a thoracentesis. No chest pain. No fever. No chills. No other complaints otherwise for now. On today's evaluation of 07/22/2024, the patient is stable on 2 L of oxygen by nasal cannula. Denies having any shortness of breath and his overall r espiratory status is improved following his thoracentesis. He will be awaiting further workup including a PET/CT and further genetic workup prior to initiating his treatment for metastatic adenocarcinoma of the lung, stage IV. His white cell count is 5.9 with a hemoglobin of 12.3 and a platelet count of 149. BUN 13 with a creatinine of 0.6. Sodium levels at 137 and a potassium level is at 3.7. No other new complaints otherwise for now. Objective - Vital Signs Vital signs: Vital Signs Temp 97.8 F 07/22/24 08:03 Pulse 76 07/22/24 08:52 Resp 18 07/22/24 08:30 BP 100/62 07/22/24 08:03 Pulse Ox 94 L 07/22/24 10:49 FiO2 Intake & Output 07/21/24 07/22/24 07/22/24 18:59 06:59 18:59 Other: Voiding Method Toilet Toilet Toilet Urinal Urinal # Voids 4 1 - Exam GENERAL EXAM: Alert, oriented, disheveled thin 74-year-old male, on 2 L nasal cannula, fairly comfortable in no apparent distress. HEAD: Normocephalic. EYES: Normal reaction of pupils, equal size. NOSE: Clear with pink turbinates. THROAT: No erythema or exudates. NECK: No masses, no JVD. CHEST: No chest wall deformity. LUNGS: Equal air entry with crackles and dullness over the right lung, diminished. CVS: S1 and S2 normal with no audible murmur, regular rhythm. ABDOMEN: No hepatosplenomegaly, normal bowel sounds, no guarding or rigidity. SPINE: No scoliosis or deformity SKIN: No rashes CENTRAL NERVOUS SYSTEM: No focal deficits, tone is normal in all 4 extremities. EXTREMITIES: There is no peripheral edema. No clubbing, no cyanosis. Peripheral pulses are intact. - Labs CBC & Chem 7: 07/22/24 02:41 07/22/24 02:41 Labs: Abnormal Lab Results - Last 24 Hours (Table) 07/22/24 07/22/24 Range/Units 02:41 02:41 RBC 4.26 L (4.40-5.60) X 10*6/uL Hgb 12.3 L (13.0-17.0) g/dL Hct 36.7 L (39.6-50.0) % BUN/Creatinine Ratio 22.67 H (12.00-20.00) Ratio Calcium 8.0 L (8.7-10.3) mg/dL Total Protein 4.8 L (6.2-8.2) g/dL Albumin 2.8 L (3.8-4.9) g/dL Albumin/Globulin Ratio 1.40 L (1.60-3.17) Ratio Assessment and Plan Plan: Acute hypoxemic respiratory failure secondary to recurrent right sided pleural effusion. Recently had undergone a right sided thoracentesis on previous admission on 07/01/2024 with 1.3 L of fluid removed. Fluid was positive for metastatic pulmonary adenocarcinoma. None of the chest today reveals a 13.4 cm pocket however there is internal echoes/debris noted within the fluid. U ltrasound of the abdomen reveals increasing size and numbers of hypoechoic metastatic liver lesions. COVID-19 infection still positive from last month, remains positive for COVID-19 Chronic obstructive pulmonary disease Chronic and ongoing tobacco dependence Hypertension Hyperlipidemia History of CVA History of abdominal aortic aneurysm status post aortobiiliac stent, maintained on warfarin Supratherapeutic INR, improved and INR is currently down to 1.4 History of prostate cancer History of carotid artery disease and chronic dissection of the left ICA Plan: Thoracentesis was completed without any complications Currently stable on 2 L nasal cannula and will arrange home O2 for this patient Educated regarding smoking cessation NicoDerm patch will be offered MRI of the brain shows no evidence of 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
[2024-07-22] MEDS ORDERED: ALBUTEROL HFA INHALER INHALATION SCH (20:00)
--- NOTE | 2024-07-22 21:08 | P.PN ---
Subjective Progress Note Date: 07/22/24 Principal diagnosis: SOB, pleural effusion In f/u today pt is on 4L NC, he was not on O2 prior to admit. He had a 1200cc thora, breathing is stable. No other acute physical c/o, he is ready to go home. Objective - Vital Signs Vital signs: Vital Signs Temp 97.9 F 07/22/24 16:00 Pulse 87 07/22/24 16:00 Resp 17 07/22/24 16:00 BP 135/81 07/22/24 16:00 Pulse Ox 97 07/22/24 16:00 FiO2 Intake & Output 07/22/24 07/22/24 07/23/24 06:59 18:59 06:59 Other: Voiding Method Toilet Toilet Urinal Urinal # Voids 1 3 - Constitutional General appearance: Present: cooperative, no acute distress, thin - EENT Eyes: Present: anicteric sclerae, EOMI ENT: Present: hearing grossly normal - Respiratory Respiratory: bilateral: other (harsh breath sounds throughout) - Cardiovascular Rhythm: regular - Peripheral edema leg Peripheral Edema: bilateral: None - Neurologic Neurologic: Present: CNII-XII intact - Musculoskeletal Musculoskeletal: Present: strength equal bilaterally - Psychiatric Psychiatric: Present: A&O x's 3, appropriate affect, intact judgment & insight - Labs CBC & Chem 7: 07/22/24 02:41 07/22/24 02:41 Labs: Abnormal Lab Results - Last 24 Hours (Table) 07/22/24 07/22/24 07/22/24 Range/Units 02:41 02:41 14:32 RBC 4.26 L (4.40-5.60) X 10*6/uL Hgb 12.3 L (13.0-17.0) g/dL Hct 36.7 L (39.6-50.0) % PT 14.3 H (10.0-12.5) sec INR 1.4 H (<1.2) BUN/Creatinine Ratio 22.67 H (12.00-20.00) Ratio Calcium 8.0 L (8.7-10.3) mg/dL Total Protein 4.8 L (6.2-8.2) g/dL Albumin 2.8 L (3.8-4.9) g/dL Albumin/Globulin Ratio 1.40 L (1.60-3.17) Ratio Assessment and Plan (1) Stage 4 malignant neoplasm of lung Status: Acute Priority: High Code(s): C34.90 - MALIGNANT NEOPLASM OF UNSP PART OF UNSP BRONCHUS OR LUNG SNOMED Code(s): 77733218 Plan: NSCLC stage IV, malignant pleural effusion -recent diagnosis-see consult for Hx -Staging MRI brain neg for metastatic disease -Pt had 1200cc thora, breating stable on O2 -Staging PET/CT being sched, pt will be called iwth appt date and time. Specimen has been requested and will to be sent for NGS/PDL1. Liquid biopsy will [facility] at [facility]. F/U appt with Medical Oncologist for diagnosis, prognosis, treatment options-appt in DC plan. Told pt daughter that appt is at [facility] location on [address] -reviewed case with Attending HOME PARAPROFESSIONAL Pt caterina from an Onc standpoint for DC once cleared by Attending and other consulting Physicians
== END 2024-07-22 17:49 | disposition home health service (06) | DRG 180 ==
LOC: EC 00:48 → 4SSUR 04:41 → OBSVTOIN 16:43
PROVIDERS: ADMIT Internal Medicine; ATTEND Internal Medicine
PROC: 0W993ZZ Drainage of Right Pleural Cavity, Percutaneous Approach (ICD-10-PCS; principal; 2024-07-21)
DX: C34.90 Malignant neoplasm of unspecified part of unspecified bronchus or lung (principal); J96.01 Acute respiratory failure with hypoxia; U07.1 COVID-19; C78.00 Secondary malignant neoplasm of unspecified lung; C78.7 Secondary malignant neoplasm of liver and intrahepatic bile duct; J91.0 Malignant pleural effusion; E87.1 Hypo-osmolality and hyponatremia; J44.9 Chronic obstructive pulmonary disease, unspecified; I10 Essential (primary) hypertension; I73.9 Peripheral vascular disease, unspecified; I34.0 Nonrheumatic mitral (valve) insufficiency; E78.5 Hyperlipidemia, unspecified; D72.828 Other elevated white blood cell count; Z85.118 Personal history of other malignant neoplasm of bronchus and lung; R53.81 Other malaise; Z79.01 Long term (current) use of anticoagulants; R79.1 Abnormal coagulation profile; Z86.718 Personal history of other venous thrombosis and embolism; Z87.19 Personal history of other diseases of the digestive system; Z86.73 Personal history of transient ischemic attack (TIA), and cerebral infarction without residual deficits; F17.210 Nicotine dependence, cigarettes, uncomplicated; I25.10 Atherosclerotic heart disease of native coronary artery without angina pectoris; I25.2 Old myocardial infarction; J32.9 Chronic sinusitis, unspecified; K80.20 Calculus of gallbladder without cholecystitis without obstruction; Z79.51 Long term (current) use of inhaled steroids; Y92.009 Unspecified place in unspecified non-institutional (private) residence as the place of occurrence of the external cause; W19.XXXA Unspecified fall, initial encounter; Z79.899 Other long term (current) drug therapy; Z86.16 Personal history of COVID-19; Z85.46 Personal history of malignant neoplasm of prostate; Z86.79 Personal history of other diseases of the circulatory system; Z87.01 Personal history of pneumonia (recurrent); Z99.81 Dependence on supplemental oxygen
CPT/HCPCS: 36415; 70553; 71045; 71046; 76604; 76705; 80048; 80053; 83605; 83735; 83880; 84484; 85025; 85027; 85610; 85730; 87636; 93005; 93308; 94640; 94760; 96374; 99285

== ENCOUNTER → 2024-07-24 | Outpatient (CLI) | payer MEDICARE ==
--- NOTE | 2024-07-25 18:51 | PE ---
EXAMINATION TYPE: PET CT fusion skull to thigh DATE OF EXAM: 07/24/2024 CLINICAL INDICATION:Male, 74 years old with history of C34.81 MALIGNANT NEOPLASM OF OVRLP SITES OF RI GHT; TECHNIQUE: Following the intravenous administration of 11.06 mCi of F-18 FDG, whole body images are performed from the skull base to the Mid thigh. Images are reviewed on the computer in the coronal, axial, and sagittal planes. Reconstructed rotating images are created on independent workstation an d reviewed on the computer. A non-contrast CT is performed in conjunction with the PET scan. Glucos e level 76 mg/dL CT DLP: 269 mGycm, Automated exposure control for dose reduction was used. COMPARISON: CT 10/12/2023, PET/CT None, MRI: None FINDINGS: Mediastinal SUV mean is 2.4. Hepatic parenchyma SUV mean is 2.7. SKULL BASE AND NECK: Centimeters uptake within the right neck musculature max SUV 3.9. CHEST, MEDIASTINUM, AND HILAR REGION: * Right low paratracheal lymph node max SUV 15.17rmeasuring 21 mm. * Subcarinal lymph node max SUV 9.9 measuring 13 mm. * Right hilar lymph node max SUV 9.44, measurements are difficult due to lack of IV contrast. * Right middle lobe with medially SUV 8.2 * Scattered areas of uptake along the pleura the most intense the medial right lower lobe pleural ma x SUV 8.5 AND LATERAL CHEST SUTTON MAX SUV 4.6 * Scattered peripheral reticular opacities possibly representing infectious/inflammatory process mos t pronounced in left lower lung next SUV 6.6 * Uptake along the anterior left lung max SUV 5.4. ABDOMEN AND PELVIS: Suspicious uptake identified examples include: * Bilateral hepatic lobes, left Max SUV 16.8 , right max SUV 15.4, but these are difficult to measur e without contrast * Retroperitoneal lymph node in the upper abdomen just right of the aorta near the aortic measuring 10 mm Max SUV 9 point3 MUSCULOSKELETAL STRUCTURES: Suspicious uptake identified examples include: * L2 vertebral body max SUV 17.1 * T10 vertebral body max SUV 8.5, this extends into the posterior elements. OTHER CT: Atherosclerosis of the carotid bifurcations and coronary arteries. Aortic valve calcificati ons. Moderate right pleural effusion. Abdominal aorta stent graft present tortuosity to the aorta. Sc attered colonic diverticula. Appendix is normal. Cholelithiasis. IMPRESSION: 1. Scattered metastatic disease with now lymph nodes, pleural based deposits along the right chest w ith likely malignant pleural effusion, upper abdominal FDG avid lymph nodes, intrahepatic metastatic foci as well as osseous foci. 2. Possible T10 pathologic fracture diffuse uptake throughout the vertebral body extending to the po sterior elements. [facility], , 07/25/2024 6:48 PM
== END | disposition home or self-care (01) ==
LOC: LABWHC1 11:31
PROVIDERS: ATTEND Internal Medicine
DX: C34.81 Malignant neoplasm of overlapping sites of right bronchus and lung (principal); R59.0 Localized enlarged lymph nodes
CPT/HCPCS: 78815; A9552

== ENCOUNTER 2024-07-28 06:30 | Emergency (ER) | payer MEDICARE ==
--- NOTE | 2024-07-28 06:52 | ED ---
General Adult HPI - General Stated complaint: JESSY Time Seen by Provider: 07/28/24 06:31 Source: patient, EMS, RN notes reviewed Mode of arrival: EMS Limitations: no limitations - History of Present Illness Initial comments: 74-year-old male presents emergency room via EMS chief complaint of dyspnea. Patient had increasing dyspnea, right-sided rib, chest discomfort. Patient was recently discharged 5 to 6 days ago was after hospitalization for recurrent pleural effusion, lung cancer. Patient states he had to thoracentesis. Patient states he feels like there is fluid again. He denies any leg pain leg swelling he states he is having increasing shortness of breath at home so he decided to turn his home oxygen up to 6 L. He states he is normally on 2 L. Patient was given breathing treatment by EMS which is helped some Desmet that he has not been completing his treatments as directed. - Related Data Home Medications Medication Instructions Recorded Confirmed Aspirin EC [Ecotrin Low Dose] 81 mg PO BID 02/17/20 07/28/24 Atorvastatin Calcium [Lipitor] 40 mg PO HS 02/17/20 07/28/24 Warfarin [Coumadin] 2.5 mg PO W/LUNCH 02/17/20 07/28/24 amLODIPine [Norvasc] 5 mg PO DAILY 02/17/20 07/28/24 carvediloL [Coreg] 6.25 mg PO BID 02/17/20 07/28/24 HYDROcodone/APAP 5-325MG [[place] 1 tab PO Q4HR PRN 07/28/24 07/28/24 5-325] Previous Rx's Medication Instructions Recorded Albuterol Inhaler [Ventolin Hfa 4 puff INHALATION RT-Q4H PRN #1 07/02/24 Inhaler] each Budesonide-Formot 160-4.5 Mcg 2 puff INHALATION RT-BID #1 each 07/02/24 [Symbicort 160-4.5 Mcg Inhaler] Ipratropium-Albuterol Nebulize 3 ml INHALATION QID PRN 30 Days 07/22/24 [Duoneb 0.5 mg-3 mg/3 ml Soln] #90 ml Tiotropium 2.5 Mcg/Puff [Spiriva 2 puff INHALATION RT-DAILY 30 Days 07/22/24 Respimat 2.5 Mcg] #1 inh predniSONE 50 mg PO DAILY #5 tab 07/28/24 predniSONE 50 mg PO DAILY #5 tab 07/28/24 Allergies Allergy/AdvReac Type Severity Reaction Status Date / Time morphine AdvReac Nausea & Verified 07/28/24 10:17 Vomiting Review of Systems ROS Statement: Those systems with pertinent positive or pertinent negative responses have been documented in the HPI. ROS Other: All systems not noted in ROS Statement are negative. Past Medical History Past Medical History: Coronary Artery Disease (CAD), Cancer, COPD, CVA/TIA, Hyperlipidemia, Hypertension, Myocardial Infarction (CO), Prostate Disorder, Vascular Disorder Additional Past Medical History / Comment(s): Prostate CA, stroke x3 last 2011, peripheral vascular disease, recent fall at home, metastatic pulmonary adenocarcinoma with recurrent right-sided pleural effusion Last Myocardial Infarction Date:: 2008 History of Any Multi-Drug Resistant Organisms: None Reported Past Surgical History: Orthopedic Surgery, Prostate Surgery Additional Past Surgical History / Comment(s): abdominal aortic stent; right sided thoracentesis 07/01/24-fluid cytology positive for metastatic pulmonary adenocarcinoma Past Anesthesia/Blood Transfusion Reactions: No Reported Reaction Past Psychological History: No Psychological Hx Reported Smoking Status: Current every day smoker Past Alcohol Use History: None Reported Past Drug Use History: None Reported - Past Family History Brother(s) Family Medical History: Diabetes Mellitus General Exam Limitations: no limitations General appearance: alert, in no apparent distress Head exam: Present: atraumatic, normocephalic, normal inspection Eye exam: Present: normal appearance, PERRL, EOMI. Absent: scleral icterus, conjunctival injection, periorbital swelling ENT exam: Present: normal exam, mucous membranes moist Neck exam: Present: normal inspection, full ROM. Absent: tenderness, meningismu s, lymphadenopathy Respiratory exam: Present: respiratory distress, wheezes, rales, decreased breath sounds. Absent: normal lung sounds bilaterally, rhonchi, stridor Cardiovascular Exam: Present: normal rhythm, tachycardia, normal heart sounds. Absent: systolic murmur, diastolic murmur, rubs, gallop, clicks GI/Abdominal exam: Present: soft, normal bowel sounds. Absent: distended, tenderness, guarding, rebound, rigid Extremities exam: Absent: pedal edema Neurological exam: Present: alert Course Vital Signs 07/28/24 07/28/24 07/28/24 06:33 06:45 07:36 Temperature 98.0 F 98 F Pulse Rate 105 H 90 Respiratory 30 H 30 H 20 Rate Blood Pressure 140/95 140/107 O2 Sat by Pulse 95 97 Oximetry 07/28/24 07/28/24 07/28/24 07:52 09:22 09:34 Temperature Pulse Rate 94 93 84 Respiratory 22 24 Rate Blood Pressure O2 Sat by Pulse Oximetry 07/28/24 07/28/24 10:00 10:39 Temperature 98 F Pulse Rate 89 86 Respiratory 20 20 Rate Blood Pressure 122/77 135/86 O2 Sat by Pulse 96 96 Oximetry EKG Findings - EKG Comments: EKG Findings:: EKG performed at 6: 39 sinus tachycardia rate of 102 WI 161 QRS 94 QT/QTc 321/380 - EKG Results: EKG: interpreted by DEON Medical Decision Making - Medical Decision Making Was pt. sent in by a medical professional or institution (, PA, MATH INTERVENTIONIST, urgent care, hospital, or jail...) When possible be specific @ -No Did you speak to anyone other than the patient for history (EMS, parent, family, police, friend...)? What history was obtained from this source @ -No Did you review nursing and triage notes (agree or disagree)? Why? @ -I reviewed and agree with nursing and triage notes Were old charts reviewed (outside hosp., previous admission, EMS record, old EKG, old radiological studies, urgent care reports/EKG's, jail records)? Report findings @ -Reviewed recent inpatient records including pulmonology and oncology Differential Diagnosis (chest pain, altered mental status, abdominal pain women, abdominal pain men, vaginal bleeding, weakness, fever, dyspnea, syncope, headache, dizziness, GI bleed, back pain, seizure, CVA, palpatations, mental health, musculoskeletal)? @ -Differential Dyspnea: Coronary syndrome, arrhythmia, tamponade, asthma, COPD, pulmonary embolism, pneumonia, pneumothorax, pulmonary effusion, anaphylaxis, diabetic ketoacidosis, flailed chest, pulmonary contusion, diaphragmatic rupture, anemia, neuromuscul ar, this is not meant to be an all-inclusive list. EKG interpreted by me (3pts min.). @ -As above X-rays interpreted by me (1pt min.). @ -Chest x-ray shows COPD changes, lungs CA, no large effusion CT interpreted by me (1pt min.). @ -None done U/S interpreted by me (1pt. min.). @ -None done What testing was considered but not performed or refused? (CT, X-rays, U/S, labs)? Why? @ -None What meds were considered but not given or refused? Why? @ -None Did you discuss the management of the patient with other professionals (professionals i.e. Dr., PA, MATH INTERVENTIONIST, lab, RT, psych nurse, social media job titles, shoe clerk, teacher, annual giving officer, rn case management)? Give summary @ -No Was smoking cessation discussed for >3mins.? @ -No Was critical care preformed (if so, how long)? @ -No Were there social determinants of health that impacted care today? How? (Homelessness, low income, unemployed, alcoholism, drug addiction, transportation, low edu. Level, literacy, decrease access to med. care, alf, rehab)? @ -No Was there de-escalation of care discussed even if they declined (Discuss DNR or withdrawal of care, Hospice)? DNR status @ -No What co-morbidities impacted this encounter? (DM, HTN, Smoking, COPD, CAD, Cancer, CVA, ARF, Chemo, Hep., AIDS, mental health diagnosis, sleep apnea, morbid obesity)? @ -COPD, lung cancer Was patient admitted / discharged? Hospital course, mention meds given and route, prescriptions, significant lab abnormalities, going to OR and other pertinent info. @ -Charge patient is maintaining oxygen 93 to 95% on 2 L and no signs distress is able to ambulate with no desaturations no hypoxia. Patient has not been doing breathing treatments at home patient did have scheduled follow-up made by case management and home health care for further education at home we discussed shorter tubing for his action at home, patient did have an elevated INR which has been an ongoing issue he will skip 2 days and have it rechecked on . Patient understands all directions and discharged in stable condition. Undiagnosed new problem with uncertain prognosis? @ -No Drug Therapy requiring intensive monitoring for toxicity (Heparin, Nitro, Insulin, Cardizem)? @ -No Were any procedures done? @ -No Diagnosis/symptom? @ -COPD exacerbation mild Acute, or Chronic, or Acute on Chronic? @ -Acute Uncomplicated (without systemic symptoms) or Complicated (systemic symptoms)? @ -Complicated Side effects of treatment? @ -No Exacerbation, Progression, or Severe Exacerbation? @ -No Poses a threat to life or bodily function? How? (Chest pain, [place], CO, pneumonia, PE, COPD, DKA, ARF, appy, cholecystitis, CVA, Diverticulitis, Homicidal, Suicidal, threat to staff... and all critical care pts) @ -Yes, COPD, may lead to respiratory failure - Lab Data Result diagrams: 07/28/24 06:47 07/28/24 06:47 Lab Results 07/28/24 07/28/24 07/28/24 Range/Units 06:47 06:47 06:47 WBC 11.8 H (3.8-10.6) k/uL RBC 5.10 (4.30-5.90) m/uL Hgb 14.4 (13.0-17.5) gm/dL Hct 44.2 (39.0-53.0) % MCV 86.7 (80.0-100.0) fL MCH 28.3 (25.0-35.0) pg MCHC 32.7 (31.0-37.0) g/dL RDW 14.1 (11.5-15.5) % Plt Count 367 (150-450) k/uL MPV 7.8 Neutrophils % 79 % Lymphocytes % 13 % Monocytes % 5 % Eosinophils % 2 % Basophils % 0 % Neutrophils # 9.3 H (1.3-7.7) k/uL Lymphocytes # 1.5 (1.0-4.8) k/uL Monocytes # 0.6 (0-1.0) k/uL Eosinophils # 0.2 (0-0.7) k/uL Basophils # 0.0 (0-0.2) k/uL PT 61.7 H (10.0-12.5) sec INR 6.2 H* (<1.2) APTT 39.9 H (22.0-30.0) sec Sodium 136 L (137-145) mmol/L Potassium 3.8 (3.5-5.1) mmol/L Chloride 97 L (98-107) mmol/L Carbon Dioxide 30 (22-30) mmol/L Anion Gap 9 mmol/L BUN 14 (9-20) mg/dL Creatinine 0.50 L (0.66-1.25) mg/dL Est GFR (CKD-EPI)AfAm >90 (>60 ml/min/1.73 sqM) Est GFR (CKD-EPI)NonAf >90 (>60 ml/min/1.73 sqM) Glucose 129 H (74-99) mg/dL Plasma Lactic Acid Nico (0.7-2.0) mmol/L Calcium 8.6 (8.4-10.2) mg/dL Magnesium 1.8 (1.6-2.3) mg/dL Total Bilirubin 1.2 (0.2-1.3) mg/dL AST 35 (17-59) U/L ALT 25 (4-49) U/L Alkaline Phosphatase 105 (38-126) U/L Troponin I (0.000-0.034) ng/mL NT-Pro-B Natriuret Pep 254 pg/mL Total Protein 6.1 L (6.3-8.2) g/dL Albumin 2.9 L (3.5-5.0) g/dL 07/28/24 07/28/24 Range/Units 06:47 06:47 WBC (3.8-10.6) k/uL RBC (4.30-5.90) m/uL Hgb (13.0-17.5) gm/dL Hct (39.0-53.0) % MCV (80.0-100.0) fL MCH (25.0-35.0) pg MCHC (31.0-37.0) g/dL RDW (11.5-15.5) % Plt Count (150-450) k/uL MPV Neutrophils % % Lymphocytes % % Monocytes % % Eosinophils % % Basophils % % Neutrophils # (1.3-7.7) k/uL Lymphocytes # (1.0-4.8) k/uL Monocytes # (0-1.0) k/uL Eosinophils # (0-0.7) k/uL Basophils # (0-0.2) k/uL PT (10.0-12.5) sec INR (<1.2) APTT (22.0-30.0) sec Sodium (137-145) mmol/L Potassium (3.5-5.1) mmol/L Chloride (98-107) mmol/L Carbon Dioxide (22-30) mmol/L Anion Gap mmol/L BUN (9-20) mg/dL Creatinine (0.66-1.25) mg/dL Est GFR (CKD-EPI)AfAm (>60 ml/min/1.73 sqM) Est GFR (CKD-EPI)NonAf (>60 ml/min/1.73 sqM) Glucose (74-99) mg/dL Plasma Lactic Acid Nico 1.5 (0.7-2.0) mmol/L Calcium (8.4-10.2) mg/dL Magnesium (1.6-2.3) mg/dL Total Bilirubin (0.2-1.3) mg/dL AST (17-59) U/L ALT (4-49) U/L Alkaline Phosphatase (38-126) U/L Troponin I <0.012 (0.000-0.034) ng/mL NT-Pro-B Natriuret Pep pg/mL Total Protein (6.3-8.2) g/dL Albumin (3.5-5.0) g/dL Disposition Clinical Impression: Acute exacerbation of chronic obstructive pulmonary disease Disposition: HOME SELF-CARE Condition: Stable Instructions (If sedation given, give patient instructions): COPD (Chronic Obstructive Pulmonary Disease) (ED) Additional Instructions: Please continue with your breathing treatments every 4 hours as directed. Please return to the Emergency Department if symptoms worsen or any other concerns. Prescriptions: predniSONE 50 mg PO DAILY #5 tab predniSONE 50 mg PO DAILY #5 tab Is patient prescribed a controlled substance at d/c from ED?: No Referrals: Moise French MD [Primary Care Provider] - 1-2 days [facility] [NON-STAFF] - 1-2 days Time of Disposition: 10:16
[2024-07-28 06:59] LABS: Basophils % (A) 0 %; Eosinophils # (A) 0.2 k/uL (0-0.7); Eosinophils % (A) 2 %; HCT 44.2 % (39.0-53.0); HGB 14.4 gm/dL (13.0-17.5); Lymphocytes # (A) 1.5 k/uL (1.0-4.8); Lymphocytes % (A) 13 %; MCH 28.3 pg (25.0-35.0); MCHC 32.7 g/dL (31.0-37.0); MCV 86.7 fL (80.0-100.0); Mean Platelet Volume 7.8; Monocytes # (A) 0.6 k/uL (0-1.0); Monocytes % (A) 5 %; Neutrophils # (A) 9.3 k/uL (1.3-7.7); Neutrophils % (A) 79 %; Platelet Count 367 k/uL (150-450); RDW 14.1 % (11.5-15.5); WBC 11.8 k/uL (3.8-10.6)
--- NOTE | 2024-07-28 07:14 | XR ---
EXAMINATION TYPE: XR chest 2V DATE OF EXAM: 07/28/2024 6:57 AM COMPARISON: Chest radiographs from 07/21/2024 CLINICAL INDICATION: Male, 74 years old with history of difficulty breathing; TECHNIQUE: XR chest 2V Frontal and lateral views of the chest. FINDINGS: Lungs/Pleura: Prominent interstitial lung markings are seen scattered throughout the lungs with sanford ening of the diaphragm and increased lucency of the lung apices. No evidence of focal consolidation, pneumothorax or pleural effusion. Pulmonary vascularity: Unremarkable. Heart/mediastinum: Cardiomediastinal silhouette is unremarkable. Musculoskeletal: No acute osseous pathology. Other findings: None IMPRESSION: 1. No acute cardiopulmonary disease process. 2. COPD changes. [facility], , 07/28/2024 7:11 AM
[2024-07-28 07:24] LABS: Partial Thromboplastin Time 39.9 sec (22.0-30.0); Prothrombin Time 61.7 sec (10.0-12.5)
[2024-07-28] MEDS: methylPREDNISolone SOD SUCCI 125 MG/2 ML VIAL IV STA (07:32)
[2024-07-28] MEDS: IPRATROPIUM-ALBUTEROL 3 ML NEB INHALATION STA (07:36)
[2024-07-28 07:37] VITALS: TEMP 98
[2024-07-28 08:08] LABS: ALT 25 U/L (4-49); AST 35 U/L (17-59); African American GFR (CKD) >90 (>60 ml/min/1.73 sqM); Albumin 2.9 g/dL (3.5-5.0); Alkaline Phosphatase 105 U/L (38-126); Anion Gap 9 mmol/L; Blood Urea Nitrogen 14 mg/dL (9-20); Calcium 8.6 mg/dL (8.4-10.2); Carbon Dioxide 30 mmol/L (22-30); Chloride 97 mmol/L (98-107); Glucose 129 mg/dL (74-99); INR 6.2 (<1.2); Magnesium 1.8 mg/dL (1.6-2.3); Non-African American GFR(CKD) >90 (>60 ml/min/1.73 sqM); Potassium 3.8 mmol/L (3.5-5.1); Sodium 136 mmol/L (137-145); Total Bilirubin 1.2 mg/dL (0.2-1.3); Total Protein 6.1 g/dL (6.3-8.2)
[2024-07-28 08:17] LABS: NT-Pro-B-Type Natriuretic Pept 254 pg/mL
[2024-07-28] MEDS: ALBUTEROL NEBULIZED 2.5 MG/3 ML INHALATION STA (09:20)
[2024-07-28 10:07] VITALS: RESP 20
[2024-07-28 10:40] VITALS: BP 135/86; PULSE 86
== END 2024-07-28 10:46 | disposition home or self-care (01) ==
LOC: EC 06:30
DX: J44.1 Chronic obstructive pulmonary disease with (acute) exacerbation (principal); J90 Pleural effusion, not elsewhere classified; F17.200 Nicotine dependence, unspecified, uncomplicated; Z88.5 Allergy status to narcotic agent
CPT/HCPCS: 36415; 94640 ×2; 93005; 83880; 80053; 83605; 83735; 84484; 85025; 85610; 85730; 71046; 99285; 96374; J2919

== ENCOUNTER 2024-08-24 13:19 | Inpatient (IN) | payer MEDICARE ==
--- NOTE | 2024-08-24 13:37 | ED ---
General Adult HPI - General Chief complaint: Shortness of Breath Stated complaint: poss GI Bleed Time Seen by Provider: 08/24/24 13:25 Source: patient, RN notes reviewed, old records reviewed Mode of arrival: EMS Limitations: no limitations - History of Present Illness Initial comments: This is a 74-year-old male who presents to the emergency department with past medical history of recently diagnosed stage IV lung cancer. Patient states he is on Coumadin. Patient states he got up this morning he was short of breath and he started spitting up a lot of blood. Patient states it is not coming from his teeth he thinks is coughing it up. Patient's left nostril however is full of dried blood. Patient states he was bleeding out of that nostril earlier. Patient denies a headache patient has numbness weakness. Patient denies any fever or chills. Patient denies any chest pain. Patient has back pain. Patient has abdominal pain. - Related Data Home Medications Medication Instructions Recorded Confirmed Aspirin EC [Ecotrin Low Dose] 81 mg PO BID 02/17/20 07/28/24 Atorvastatin Calcium [Lipitor] 40 mg PO HS 02/17/20 07/28/24 Warfarin [Coumadin] 2.5 mg PO W/LUNCH 02/17/20 07/28/24 amLODIPine [Norvasc] 5 mg PO DAILY 02/17/20 07/28/24 carvediloL [Coreg] 6.25 mg PO BID 02/17/20 07/28/24 HYDROcodone/APAP 5-325MG [[place] 1 tab PO Q4HR PRN 07/28/24 07/28/24 5-325] Previous Rx's Medication Instructions Recorded Albuterol Inhaler [Ventolin Hfa 4 puff INHALATION RT-Q4H PRN #1 07/02/24 Inhaler] each Budesonide-Formot 160-4.5 Mcg 2 puff INHALATION RT-BID #1 each 07/02/24 [Symbicort 160-4.5 Mcg Inhaler] Ipratropium-Albuterol Nebulize 3 ml INHALATION QID PRN 30 Days 07/22/24 [Duoneb 0.5 mg-3 mg/3 ml Soln] #90 ml Tiotropium 2.5 Mcg/Puff [Spiriva 2 puff INHALATION RT-DAILY 30 Days 07/22/24 Respimat 2.5 Mcg] #1 inh predniSONE 50 mg PO DAILY #5 tab 07/28/24 predniSONE 50 mg PO DAILY #5 tab 07/28/24 Allergies Allergy/AdvReac Type Severity Reaction Status Date / Time morphine AdvReac Nausea & Verified 07/28/24 10:17 Vomiting Review of Systems ROS Statement: Those systems with pertinent positive or pertinent negative responses have been documented in the HPI. ROS Other: All systems not noted in ROS Statement are negative. Past Medical History Past Medical History: Coronary Artery Disease (CAD), Cancer, COPD, CVA/TIA, Hyperlipidemia, Hypertension, Myocardial Infarction ([place]), Prostate Disorder, Vascular Disorder Additional Past Medical History / Comment(s): Prostate CA, stroke x3 last 2011, peripheral vascular disease, recent fall at home, metastatic pulmonary adenocarcinoma with recurrent right-sided pleural effusion Last Myocardial Infarction Date:: 2008 History of Any Multi-Drug Resistant Organisms: None Reported Past Surgical History: Orthopedic Surgery, Prostate Surgery Additional Past Surgical History / Comment(s): abdominal aortic stent; right s ided thoracentesis 07/01/24-fluid cytology positive for metastatic pulmonary adenocarcinoma Past Anesthesia/Blood Transfusion Reactions: No Reported Reaction Past Psychological History: No Psychological Hx Reported Smoking Status: Current every day smoker Past Alcohol Use History: None Reported Past Drug Use History: None Reported - Past Family History Brother(s) Family Medical History: Diabetes Mellitus General Exam - General Exam Comments Initial Comments: GENERAL: Patient is well-developed and well-nourished. Patient is nontoxic and well-hydr ated and is in mild distress. Patient is on 2 L of oxygen as he has at home ENT: Neck is soft and supple. No significant lymphadenopathy is noted. Patient's left naris full of dried blood oropharynx is clear. Patient has dried blood but there is no bright red blood in in his mouth or spitting up into his bag that he brought. He moist mucous membranes. Neck has full range of motion without e liciting any pain. There is no thyroid enlargement and no masses were felt. EYES: The sclera were anicteric and conjunctiva were pink and moist. Extraocular movements were intact and pupils were equal round and reactive to light. Eyelids were unremarkable. PULMONARY: Patient has diminished breath sounds right base CARDIOVASCULAR: There is a regular rate and rhythm without any murmurs gallops or rubs. ABDOMEN: Soft and nontender with normal bowel sounds. No palpable organomegaly was note d. There is no palpable pulsatile mass. SKIN: Skin is clear with no lesions or rashes and otherwise unremarkable. NEUROLOGIC: Patient is alert and oriented x3. Cranial nerves II through XII are grossly intact. Motor and sensory are also intact. Normal speech, volume and content. Symmetrical smile. MUSCULOSKELETAL: Normal extremities with adequate strength and full range of motion. No lower extremity swelling or edema. No calf tenderness. LYMPHATICS: No significant lymphadenopathy is noted PSYCHIATRIC: Normal psychiatric evaluation. Limitations: no limitations Course Vital Signs 08/24/24 08/24/24 08/24/24 13:22 13:26 13:30 Temperature 98.1 F Pulse Rate 89 78 Respiratory 20 24 Rate Blood Pressure 101/72 101/73 O2 Sat by Pulse 95 97 97 Oximetry 08/24/24 08/24/24 14:00 14:30 Temperature Pulse Rate 81 83 Respiratory 22 21 Rate Blood Pressure 109/75 115/78 O2 Sat by Pulse 99 99 Oximetry Medical Decision Making - Medical Decision Making EKG is interpreted by myself. EKG shows a sinus rhythm at 82 bpm parables 161 QRS is 96 QT of 349 QTc is 387. Patient's EKG shows no ST segment elevation or depression. Was pt. sent in by a medical professional or institution (, PA, REAGENT TENDER HELPER, urgent care, hospital, or fdc...) When possible be specific @ -No Did you speak to anyone other than the patient for history (EMS, parent, family, police, friend...)? What history was obtained from this source @ -No Did you review nursing and triage notes (agree or disagree)? Why? @ -I reviewed and agree with nursing and triage notes Were old charts reviewed (outside hosp., previous admission, EMS record, old EKG, old radiological studies, urgent care reports/EKG's, fdc records)? Report findings @ -No old charts were reviewed Differential Diagnosis? @ -Hemoptysis, epistaxis, pneumonia, bronchitis, pleural effusion, this is not an all-inclusive list EKG interpreted by me (3pts min.). @ -As above X-rays interpreted by me (1pt min.). @ -X-ray shows a right-sided pleural effusion that is quite large CT interpreted by me (1pt min.). @ -None done U/S interpreted by me (1pt. min.). @ -None done What testing was considered but not performed or refused? (CT, X-rays, U/S, labs)? Why? @ -None What meds were considered but not given or refused? Why? @ -None Did you discuss the management of the patient with other professionals (professionals i.e. DrGeeta, PA, REAGENT TENDER HELPER, lab, RT, psych nurse, outreach and education social worker, supervisor/port director, teacher, regulatory compliance officer, case management coordinator)? Give summary @ -I spoke with Dr. Colunga he agreed to admit the patient Was smoking cessation discussed for >3mins.? @ -No Was critical care preformed (if so, how long)? @ -No Were there social determinants of health that impacted care today? How? (Homelessness, low income, unemployed, alcoholism, drug addiction, transportation, low edu. Level, literacy, decrease access to med. care, long term, rehab)? @ -No Was there de-escalation of care discussed even if they declined (Discuss DNR or withdrawal of care, Hospice)? DNR status @ -No What co-morbidities impacted this encounter? (DM, HTN, Smoking, COPD, CAD, Cancer, CVA, ARF, Chemo, Hep., AIDS, mental health diagnosis, sleep apnea, morbid obesity)? @ -None Was patient admitted / discharged? Hospital course, mention meds given and route, prescriptions, significant lab abnormalities, going to OR and other pertinent info. @ -Patient's x-ray shows a large pleural effusion the concern is that its blood because the INR was greater than 10. Patient was started on vitamin K and patient will be admitted to Dr. Colunga with a consult to pulmonary Undiagnosed new problem with uncertain prognosis? @ -No Drug Therapy requiring intensive monitoring for toxicity (Heparin, Nitro, Insulin, Cardizem)? @ -No Were any procedures done? @ -No Diagnosis/symptom? @ -Pleural effusion Acute, or Chronic, or Acute on Chronic? @ -Acute Uncomplicated (without systemic symptoms) or Complicated (systemic symptoms)? @ -Complicated Side effects of treatment? @ -No Exacerbation, Progression, or Severe Exacerbation? @ -No Poses a threat to life or bodily function? How? (Chest pain, [place], MS, pneumonia, PE, COPD, DKA, ARF, appy, cholecystitis, CVA, Diverticulitis, Homicidal, Suicidal, threat to staff... and all critical care pts) @ -Yes this can lead to hypoxia and endorgan dysfunction Diagnosis/symptom? @ -Coagulopathy Acute, or Chronic, or Acute on Chronic? @ -Acute Uncomplicated (without systemic symptoms) or Complicated (systemic symptoms)? @ -Complicated Side effects of treatment? @ -None Exacerbation, Progression, or Severe Exacerbation] @ -No Poses a threat to life or bodily function? @ -Yes this can lead to bleeding and anemia and eventually endorgan dysfunction - Lab Data Result diagrams: 08/24/24 13:49 08/24/24 13:49 Lab Results 08/24/24 08/24/24 08/24/24 Range/Units 13:49 13:49 13:49 WBC 12.00 H (4.50-10.00) 10*3/uL RBC 4.30 L (4.40-5.60) 10*6/uL Hgb 12.5 L (13.0-17.0) g/dL Hct 36.5 L (39.6-50.0) % MCV 84.9 (80.0-97.0) fL MCH 29.1 (27.0-32.0) pg MCHC 34.2 (32.0-37.0) g/dL Plt Count 363 (140-440) 10*3/uL MPV 10.5 (9.5-12.2) fL Immature Gran % (Auto) 0.3 % Neutrophils % 73.6 % Lymphocytes % 12.8 % Monocytes % 11.1 % Eosinophils % 1.8 % Basophils % 0.4 % Immature Gran # 0.03 (0.00-0.04) 10*3/uL Neutrophils # 8.84 H (1.80-7.70) 10*3/uL Lymphocytes # 1.54 (0.90-5.00) 10*3/uL Monocytes # 1.33 H (0.20-1.00) 10*3/uL Eosinophils # 0.21 (0.04-0.35) 10*3/uL Basophils # 0.05 (0.00-0.10) 10*3/uL PT >130.0 H (10.0-12.5) sec INR >10.0 H* (<1.2) APTT 66.2 H (22.0-30.0) sec Sodium 130 L (137-145) mmol/L Potassium 4.8 (3.5-5.1) mmol/L Chloride 96 L (98-107) mmol/L Carbon Dioxide 28 (22-30) mmol/L Anion Gap 6 mmol/L BUN 13 (9-20) mg/dL Creatinine 0.45 L (0.66-1.25) mg/dL Est GFR (CKD-EPI)AfAm >90 (>60 ml/min/1.73 sqM) Est GFR (CKD-EPI)NonAf >90 (>60 ml/min/1.73 sqM) Glucose 108 H (74-99) mg/dL Plasma Lactic Acid Nico (0.7-2.0) mmol/L Calcium 8.2 L (8.4-10.2) mg/dL Magnesium 1.7 (1.6-2.3) mg/dL Total Bilirubin 1.2 (0.2-1.3) mg/dL AST 30 (17-59) U/L ALT 20 (4-49) U/L Alkaline Phosphatase 85 (38-126) U/L Troponin I (0.000-0.034) ng/mL Total Protein 5.6 L (6.3-8.2) g/dL Albumin 2.5 L (3.5-5.0) g/dL 08/24/24 08/24/24 Range/Units 13:49 13:49 WBC (4.50-10.00) 10*3/uL RBC (4.40-5.60) 10*6/uL Hgb (13.0-17.0) g/dL Hct (39.6-50.0) % MCV (80.0-97.0) fL MCH (27.0-32.0) pg MCHC (32.0-37.0) g/dL Plt Count (140-440) 10*3/uL MPV (9.5-12.2) fL Immature Gran % (Auto) % Neutrophils % % Lymphocytes % % Monocytes % % Eosinophils % % Basophils % % Immature Gran # (0.00-0.04) 10*3/uL Neutrophils # (1.80-7.70) 10*3/uL Lymphocytes # (0.90-5.00) 10*3/uL Monocytes # (0.20-1.00) 10*3/uL Eosinophils # (0.04-0.35) 10*3/uL Basophils # (0.00-0.10) 10*3/uL PT (10.0-12.5) sec INR (<1.2) APTT (22.0-30.0) sec Sodium (137-145) mmol/L Potassium (3.5-5.1) mmol/L Chloride (98-107) mmol/L Carbon Dioxide (22-30) mmol/L Anion Gap mmol/L BUN (9-20) mg/dL Creatinine (0.66-1.25) mg/dL Est GFR (CKD-EPI)AfAm (>60 ml/min/1.73 sqM) Est GFR (CKD-EPI)NonAf (>60 ml/min/1.73 sqM) Glucose (74-99) mg/dL Plasma Lactic Acid Nico 1.7 (0.7-2.0) mmol/L Calcium (8.4-10.2) mg/dL Magnesium (1.6-2.3) mg/dL Total Bilirubin (0.2-1.3) mg/dL AST (17-59) U/L ALT (4-49) U/L Alkaline Phosphatase (38-126) U/L Troponin I <0.012 (0.000-0.034) ng/mL Total Protein (6.3-8.2) g/dL Albumin (3.5-5.0) g/dL Disposition Clinical Impression: Pleural effusion, Coagulopathy Disposition: ADMITTED IP TO THIS HOSP Referrals: Moise French MD [Primary Care Provider] - 1-2 days Time of Disposition: 14:56
[2024-08-24 14:15] LABS: ALT 20 U/L (4-49); African American GFR (CKD) >90 (>60 ml/min/1.73 sqM); Albumin 2.5 g/dL (3.5-5.0); Anion Gap 6 mmol/L; Blood Urea Nitrogen 13 mg/dL (9-20); Calcium 8.2 mg/dL (8.4-10.2); Carbon Dioxide 28 mmol/L (22-30); Chloride 96 mmol/L (98-107); Glucose 108 mg/dL (74-99); Non-African American GFR(CKD) >90 (>60 ml/min/1.73 sqM); Sodium 130 mmol/L (137-145); Total Bilirubin 1.2 mg/dL (0.2-1.3); Total Protein 5.6 g/dL (6.3-8.2)
[2024-08-24 14:17] LABS: AST 30 U/L (17-59); Alkaline Phosphatase 85 U/L (38-126); Magnesium 1.7 mg/dL (1.6-2.3); Potassium 4.8 mmol/L (3.5-5.1)
[2024-08-24 14:21] LABS: Basophils # (A) 0.05 10*3/uL (0.00-0.10); Basophils % (A) 0.4 %; Eosinophils # (A) 0.21 10*3/uL (0.04-0.35); Eosinophils % (A) 1.8 %; HCT 36.5 % (39.6-50.0); HGB 12.5 g/dL (13.0-17.0); Lymphocytes # (A) 1.54 10*3/uL (0.90-5.00); Lymphocytes % (A) 12.8 %; MCH 29.1 pg (27.0-32.0); MCHC 34.2 g/dL (32.0-37.0); MCV 84.9 fL (80.0-97.0); Mean Platelet Volume 10.5 fL (9.5-12.2); Monocytes # (A) 1.33 10*3/uL (0.20-1.00); Monocytes % (A) 11.1 %; Neutrophils # (A) 8.84 10*3/uL (1.80-7.70); Neutrophils % (A) 73.6 %; Platelet Count 363 10*3/uL (140-440); RDW 15.7 % (11.5-14.5)
[2024-08-24 14:36] LABS: Prothrombin Time >130.0 sec (10.0-12.5)
--- NOTE | 2024-08-24 14:36 | XR ---
EXAMINATION TYPE: XR chest 2V DATE OF EXAM: 08/24/2024 2:24 PM COMPARISON: 07/28/2024 CLINICAL INDICATION: Male, 74 years old with history of difficulty breathing, shortness of breath TECHNIQUE: AP and lateral views FINDINGS: Right heart margin now obscured by adjacent pleural parenchymal opacity. Left lung and pleural space are relatively clear. There is a trace pleural effusion noted on the left on the lateral view. Howeve r, there is a large right-sided pleural effusion extending up to the upper third thorax. IMPRESSION: Marked interval worsening now with a large right pleural effusion with underlying atelectasis and/or consolidation. Trace pleural effusion on the left. [facility], , 08/24/2024 2:34 PM
[2024-08-24 14:37] LABS: INR >10.0 (<1.2)
[2024-08-24 14:39] LABS: Partial Thromboplastin Time 66.2 sec (22.0-30.0)
[2024-08-24] MEDS: SODIUM CHLORIDE 0.9% 1,000 ML IV ONE (15:10)
[2024-08-24] MEDS: PHYTONADIONE 10 MG in SODIUM CHLORIDE 0.9% 50 ML IVPB ONE (15:10)
[2024-08-24] MEDS ORDERED: ALBUTEROL NEBULIZED 2.5 MG/3 ML INHALATION PRN (17:20)
[2024-08-24] MEDS: carvediloL 6.25 MG TAB PO SCH (18:24)
[2024-08-24 18:39] LABS: Basophils # (A) 0.04 10*3/uL (0.00-0.10); Basophils % (A) 0.3 %; Eosinophils # (A) 0.13 10*3/uL (0.04-0.35); HCT 36.9 % (39.6-50.0); HGB 12.6 g/dL (13.0-17.0); Lymphocytes # (A) 1.62 10*3/uL (0.90-5.00); Lymphocytes % (A) 12.6 %; MCH 29.3 pg (27.0-32.0); MCHC 34.1 g/dL (32.0-37.0); MCV 85.8 fL (80.0-97.0); Mean Platelet Volume 9.4 fL (9.5-12.2); Monocytes # (A) 1.44 10*3/uL (0.20-1.00); Monocytes % (A) 11.2 %; Neutrophils # (A) 9.59 10*3/uL (1.80-7.70); Neutrophils % (A) 74.6 %; Platelet Count 410 10*3/uL (140-440); RDW 15.8 % (11.5-14.5); WBC 12.86 10*3/uL (4.50-10.00)
[2024-08-24] MEDS: IPRATROPIUM-ALBUTEROL 3 ML NEB INHALATION SCH (20:20)
--- NOTE | 2024-08-24 22:08 | P.HPIM ---
History of Present Illness H&P Date: 08/24/24 Chief Complaint: Bleeding from nose 74-year-old patient who follows with Dr. Moise French. medical conditions include COPD, hyperlipidemia, Coumadin for aortic stents, osteoarthritis. active smoker. June 2022 patient underwent EGD colonoscopy by Dr. Veronica Hamilton. EGD showed minimal gastritis colonoscopy showed some polyps and polypectomy was carried out. Some scattered sigmoid diverticulosis. Admitted to hospital in June. Thoracentesis carried out. Right-sided. Following discharge cytology came back showing metastatic pulmonary adenocarcinoma. 2D echo on July 20 showed EF of 55% mild to moderate TR.Brain MRI on July 20 unremarkable. Ultrasound abdomen showed hypoechoic metastatic liver lesions. July 24: PET scan showed scattered metastatic disease, lymph nodes pleural-based deposits along the right chest and likely malignant pleural effusion. Intrahepatic metastatic foci as well as osseous foci. Possible T10 pathologic fracture. And diffuse uptake through the vertebral body. Patient is due to start some form of treatment on August 31. Patient been losing significant weight. Has practically no appetite for last 2 weeks. Last bowel movement was 2 weeks ago. Feels rather weak and tired. Patient presents with bleeding through the nose quite a bit. Also through the mouth. ER INR was greater than 10. Received 10 mg of IV and vitamin K. With ER physician. Short of breath. 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 Smokes a pack a day for 50 years recently cut back. His son and his grandson live with him . No alcohol. Physical examination: VITAL SIGNS: 97.7, 88, 26, 138 x 88, 98% 4 L GENERAL: BMI 18.4. Loss of subcutaneous fat muscle mass. Reclined in bed. Tired EYES: Pupils equal. Conjunctiva pale l. HEENT: External appearance of nose and ears normal, oral cavity grossly normal. NECK: JVD not raised; masses not palpable. HEART: First and second heart sounds are normal; no edema. LUNGS: Respiratory rate i increased, diminished breath sounds, ABDOMEN: Soft, minimally tender, no guarding rigidity, liver spleen not palpable, no masses palpable. PSYCH: Alert and oriented x3; mood and affect normal. MUSCULOSKELETAL:No Clubbing/cyanosis;muscles-grossly intact, evidence of OA NEUROLOGICAL: Cranial nerves grossly intact; no facial asymmetry, power and sensation grossly intact. LYMPHATICS: No lymph nodes palpable in the axilla and neck INVESTIGATIONS, reviewed in the clinical context: August 24, 2024: White count 12.8 hemoglobin 12.6 platelets 410 INR greater than 10 potassium 4.8 BUN 13 creatinine 0.45 albumin 2.5 EKG tracing personally reviewed by me-poor baseline. Poor R wave progression anterior lead. Chest x-ray film personally reviewed by me-large right pleural effusion Assessment plan: --Severe epistaxis from Coumadin toxicity. Patient received vitamin K in the ER. Bleeding since has stopped -Metastatic, pulmonary adenocarcinoma. Patient is metastatic to liver, bone, recurrent right pleural effusion Patient supposed to start chemotherapy in August 31. Consult oncology - Coumadin toxicity Patient received 10 mg vitamin K in the ER. Check INR in the morning - Likely vitamin K deficient from poor appetite and liver involvement from malignancy -Recurrent right pleural effusion, secondary to adenocarcinoma Will consult cardiothoracic team - Severe protein calorie malnutrition from poor appetite from malignancy Ensure 1 can 3 times daily -COPD in a current smoker DuoNeb 4 times daily -Chronic nicotine dependence and the cigarette smoker Nicotine patch -Gallstones asymptomatic -Sigmoid diverticulosis, asymptomatic -Essential hypertension Coreg, - aortic graft and stent On Coumadin -Severe anorexia secondary to malignancy. Patient not eating for 2 weeks. Marinol Care was discussed with the patient. Consultation to pulmonary, oncology, cardiothoracic. Past Medical History Past Medical History: Coronary Artery Disease (CAD), Cancer, COPD, CVA/TIA, Hyperlipidemia, Hypertension, Myocardial Infarction ([place]), Prostate Disorder, Vascular Disorder Additional Past Medical History / Comment(s): Prostate CA, stroke x3 last 2011, peripheral vascular disease, recent fall at home, metastatic pulmonary adenocarcinoma with recurrent right-sided pleural effusion Last Myocardial Infarction Date:: 2008 History of Any Multi-Drug Resistant Organisms: None Reported Past Surgical History: Orthopedic Surgery, Prostate Surgery Additional Past Surgical History / Comment(s): abdominal aortic stent; right sided thoracentesis 07/01/24-fluid cytology positive for metastatic pulmonary adenocarcinoma Past Anesthesia/Blood Transfusion Reactions: No Reported Reaction Smoking Status: Current some day smoker, Former smoker - Past Family History Brother(s) Family Medical History: Diabetes Mellitus Medications and Allergies Home Medications Medication Instructions Recorded Confirmed Type Aspirin EC [Ecotrin Low Dose] 81 mg PO BID 02/17/20 08/24/24 History Atorvastatin Calcium [Lipitor] 40 mg PO HS 02/17/20 08/24/24 History Warfarin [Coumadin] 2.5 mg PO Q2D@2100 02/17/20 08/24/24 History amLODIPine [Norvasc] 5 mg PO DAILY 02/17/20 08/24/24 History carvediloL [Coreg] 6.25 mg PO BID 02/17/20 08/24/24 History HYDROcodone/APAP 5-325MG [[place] 0.5 - 1 tab PO Q6HR PRN 07/28/24 08/24/24 History 5-325] Albuterol Inhaler [Ventolin Hfa 1 puff INHALATION RT-Q4H PRN 08/24/24 08/24/24 History Inhaler] Ipratropium-Albuterol Nebulize 3 ml INHALATION RT-BID 08/24/24 08/24/24 History [Duoneb 0.5 mg-3 mg/3 ml Soln] Allergies Allergy/AdvReac Type Severity Reaction Status Date / Time morphine AdvReac Nausea & Verified 08/24/24 15:49 Vomiting Physical Exam Vitals: Vital Signs Temp Pulse Pulse Resp BP BP Pulse Ox 08/24/24 20:33 88 08/24/24 20:21 90 08/24/24 18:08 97.7 F 88 32 H 138/88 98 08/24/24 17:00 98.2 F 85 22 125/76 98 08/24/24 16:30 88 24 130/85 97 08/24/24 15:40 89 16 112/84 99 08/24/24 15:07 83 18 109/69 97 08/24/24 14:30 83 21 115/78 99 08/24/24 14:00 81 22 109/75 99 08/24/24 13:30 78 24 101/73 97 08/24/24 13:26 97 08/24/24 13:22 98.1 F 89 20 101/72 95 Intake and Output 08/24/24 08/24/24 08/24/24 06:59 14:59 22:59 Intake Total 75 Balance 75 Intake: Intake, IV Titration 75 Amount Sodium Chloride 0.9% 1, 75 000 ml @ 75 mls/hr IV . [id number] Rx#:[id number] Other: Weight 58.014 kg 58.014 kg Results CBC & Chem 7: 08/24/24 18:32 08/24/24 13:49 Labs: Abnormal Lab Results - Last 24 Hours (Table) 08/24/24 08/24/24 08/24/24 Range/Units 13:49 13:49 13:49 WBC 12.00 H (4.50-10.00) 10*3/uL RBC 4.30 L (4.40-5.60) 10*6/uL Hgb 12.5 L (13.0-17.0) g/dL Hct 36.5 L (39.6-50.0) % MPV (9.5-12.2) fL Neutrophils # 8.84 H (1.80-7.70) 10*3/uL Monocytes # 1.33 H (0.20-1.00) 10*3/uL PT >130.0 H (10.0-12.5) sec INR >10.0 H* (<1.2) APTT 66.2 H (22.0-30.0) sec Sodium 130 L (137-145) mmol/L Chloride 96 L (98-107) mmol/L Creatinine 0.45 L (0.66-1.25) mg/dL Glucose 108 H (74-99) mg/dL Calcium 8.2 L (8.4-10.2) mg/dL Total Protein 5.6 L (6.3-8.2) g/dL Albumin 2.5 L (3.5-5.0) g/dL 08/24/24 Range/Units 18:32 WBC 12.86 H (4.50-10.00) 10*3/uL RBC 4.30 L (4.40-5.60) 10*6/uL Hgb 12.6 L (13.0-17.0) g/dL Hct 36.9 L (39.6-50.0) % MPV 9.4 L (9.5-12.2) fL Neutrophils # 9.59 H (1.80-7.70) 10*3/uL Monocytes # 1.44 H (0.20-1.00) 10*3/uL PT (10.0-12.5) sec INR (<1.2) APTT (22.0-30.0) sec Sodium (137-145) mmol/L Chloride (98-107) mmol/L Creatinine (0.66-1.25) mg/dL Glucose (74-99) mg/dL Calcium (8.4-10.2) mg/dL Total Protein (6.3-8.2) g/dL Albumin (3.5-5.0) g/dL Thrombosis Risk Factor Assmnt - Choose All That Apply Each Factor Represents 1 point: Abnormal pulmonary function (COPD) Each Risk Factor Represents 3 Points: Age 75 years or older Other congenital or acquired thrombophilia - If yes, enter type in comment: No Thrombosis Risk Factor Assessment Total Risk Factor Score: 4 Thrombosis Risk Factor Assessment Level: Moderate Risk
[2024-08-24] MEDS: ATORVASTATIN 40 MG TAB PO SCH (22:15)
[2024-08-25 00:06] LABS: Basophils # (A) 0.06 10*3/uL (0.00-0.10); Basophils % (A) 0.5 %; Eosinophils # (A) 0.16 10*3/uL (0.04-0.35); Eosinophils % (A) 1.3 %; HGB 12.2 g/dL (13.0-17.0); Lymphocytes # (A) 1.69 10*3/uL (0.90-5.00); Lymphocytes % (A) 13.7 %; MCH 29.5 pg (27.0-32.0); MCHC 33.9 g/dL (32.0-37.0); Mean Platelet Volume 9.6 fL (9.5-12.2); Monocytes # (A) 1.52 10*3/uL (0.20-1.00); Monocytes % (A) 12.3 %; Neutrophils # (A) 8.88 10*3/uL (1.80-7.70); Neutrophils % (A) 71.9 %; Platelet Count 389 10*3/uL (140-440); RBC 4.14 10*6/uL (4.40-5.60); RDW 15.6 % (11.5-14.5); WBC 12.35 10*3/uL (4.50-10.00)
--- NOTE | 2024-08-25 02:50 | P.CNPUL ---
History of Present Illness Consult date: 08/25/24 Requesting physician: Juan Fraire Reason for consult: pleural effusion Chief complaint: Increased work of breathing, epistaxis History of present illness: Patient is a 74-year-old male with past medical history significant for recent diagnosis of metastatic non-small cell lung cancer, recurrent right-sided pleural effusion, COPD, chronic ongoing tobacco dependence. Patient has a recurrent right-sided pleural effusion that has been drained on 07/01/2024, as well as, 07/21/[address] Dupont. Most recently a total of 1.2 L was removed from the pleural space. Pleural fluid cytology previously positive for pulmonary adenocarcinoma. Follow-up PET scan showing scattered metastatic di sease with lymph node involvement, pleural-based deposits along the right chest with malignant pleural effusion, abdominal lymphadenopathy and intrahepatic metastatic foci of lesions as well as osseous foci. Possible T10 pathologic fracture with diffuse uptake throughout the vertebral body. Recently established with medical oncology. He is unsure of who his oncologist is, but reportedly set to start systemic chemotherapy later this month. Also, has medical history of coronary artery disease, hyperlipidemia, CVA/TIA, abdominal aortic aneurysm with previous endovascular repair, prostate cancer with previous prostatectomy. Presented to emergency department yesterday afternoon with a chief complaint of increased work of breathing, as well as, nosebleeds and coughing up blood. Denies any fevers or chills. Denies any sick contacts. Reports right upper quadrant abdominal pain. INR was found to be supratherapeutic greater than 10, patient did receive 10 mg of IV vitamin K. He does take Coumadin on outpatient basis. CBC: WBC count 12.3, hemoglobin stable at 12.2, platelets 389. INR greater than 10, APTT 66.2. CMP: Sodium 130, potassium 4.8, chloride 96, serum bicarb 28, BUN 13, creatinine 0.45, glucose 108. Lactic 1.7. Magnesium 1.7. LFTs not elevated. Total bilirubin 1.2. Troponin less than 0.012. Normal saline is infusing at 75 mL/h. Additional workup in the emergency department including a chest x-ray showing a large right-sided pleural effusion with associated atelectasis. Also, trace left-sided pleural effusion. Cardiothoracic surgical consult was requested. Patient currently being evaluated on the cardiac stepdown unit. He is resting comfortably on 4 L/min nasal cannula. He states he has been wearing 2.5 L of supplemental oxygen while at home. Has a sputum basin at the bedside with small amounts of dark red blood clots. Approximately less than 30 cc. Denies any chest pain. No further coughing or nosebleeds. Does report some right upper quadrant tenderness. States his appetite has been poor. Reports weight loss of approximately 20 pounds over the last several months. Current vital signs: Afebrile, heart rate recorded at 83 bpm, blood pressure 117/77 mmHg, nontachypneic, SpO2 reading 100% on 4 L/min nasal cannula. Review of Systems Constitutional: Reports poor appetite, Reports weakness, Reports weight loss, Denies chills, Denies fever, Denies sweats, Denies weight gain Ears, nose, mouth and throat: Reports epistaxis, Denies headache, Denies nasal congestion, Denies nasal discharge, Denies odynophagia, Denies post-nasal drip, Denies sinus pain, Denies sinus pressure, Denies sore throat, Denies voice changes Cardiovascular: Reports dyspnea on exertion, Reports shortness of breath, Denies chest pain, Denies leg edema, Denies lightheadedness, Denies orthopnea, Denies palpitations, Denies paroxysmal nocturnal dyspnea Respiratory: Reports as per HPI Gastrointestinal: Reports abdominal pain (Right upper quadrant tenderness with palpation), Reports constipation, Reports loss of appetite, Denies coffee ground emesis, Denies diarrhea, Denies hematemesis, Denies hematochezia, Denies melena, Denies nausea, Denies vomiting Genitourinary: Denies dysuria, Denies hematuria Musculoskeletal: Denies limitation of motion Integumentary: Denies unusual bruising Neurological: Denies head injury, Denies headaches, Denies seizures, Denies syncope Psychiatric: Denies anxiety, Denies depression Past Medical History Past Medical History: Coronary Artery Disease (CAD), Cancer, COPD, CVA/TIA, Hyperlipidemia, Hypertension, Myocardial Infarction ([place]), Prostate Disorder, Vascular Disorder Additional Past Medical History / Comment(s): Prostate CA, stroke x3 last 2011, peripheral vascular disease, recent fall at home, metastatic pulmonary adenocarcinoma with recurrent right-sided pleural effusion Last Myocardial Infarction Date:: 2008 History of Any Multi-Drug Resistant Organisms: None Reported Past Surgical History: Orthopedic Surgery, Prostate Surgery Additional Past Surgical History / Comment(s): abdominal aortic stent; right sided thoracentesis 07/01/24-fluid cytology positive for metastatic pulmonary adenocarcinoma Past Anesthesia/Blood Transfusion Reactions: No Reported Reaction Smoking Status: Current some day smoker, Former smoker - Past Family History Brother(s) Family Medical History: Diabetes Mellitus Medications and Allergies Home Medications Medication Instructions Recorded Confirmed Type Aspirin EC [Ecotrin Low Dose] 81 mg PO BID 02/17/20 08/24/24 History Atorvastatin Calcium [Lipitor] 40 mg PO HS 02/17/20 08/24/24 History Warfarin [Coumadin] 2.5 mg PO Q2D@2100 02/17/20 08/24/24 History amLODIPine [Norvasc] 5 mg PO DAILY 02/17/20 08/24/24 History carvediloL [Coreg] 6.25 mg PO BID 02/17/20 08/24/24 History HYDROcodone/APAP 5-325MG [[place] 0.5 - 1 tab PO Q6HR PRN 07/28/24 08/24/24 History 5-325] Albuterol Inhaler [Ventolin Hfa 1 puff INHALATION RT-Q4H PRN 08/24/24 08/24/24 History Inhaler] Ipratropium-Albuterol Nebulize 3 ml INHALATION RT-BID 08/24/24 08/24/24 History [Duoneb 0.5 mg-3 mg/3 ml Soln] Allergies Allergy/AdvReac Type Severity Reaction Status Date / Time morphine AdvReac Nausea & Verified 08/24/24 15:49 Vomiting Physical Exam Vitals: Vital Signs Temp Pulse Pulse Resp BP BP Pulse Ox 08/25/24 01:37 83 32 H 08/24/24 23:18 97.7 F 83 32 H 117/77 100 08/24/24 20:33 88 08/24/24 20:21 90 08/24/24 20:00 97.7 F 82 32 H 117/77 98 08/24/24 18:08 97.7 F 88 32 H 138/88 98 08/24/24 17:00 98.2 F 85 22 125/76 98 08/24/24 16:30 88 24 130/85 97 08/24/24 15:40 89 16 112/84 99 08/24/24 15:07 83 18 109/69 97 08/24/24 14:30 83 21 115/78 99 08/24/24 14:00 81 22 109/75 99 08/24/24 13:30 78 24 101/73 97 08/24/24 13:26 97 08/24/24 13:22 98.1 F 89 20 101/72 95 Intake and Output 08/24/24 08/24/24 08/25/24 14:59 22:59 06:59 Intake Total 75 Output Total 0 Balance 75 0 Intake: Intake, IV Titration 75 Amount Sodium Chloride 0.9% 1, 75 000 ml @ 75 mls/hr IV . [id number] ONE Rx#:[id number] Output: Urine 0 Other: Weight 58.014 kg 58.014 kg GENERAL EXAM: Alert, 74-year-old white male, on 4 L/min nasal cannula, comfortable in no apparent distress. HEAD: Normocephalic and atraumatic EYES: Normal reaction of pupils, equal size. NOSE: Clear with pink turbinates. THROAT: No erythema or exudates. NECK: No masses, no JVD. CHEST: No chest wall deformity. LUNGS: Markedly diminished right lung sounds, with inspiratory posterior left basilar crackles heard on auscultation. No conversational dyspnea or accessory muscle use while at rest CVS: S1 and S2 normal with no audible murmur, regular rhythm. No extra heart sounds ABDOMEN: Mild hepatomegaly, active bowel sounds, no guarding or rigidity. SPINE: No scoliosis or deformity SKIN: No rashes. No purpura or petechiae CENTRAL NERVOUS SYSTEM: No focal deficits, tone is normal in all 4 extremities. EXTREMITIES: There is no peripheral edema, clubbing, or cyanosis. Peripheral pulses are intact. Results - Laboratory Findings CBC and BMP: 08/24/24 23:58 08/24/24 13:49 PT/INR, D-dimer PT >130.0 sec (10.0-12.5) H 08/24/24 13:49 INR >10.0 (<1.2) H* 08/24/24 13:49 Abnormal lab findings: Abnormal Labs 08/24/24 08/24/24 08/24/24 13:49 13:49 13:49 WBC 12.00 H RBC 4.30 L Hgb 12.5 L Hct 36.5 L MPV Neutrophils # 8.84 H Monocytes # 1.33 H PT >130.0 H INR >10.0 H* APTT 66.2 H Sodium 130 L Chloride 96 L Creatinine 0.45 L Glucose 108 H Calcium 8.2 L Total Protein 5.6 L Albumin 2.5 L 08/24/24 08/24/24 18:32 23:58 WBC 12.86 H 12.35 H RBC 4.30 L 4.14 L Hgb 12.6 L 12.2 L Hct 36.9 L 36.0 L MPV 9.4 L Neutrophils # 9.59 H 8.88 H Monocytes # 1.44 H 1.52 H PT INR APTT Sodium Chloride Creatinine Glucose Calcium Total Protein Albumin - Diagnostic Findings Chest x-ray: image reviewed Assessment and Plan Assessment: Recurrent right-sided pleural effusion, malignant; drained on 07/01/2024, as well as, 07/21/[address] Dupont. Most recently a total of 1.2 L was removed from the pleural space. Pleural fluid cytology previously positive for pulmonary adenocarcinoma. Consider possible Pleurx catheter placement Acute on chronic dyspnea, secondary to above, chest x-ray showing a large right- sided pleural effusion along with trace left-sided pleural effusion. Reversal with Acute on chronic hypoxemic respiratory failure, currently on 4 L/min nasal cannula Metastatic pulmonary adenocarcinoma, follow-up PET scan showing scattered metastatic pulmonary disease with lymph node involvement, pleural-based deposits along the right chest with malignant right sided pleural effusion, abdominal lymphadenopathy and intrahepatic metastatic foci of lesions as well as osseous foci. Possible T10 pathologic fracture with diffuse uptake throughout the vertebral body. Epistaxis Coagulopathy and supratherapeutic INR greater than 10, status post 10 mg of IV vitamin K Normocytic, normochromic anemia, hemoglobin stable at 12.2 g/dL Chronic obstructive pulmonary disease, stable Chronic ongoing tobacco dependence, however, last reported cigarette approximately 3 days ago History coronary artery disease History of hyperlipidemia History of CVA/TIA History of abdominal aortic aneurysm with previous endovascular repair History of prostate cancer with previous prostatectomy Plan: Patient's medications, labs, imaging reviewed INR was supratherapeutic, status post reversal with vitamin K Coumadin is on hold No further epistaxis Cardiothoracic surgical services consulted for possible Pleurx catheter placement. Alternatively, patient could have repeat thoracentesis on the right. Case to be discussed with Dr. Andujar Smoking cessation counseling performed Nicotine patch offered Consult medical oncology We will continue to follow, and external recommendations forthcoming I have personally seen and examined the patient, performed the documentation and the assessment and plan as written. Number of minutes spent on the visit:20 This dictation was produced using [employer] dictation software please excuse grammatical errors Time with Patient: Greater than 30
[2024-08-25] MEDS ORDERED: IPRATROPIUM-ALBUTEROL 3 ML NEB INHALATION PRN (02:51)
[2024-08-25 06:53] LABS: Basophils # (A) 0.05 10*3/uL (0.00-0.10); Basophils % (A) 0.4 %; Eosinophils # (A) 0.19 10*3/uL (0.04-0.35); Eosinophils % (A) 1.6 %; HCT 36.6 % (39.6-50.0); HGB 12.1 g/dL (13.0-17.0); Lymphocytes % (A) 12.9 %; MCH 28.7 pg (27.0-32.0); MCHC 33.1 g/dL (32.0-37.0); MCV 86.9 fL (80.0-97.0); Mean Platelet Volume 9.9 fL (9.5-12.2); Monocytes % (A) 12.9 %; Neutrophils # (A) 8.31 10*3/uL (1.80-7.70); Neutrophils % (A) 71.9 %; Platelet Count 387 10*3/uL (140-440); RBC 4.21 10*6/uL (4.40-5.60); RDW 15.5 % (11.5-14.5); WBC 11.59 10*3/uL (4.50-10.00)
[2024-08-25] MEDS: droNABinol 2.5 MG CAP PO SCH (06:55)
[2024-08-25 07:12] LABS: INR 1.2 (<1.2); Prothrombin Time 12.9 sec (10.0-12.5)
[2024-08-25] MEDS: NICOTINE 21MG/24HR PATCH TRANSDERM SCH (08:10)
[2024-08-25] MEDS ORDERED: amLODIPine 5 MG TAB PO SCH (09:00)
--- NOTE | 2024-08-25 09:21 | P.GSCN ---
History of Present Illness Consult date: 08/25/24 Reason for Consult: Recurrent right-sided malignant pleural effusion, Pleurx catheter placement Requesting physician: Oziel Colunga History of present illness: This is a 74-year-old gentleman who follows outpatient with Dr. French for internal medicine. He has a previous medical history of current longstanding tobacco dependence with recent cessation, COPD, myocardial infarction, AAA with endovascular repair, DVT on Coumadin outpatient, hypertension, hyperlipidemia, CVA, and prostate cancer. He was recently admitted in June for shortness of breath. During that time he had a right sided thoracentesis by Dr. Dupont on July 01, fluid cytology was positive for metastatic pulmonary adenocarcinoma. He had not followed up with oncology after discharge on July 02. He presented back to [facility] emergency room July 18 with complaints of progressive shortness of breath. Chest x-ray revealed moderate right-sided pleural effusion. Chest ultrasound was completed revealing 13.4 cm fluid pocket which was marked for thoracentesis. Cardiothoracic surgery was consulted for consideration for Pleurx catheter placement, the patient was seen by Dr. Rollins and it was felt at that time that the patient should be treated conservatively with repeat thoracentesis which was done on July 21 by Gerri Dupont with removal of 1200 mL fluid. The patient states he felt much better after that thoracentesis, he was discharged to home and has followed up with oncology with plans for initiation of chemotherapy at the end of this month. Unfortunately over the last few days the patient has noticed increased shortness of breath along with nosebleeds and coughing up blood and he presented back to [facility] emergency room yesterday for evaluation and treatment. Chest x-ray reviewed recurrent right-sided pleural effusion. Initial lab work demonstrated WBC 12, hemoglobin 12.5, INR greater than 10, creatinine 0.45, lactic acid 1.7, troponin was negative. He was given 10 mg vitamin K and admitted with consultation placed to pulmonology and cardiothoracic surgery. This morning's INR is 1.2. Of note patient was still smoking at previous admission, reports his last cigarette was 4 days ago. Review of Systems Review of systems was completed and was negative except as noted - Respiratory Reports cough with sputum, Reports dyspnea, Reports hemoptysis, Reports home oxygen Past Medical History Past Medical History: Coronary Artery Disease (CAD), Cancer, COPD, CVA/TIA, Hyperlipidemia, Hypertension, Myocardial Infarction ([place]), Prostate Disorder, Vascular Disorder Additional Past Medical History / Comment(s): Prostate CA, stroke x3 last 2011, peripheral vascular disease, recent fall at home, metastatic pulmonary adenocarcinoma with recurrent right-sided pleural effusion Last Myocardial Infarction Date:: 2008 History of Any Multi-Drug Resistant Organisms: None Reported Past Surgical History: Orthopedic Surgery, Prostate Surgery Additional Past Surgical History / Comment(s): abdominal aortic stent; right sided thoracentesis 07/01/24-fluid cytology positive for metastatic pulmonary adenocarcinoma; repeat right-sided thoracentesis 07/21/2024 Past Anesthesia/Blood Transfusion Reactions: No Reported Reaction Smoking Status: Former smoker Additional History: States he had his last cigarette 4 days ago - Past Family History Brother(s) Family Medical History: Diabetes Mellitus Medications and Allergies Home Medications Medication Instructions Recorded Confirmed Type Aspirin EC [Ecotrin Low Dose] 81 mg PO BID 02/17/20 08/24/24 History Atorvastatin Calcium [Lipitor] 40 mg PO HS 02/17/20 08/24/24 History Warfarin [Coumadin] 2.5 mg PO Q2D@2100 02/17/20 08/24/24 History amLODIPine [Norvasc] 5 mg PO DAILY 02/17/20 08/24/24 History carvediloL [Coreg] 6.25 mg PO BID 02/17/20 08/24/24 History HYDROcodone/APAP 5-325MG [[place] 0.5 - 1 tab PO Q6HR PRN 07/28/24 08/24/24 H istory 5-325] Albuterol Inhaler [Ventolin Hfa 1 puff INHALATION RT-Q4H PRN 08/24/24 08/24/24 History Inhaler] Ipratropium-Albuterol Nebulize 3 ml INHALATION RT-BID 08/24/24 08/24/24 History [Duoneb 0.5 mg-3 mg/3 ml Soln] Allergies Allergy/AdvReac Type Severity Reaction Status Date / Time morphine AdvReac Nausea & Verified 08/24/24 15:49 Vomiting Surgical - Exam Vital Signs Temp Pulse Resp BP Pulse Ox 98.1 F 89 20 101/72 95 08/24/24 13:22 08/24/24 13:22 08/24/24 13:22 08/24/24 13:22 08/24/24 13:22 CONSTITUTIONAL: Awake and alert, appears somewhat comfortable, cooperative, well-developed, well-nourished, no pain, does appear short of breath EYES: Pupils equal, round, reactive to light, normal ocular movement ENT: Moist mucous membranes without oral lesions present, missing multiple teeth, poor dentition NECK: No masses, no bruits, trachea midline RESPIRATORY: Lungs sounds very diminished bilaterally especially in the right base. Respirations even, slightly labored. Currently on 4 L nasal cannula with oxygen saturation 100%. Strong cough CARDIOVASCULAR: S1, S2 present. Regular rate and rhythm, sinus rhythm on telemetry. Palpable peripheral pulses bilaterally. No edema present. No calf pain or tenderness noted GASTROINTESTINAL: Abdomen soft, nontender, nondistended without masses or organomegaly noted. There is no rebound or guarding present. Active bowel sounds present 4 quadrants. GENITOURINARY: Deferred INTEGUMENTARY: Skin is warm and dry NEUROLOGIC: Cranial nerves II through XII intact, normal coordination, no obvious motor or sensory deficits, speech is normal MUSKULOSKELETAL: Able to move all extremities, strength equal bilaterally, normal posture PSYCHIATRIC: Alert and oriented to person place and time, appropriate affect, intact judgment and insight Results - Labs 08/25/24 05:18 08/24/24 13:49 Abnormal Lab Results - Last 24 Hours (Table) 08/24/24 08/24/24 08/24/24 Range/Units 13:49 13:49 13:49 WBC 12.00 H (4.50-10.00) 10*3/uL RBC 4.30 L (4.40-5.60) 10*6/uL Hgb 12.5 L (13.0-17.0) g/dL Hct 36.5 L (39.6-50.0) % MPV (9.5-12.2) fL Neutrophils # 8.84 H (1.80-7.70) 10*3/uL Monocytes # 1.33 H (0.20-1.00) 10*3/uL PT >130.0 H (10.0-12.5) sec INR >10.0 H* (<1.2) APTT 66.2 H (22.0-30.0) sec Sodium 130 L (137-145) mmol/L Chloride 96 L (98-107) mmol/L Creatinine 0.45 L (0.66-1.25) mg/dL Glucose 108 H (74-99) mg/dL Calcium 8.2 L (8.4-10.2) mg/dL Total Protein 5.6 L (6.3-8.2) g/dL Albumin 2.5 L (3.5-5.0) g/dL 08/24/24 08/24/24 08/25/24 Range/Units 18:32 23:58 05:18 WBC 12.86 H 12.35 H 11.59 H (4.50-10.00) 10*3/uL RBC 4.30 L 4.14 L 4.21 L (4.40-5.60) 10*6/uL Hgb 12.6 L 12.2 L 12.1 L (13.0-17.0) g/dL Hct 36.9 L 36.0 L 36.6 L (39.6-50.0) % MPV 9.4 L (9.5-12.2) fL Neutrophils # 9.59 H 8.88 H 8.31 H (1.80-7.70) 10*3/uL Monocytes # 1.44 H 1.52 H 1.50 H (0.20-1.00) 10*3/uL PT (10.0-12.5) sec INR (<1.2) APTT (22.0-30.0) sec Sodium (137-145) mmol/L Chloride (98-107) mmol/L Creatinine (0.66-1.25) mg/dL Glucose (74-99) mg/dL Calcium (8.4-10.2) mg/dL Total Protein (6.3-8.2) g/dL Albumin (3.5-5.0) g/dL 08/25/24 Range/Units 05:18 WBC (4.50-10.00) 10*3/uL RBC (4.40-5.60) 10*6/uL Hgb (13.0-17.0) g/dL Hct (39.6-50.0) % MPV (9.5-12.2) fL Neutrophils # (1.80-7.70) 10*3/uL Monocytes # (0.20-1.00) 10*3/uL PT 12.9 H (10.0-12.5) sec INR 1.2 H (<1.2) APTT (22.0-30.0) sec Sodium (137-145) mmol/L Chloride (98-107) mmol/L Creatinine (0.66-1.25) mg/dL Glucose (74-99) mg/dL Calcium (8.4-10.2) mg/dL Total Protein (6.3-8.2) g/dL Albumin (3.5-5.0) g/dL Diabetes panel 08/24/24 Range/Units 13:49 Sodium 130 L (137-145) mmol/L Potassium 4.8 (3.5-5.1) mmol/L Chloride 96 L (98-107) mmol/L Carbon Dioxide 28 (22-30) mmol/L BUN 13 (9-20) mg/dL Creatinine 0.45 L (0.66-1.25) mg/dL Glucose 108 H (74-99) mg/dL Calcium 8.2 L (8.4-10.2) mg/dL AST 30 (17-59) U/L ALT 20 (4-49) U/L Alkaline Phosphatase 85 (38-126) U/L Total Protein 5.6 L (6.3-8.2) g/dL Albumin 2.5 L (3.5-5.0) g/dL Calcium panel 08/24/24 Range/Units 13:49 Calcium 8.2 L (8.4-10.2) mg/dL Albumin 2.5 L (3.5-5.0) g/dL Pituitary panel 08/24/24 Range/Units 13:49 Sodium 130 L (137-145) mmol/L Potassium 4.8 (3.5-5.1) mmol/L Chloride 96 L (98-107) mmol/L Carbon Dioxide 28 (22-30) mmol/L BUN 13 (9-20) mg/dL Creatinine 0.45 L (0.66-1.25) mg/dL Glucose 108 H (74-99) mg/dL Calcium 8.2 L (8.4-10.2) mg/dL Adrenal panel 08/24/24 Range/Units 13:49 Sodium 130 L (137-145) mmol/L Potassium 4.8 (3.5-5.1) mmol/L Chloride 96 L (98-107) mmol/L Carbon Dioxide 28 (22-30) mmol/L BUN 13 (9-20) mg/dL Creatinine 0.45 L (0.66-1.25) mg/dL Glucose 108 H (74-99) mg/dL Calcium 8.2 L (8.4-10.2) mg/dL Total Bilirubin 1.2 (0.2-1.3) mg/dL AST 30 (17-59) U/L ALT 20 (4-49) U/L Alkaline Phosphatase 85 (38-126) U/L Total Protein 5.6 L (6.3-8.2) g/dL Albumin 2.5 L (3.5-5.0) g/dL - Imaging Chest x-ray: report reviewed, image reviewed Assessment and Plan Assessment: Recurrent right-sided pleural effusion, status post thoracentesis x 2 Acute hypoxic respiratory failure Recent diagnosis of metastatic pulmonary adenocarcinoma Shortness of breath secondary to above Supratherapeutic INR, status post vitamin K administration History of current longstanding tobacco dependence, admitted cessation 4 days ago COPD Myocardial infarction AAA with endovascular repair DVT on Coumadin outpatient Hypertension Hyperlipidemia CVA Prostate cancer Plan: The patient was seen and examined sitting up in bed on the medical surgical unit with evidence of shortness of breath even with conversation. Currently on 4 L nasal cannula, vital signs stable otherwise. Repeat INR this morning was 1.2, Coumadin being held. Diagnostics reviewed with Dr. Vaughan. We did discuss placement of right sided Pleurx catheter to be completed tomorrow afternoon, patient is not wanting to wait that long and is asking about having a thorace ntesis completed today. Discussed with Dr. Andujar who recommends Pleurx catheter placement. Continue to hold Coumadin. Increase activity as tolerated. Wean oxygen as tolerated. Patient states he is scheduled to start chemotherapy at the end of the month. Medical management of other comorbidities per internal medicine, pulmonology, oncology. More recommendations to follow. Thank you Dr. Rosario for this consult. We will continue to follow along with you and make further recommendations as appropriate. Likely will schedule patient for right sided Pleurx catheter placement tomorrow afternoon with Dr. Vaughan as long as patient is agreeable. I have personally seen and examined the patient, performed the documentation and the assessment and plan as written. Number of minutes spent on the visit: 30. ISIDRO Hebert
--- NOTE | 2024-08-25 19:20 | P.PN ---
Progress Note - Text Progress Note Date: 08/25/24 Chief Complaint: Bleeding from nose 74-year-old patient who follows with Dr. Moise French. medical conditions include COPD, hyperlipidemia, Coumadin for aortic stents, osteoarthritis. active smoker. June 2022 patient underwent EGD colonoscopy by Dr. Veronica Hamilton. EGD showed minimal gastritis colonoscopy showed some polyps and polypectomy was carried out. Some scattered sigmoid diverticulosis. Admitted to hospital in June. Thoracentesis carried out. Right-sided. Following discharge cytology came back showing metastatic pulmonary adenocarcinoma. 2D echo on July 20 showed EF of 55% mild to moderate TR.Brain MRI on July 20 unremarkable. Ultrasound abdomen showed hypoechoic metastatic liver lesions. July 24: PET scan showed scattered metastatic disease, lymph nodes pleural-based deposits along the right chest and likely malignant pleural effusion. Intrahepatic metastatic foci as well as osseous foci. Possible T10 pathologic fracture. And diffuse uptake through the vertebral body. Patient is due to start some form of treatment on August 31. Patient been losing significant weight. Has practically no appetite for last 2 weeks. Last bowel movement was 2 weeks ago. Feels rather weak and tired. Patient presents with bleeding through the nose quite a bit. Also through the mouth. ER INR was greater than 10. Received 10 mg of IV and vitamin K. With ER physician. Short of breath. August 25: No further bleeding. INR down to 1.2.Seen by cardiothoracic team. For a Pleurx catheter placement tomorrow. Coumadin to remain on hold. Also seen by oncology. Appetite remains poor. On Marinol. Active Medications Albuterol Sulfate (Albuterol Nebulized 2.5 Mg/3 Ml) 2.5 mg INHALATION RT-Q4H PRN PRN Reason: Shortness Of Breath Albuterol/Ipratropium (Ipratropium-Albuterol 3 Ml Neb) 3 ml INHALATION RT-BID [facility] Last Admin: 08/25/24 09:26 Dose: 3 ml Albuterol/Ipratropium (Ipratropium-Albuterol 3 Ml Neb) 3 ml INHALATION RT-QID PRN PRN Reason: Shortness Of Breath Or Wheezing Carvedilol (Carvedilol 6.25 Mg Tab) 6.25 mg PO BID-W/MEALS [facility] Last Admin: 08/25/24 17:36 Dose: 6.25 mg Dronabinol (Dronabinol 2.5 Mg Cap) 5 mg PO AC-BID [facility] Last Admin: 08/25/24 17:46 Dose: 5 mg Nicotine (Nicotine 21mg/24hr Patch) 1 patch TRANSDERM DAILY [facility] Last Admin: 08/25/24 08:10 Dose: Not Given Social history: 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 Smokes a pack a day for 50 years recently cut back. His son and his grandson live with him . No alcohol. Physical examination: VITAL SIGNS: 97.7, 81, 20, 101 x 69, 100% on 5 L GENERAL: BMI 18.4. Loss of subcutaneous fat muscle mass. Reclined in bed. Tired EYES: Pupils equal. Conjunctiva pale l. HEENT: External appearance of nose and ears normal, oral cavity grossly normal. NECK: JVD not raised; masses not palpable. HEART: First and second heart sounds are normal; no edema. LUNGS: Respiratory rate i increased, diminished breath sounds, especially right side ABDOMEN: Soft, minimally tender, no guarding rigidity, liver spleen not palpable, no masses palpable. PSYCH: Alert and oriented x3; mood and affect anxious l. MUSCULOSKELETAL:No Clubbing/cyanosis;muscles-grossly intact, evidence of OA INVESTIGATIONS, reviewed in the clinical context: August 25: White count 9.5 hemoglobin 12.1 INR 1.2 August 24, 2024: White count 12.8 hemoglobin 12.6 platelets 410 INR greater than 10 potassium 4.8 BUN 13 creatinine 0.45 albumin 2.5 EKG tracing personally reviewed by me-poor baseline. Poor R wave progression anterior lead. Chest x-ray film personally reviewed by me-large right pleural effusion Assessment plan: --Severe epistaxis from Coumadin toxicity.: Controlled Patient received vitamin K in the ER. Bleeding since has stopped -Metastatic, pulmonary adenocarcinoma. Patient is metastatic to liver, bone, recurrent right pleural effusion Patient supposed to start chemotherapy in August 31. Dr. Alex Salcedo from oncology - Coumadin toxicity Patient received 10 mg vitamin K in the ER. Now down to 1.2 - Likely vitamin K deficient from poor appetite and liver involvement from malignancy -Recurrent right pleural effusion, secondary to adenocarcinoma Seen by cardiothoracic team. For Pleurx placement tomorrow. Hold Coumadin - Severe protein calorie malnutrition from poor appetite from malignancy Ensure 1 can 3 times daily -COPD in a current smoker DuoNeb 4 times daily -Chronic nicotine dependence and the cigarette smoker Nicotine patch -Gallstones asymptomatic -Sigmoid diverticulosis, asymptomatic -Essential hypertension Coreg, - aortic graft and stent On Coumadin -Severe anorexia secondary to malignancy. Patient not eating for 2 weeks. Marinol Discussed with patient. Pleurx catheter tomorrow. Hold Coumadin. Follow with multiple consultants Past Medical History Past Medical History: Coronary Artery Disease (CAD), Cancer, COPD, CVA/TIA, Hyperlipidemia, Hypertension, Myocardial Infarction ([place]), Prostate Disorder, Vascular Disorder Additional Past Medical History / Comment(s): Prostate CA, stroke x3 last 2011, peripheral vascular disease, recent fall at home, metastatic pulmonary adenocarcinoma with recurrent right-sided pleural effusion Last Myocardial Infarction Date:: 2008 History of Any Multi-Drug Resistant Organisms: None Reported Past Surgical History: Orthopedic Surgery, Prostate Surgery Additional Past Surgical History / Comment(s): abdominal aortic stent; right sided thoracentesis 07/01/24-fluid cytology positive for metastatic pulmonary adenocarcinoma Past Anesthesia/Blood Transfusion Reactions: No Reported Reaction Smoking Status: Current some day smoker, Former smoker
[2024-08-25] MEDS: LACTATED RINGERS 1,000 ML IV SCH (21:19)
--- NOTE | 2024-08-25 21:58 | P.CONS ---
History of Present Illness - Reason for Consult Consult date: 08/25/24 NSCLC. Coagulopathy Requesting physician: Oziel Colunga - Chief Complaint epistaxis, supratherapeutic INR - History of Present Illness Mr. Bui is a 74-year-old male pt of Dr. Taina Salcedo with a PMH of abdominal aortic aneurysm on anticoagulation with Coumadin, COPD, CAD, and cigarette smoking who was initially admitted to [facility] on 06/29/2024 with increased dyspnea and was noted to be positive with COVID-[address] chest noted scattered small nodularities with increased density along the right mediastinal border along with enlarged mediastinal lymph nodes and potential hypodensity within the liver. It did also note right pleural effusion. Thoracentesis was performed on 07/01/2024 removing 1.3 L of turbid colored fluid that was exudative in nature. Cytology was consistent with pulmonary adenocarcinoma. He was again admitted to [facility] on 07/18/2024 though 07/22/2024 at which time he had thoracentesis for symptoms. Brain MRI on 07/20/2024 revealed no evidence of intracranial metastasis and noted remote right cerebellar hemispheric injury. PET/CT on 07/24/2024 that noted FDG avidity in the right low paratracheal, subcarinal, and right hilar lymph nodes. There was an area in the right middle lobe medially that had FDG avidity with an SUV of 8.2. In addition, there was scattered uptake along the pleura most intense in t he medial portion of the right lower lobe along with bilateral hepatic lobes, retroperitoneal lymph node, and L2 and T10 vertebral bodies. Molecular profiling from the right pleural fluid revealed KRAS and TP53 mutations with low tumor mutation burden (7.1 mutations per megabase) and negative for m icrosatellite instability. PD-L1 was noted to be positive at 3%. Molecular profiling from the peripheral blood revealed KRAS and TP53 mutations in addition to NF1 mutation ([id number]*). 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 Dual immunotherapy with PDL-1 and CTLA4 inhibitor. Pending start of the same He is currently admitted with epistaxis and progressive SOB. He denies fever, sore throat, N,V, abd pain, hematuria, hematochezia or melena. His INR was >10 on admit, after vit K it is 1.2. Review of Systems 10 point ROS is neg except as stated in HPI Past Medical History Past Medical History: Coronary Artery Disease (CAD), Cancer, COPD, CVA/TIA, Hyperlipidemia, Hypertension, Myocardial Infarction ([place]), Prostate Disorder, Vascular Disorder Additional Past Medical History / Comment(s): Prostate CA, stroke x3 last 2011, peripheral vascular disease, recent fall at home, metastatic pulmonary adenocarcinoma with recurrent right-sided pleural effusion Last Myocardial Infarction Date:: 2008 History of Any Multi-Drug Resistant Organisms: None Reported Past Surgical History: Orthopedic Surgery, Prostate Surgery Additional Past Surgical History / Comment(s): abdominal aortic stent; right sided thoracentesis 07/01/24-fluid cytology positive for metastatic pulmonary adenocarcinoma Past Anesthesia/Blood Transfusion Reactions: No Reported Reaction Past Psychological History: No Psychological Hx Reported Smoking Status: Current some day smoker, Former smoker Past Alcohol Use History: None Reported Past Drug Use History: None Reported - Past Family History Brother(s) Family Medical History: Diabetes Mellitus Sister(s) Family Medical History: Cancer Medications and Allergies Home Medications Medication Instructions Recorded Confirmed Type Aspirin EC [Ecotrin Low Dose] 81 mg PO BID 02/17/20 08/24/24 History Atorvastatin Calcium [Lipitor] 40 mg PO HS 02/17/20 08/24/24 History Warfarin [Coumadin] 2.5 mg PO Q2D@2100 02/17/20 08/24/24 History amLODIPine [Norvasc] 5 mg PO DAILY 02/17/20 08/24/24 History carvediloL [Coreg] 6.25 mg PO BID 02/17/20 08/24/24 History HYDROcodone/APAP 5-325MG [[place] 0.5 - 1 tab PO Q6HR PRN 07/28/24 08/24/24 History 5-325] Albuterol Inhaler [Ventolin Hfa 1 puff INHALATION RT-Q4H PRN 08/24/24 08/24/24 History Inhaler] Ipratropium-Albuterol Nebulize 3 ml INHALATION RT-BID 08/24/24 08/24/24 History [Duoneb 0.5 mg-3 mg/3 ml Soln] Allergies Allergy/AdvReac Type Severity Reaction Status Date / Time morphine AdvReac Nausea & Verified 08/24/24 15:49 Vomiting Physical Exam Vitals: Vital Signs Temp Pulse Pulse Resp BP BP Pulse Ox 08/25/24 08:00 97.5 F L 77 24 112/67 100 08/25/24 04:00 97.6 F 84 32 H 118/75 100 08/25/24 01:37 83 32 H 08/24/24 23:18 97.7 F 83 32 H 117/77 100 08/24/24 20:33 88 08/24/24 20:21 90 08/24/24 20:00 97.7 F 82 32 H 117/77 98 08/24/24 18:08 97.7 F 88 32 H 138/88 98 08/24/24 17:00 98.2 F 85 22 125/76 98 08/24/24 16:30 88 24 130/85 97 08/24/24 15:40 89 16 112/84 99 08/24/24 15:07 83 18 109/69 97 08/24/24 14:30 83 21 115/78 99 08/24/24 14:00 81 22 109/75 99 08/24/24 13:30 78 24 101/73 97 08/24/24 13:26 97 08/24/24 13:22 98.1 F 89 20 101/72 95 Intake and Output 08/24/24 08/25/24 08/25/24 22:59 06:59 14:59 Intake Total 75 Output Total 0 225 Balance 75 0 -225 Intake: Intake, IV Titration 75 Amount Sodium Chloride 0.9% 1, 75 000 ml @ 75 mls/hr IV . [id number] ONE Rx#:[id number] Output: Urine 0 225 Other: Weight 58.014 kg 57.8 kg - Constitutional General appearance: cooperative, mild distress, thin - EENT Eyes: anicteric sclerae, EOMI ENT: hearing grossly normal - Respiratory Respiratory: bilateral: diminished, other (increased resp rate, shallow inspirations) - Cardiovascular Rhythm: regular Heart sounds: normal: S1, S2 Abnormal Heart Sounds: no systolic murmur, no diastolic murmur, no rub, no S3 Gallop, no S4 Gallop, no click, no other leg Peripheral Edema: bilateral: None - Gastrointestinal General gastrointestinal: normal bowel sounds, soft - Integumentary Integumentary: normal - Neurologic Neurologic: CNII-XII intact - Musculoskeletal Musculoskeletal: generalized weakness - Psychiatric Psychiatric: A&O x's 3, appropriate affect, intact judgment & insight Results CBC & Chem 7: 08/25/24 05:18 08/24/24 13:49 Labs: Abnormal Lab Results - Last 24 Hours (Table) 08/24/24 08/24/24 08/24/24 Range/Units 13:49 13:49 13:49 WBC 12.00 H (4.50-10.00) 10*3/uL RBC 4.30 L (4.40-5.60) 10*6/uL Hgb 12.5 L (13.0-17.0) g/dL Hct 36.5 L (39.6-50.0) % MPV (9.5-12.2) fL Neutrophils # 8.84 H (1.80-7.70) 10*3/uL Monocytes # 1.33 H (0.20-1.00) 10*3/uL PT >130.0 H (10.0-12.5) sec INR >10.0 H* (<1.2) APTT 66.2 H (22.0-30.0) sec Sodium 130 L (137-145) mmol/L Chloride 96 L (98-107) mmol/L Creatinine 0.45 L (0.66-1.25) mg/dL Glucose 108 H (74-99) mg/dL Calcium 8.2 L (8.4-10.2) mg/dL Total Protein 5.6 L (6.3-8.2) g/dL Albumin 2.5 L (3.5-5.0) g/dL 08/24/24 08/24/24 08/25/24 Range/Units 18:32 23:58 05:18 WBC 12.86 H 12.35 H 11.59 H (4.50-10.00) 10*3/uL RBC 4.30 L 4.14 L 4.21 L (4.40-5.60) 10*6/uL Hgb 12.6 L 12.2 L 12.1 L (13.0-17.0) g/dL Hct 36.9 L 36.0 L 36.6 L (39.6-50.0) % MPV 9.4 L (9.5-12.2) fL Neutrophils # 9.59 H 8.88 H 8.31 H (1.80-7.70) 10*3/uL Monocytes # 1.44 H 1.52 H 1.50 H (0.20-1.00) 10*3/uL PT (10.0-12.5) sec INR (<1.2) APTT (22.0-30.0) sec Sodium (137-145) mmol/L Chloride (98-107) mmol/L Creatinine (0.66-1.25) mg/dL Glucose (74-99) mg/dL Calcium (8.4-10.2) mg/dL Total Protein (6.3-8.2) g/dL Albumin (3.5-5.0) g/dL 08/25/24 Range/Units 05:18 WBC (4.50-10.00) 10*3/uL RBC (4.40-5.60) 10*6/uL Hgb (13.0-17.0) g/dL Hct (39.6-50.0) % MPV (9.5-12.2) fL Neutrophils # (1.80-7.70) 10*3/uL Monocytes # (0.20-1.00) 10*3/uL PT 12.9 H (10.0-12.5) sec INR 1.2 H (<1.2) APTT (22.0-30.0) sec Sodium (137-145) mmol/L Chloride (98-107) mmol/L Creatinine (0.66-1.25) mg/dL Glucose (74-99) mg/dL Calcium (8.4-10.2) mg/dL Total Protein (6.3-8.2) g/dL Albumin (3.5-5.0) g/dL Chest x-ray: report reviewed Assessment and Plan (1) Coagulopathy Current Visit: Yes Status: Acute Priority: High Code(s): D68.9 - COAGULATION DEFECT, UNSPECIFIED SNOMED Code(s): 24730576 (2) Pleural effusion Current Visit: Yes Status: Acute Priority: High Code(s): J90 - PLEURAL EFFUSION, NOT ELSEWHERE CLASSIFIED SNOMED Code(s): 18585063 (3) Stage 4 malignant neoplasm of lung Current Visit: Yes Status: Acute Priority: High Code(s): C34.90 - MALIGNANT NEOPLASM OF UNSP PART OF UNSP BRONCHUS OR LUNG SNOMED Code(s): 90921944 Plan: Coagulopathy - INR greater than 10 on admit with symptoms of epistaxis -Multifactorial including lack of oral intake as well as malignancy - Patient is been given parenteral vitamin K with reversal of INR. INR 1.2 today. - It was of concern, patient being on Coumadin and receiving treatment. Plans to transition to Eliquis or Xarelto. There are procedures planned so, we will wait until the completion of procedures. Also, ensure that the INR does not rebound. Pleural effusion - History of malignant pleural effusion - This is the patient's third reaccumulation of fluid causing sympotms in about 2 months. -Cardiothoracic surgery has been consulted for placement of a Pleurx drain. Agree with the plan of care. Stage IV non-small cell lung cancer - Diagnosis as documented in HPI - Dual immunotherapy treatment as planned. It is not been initiated yet. - Plans for the same to begin once patient has been discharged from the hospital. Doctor attests: I performed a history and physical examination of this patient, developed impression and plan of care. Discussed with dictator. I agree with dictators note, documented as a scribe.
[2024-08-26] MEDS ORDERED: fentaNYL (PF) 50 MCG/ML 2 ML AMP IVP PRN (07:00)
[2024-08-26] MEDS ORDERED: fentaNYL (PF) 50 MCG/ML 2 ML AMP IV PRN (07:00)
[2024-08-26] MEDS: IV FLUID CONTINUATION 500 ML IV ONE (11:20)
[2024-08-26] MEDS ORDERED: KETAMINE HCL IN 0.9 % NACL 50 MG/5 ML SYRINGE ONE (11:51)
[2024-08-26] MEDS ORDERED: MIDAZOLAM 2 MG/2 ML VIAL ONE (11:51)
[2024-08-26 12:01] LABS: African American GFR (CKD) >90 (>60 ml/min/1.73 sqM); Anion Gap 8 mmol/L; Blood Urea Nitrogen 15 mg/dL (9-20); Calcium 8.6 mg/dL (8.4-10.2); Carbon Dioxide 22 mmol/L (22-30); Chloride 97 mmol/L (98-107); Glucose 105 mg/dL (74-99); Non-African American GFR(CKD) >90 (>60 ml/min/1.73 sqM); Potassium 5.1 mmol/L (3.5-5.1); Sodium 127 mmol/L (137-145)
[2024-08-26] MEDS: LIDOCAINE 1% INJ 10MG/ML (20 ML MDV) SQ ONE (12:08)
--- NOTE | 2024-08-26 13:13 | P.OP ---
Date of Procedure: 08/26/24 Preoperative Diagnosis: Recurrent malignant right pleural effusion Postoperative Diagnosis: Same Procedure(s) Performed: Right Pleurx catheter placement with fluoroscopy Implants: Pleurx catheter Anesthesia: MAC Surgeon: Huy Vaughan Estimated Blood Loss (ml): 3 Pathology: other (Fluid for cytology) Condition: stable Disposition: PACU Indications for Procedure: 74-year-old male with recurrent large pleural effusion. Previous cytology was positive for pulmonary adenocarcinoma. Operative Findings: Drained over 2 L of serous fluid Description of Procedure: Patient was brought to the operating room and placed supine on the operating table. Right arm was placed out on an armboard the left was tucked at the side. Right chest and upper abdomen were sterilely prepped and draped. 2% lidocaine anesthesia was utilized. Initial puncture was made in the seventh interspace in the midaxillary line and serous fluid was obtained. An 18-gauge needle was placed here and a guidewire threaded into the pleural space under fluoroscopic guidance. This puncture site was enlarged to about a centimeter and a half with an 11 blade. Counterincision was made in the right upper quadrant about a centimeter in diameter. PleurX catheter was tunneled from the abdomen to the chest incision with the cuff left just under the skin at the abdominal incision. Introducer and dilator were placed over the guidewire under fluoroscopic guidance and through the introducer sheath the Pleurx catheter was introduced into the right pleural cavity. Introducer sheath was removed. PleurX catheter was connected to suction. Chest incision was closed with 4-0 Vicryl suture and skin glue. Catheter was secured at the exit site with a 2-0 silk suture ligature. Over 2 L of fluid drained and there was still considerable fluid left in place and we decided to connect the Pleurx catheter to a chest drainage unit. Standard Pleurx dressing was applied at the exit site. Patient was transferred to recovery in stable condition.
--- NOTE | 2024-08-26 13:20 | FL ---
EXAMINATION TYPE: FL guided central line placemt DATE OF EXAM: 08/26/2024 FLUOROSCOPY 4sec fluoro time .4244 DAP 3 images are submitted. PleurX Catheter Placement [facility], , 08/26/2024 1:18 PM
--- NOTE | 2024-08-26 13:58 | P.PN ---
Subjective Progress Note Date: 08/26/24 Patient is a 74-year-old male with past medical history significant for recent diagnosis of metastatic non-small cell lung cancer, recurrent right-sided pleural effusion, COPD, chronic ongoing tobacco dependence. Patient has a recurrent right-sided pleural effusion that has been drained on 07/01/2024, as well as, 07/21/[address] Dupont. Most recently a total of 1.2 L was removed from the pleural space. Pleural fluid cytology previously positive for pulmonary adenocarcinoma. Follow-up PET scan showing scattered metastatic disease with lymph node involvement, pleural-based deposits along the right chest with malignant pleural effusion, abdominal lymphadenopathy and intrahepatic metastatic foci of lesions as well as osseous foci. Possible T10 pathologic fracture with diffuse uptake throughout the vertebral body. Recently established with medical oncology. He is unsure of who his oncologist is, but reportedly set to start systemic chemotherapy later this month. Also, has medical history of coronary artery disease, hyperlipidemia, CVA/TIA, abdominal aortic aneurysm with previous endovascular repair, prostate cancer with previous prostatectomy. Presented to emergency department yesterday afternoon with a chief complaint of increased work of breathing, as well as, nosebleeds and coughing up blood. Denies any fevers or chills. Denies any sick contacts. Reports right upper quad rant abdominal pain. INR was found to be supratherapeutic greater than 10, patient did receive 10 mg of IV vitamin K. He does take Coumadin on outpatient basis. CBC: WBC count 12.3, hemoglobin stable at 12.2, platelets 389. INR greater than 10, APTT 66.2. CMP: Sodium 130, potassium 4.8, chloride 96, serum bicarb 28, BUN 13, creatinine 0.45, glucose 108. Lactic 1.7. Magnesium 1.7. LFTs not elevated. Total bilirubin 1.2. Troponin less than 0.012. Normal saline is infusing at 75 mL/h. Additional workup in the emergency department including a chest x-ray showing a large right-sided pleural effusion with associated atelectasis. Also, trace left-sided pleural effusion. Cardiothoracic surgical consult was requested. Patient currently being evaluated on the cardiac stepdown unit. He is resting comfortably on 4 L/min nasal cannula. He states he has been wearing 2.5 L of supplemental oxygen while at home. Has a sputum basin at the bedside with small amounts of dark red blood clots. Approximately less than 30 cc. Denies any chest pain. No further coughing or nosebleeds. Does report some right upper quadrant tenderness. States his appetite has been poor. Reports weight loss of approximately 20 pounds over the last several months. Current vital signs: Afebrile, heart rate recorded at 83 bpm, blood pressure 117/77 mmHg, nontachypneic, SpO2 reading 100% on 4 L/min nasal cannula. The patient is seen today August 26, 2024 in follow-up on the selective care unit. He is currently resting in bed. Awake and alert in no acute distress. He did undergo a right sided Pleurx catheter placement today. 2 L of fluid was drained. Pleurx is placed to a Pleur-evac. He is maintaining O2 saturations up to 99% on 3 L/min per nasal cannula. Afebrile. Sodium 127. Potassium 5.1. Bicarb 22. BUN 15. Creatinine 0.47. Glucose 105. He remains on DuoNeb inhalations. NicoDerm patch offered but patient refusing. Lactated Ringer's at 20 mL/h. Objective - Vital Signs Vital signs: Vital Signs Temp 96.8 F L 08/26/24 12:28 Pulse 76 08/26/24 12:55 Resp 18 08/26/24 12:55 BP 85/53 08/26/24 12:55 Pulse Ox 99 08/26/24 12:55 FiO2 Intake & Output 08/25/24 08/26/24 08/26/24 18:59 06:59 18:59 Intake Total 330 350 Output Total 325 3 Balance 5 347 Weight 57.8 kg 570 kg Intake: IV 350 Intake, IV Titration 210 Amount Sodium Chloride 0.9% 1, 210 000 ml @ 75 mls/hr IV . [id number] Rx#:[id number] Oral 120 Output: Urine 325 Estimated Blood Loss 3 Other: # Voids 2 0 - Exam GENERAL EXAM: Alert, 74-year-old male, on 3 L/min nasal cannula, comfortable in no apparent distress. HEAD: Normocephalic and atraumatic EYES: Normal reaction of pupils, equal size. NOSE: Clear with pink turbinates. THROAT: No erythema or exudates. NECK: No masses, no JVD. CHEST: No chest wall deformity. Right sided Pleurx catheter placed today. LUNGS: Markedly diminished right lung sounds, with inspiratory posterior left basilar crackles heard on auscultation. CVS: S1 and S2 normal with no audible murmur, regular rhythm. No extra heart sounds ABDOMEN: Mild hepatomegaly, active bowel sounds, no guarding or rigidity. SPINE: No scoliosis or deformity SKIN: No rashes. No purpura or petechiae CENTRAL NERVOUS SYSTEM: No focal deficits, tone is normal in all 4 extremities. EXTREMITIES: There is no peripheral edema, clubbing, or cyanosis. Peripheral pulses are intact. - Labs CBC & Chem 7: 08/25/24 05:18 08/26/24 11:38 Labs: Abnormal Lab Results - Last 24 Hours (Table) 08/26/24 Range/Units 11:38 Sodium 127 L (137-145) mmol/L Chloride 97 L (98-107) mmol/L Creatinine 0.47 L (0.66-1.25) mg/dL Glucose 105 H (74-99) mg/dL Assessment and Plan Assessment: Recurrent right-sided pleural effusion, malignant; drained on 07/01/2024, as well as, 07/21/2024. Most recently a total of 1.2 L was removed from the pleural space. Pleural fluid cytology previously positive for pulmonary adenocarcinoma. Pleurx catheter placed today 08/26/2024 with over 2 L of fluid removed thus far Acute on chronic dyspnea, secondary to above, chest x-ray showing a large right- sided pleural effusion along with trace left-sided pleural effusion. Reversal with Acute on chronic hypoxemic respiratory failure, currently on 3 L/min nasal cannula Metastatic pulmonary adenocarcinoma, follow-up PET scan showing scattered metastatic pulmonary disease with lymph node involvement, pleural-based deposits along the right chest with malignant right sided pleural effusion, abdominal lymphadenopathy and intrahepatic metastatic foci of lesions as well as osseous foci. Possible T10 pathologic fracture with diffuse uptake throughout the vertebral body. Epistaxis Coagulopathy and supratherapeutic INR greater than 10, status post 10 mg of IV vitamin K Normocytic, normochromic anemia, hemoglobin stable at 12.2 g/dL Chronic obstructive pulmonary disease, stable Chronic ongoing tobacco dependence, however, last reported cigarette approximately 3 days ago History coronary artery disease History of hyperlipidemia History of CVA/TIA History of abdominal aortic aneurysm with previous endovascular repair History of prostate cancer with previous prostatectomy Plan: The patient was seen and evaluated Labs and medications reviewed Currently stable on 3 L nasal cannula Right sided Pleurx catheter placed today Titrate down the FiO2 as tolerated Continue bronchodilators Plan is for home with home care at discharge I have personally seen and examined the patient, performed the documentation and the assessment and plan as written. Number of minutes spent on the visit: 10 Dictation was produced using [employer] dictation software. Please excuse any grammatical, word or spelling errors.
--- NOTE | 2024-08-26 14:45 | XR ---
EXAMINATION TYPE: XR chest 1V portable DATE OF EXAM: 08/26/2024 2:38 PM COMPARISON: 08/24/2024 CLINICAL INDICATION: Male, 74 years old with history of right effusion, , FINDINGS: Right heart margin remains obscured by adjacent pleural parenchymal opacity. A moderate right pleural effusion remains. A right basilar pleural catheter is present now. The fusion has slightly diminishe d in the interval now at the midlung level. Left lung and pleural space appear clear. IMPRESSION: Slight interval decrease now, but still with a significant, moderate sized right pleural effusion wit h underlying atelectasis and/or consolidation. Right basilar pleural catheter noted. [facility], , 08/26/2024 2:42 PM
--- NOTE | 2024-08-26 17:53 | P.PN ---
Progress Note - Text Progress Note Date: 08/26/24 Chief Complaint: Bleeding from nose 74-year-old patient who follows with Dr. Moise French. medical conditions include COPD, hyperlipidemia, Coumadin for aortic stents, osteoarthritis. active smoker. June 2022 patient underwent EGD colonoscopy by Dr. Veronica Hamilton. EGD showed minimal gastritis colonoscopy showed some polyps and polypectomy was carried out. Some scattered sigmoid diverticulosis. Admitted to hospital in June. Thoracentesis carried out. Right-sided. Following discharge cytology came back showing metastatic pulmonary adenocarcinoma. 2D echo on July 20 showed EF of 55% mild to moderate TR.Brain MRI on July 20 unremarkable. Ultrasound abdomen showed hypoechoic metastatic liver lesions. July 24: PET scan showed scattered metastatic disease, lymph nodes pleural-based deposits along the right chest and likely malignant pleural effusion. Intrahepatic metastatic foci as well as osseous foci. Possible T10 pathologic fracture. And diffuse uptake through the vertebral body. Patient is due to start some form of treatment on August 31. Patient been losing significant weight. Has practically no appetite for last 2 weeks. Last bowel movement was 2 weeks ago. Feels rather weak and tired. Patient presents with bleeding through the nose quite a bit. Also through the mouth. ER INR was greater than 10. Received 10 mg of IV and vitamin K. With ER physician. Short of breath. August 25: No further bleeding. INR down to 1.2.Seen by cardiothoracic team. For a Pleurx catheter placement tomorrow. Coumadin to remain on hold. Also seen by oncology. Appetite remains poor. On Marinol. August 26: Right Pleurx catheter placed by cardiothoracic team. Postprocedure patient rather tired. Family at the bedside. Active Medications Albuterol Sulfate (Albuterol Nebulized 2.5 Mg/3 Ml) 2.5 mg INHALATION RT-Q4H PRN PRN Reason: Shortness Of Breath Albuterol/Ipratropium (Ipratropium-Albuterol 3 Ml Neb) 3 ml INHALATION RT-BID [facility] Last Admin: 08/26/24 09:19 Dose: 3 ml Albuterol/Ipratropium (Ipratropium-Albuterol 3 Ml Neb) 3 ml INHALATION RT-QID PRN PRN Reason: Shortness Of Breath Or Wheezing Carvedilol (Carvedilol 6.25 Mg Tab) 6.25 mg PO BID-W/MEALS [facility] Last Admin: 08/26/24 16:51 Dose: 6.25 mg Dronabinol (Dronabinol 2.5 Mg Cap) 5 mg PO AC-BID [facility] Last Admin: 08/26/24 17:07 Dose: 5 mg Fentanyl Citrate (Fentanyl (Pf) 50 Mcg/Ml 2 Ml Amp) 50 mcg IVP Q3M PRN PRN Reason: Pre-Op Pain Control Stop: 08/26/24 23:00 Fentanyl Citrate (Fentanyl (Pf) 50 Mcg/Ml 2 Ml Amp) 50 mcg IV Q3M PRN PRN Reason: Phase I - Pain Control Stop: 08/26/24 23:00 Lactated Ringer's (Lactated Ringers) 1,000 mls @ 20 mls/hr IV .Q24H [facility] Last Admin: 08/25/24 21:19 Dose: 20 mls/hr Nicotine (Nicotine 21mg/24hr Patch) 1 patch TRANSDERM DAILY [facility] Last Admin: 08/26/24 09:18 Dose: Not Given Social history: 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 Smokes a pack a day for 50 years recently cut back. His son and his grandson live with him . No alcohol. Physical examination: VITAL SIGNS: 96.8, 60, 16, 121 x 83, 99% 3 L GENERAL: BMI 18.4. Loss of subcutaneous fat muscle mass. Laying in bed, tired EYES: Pupils equal. Conjunctiva pale l. HEENT: External appearance of nose and ears normal, oral cavity grossly normal. NECK: JVD not raised; masses not palpable. HEART: First and second heart sounds are normal; no edema. LUNGS: Respiratory rate i increased, diminished breath sounds, especially right side. Right Pleurx catheter ABDOMEN: Soft, minimally tender, no guarding rigidity, liver spleen not palpable, no masses palpable. PSYCH: Procedure Ela is a tired MUSCULOSKELETAL:No Clubbing/cyanosis;muscles-grossly intact, evidence of OA INVESTIGATIONS, reviewed in the clinical context: August 26: Sodium 127 potassium 5.1 BUN 15 creatinine 0.47 August 25: White count 9.5 hemoglobin 12.1 INR 1.2 August 24, 2024: White count 12.8 hemoglobin 12.6 platelets 410 INR greater than 10 potassium 4.8 BUN 13 creatinine 0.45 albumin 2.5 EKG tracing personally reviewed by me-poor baseline. Poor R wave progression anterior lead. Chest x-ray film personally reviewed by me-large right pleural effusion Assessment plan: --Severe epistaxis from Coumadin toxicity.: Stopped Patient received vitamin K in the ER. -Metastatic, pulmonary adenocarcinoma. Patient is metastatic to liver, bone, recurrent right pleural effusion Patient supposed to start chemotherapy in August 31. Dr. Alex Salcedo from oncology - Coumadin toxicity Patient received 10 mg vitamin K in the ER. Now down to 1.2 - Likely vitamin K deficient from poor appetite and liver involvement from malignancy -Recurrent right pleural effusion, secondary to adenocarcinoma PleurX catheter placed on the right side by Dr. Vaughan - Severe protein calorie malnutrition from poor appetite from malignancy Ensure 1 can 3 times daily -COPD in a current smoker DuoNeb 4 times daily -Chronic nicotine dependence and the cigarette smoker Nicotine patch -Gallstones asymptomatic -Sigmoid diverticulosis, asymptomatic -Essential hypertension Coreg, - aortic graft and stent Coumadin discontinued Start Xarelto -Severe anorexia secondary to malignancy. Patient not eating for 2 weeks. Marinol Start Xarelto, if okay with oncology Past Medical History Past Medical History: Coronary Artery Disease (CAD), Cancer, COPD, CVA/TIA, Hyperlipidemia, Hypertension, Myocardial Infarction (OR), Prostate Disorder, Vascular Disorder Additional Past Medical History / Comment(s): Prostate CA, stroke x3 last 2011, peripheral vascular disease, recent fall at home, metastatic pulmonary adenocarcinoma with recurrent right-sided pleural effusion Last Myocardial Infarction Date:: 2008 History of Any Multi-Drug Resistant Organisms: None Reported Past Surgical History: Orthopedic Surgery, Prostate Surgery Additional Past Surgical History / Comment(s): abdominal aortic stent; right sided thoracentesis 07/01/24-fluid cytology positive for metastatic pulmonary adenocarcinoma Past Anesthesia/Blood Transfusion Reactions: No Reported Reaction Smoking Status: Current some day smoker, Former smoker
[2024-08-26] MEDS: RIVAROXABAN 20 MG TAB PO SCH (20:45)
[2024-08-27 06:53] LABS: HGB 11.8 g/dL (13.0-17.0); MCH 28.9 pg (27.0-32.0); MCHC 33.7 g/dL (32.0-37.0); MCV 85.8 fL (80.0-97.0); Mean Platelet Volume 9.8 fL (9.5-12.2); Platelet Count 341 10*3/uL (140-440); RBC 4.08 10*6/uL (4.40-5.60); RDW 15.6 % (11.5-14.5); WBC 11.93 10*3/uL (4.50-10.00)
[2024-08-27 07:02] LABS: INR 2.1 (<1.2); Partial Thromboplastin Time 34.1 sec (22.0-30.0); Prothrombin Time 21.2 sec (10.0-12.5)
[2024-08-27 07:07] LABS: Anion Gap 2 mmol/L; Blood Urea Nitrogen 11 mg/dL (9-20); Carbon Dioxide 32 mmol/L (22-30); Chloride 94 mmol/L (98-107); Glucose 79 mg/dL (74-99); Potassium 4.1 mmol/L (3.5-5.1); Sodium 128 mmol/L (137-145)
[2024-08-27 07:08] LABS: African American GFR (CKD) >90 (>60 ml/min/1.73 sqM); Calcium 8.4 mg/dL (8.4-10.2); Non-African American GFR(CKD) >90 (>60 ml/min/1.73 sqM)
--- NOTE | 2024-08-27 07:37 | XR ---
EXAMINATION TYPE: XR chest 1V portable DATE OF EXAM: 08/27/2024 6:57 AM COMPARISON: 08/26/2024 CLINICAL INDICATION: Male, 74 years old with history of post pleurx cath placement, , FINDINGS: Right heart margin remains largely obscured by adjacent pleural parenchymal opacity though there is n ow residual small to moderate right pleural effusion, decreased in the interval. Trace 9 mm right api stefano pneumothorax is now noted. Left lung and pleural space appear relatively clear. Pleurx catheter a t the right base. IMPRESSION: 1. Pleural catheter at the right base with trace 9 mm right apical pneumothorax now seen. 2. Decreased, now small to moderate residual right pleural effusion though with prominent adjacent at electasis and/or consolidation. [facility], , 08/27/2024 7:34 AM
[2024-08-27 08:51] VITALS: TEMP 97.3
--- NOTE | 2024-08-27 10:58 | P.PN ---
Subjective Progress Note Date: 08/27/24 Principal diagnosis: Recurrent malignant right pleural effusion. Past medical history significant for current longstanding tobacco dependence with recent cessation, COPD, myocardial infarction, AAA with endovascular repair, DVT on Coumadin outpatient, hypertension, hyperlipidemia, CVA, and prostate cancer. POD #1 right Pleurx catheter placement with fluoroscopy. The patient was seen and examined in follow-up today August 27, 2024 at his bedside on the third floor cardiac stepdown unit. He is currently sitting up to the bedside chair, is awake, alert, oriented x 3 and is in no acute apparent distress. He denies any complaints of pain or shortness of breath at this time, states his breathing is much improved today from yesterday. Oxygen saturations are 98% on 2 L nasal cannula. Remote telemetry is showing normal sinus rhythm heart rate 87 bpm. Right chest Pleurx catheter remains in place and connected to bedside Pleur-evac. No airleak is present. Draining thin serosanguineous drainage with 600 mL output since placement. Chest x-ray results reviewed. Objective - Vital Signs Vital signs: Vital Signs Temp 97.3 F L 08/27/24 08:00 Pulse 83 08/27/24 08:16 Resp 16 08/27/24 08:00 BP 92/60 08/27/24 08:00 Pulse Ox 98 08/27/24 08:09 FiO2 Intake & Output 08/26/24 08/27/24 08/27/24 18:59 06:59 18:59 Intake Total 350 240 240 Output Total 3 2151 190 Balance 347 -1911 50 Weight 56.2 kg Intake: IV 350 Oral 240 240 Output: Chest Tube Drainage 2150 190 Thora-Vent 2150 190 Stool 1 Estimated Blood Loss 3 Other: Voiding Method Toilet # Voids 2 - Exam CONSTITUTIONAL: Appears comfortable, cooperative, no acute distress. RESPIRATORY: Lungs sounds diminished bilaterally, few scattered expiratory wheezes. Respirations symmetrical, nonlabored. Currently on 2 L nasal cannula with oxygen saturation 98%. Strong cough. CARDIOVASCULAR: S1, S2 present. Regular rate and rhythm, sinus rhythm on telemetry. Palpable peripheral pulses bilaterally. No edema present. No calf pain or tenderness noted. SCDs present. GASTROINTESTINAL: Abdomen soft, nontender, nondistended. Active bowel sounds present 4 quadrants. Tolerating diet. No guarding or rigidity. GENITOURINARY: Continues to void. INTEGUMENTARY: Skin is warm and dry with no clubbing or cyanosis present. Right chest Pleurx catheter in place. NEUROLOGIC: Cranial nerves II through XII intact. MUSKULOSKELETAL: Able to move all extremities, strength equal bilaterally, gait normal, generalized weakness. PSYCHIATRIC: Alert and oriented to person place and time, appropriate affect, intact judgment and insight. INVASIVE LINES AND TUBES: Right chest Pleurx catheter in place and connected to bedside Pleur-evac system on waterseal. No air leak is present. Draining thin serosanguineous drainage with 600 mL output in the last 24 hours. - Allied health notes Allied health notes reviewed: nursing - Labs CBC & Chem 7: 08/27/24 05:41 08/27/24 05:41 Labs: Abnormal Lab Results - Last 24 Hours (Table) 08/26/24 08/27/24 08/27/24 Range/Units 11:38 05:41 05:41 WBC 11.93 H (4.50-10.00) 10*3/uL RBC 4.08 L (4.40-5.60) 10*6/uL Hgb 11.8 L (13.0-17.0) g/dL Hct 35.0 L (39.6-50.0) % PT 21.2 H (10.0-12.5) sec INR 2.1 H (<1.2) APTT 34.1 H (22.0-30.0) sec Sodium 127 L (137-145) mmol/L Chloride 97 L (98-107) mmol/L Carbon Dioxide (22-30) mmol/L Creatinine 0.47 L (0.66-1.25) mg/dL Glucose 105 H (74-99) mg/dL 08/27/24 Range/Units 05:41 WBC (4.50-10.00) 10*3/uL RBC (4.40-5.60) 10*6/uL Hgb (13.0-17.0) g/dL Hct (39.6-50.0) % PT (10.0-12.5) sec INR (<1.2) APTT (22.0-30.0) sec Sodium 128 L (137-145) mmol/L Chloride 94 L (98-107) mmol/L Carbon Dioxide 32 H (22-30) mmol/L Creatinine 0.59 L (0.66-1.25) mg/dL Glucose (74-99) mg/dL - Imaging and Cardiology Chest x-ray: report reviewed, image reviewed Assessment and Plan Assessment: Recurrent malignant right pleural effusion, status post right thoracentesis x 2, status post right Pleurx catheter placement Acute hypoxic respiratory failure Recent diagnosis of metastatic pulmonary adenocarcinoma Shortness of breath secondary to above Supratherapeutic INR, status post vitamin K administration, INR 2.1 today History of current longstanding tobacco dependence, admitted cessation 4 days ago COPD Myocardial infarction AAA with endovascular repair DVT on Coumadin outpatient Hypertension Hyperlipidemia CVA Prostate cancer Plan: When the patient is ready for discharge we can The Pleurx catheter and removed from the Pleur-evac system. Continue to monitor daily chest x-rays. Encourage use of incentive spirometry 10 times every hour while awake. Increase activity as tolerated. Pain control per current as needed orders. More recommendations to follow based on patient's clinical course. Time with Patient: Greater than 30
--- NOTE | 2024-08-27 11:16 | P.PN ---
Subjective Progress Note Date: 08/27/24 Patient is a 74-year-old male with past medical history significant for recent diagnosis of metastatic non-small cell lung cancer, recurrent right-sided pleural effusion, COPD, chronic ongoing tobacco dependence. Patient has a recurrent right-sided pleural effusion that has been drained on 07/01/2024, as well as, 07/21/[address] Dupont. Most recently a total of 1.2 L was removed from the pleural space. Pleural fluid cytology previously positive for pulmonary adenocarcinoma. Follow-up PET scan showing scattered metastatic disease with lymph node involvement, pleural-based deposits along the right chest with malignant pleural effusion, abdominal lymphadenopathy and intrahepatic metastatic foci of lesions as well as osseous foci. Possible T10 pathologic fracture with diffuse uptake throughout the vertebral body. Recently established with medical oncology. He is unsure of who his oncologist is, but reportedly set to start systemic chemotherapy later this month. Also, has medical history of coronary artery disease, hyperlipidemia, CVA/TIA, abdominal aortic aneurysm with previous endovascular repair, prostate cancer with previous prostatectomy. Presented to emergency department yesterday afternoon with a chief complaint of increased work of breathing, as well as, nosebleeds and coughing up blood. Denies any fevers or chills. Denies any sick contacts. Reports right upper quad rant abdominal pain. INR was found to be supratherapeutic greater than 10, patient did receive 10 mg of IV vitamin K. He does take Coumadin on outpatient basis. CBC: WBC count 12.3, hemoglobin stable at 12.2, platelets 389. INR greater than 10, APTT 66.2. CMP: Sodium 130, potassium 4.8, chloride 96, serum bicarb 28, BUN 13, creatinine 0.45, glucose 108. Lactic 1.7. Magnesium 1.7. LFTs not elevated. Total bilirubin 1.2. Troponin less than 0.012. Normal saline is infusing at 75 mL/h. Additional workup in the emergency department including a chest x-ray showing a large right-sided pleural effusion with associated atelectasis. Also, trace left-sided pleural effusion. Cardiothoracic surgical consult was requested. Patient currently being evaluated on the cardiac stepdown unit. He is resting comfortably on 4 L/min nasal cannula. He states he has been wearing 2.5 L of supplemental oxygen while at home. Has a sputum basin at the bedside with small amounts of dark red blood clots. Approximately less than 30 cc. Denies any chest pain. No further coughing or nosebleeds. Does report some right upper quadrant tenderness. States his appetite has been poor. Reports weight loss of approximately 20 pounds over the last several months. Current vital signs: Afebrile, heart rate recorded at 83 bpm, blood pressure 117/77 mmHg, nontachypneic, SpO2 reading 100% on 4 L/min nasal cannula. The patient is seen today August 26, 2024 in follow-up on the selective care unit. He is currently resting in bed. Awake and alert in no acute distress. He did undergo a right sided Pleurx catheter placement today. 2 L of fluid was drained. Pleurx is placed to a Pleur-evac. He is maintaining O2 saturations up to 99% on 3 L/min per nasal cannula. Afebrile. Sodium 127. Potassium 5.1. Bicarb 22. BUN 15. Creatinine 0.47. Glucose 105. He remains on DuoNeb inhalations. NicoDerm patch offered but patient refusing. Lactated Ringer's at 20 mL/h. The patient is seen today August 27, 2024 and follow-up on the selective care unit. He is awake and alert in no acute distress. Resting fairly comfortably in bed. Right sided Pleurx catheter remains in place. An additional 650 mL out in the past 24 hours. Remains attached to Pleur-evac and to waterseal. He is maintaining good O2 saturations in the 90s on 2 L/min per nasal cannula. Lactated Ringer's at 20 mL/h. He is continued on DuoNeb inhalations. Anticoagulated with Xarelto. NicoDerm patch remains in place. Chest x-ray shows right Pleurx catheter in place with a trace 9 mm right apical pneumothorax. Decreased right pleural effusion. White count 11.9. Hemoglobin 11.8. Platelets 341. INR 2.1. Sodium 128. Potassium 4.1. Bicarb 32. BUN 11. Creatinine 0.59. Glucose 79. Objective - Vital Signs Vital signs: Vital Signs Temp 97.3 F L 08/27/24 08:00 Pulse 83 08/27/24 08:16 Resp 16 08/27/24 08:00 BP 92/60 08/27/24 08:00 Pulse Ox 98 08/27/24 08:09 FiO2 Intake & Output 08/26/24 08/27/24 08/27/24 18:59 06:59 18:59 Intake Total 350 240 240 Output Total 3 215 191 Balance 347 -191 49 Weight 56.2 kg Intake: IV 350 Oral 240 240 Output: Chest Tube Drainage 2150 190 Thora-Vent 2150 190 Stool 1 1 Estimated Blood Loss 3 Other: Voiding Method Toilet Toilet # Voids 2 - Exam GENERAL EXAM: Alert, 74-year-old male, on 2 L/min nasal cannula, comfortable in no apparent distress. HEAD: Normocephalic and atraumatic EYES: Normal reaction of pupils, equal size. NOSE: Clear with pink turbinates. THROAT: No erythema or exudates. NECK: No masses, no JVD. CHEST: No chest wall deformity. Right sided Pleurx catheter in place, to Pleur- evac, waterseal. LUNGS: Markedly diminished right lung sounds, with inspiratory posterior left basilar crackles heard on auscultation. CVS: S1 and S2 normal with no audible murmur, regular rhythm. No extra heart sounds ABDOMEN: Mild hepatomegaly, active bowel sounds, no guarding or rigidity. SPINE: No scoliosis or deformity SKIN: No rashes. No purpura or petechiae CENTRAL NERVOUS SYSTEM: No focal deficits, tone is normal in all 4 extremities. EXTREMITIES: There is no peripheral edema, clubbing, or cyanosis. Peripheral pulses are intact. - Labs CBC & Chem 7: 08/27/24 05:41 08/27/24 05:41 Labs: Abnormal Lab Results - Last 24 Hours (Table) 08/26/24 08/27/24 08/27/24 Range/Units 11:38 05:41 05:41 WBC 11.93 H (4.50-10.00) 10*3/uL RBC 4.08 L (4.40-5.60) 10*6/uL Hgb 11.8 L (13.0-17.0) g/dL Hct 35.0 L (39.6-50.0) % PT 21.2 H (10.0-12.5) sec INR 2.1 H (<1.2) APTT 34.1 H (22.0-30.0) sec Sodium 127 L (137-145) mmol/L Chloride 97 L (98-107) mmol/L Carbon Dioxide (22-30) mmol/L Creatinine 0.47 L (0.66-1.25) mg/dL Glucose 105 H (74-99) mg/dL 08/27/24 Range/Units 05:41 WBC (4.50-10.00) 10*3/uL RBC (4.40-5.60) 10*6/uL Hgb (13.0-17.0) g/dL Hct (39.6-50.0) % PT (10.0-12.5) sec INR (<1.2) APTT (22.0-30.0) sec Sodium 128 L (137-145) mmol/L Chloride 94 L (98-107) mmol/L Carbon Dioxide 32 H (22-30) mmol/L Creatinine 0.59 L (0.66-1.25) mg/dL Glucose (74-99) mg/dL Assessment and Plan Assessment: Recurrent right-sided pleural effusion, malignant; drained on 07/01/2024, as well as, 07/21/2024. Most recently a total of 1.2 L was removed from the pleural space. Pleural fluid cytology previously positive for pulmonary adenocarcinoma. Pleurx catheter placed 08/26/2024 with over 2 L of fluid removed thus far. Continues to Pleur-evac and waterseal. Chest x-ray shows trace right apical pneumothorax measuring 9 mm. Improved right pleural effusion Acute on chronic dyspnea, secondary to above, chest x-ray showing a large right- sided pleural effusion along with trace left-sided pleural effusion. Improved post Pleurx catheter Acute on chronic hypoxemic respiratory failure, currently on 2 L/min nasal cannula Metastatic pulmonary adenocarcinoma, follow-up PET scan showing scattered metastatic pulmonary disease with lymph node involvement, pleural-based deposits along the right chest with malignant right sided pleural effusion, abdominal lymphadenopathy and intrahepatic metastatic foci of lesions as well as osseous foci. Possible T10 pathologic fracture with diffuse uptake throughout the vertebral body Epistaxis Coagulopathy and supratherapeutic INR greater than 10, status post 10 mg of IV vitamin K. INR today 2.1 Normocytic, normochromic anemia, hemoglobin stable at 12.2 g/dL Chronic obstructive pulmonary disease, stable Chronic ongoing tobacco dependence, however, last reported cigarette approximately 3 days ago History coronary artery disease History of hyperlipidemia History of CVA/TIA History of abdominal aortic aneurysm with previous endovascular repair History of prostate cancer with previous prostatectomy Plan: The patient was seen and evaluated Chest x-ray, labs and medications reviewed Currently stable on 2 L nasal cannula Encourage increased use of the incentive spirometer Right sided Pleurx catheter in place to Pleur-evac Pleural fluid culture and cytology pending Continue bronchodilators NicoDerm patch in place Educated regarding the importance of smoking cessation Plan is for home with home care at discharge I have personally seen and examined the patient, performed the documentation and the assessment and plan as written. Number of minutes spent on the visit: 10 Dictation was produced using [employer] dictation software. Please excuse any grammatical, word or spelling errors.
--- NOTE | 2024-08-27 15:58 | P.PN ---
Subjective Progress Note Date: 08/27/24 Principal diagnosis: SOB, recurrent malignant pleural effusion, met NSCLC In f/u today pt resp are much less labored, he did get up with PT and did well, he is going to be going home with skilled services on DC Objective - Vital Signs Vital signs: Vital Signs Temp 97.3 F L 08/27/24 08:00 Pulse 83 08/27/24 08:16 Resp 16 08/27/24 08:00 BP 92/60 08/27/24 08:00 Pulse Ox 98 08/27/24 08:09 FiO2 Intake & Output 08/26/24 08/27/24 08/27/24 18:59 06:59 18:59 Intake Total 350 240 240 Output Total 3 2151 191 Balance 347 -1911 49 Weight 56.2 kg Intake: IV 350 Oral 240 240 Output: Chest Tube Drainage 2150 190 Thora-Vent 2150 190 Stool 1 1 Estimated Blood Loss 3 Other: Voiding Method Toilet Toilet # Voids 2 - Constitutional General appearance: Present: cooperative, no acute distress, thin - EENT Eyes: Present: anicteric sclerae, EOMI ENT: Present: hearing grossly normal - Respiratory Details: resp unlabored at rest today, O2 4L-baseline - Cardiovascular Details: skin warm, well perfused - Peripheral edema leg Peripheral Edema: bilateral: None - Neurologic Neurologic: Present: CNII-XII intact - Musculoskeletal Musculoskeletal: Present: generalized weakness, strength equal bilaterally - Psychiatric Psychiatric: Present: A&O x's 3, appropriate affect, intact judgment & insight - Labs CBC & Chem 7: 08/27/24 05:41 08/27/24 05:41 Labs: Abnormal Lab Results - Last 24 Hours (Table) 08/26/24 08/27/24 08/27/24 Range/Units 11:38 05:41 05:41 WBC 11.93 H (4.50-10.00) 10*3/uL RBC 4.08 L (4.40-5.60) 10*6/uL Hgb 11.8 L (13.0-17.0) g/dL Hct 35.0 L (39.6-50.0) % PT 21.2 H (10.0-12.5) sec INR 2.1 H (<1.2) APTT 34.1 H (22.0-30.0) sec Sodium 127 L (137-145) mmol/L Chloride 97 L (98-107) mmol/L Carbon Dioxide (22-30) mmol/L Creatinine 0.47 L (0.66-1.25) mg/dL Glucose 105 H (74-99) mg/dL 08/27/24 Range/Units 05:41 WBC (4.50-10.00) 10*3/uL RBC (4.40-5.60) 10*6/uL Hgb (13.0-17.0) g/dL Hct (39.6-50.0) % PT (10.0-12.5) sec INR (<1.2) APTT (22.0-30.0) sec Sodium 128 L (137-145) mmol/L Chloride 94 L (98-107) mmol/L Carbon Dioxide 32 H (22-30) mmol/L Creatinine 0.59 L (0.66-1.25) mg/dL Glucose (74-99) mg/dL Assessment and Plan (1) Coagulopathy Current Visit: Yes Status: Acute Priority: High Code(s): D68.9 - COAGULATION DEFECT, UNSPECIFIED SNOMED Code(s): 79692660 (2) Pleural effusion Current Visit: Yes Status: Acute Priority: High Code(s): J90 - PLEURAL EFFUSION, NOT ELSEWHERE CLASSIFIED SNOMED Code(s): 02925556 (3) Stage 4 malignant neoplasm of lung Current Visit: Yes Status: Acute Priority: High Code(s): C34.90 - MALIGNANT NEOPLASM OF UNSP PART OF UNSP BRONCHUS OR LUNG SNOMED Code(s): 57248122 Plan: Coagulopathy - INR greater than 10 on admit with symptoms of epistaxis -Multifactorial including lack of oral intake as well as malignancy. It was of concern, patient being on Coumadin and receiving treatment for cancer-modified oral intake-that INR would be difficult to manage. Plans to transition to Eliquis or Xarelto. Pt was started on xarelto last night by IM. - Patient is been given parenteral vitamin K on admit with reversal of supratherapeutic INR >10. INR was 1.2 yesterday, today INR 2.1 today. Suspect rebound from coumadin coagulopathy. Pt has only had 1 dose of xarelto and xarelto does not typically alter the INR to this degree. Vit K IVPB ordered so pt is not dual anticoagulated Pleural effusion - History of malignant pleural effusion - This is the patient's third reaccumulation of fluid causing symptoms in about 2 months. -Pt chest tube is draining bloody fluid. Pt resp status is much improved since yesterday. Cardiothoracic surgery following. Agree with the plan of care. Stage IV non-small cell lung cancer - Diagnosis as documented in HPI - Dual immunotherapy treatment as planned. It is not been initiated yet. - Plans for the same to begin once patient has been discharged from the hospital.
[2024-08-27] MEDS: PHYTONADIONE 5 MG in SODIUM CHLORIDE 0.9% 50 ML IVPB STA (16:40)
--- NOTE | 2024-08-27 16:47 | P.PN ---
Progress Note - Text Progress Note Date: 08/27/24 Chief Complaint: Bleeding from nose 74-year-old patient who follows with Dr. Moise French. medical conditions include COPD, hyperlipidemia, Coumadin for aortic stents, osteoarthritis. active smoker. June 2022 patient underwent EGD colonoscopy by Dr. Veronica Hamilton. EGD showed minimal gastritis colonoscopy showed some polyps and polypectomy was carried out. Some scattered sigmoid diverticulosis. Admitted to hospital in June. Thoracentesis carried out. Right-sided. Following discharge cytology came back showing metastatic pulmonary adenocarcinoma. 2D echo on July 20 showed EF of 55% mild to moderate TR.Brain MRI on July 20 unremarkable. Ultrasound abdomen showed hypoechoic metastatic liver lesions. July 24: PET scan showed scattered metastatic disease, lymph nodes pleural-based deposits along the right chest and likely malignant pleural effusion. Intrahepatic metastatic foci as well as osseous foci. Possible T10 pathologic fracture. And diffuse uptake through the vertebral body. Patient is due to start some form of treatment on August 31. Patient been losing significant weight. Has practically no appetite for last 2 weeks. Last bowel movement was 2 weeks ago. Feels rather weak and tired. Patient presents with bleeding through the nose quite a bit. Also through the mouth. ER INR was greater than 10. Received 10 mg of IV and vitamin K. With ER physician. Short of breath. August 25: No further bleeding. INR down to 1.2.Seen by cardiothoracic team. For a Pleurx catheter placement tomorrow. Coumadin to remain on hold. Also seen by oncology. Appetite remains poor. On Marinol. August 26: Right Pleurx catheter placed by cardiothoracic team. Postprocedure patient rather tired. Family at the bedside. August 27: Patient initially had 2150 cc removed from the right chest. Right Pleurx catheter connected to Pleur-evac breathing much better. Sitting up in bed. Has been on Marinol. Appetite has picked up. Started on Xarelto last night Active Medications Albuterol Sulfate (Albuterol Nebulized 2.5 Mg/3 Ml) 2.5 mg INHALATION RT-Q4H PRN PRN Reason: Shortness Of Breath Albuterol/Ipratropium (Ipratropium-Albuterol 3 Ml Neb) 3 ml INHALATION RT-BID HECTOR Last Admin: 08/27/24 08:06 Dose: 3 ml Albuterol/Ipratropium (Ipratropium-Albuterol 3 Ml Neb) 3 ml INHALATION RT-QID PRN PRN Reason: Shortness Of Breath Or Wheezing Carvedilol (Carvedilol 6.25 Mg Tab) 6.25 mg PO BID-W/MEALS [facility] Last Admin: 08/27/24 06:33 Dose: 6.25 mg Dronabinol (Dronabinol 2.5 Mg Cap) 5 mg PO AC-BID [facility] Last Admin: 08/27/24 06:33 Dose: 5 mg Lactated Ringer's (Lactated Ringers) 1,000 mls @ 20 mls/hr IV .Q24H [facility] Last Admin: 08/27/24 06:33 Dose: 20 mls/hr Nicotine (Nicotine 21mg/24hr Patch) 1 patch TRANSDERM DAILY [facility] Last Admin: 08/27/24 08:41 Dose: Not Given Rivaroxaban (Rivaroxaban 20 Mg Tab) 20 mg PO W/SUPPER [facility]; Protocol Last Admin: 08/26/24 20:45 Dose: 20 mg Social history: 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 Smokes a pack a day for 50 years recently cut back. His son and his grandson live with him . No alcohol. Physical examination: VITAL SIGNS: Afebrile, 95, 16, 94/56, 92% 2 L GENERAL: BMI 18.4. Loss of subcutaneous fat muscle mass. Sitting up in bed, more cheerful EYES: Pupils equal. Conjunctiva pale l. HEENT: External appearance of nose and ears normal, oral cavity grossly normal. NECK: JVD not raised; masses not palpable. HEART: First and second heart sounds are normal; no edema. LUNGS: Respiratory rate i increased, diminished breath sounds, especially right side. Right Pleurx catheter attached to Pleur-evac ABDOMEN: Soft, minimally tender, no guarding rigidity, liver spleen not palpable, no masses palpable. PSYCH: AO x 3, mood affect normal MUSCULOSKELETAL:No Clubbing/cyanosis;muscles-grossly intact, evidence of OA INVESTIGATIONS, reviewed in the clinical context: August 27: White count 9.9 hemoglobin 11.8 platelet 341 sodium 128 potassium 4.1 creatinine 0.59 August 26: Sodium 127 potassium 5.1 BUN 15 creatinine 0.47 August 25: White count 9.5 hemoglobin 12.1 INR 1.2 August 24, 2024: White count 12.8 hemoglobin 12.6 platelets 410 INR greater than 10 potassium 4.8 BUN 13 creatinine 0.45 albumin 2.5 EKG tracing personally reviewed by me-poor baseline. Poor R wave progression anterior lead. Chest x-ray film personally reviewed by me-large right pleural effusion Assessment plan: --Severe epistaxis from Coumadin toxicity.: Stopped Patient received vitamin K in the ER. -Metastatic, pulmonary adenocarcinoma. metastatic to liver, bone, recurrent right pleural effusion Plan for dual immunotherapy and discharge Dr. Alex Salcedo from oncology following: - Coumadin toxicity Patient received 10 mg vitamin K in the ER. Now down to 1.2 - Likely vitamin K deficient from poor appetite and liver involvement from malignancy -Recurrent right pleural effusion, secondary to adenocarcinoma PleurX catheter placed on the right side by Dr. Vaughan: Initially 2150 cc removed PleurX catheter attached Pleur-evac - Severe protein calorie malnutrition from poor appetite from malignancy Ensure 1 can 3 times daily -COPD in a current smoker DuoNeb 4 times daily -Chronic nicotine dependence and the cigarette smoker Nicotine patch -Gallstones asymptomatic -Sigmoid diverticulosis, asymptomatic -Essential hypertension Coreg, - aortic graft and stent Coumadin discontinued Start Xarelto -Severe anorexia secondary to malignancy. Patient not eating for 2 weeks.: Improving Marinol Eating better. Pleur-evac. Xarelto. Past Medical History Past Medical History: Coronary Artery Disease (CAD), Cancer, COPD, CVA/TIA, Hyperlipidemia, Hypertension, Myocardial Infarction (AL), Prostate Disorder, Vascular Disorder Additional Past Medical History / Comment(s): Prostate CA, stroke x3 last 2011, peripheral vascular disease, recent fall at home, metastatic pulmonary adenocarcinoma with recurrent right-sided pleural effusion Last Myocardial Infarction Date:: 2008 History of Any Multi-Drug Resistant Organisms: None Reported Past Surgical History: Orthopedic Surgery, Prostate Surgery Additional Past Surgical History / Comment(s): abdominal aortic stent; right sided thoracentesis 07/01/24-fluid cytology positive for metastatic pulmonary a denocarcinoma Past Anesthesia/Blood Transfusion Reactions: No Reported Reaction Smoking Status: Current some day smoker, Former smoker
--- NOTE | 2024-08-28 07:53 | XR ---
EXAMINATION TYPE: XR chest 1V portable DATE OF EXAM: 08/28/2024 7:45 AM COMPARISON: 08/27/2024 CLINICAL INDICATION: Male, 74 years old with history of pleural effusion, , FINDINGS: Right heart margin remains partially obscured by adjacent pleural parenchymal opacity. A right basila r pleural catheter remains in place. Small to moderate right pleural effusion with prominent adjacent patchy opacity remains. Possible edge of a pneumothorax along the periphery of the right lower chest . Partially visualized endovascular abdominal aortic stent graft. Prominent skinfold projecting at th e left midlung. Hyperinflation. IMPRESSION: COPD with right basilar pleural catheter in place. Similar small to moderate right pleural effusion w ith prominent adjacent atelectasis and/or consolidation. UNABLE TO EXCLUDE AN UNDERLYING PARTIALLY OB SCURED RIGHT BASILAR PNEUMOTHORAX. The previous apical component is no longer seen. [facility], Workstation: [facility], 08/28/2024 7:51 AM
[2024-08-28] MEDS: HYDROcodone/APAP 5-325MG 1 EACH TAB PO PRN (09:04)
[2024-08-28 10:27] VITALS: BMI 17.8
[2024-08-28 10:37] LABS: Basophils # (A) 0.03 10*3/uL (0.00-0.10); Basophils % (A) 0.2 %; Eosinophils # (A) 0.29 10*3/uL (0.04-0.35); Eosinophils % (A) 2.3 %; HGB 11.1 g/dL (13.0-17.0); Lymphocytes % (A) 12.5 %; MCH 29.3 pg (27.0-32.0); MCHC 34.7 g/dL (32.0-37.0); MCV 84.4 fL (80.0-97.0); Mean Platelet Volume 9.5 fL (9.5-12.2); Monocytes # (A) 1.47 10*3/uL (0.20-1.00); Monocytes % (A) 11.5 %; Neutrophils # (A) 9.34 10*3/uL (1.80-7.70); Platelet Count 297 10*3/uL (140-440); RBC 3.79 10*6/uL (4.40-5.60); RDW 15.8 % (11.5-14.5); WBC 12.79 10*3/uL (4.50-10.00)
[2024-08-28 10:48] LABS: INR 1.7 (<1.2); Prothrombin Time 17.1 sec (10.0-12.5)
[2024-08-28 11:54] VITALS: BP 85/55; PULSE 71; RESP 18
--- NOTE | 2024-08-28 12:04 | P.PN ---
Subjective Progress Note Date: 08/28/24 Principal diagnosis: Pleural effusion. Patient is a 74-year-old male with past medical history significant for recent diagnosis of metastatic non-small cell lung cancer, recurrent right-sided pleural effusion, COPD, chronic ongoing tobacco dependence. Patient has a recurrent right-sided pleural effusion that has been drained on 07/01/2024, as well as, 07/21/[address] Dupont. Most recently a total of 1.2 L was removed from the pleural space. Pleural fluid cytology previously positive for pulmonary adenocarcinoma. Follow-up PET scan showing scattered metastatic disease with lymph node involvement, pleural-based deposits along the right chest with malignant pleural effusion, abdominal lymphadenopathy and intrahepatic metastatic foci of lesions as well as osseous foci. Possible T10 pathologic fracture with diffuse uptake throughout the vertebral body. Recently established with medical oncology. He is unsure of who his oncologist is, but reportedly set to start systemic chemotherapy later this month. Also, has medical history of coronary artery disease, hyperlipidemia, CVA/TIA, abdominal aortic aneurysm with previous endovascular repair, prostate cancer with previous prostatectomy. Presented to emergency department yesterday afternoon with a chief complaint of increased work of breathing, as well as, nosebleeds and coughing up blood. Denies any fevers or chills. Denies any sick contacts. Reports right upper quadrant abdominal pain. INR was found to be supratherapeutic greater than 10, patient did receive 10 mg of IV vitamin K. He does take Coumadin on outpatient basis. CBC: WBC count 12.3, hemoglobin stable at 12.2, platelets 389. INR gre ater than 10, APTT 66.2. CMP: Sodium 130, potassium 4.8, chloride 96, serum bicarb 28, BUN 13, creatinine 0.45, glucose 108. Lactic 1.7. Magnesium 1.7. LFTs not elevated. Total bilirubin 1.2. Troponin less than 0.012. Normal saline is infusing at 75 mL/h. Additional workup in the emergency department including a chest x-ray showing a large right-sided pleural effusion with associated atelectasis. Also, trace left-sided pleural effusion. Cardiothoracic surgical consult was requested. Patient currently being evaluated on the cardiac stepdown unit. He is resting comfortably on 4 L/min n josh cannula. He states he has been wearing 2.5 L of supplemental oxygen while at home. Has a sputum basin at the bedside with small amounts of dark red blood clots. Approximately less than 30 cc. Denies any chest pain. No further coughing or nosebleeds. Does report some right upper quadrant tenderness. States his appetite has been poor. Reports weight loss of approximately 20 pounds over the last several months. Current vital signs: Afebrile, heart rate recorded at 83 bpm, blood pressure 117/77 mmHg, nontachypneic, SpO2 reading 100% on 4 L/min nasal cannula. The patient is seen today August 26, 2024 in follow-up on the selective care unit. He is currently resting in bed. Awake and alert in no acute distress. He did undergo a right sided Pleurx catheter placement today. 2 L of fluid was drained. Pleurx is placed to a Pleur-evac. He is maintaining O2 saturations up to 99% on 3 L/min per nasal cannula. Afebrile. Sodium 127. Potassium 5.1. Bicarb 22. BUN 15. Creatinine 0.47. Glucose 105. He remains on DuoNeb inhalations. NicoDerm patch offered but patient refusing. Lactated Ringer's at 20 mL/h. The patient is seen today August 27, 2024 and follow-up on the selective care unit. He is awake and alert in no acute distress. Resting fairly comfortably in bed. Right sided Pleurx catheter remains in place. An additional 650 mL out in the past 24 hours. Remains attached to Pleur-evac and to waterseal. He is maintaining good O2 saturations in the 90s on 2 L/min per nasal cannula. Lactated Ringer's at 20 mL/h. He is continued on DuoNeb inhalations. Anticoa gulated with Xarelto. NicoDerm patch remains in place. Chest x-ray shows right Pleurx catheter in place with a trace 9 mm right apical pneumothorax. Decreased right pleural effusion. White count 11.9. Hemoglobin 11.8. Platelets 341. INR 2.1. Sodium 128. Potassium 4.1. Bicarb 32. BUN 11. Creatinine 0.59. Glucose 79. Progress note dated August 28, 2024. 74-year-old male seen today in room 384. The patient has a history of recurrent pleural effusion, and came into the hospital, for placement of a right sided Pleurx catheter. That was done, the patient is doing well. He is currently on 2 L nasal cannula. He is getting lactated Ringer's at 20 cc an hour. He has had 650 cc of fluid out from the right pleural space, the last 24 hours. Clinically, he appears stable, could be considered for possible discharge. White count is 12.8, hemoglobin 11.1, hematocrit 32, platelet count 297,000. PT 17.1 with an INR of 1.7. Chest x-ray shows changes of COPD, but the right basilar pleural catheter in place. The patient has a moderate right-sided pleural effusion. Objective - Vital Signs Vital signs: Vital Signs Temp 97.3 F L 08/27/24 19:34 Pulse 71 08/28/24 11:53 Resp 18 08/28/24 11:53 BP 85/55 08/28/24 11:53 Pulse Ox 97 08/28/24 11:53 FiO2 Intake & Output 08/27/24 08/28/24 08/28/24 18:59 06:59 18:59 Intake Total 240 0 Output Total 292 600 1 Balance -52 -600 -1 Weight 56.4 kg 56.4 kg Intake: Oral 240 0 Output: Chest Tube Drainage 290 600 Thora-Vent 290 600 Stool 2 1 Other: Voiding Method Toilet Toilet Toilet Urinal Urinal - Exam No acute distress, oriented 3. No respiratory distress. Currently on 2 L. HEENT examination is grossly unremarkable. Mucous membranes are moist. No oral lesions. Neck supple. Full range of motion. No adenopathy thyromegaly or neck vein distention. Cardiovascular examination reveals regular rhythm rate. S1-S2 normal. No S3 or S4. No discernible murmur noted. Lungs reveal diminished breath sounds, at the right base. A right sided Pleurx catheter is noted. Abdomen soft bowel sounds are heard. No masses or tenderness. Extremities are intact. No cyanosis clubbing or edema. Skin is without rash or lesion. Neurologic examination is brief but nonfocal. - Labs CBC & Chem 7: 08/28/24 10:26 08/27/24 05:41 Labs: Abnormal Lab Results - Last 24 Hours (Table) 08/28/24 08/28/24 Range/Units 10:26 10:26 WBC 12.79 H (4.50-10.00) 10*3/uL RBC 3.79 L (4.40-5.60) 10*6/uL Hgb 11.1 L (13.0-17.0) g/dL Hct 32.0 L (39.6-50.0) % Immature Gran # 0.06 H (0.00-0.04) 10*3/uL Neutrophils # 9.34 H (1.80-7.70) 10*3/uL Monocytes # 1.47 H (0.20-1.00) 10*3/uL PT 17.1 H (10.0-12.5) sec INR 1.7 H (<1.2) Assessment and Plan Assessment: Recurrent right-sided pleural effusion, malignant. Pleurx catheter placed 08/26/2024. Acute on chronic dyspnea, secondary to above, chest x-ray showing a large right- sided pleural effusion along with trace left-sided pleural effusion. Acute on chronic hypoxemic respiratory failure, currently on 2 L/min nasal cannula. Metastatic pulmonary adenocarcinoma. Epistaxis. Coagulopathy. Normocytic, normochromic anemia Chronic obstructive pulmonary disease, stable. Chronic ongoing tobacco dependence. History coronary artery disease. History of hyperlipidemia. History of CVA/TIA. History of abdominal aortic aneurysm with previous endovascular repair. History of prostate cancer with previous prostatectomy. Plan: Plan dated August 28, 2024. The patient is seen today in room 384. The patient appears to be doing relatively well. The patient is currently on 2 L. He is receiving lactated Ringer's at 20 cc an hour. The IV could be discontinued. The patient could be considered for possible discharge. In the last 24 hours, 650 cc of fluid was removed from the right pleural space. The patient has been instructed on how to use the catheter properly. Labs, x-rays, and medications are reviewed. We will continue to follow make recommendations. Prognosis is guarded. Dictation was produced using [employer] software. Please excuse any grammatical, word or spelling errors. Time with Patient: Less than 30
--- NOTE | 2024-08-28 19:19 | P.PN ---
Subjective Progress Note Date: 08/28/24 Patient having mild epistaxis. No continuous epistaxis or clotting noted. Hgb stable at 11.1. Objective - Vital Signs Vital signs: Vital Signs Temp 97.3 F L 08/27/24 19:34 Pulse 71 08/28/24 11:53 Resp 18 08/28/24 11:53 BP 85/55 08/28/24 11:53 Pulse Ox 97 08/28/24 11:53 FiO2 Intake & Output 08/27/24 08/28/24 08/28/24 18:59 06:59 18:59 Intake Total 240 0 Output Total 292 600 1 Balance -52 -600 -1 Weight 56.4 kg 56.4 kg Intake: Oral 240 0 Output: Chest Tube Drainage 290 600 Thora-Vent 290 600 Stool 2 1 Other: Voiding Method Toilet Toilet Toilet Urinal Urinal - Constitutional General appearance: Present: average body habitus, no acute distress - EENT EENT Comment(s): no active epistaxis noted Eyes: Present: anicteric sclerae, EOMI - Respiratory Details: breathing is even and unlabored - Cardiovascular Details: skin warm and dry - Integumentary Integumentary: Absent: cyanotic - Neurologic Neurologic: Present: CNII-XII intact - Psychiatric Psychiatric: Present: A&O x's 3 - Labs CBC & Chem 7: 08/28/24 10:26 08/27/24 05:41 Labs: Abnormal Lab Results - Last 24 Hours (Table) 08/28/24 08/28/24 Range/Units 10:26 10:26 WBC 12.79 H (4.50-10.00) 10*3/uL RBC 3.79 L (4.40-5.60) 10*6/uL Hgb 11.1 L (13.0-17.0) g/dL Hct 32.0 L (39.6-50.0) % Immature Gran # 0.06 H (0.00-0.04) 10*3/uL Neutrophils # 9.34 H (1.80-7.70) 10*3/uL Monocytes # 1.47 H (0.20-1.00) 10*3/uL PT 17.1 H (10.0-12.5) sec INR 1.7 H (<1.2) Assessment and Plan (1) Coagulopathy Status: Acute Priority: High Code(s): D68.9 - COAGULATION DEFECT, UNSPECIFIED SNOMED Code(s): 99441569 (2) Pleural effusion Status: Acute Priority: High Code(s): J90 - PLEURAL EFFUSION, NOT ELSEWHERE CLASSIFIED SNOMED Code(s): 65574388 (3) Stage 4 malignant neoplasm of lung Status: Acute Priority: High Code(s): C34.90 - MALIGNANT NEOPLASM OF UNSP PART OF UNSP BRONCHUS OR LUNG SNOMED Code(s): 68440283 Plan: Coagulopathy - INR greater than 10 on admit with symptoms of epistaxis -Multifactorial including lack of oral intake as well as malignancy. It was of concern, patient being on Coumadin and receiving treatment for cancer-modified oral intake-that INR would be difficult to manage. Plans to transition to Eliquis or Xarelto. Pt was started on xarelto last night by IM. - Patient is been given parenteral vitamin K on admit with reversal of supratherapeutic INR >10. INR was 2.1 yesterday. Suspect rebound from coumadin coagulopathy. Additional dose of vitamin K given. Xarelto has been started Discussed case with cardiology and IM team today. Plan to start pt on Xarelto 2.5mg BID and aspirin daily Pleural effusion - History of malignant pleural effusion - This is the patient's third reaccumulation of fluid causing symptoms in about 2 months. -Pt chest tube is draining bloody fluid. Pt resp status is much improved since yesterday. Cardiothoracic surgery following. Stage IV non-small cell lung cancer - Diagnosis as documented in HPI - Dual immunotherapy treatment as planned. It is not been initiated yet. - Plans for the same to begin once patient has been discharged from the hospital. -Clinic f/u scheduled on 08/31
--- NOTE | 2024-08-28 19:50 | P.DS ---
Providers Date of admission: 08/24/24 14:58 Expected date of discharge: 08/28/24 Attending physician: Oziel Colunga Consults: 08/24/24 14:57 Consult Physician Urgent Consulting Provider: Trevor Andujar Consult Reason/Comments: Pleural effusion Do you want consulting provider notified?: Yes 08/24/24 21:58 Consult Physician Routine Consulting Provider: Eric Salcedo Consult Reason/Comments: Lung cancer Do you want consulting provider notified?: Yes 08/24/24 22:02 Consult Physician Routine Consulting Provider: Huy Vaughan Consult Reason/Comments: Recurrent right pleural effusion, malignant Do you want consulting provider notified?: Yes Primary care physician: [facility] Course: Chief Complaint: Bleeding from nose 74-year-old patient who follows with Dr. Moise French. medical conditions include COPD, hyperlipidemia, Coumadin for aortic stents, osteoarthritis. active smoker. June 2022 patient underwent EGD colonoscopy by Dr. Veronica Hamilton. EGD showed minimal gastritis colonoscopy showed some polyps and polypectomy was carried out. Some scattered sigmoid diverticulosis. Admitted to hospital in June. Thoracentesis carried out. Right-sided. Following discharge cytology came back showing metastatic pulmonary adenocarcinoma. 2D echo on July 20 showed EF of 55% mild to moderate TR.Brain MRI on July 20 unremarkable. Ultrasound abdomen showed hypoechoic metastatic liver lesions. July 24: PET scan showed scattered metastatic disease, lymph nodes pleural-based deposits along the right chest and likely malignant pleural effusion. Intrahepatic metastatic foci as well as osseous foci. Possible T10 pathologic fracture. And diffuse uptake through the vertebral body. Patient is due to start some form of treatment on August 31. Patient been losing significant weight. Has practically no appetite for last 2 weeks. Last bowel movement was 2 weeks ago. Feels rather weak and tired. Patient presents with bleeding through the nose quite a bit. Also through the mouth. ER INR was greater than 10. Received 10 mg of IV and vitamin K. With ER physician. Short of breath. August 25: No further bleeding. INR down to 1.2.Seen by cardiothoracic team. For a Pleurx catheter placement tomorrow. Coumadin to remain on hold. Also seen by oncology. Appetite remains poor. On Marinol. August 26: Right Pleurx catheter placed by cardiothoracic team. Postprocedure patient rather tired. Family at the bedside. August 27: Patient initially had 2150 cc removed from the right chest. Right Pleurx catheter connected to Pleur-evac breathing much better. Sitting up in bed. Has been on Marinol. Appetite has picked up. Started on Xarelto last night August 28: Eating fair. [employer] has been arranged for Pleurx drainage. Patient will follow-up with Dr. Salcedo from oncology. Aortic stent graft: Will therefore use Xarelto 2.5 twice daily with aspirin. 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 Smokes a pack a day for 50 years recently cut back. His son and his grandson live with him . No alcohol. Physical examination: VITAL SIGNS: 81, 18, 85 x 55, 97% KULICK GENERAL: BMI 18.4. Loss of subcutaneous fat muscle mass. Sitting up in bed, comfortable EYES: Pupils equal. Conjunctiva pale l. HEENT: External appearance of nose and ears normal, oral cavity grossly normal. NECK: JVD not raised; masses not palpable. HEART: First and second heart sounds are normal; no edema. LUNGS: Respiratory rate i increased, diminished breath sounds, Right Pleurx catheter attached to Pleur-evac ABDOMEN: Soft, no tender, no guarding rigidity, liver spleen not palpable, no masses palpable. PSYCH: AO x 3, mood affect normal MUSCULOSKELETAL:No Clubbing/cyanosis;muscles-grossly intact, evidence of OA INVESTIGATIONS, reviewed in the clinical context: August 28: White count 12.7 hemoglobin 11.1 platelets 297 August 27: White count 9.9 hemoglobin 11.8 platelet 341 sodium 128 potassium 4.1 creatinine 0.59 August 26: Sodium 127 potassium 5.1 BUN 15 creatinine 0.47 August 25: White count 9.5 hemoglobin 12.1 INR 1.2 August 24, 2024: White count 12.8 hemoglobin 12.6 platelets 410 INR greater than 10 potassium 4.8 BUN 13 creatinine 0.45 albumin 2.5 EKG tracing personally reviewed by me-poor baseline. Poor R wave progression anterior lead. Chest x-ray film personally reviewed by me-large right pleural effusion Assessment plan: --Severe epistaxis from Coumadin toxicity.: Resolved Patient received vitamin K in the ER. Coumadin discontinued -Metastatic, pulmonary adenocarcinoma. metastatic to liver, bone, recurrent right pleural effusion Plan for dual immunotherapy and discharge Dr. Alex Salcedo from oncology will follow-up - Coumadin toxicity Patient received 10 mg vitamin K in the ER. Coumadin discontinued - Likely vitamin K deficient from poor appetite and liver involvement from malignancy -Recurrent right pleural effusion, secondary to adenocarcinoma PleurX catheter placed on the right side by Dr. Vaughan: Initially 2150 cc removed PleurX catheter attached Pleur-evac [facility] home service to help with Pleurx drainage - Severe protein calorie malnutrition from poor appetite from malignancy Ensure 1 can 3 times daily -COPD in a current smoker DuoNeb 4 times daily -Chronic nicotine dependence and the cigarette smoker Nicotine patch -Gallstones asymptomatic -Sigmoid diverticulosis, asymptomatic -Essential hypertension Coreg dose has been cut back, - aortic graft and stent Coumadin discontinued Start Xarelto -Severe anorexia secondary to malignancy. Patient not eating for 2 weeks.: Better Disposition: Home Past Medical History Past Medical History: Coronary Artery Disease (CAD), Cancer, COPD, CVA/TIA, Hyperlipidemia, Hypertension, Myocardial Infarction ([place]), Prostate Disorder, Vascular Disorder Additional Past Medical History / Comment(s): Prostate CA, stroke x3 last 2011, peripheral vascular disease, recent fall at home, metastatic pulmonary adenocarcinoma with recurrent right-sided pleural effusion Last Myocardial Infarction Date:: 2008 History of Any Multi-Drug Resistant Organisms: None Reported Past Surgical History: Orthopedic Surgery, Prostate Surgery Additional Past Surgical History / Comment(s): abdominal aortic stent; right sided thoracentesis 07/01/24-fluid cytology positive for metastatic pulmonary adenocarcinoma Past Anesthesia/Blood Transfusion Reactions: No Reported Reaction Smoking Status: Current some day smoker, Former smoker Plan - Discharge Summary Discharge Rx Participant: No New Discharge Prescriptions: New Rivaroxaban [Xarelto] 2.5 mg PO BID #60 tablet carvediloL [Coreg] 3.125 mg PO BID #60 tablet Aspirin 81 mg PO DAILY #30 tab Continue Atorvastatin Calcium [Lipitor] 40 mg PO HS HYDROcodone/APAP 5-325MG [[place] 5-325] 0.5 - 1 tab PO Q6HR PRN PRN Reason: Pain Albuterol Inhaler [Ventolin Hfa Inhaler] 1 puff INHALATION RT-Q4H PRN PRN Reason: Shortness Of Breath Ipratropium-Albuterol Nebulize [Duoneb 0.5 mg-3 mg/3 ml Soln] 3 ml INHALATION RT-BID Discontinued amLODIPine [Norvasc] 5 mg PO DAILY Aspirin EC [Ecotrin Low Dose] 81 mg PO BID carvediloL [Coreg] 6.25 mg PO BID Warfarin [Coumadin] 2.5 mg PO Q2D@2100 Discharge Medication List Atorvastatin Calcium [Lipitor] 40 mg PO HS 02/17/20 [History] HYDROcodone/APAP 5-325MG [[place] 5-325] 0.5 - 1 tab PO Q6HR PRN 07/28/24 [Hist ory] Albuterol Inhaler [Ventolin Hfa Inhaler] 1 puff INHALATION RT-Q4H PRN 08/24/24 [History] Ipratropium-Albuterol Nebulize [Duoneb 0.5 mg-3 mg/3 ml Soln] 3 ml INHALATION RT-BID 08/24/24 [History] Aspirin 81 mg PO DAILY #30 tab 08/28/24 [Rx] Rivaroxaban [Xarelto] 2.5 mg PO BID #60 tablet 08/28/24 [Rx] carvediloL [Coreg] 3.125 mg PO BID #60 tablet 08/28/24 [Rx] Follow up Appointment(s)/Referral(s): Moise French MD [Primary Care Provider] - 1-2 days (Office closed, please call to schedule) Eric Salcedo MD [STAFF PHYSICIAN] - 08/31/24 4:00 pm (Appt at the [place] office in the [facility] on [address] ) [facility],Equipment [NON-STAFF] - Huy Vaughan MD [STAFF PHYSICIAN] - As Needed (Please call office for pleurx removal once drainage is less than 50 ml for 3 times in a row) [facility] Visiting Nurse, [NON-STAFF] - Activity/Diet/Wound Care/Special Instructions: [facility] will deliver to your home, the smaller portable bag O2 on Saturday, August 31. PLEURX DISCHARGE INSTRUCTIONS: 1. Home Care is ordered, they will obtain new bottles. 2. May shower after 24 hours, no tub baths/hot tubs. 3. Do not drain more than 1 liter or 1000 mL in 24 hours. 4. New drainage bottle needed with each drainage. 5. Drainage frequency dictated by patient symptoms, may be every day, every other day, weekly, or however often the patient is symptomatic. 6. Please notify LOCK ASSEMBLER or office if temperature >101F, excessive pain at insertion site, drainage consistency changes to cloudy or smells bad, catheter falls out, or anything else that concerns you. 7. Contact surgery office with weekly drainage amounts. May fax the amounts. 8. Once drainage is less than 50 mL three times in a row, notify the surgery office for possible removal. Surgery office: , fax Discharge/Stand Alone Forms: Who Do I Call? Discharge Disposition: HOME WITH HOME HEALTH SERVICES
== END 2024-08-28 15:08 | disposition home health service (06) | DRG 180 ==
LOC: EC 13:19 → 3SCARD 14:58
PROVIDERS: ADMIT Hospitalist; ATTEND Hospitalist
PROC: 0W9930Z Drainage of Right Pleural Cavity with Drainage Device, Percutaneous Approach (ICD-10-PCS; principal; 2024-08-26 12:00)
DX: C34.91 Malignant neoplasm of unspecified part of right bronchus or lung (principal); E43 Unspecified severe protein-calorie malnutrition; J96.21 Acute and chronic respiratory failure with hypoxia; C78.2 Secondary malignant neoplasm of pleura; S22.079A Unspecified fracture of T9-T10 vertebra, initial encounter for closed fracture; C79.51 Secondary malignant neoplasm of bone; C78.7 Secondary malignant neoplasm of liver and intrahepatic bile duct; C77.1 Secondary and unspecified malignant neoplasm of intrathoracic lymph nodes; J91.0 Malignant pleural effusion; D68.32 Hemorrhagic disorder due to extrinsic circulating anticoagulants; J44.9 Chronic obstructive pulmonary disease, unspecified; D64.9 Anemia, unspecified; Z95.828 Presence of other vascular implants and grafts; I10 Essential (primary) hypertension; I07.1 Rheumatic tricuspid insufficiency; J98.11 Atelectasis; Z68.1 Body mass index [BMI] 19.9 or less, adult; Q85.01 Neurofibromatosis, type 1; E78.5 Hyperlipidemia, unspecified; F17.210 Nicotine dependence, cigarettes, uncomplicated; R04.0 Epistaxis; I25.10 Atherosclerotic heart disease of native coronary artery without angina pectoris; M19.90 Unspecified osteoarthritis, unspecified site; K57.30 Diverticulosis of large intestine without perforation or abscess without bleeding; I71.40 Abdominal aortic aneurysm, without rupture, unspecified; K80.20 Calculus of gallbladder without cholecystitis without obstruction; R63.0 Anorexia; T45.515A Adverse effect of anticoagulants, initial encounter; E56.1 Deficiency of vitamin K; I73.9 Peripheral vascular disease, unspecified; Z90.79 Acquired absence of other genital organ(s); Z86.73 Personal history of transient ischemic attack (TIA), and cerebral infarction without residual deficits; Z85.46 Personal history of malignant neoplasm of prostate; Z79.899 Other long term (current) drug therapy; Z79.51 Long term (current) use of inhaled steroids; Z79.01 Long term (current) use of anticoagulants; I25.2 Old myocardial infarction; Z86.718 Personal history of other venous thrombosis and embolism; Z79.82 Long term (current) use of aspirin; Z91.81 History of falling
CPT/HCPCS: 36415; 71045; 71046; 77001; 80048; 80053; 83605; 83735; 84484; 85025; 85027; 85610; 85730; 88108; 88305; 93005; 94640; 94760; 96361; 96365; 99285

== ENCOUNTER 2024-08-29 15:06 | Observation (INO) | payer MEDICARE ==
--- NOTE | 2024-08-29 15:45 | ED ---
Weakness HPI - General Chief complaint: Weakness Stated complaint: Weakness, SOB Time Seen by Provider: 08/29/24 15:13 Source: EMS Mode of arrival: EMS Limitations: no limitations - History of Present Illness Initial comments: Patient is a 74-year-old man with history of lung cancer, metastatic to liver, who presents to have evaluation for generalized weakness and some shortness of breath. The patient had been admitted in the hospital on August 24 and was discharged yesterday. The patient is reportedly to have additional therapy he states immunotherapy starting on Saturday. The patient also noted to have a Pleur-evac catheter for chronic pleural effusion. Patient denies change in cough. He does have some chronic cough with thick grayish sputum. MD Complaint: generalized weakness, difficulty walking Onset/Timin -: days(s) Improves with: none Worsens with: none Associated Symptoms: shortness of breath - Related Data Home Medications Medication Instructions Recorded Confirmed Atorvastatin Calcium [Lipitor] 40 mg PO HS 02/17/20 08/29/24 HYDROcodone/APAP 5-325MG [[place] 0.5 - 1 tab PO Q6HR PRN 07/28/24 08/29/24 5-325] Albuterol Inhaler [Ventolin Hfa 1 puff INHALATION RT-Q4H PRN 08/24/24 08/29/24 Inhaler] Ipratropium-Albuterol Nebulize 3 ml INHALATION RT-BID 08/24/24 08/29/24 [Duoneb 0.5 mg-3 mg/3 ml Soln] Previous Rx's Medication Instructions Recorded Aspirin 81 mg PO DAILY #30 tab 08/28/24 Rivaroxaban [Xarelto] 2.5 mg PO BID #60 tablet 08/28/24 carvediloL [Coreg] 3.125 mg PO BID #60 tablet 08/28/24 Allergies Allergy/AdvReac Type Severity Reaction Status Date / Time morphine AdvReac Nausea & Verified 08/29/24 18:48 Vomiting Review of Systems ROS Statement: Those systems with pertinent positive or pertinent negative responses have been documented in the HPI. ROS Other: All systems not noted in ROS Statement are negative. Constitutional: Reports: weakness. Denies: fever, chills Respiratory: Reports: as per HPI, cough, dyspnea, wheezes. Denies: hemoptysis Cardiovascular: Denies: chest pain, palpitations, edema, syncope Gastrointestinal: Denies: abdominal pain, nausea, vomiting, diarrhea, melena, hematochezia Genitourinary: Denies: dysuria, hematuria Musculoskeletal: Denies: back pain Skin: Denies: rash Neurological: Denies: headache, weakness, numbness Past Medical History Past Medical History: Coronary Artery Disease (CAD), Cancer, COPD, CVA/TIA, Hyperlipidemia, Hypertension, Myocardial Infarction (NH), Prostate Disorder, Vascular Disorder Additional Past Medical History / Comment(s): Prostate CA, stroke x3 last 2011, peripheral vascular disease, recent fall at home, metastatic pulmonary adenocarcinoma with recurrent right-sided pleural effusion Last Myocardial Infarction Date:: 2008 History of Any Multi-Drug Resistant Organisms: None Reported Past Surgical History: Orthopedic Surgery, Prostate Surgery Additional Past Surgical History / Comment(s): abdominal aortic stent; right sided thoracentesis 07/01/24-fluid cytology positive for metastatic pulmonary adenocarcinoma Past Anesthesia/Blood Transfusion Reactions: No Reported Reaction Past Psychological History: No Psychological Hx Reported Smoking Status: Current some day smoker, Former smoker Past Alcohol Use History: None Reported Past Drug Use History: None Reported - Past Family History Brother(s) Family Medical History: Diabetes Mellitus Sister(s) Family Medical History: Cancer General Exam Limitations: no limitations General appearance: alert, in no apparent distress Head exam: Present: atraumatic, normocephalic Eye exam: Present: normal appearance. Absent: scleral icterus, conjunctival injection ENT exam: Present: mucous membranes dry Neck exam: Present: normal inspection Respiratory exam: Present: wheezes, rhonchi. Absent: respiratory distress, rales, stridor, accessory muscle use, decreased breath sounds Cardiovascular Exam: Present: regular rate, normal rhythm, normal heart sounds. Absent: systolic murmur, diastolic murmur, rubs, gallop GI/Abdominal exam: Present: soft. Absent: distended, tenderness, guarding, rebound, rigid, mass Extremities exam: Present: normal inspection, normal capillary refill. Absent: pedal edema, calf tenderness Back exam: Present: normal inspection. Absent: CVA tenderness (R), CVA tenderness (L) Neurological exam: Present: alert, oriented X3, CN II-XII intact. Absent: motor sensory deficit Skin exam: Present: warm, dry, intact, normal color. Absent: rash Course Vital Signs 08/29/24 08/29/24 08/29/24 15:07 15:11 17:05 Temperature 98.5 F Pulse Rate 89 96 Respiratory 20 20 Rate Blood Pressure 118/79 117/69 O2 Sat by Pulse 94 L 97 94 L Oximetry 08/29/24 18:19 Temperature Pulse Rate 87 Respiratory 20 Rate Blood Pressure 92/65 O2 Sat by Pulse 99 Oximetry EKG Findings - EKG Results: EKG: interpreted by ERMD, sinus rhythm (Rate 89 bpm), normal axis - Blocks, [place], Hypertrophy, ST Abn: QRS axis and voltage: low voltage (<0.5 MV total QRS and <1.0 MV in each precordial lead) - NH, Pacemaker, Normal: Myocardial infarction: septal NH (old age or indeterminate) Medical Decision Making - Medical Decision Making 74-year-old man with metastatic lung cancer advised to come in by visiting nurse. He has had generalized weakness and was not able to get around his home. The workup here today reveals hyponatremia, which is low for him compared with his chronic labs. The patient did receive some saline still feeling significantly weak. The patient did have chest CT given the elevated D-dimer and was found to have some recurrence of pleural effusion. Case discussed with the hospitalist group and will admit with consultation to pulmonology pleural effusion, and also to nephrology regarding the hyponatremia. - Lab Data Result diagrams: 08/29/24 15:37 08/29/24 15:37 Lab Results 08/29/24 08/29/24 08/29/24 Range/Units 15:37 15:37 15:37 WBC 13.64 H (4.50-10.00) 10*3/uL RBC 4.78 (4.40-5.60) 10*6/uL Hgb 13.9 (13.0-17.0) g/dL Hct 40.0 (39.6-50.0) % MCV 83.7 (80.0-97.0) fL MCH 29.1 (27.0-32.0) pg MCHC 34.8 (32.0-37.0) g/dL Plt Count 367 (140-440) 10*3/uL MPV 9.4 L (9.5-12.2) fL Immature Gran % (Auto) 0.3 % Neutrophils % 79.6 % Lymphocytes % 9.6 % Monocytes % 9.2 % Eosinophils % 1.1 % Basophils % 0.2 % Immature Gran # 0.04 (0.00-0.04) 10*3/uL Neutrophils # 10.85 H (1.80-7.70) 10*3/uL Lymphocytes # 1.31 (0.90-5.00) 10*3/uL Monocytes # 1.26 H (0.20-1.00) 10*3/uL Eosinophils # 0.15 (0.04-0.35) 10*3/uL Basophils # 0.03 (0.00-0.10) 10*3/uL PT 11.9 (10.0-12.5) sec INR 1.1 (<1.2) APTT 22.8 (22.0-30.0) sec D-Dimer 3.88 H (<0.60) mg/L FEU Sodium 124 L (137-145) mmol/L Potassium 4.2 (3.5-5.1) mmol/L Chloride 91 L (98-107) mmol/L Carbon Dioxide 29 (22-30) mmol/L Anion Gap 4 mmol/L BUN 10 (9-20) mg/dL Creatinine 0.58 L (0.66-1.25) mg/dL Est GFR (CKD-EPI)AfAm >90 (>60 ml/min/1.73 sqM) Est GFR (CKD-EPI)NonAf >90 (>60 ml/min/1.73 sqM) Glucose 98 (74-99) mg/dL Plasma Lactic Acid Nico (0.7-2.0) mmol/L Calcium 8.4 (8.4-10.2) mg/dL Total Bilirubin 1.6 H (0.2-1.3) mg/dL AST 26 (17-59) U/L ALT 18 (4-49) U/L Alkaline Phosphatase 114 (38-126) U/L Troponin I (0.000-0.034) ng/mL NT-Pro-B Natriuret Pep 529 pg/mL Total Protein 5.6 L (6.3-8.2) g/dL Albumin 2.5 L (3.5-5.0) g/dL 08/29/24 08/29/24 Range/Units 15:37 15:37 WBC (4.50-10.00) 10*3/uL RBC (4.40-5.60) 10*6/uL Hgb (13.0-17.0) g/dL Hct (39.6-50.0) % MCV (80.0-97.0) fL MCH (27.0-32.0) pg MCHC (32.0-37.0) g/dL Plt Count (140-440) 10*3/uL MPV (9.5-12.2) fL Immature Gran % (Auto) % Neutrophils % % Lymphocytes % % Monocytes % % Eosinophils % % Basophils % % Immature Gran # (0.00-0.04) 10*3/uL Neutrophils # (1.80-7.70) 10*3/uL Lymphocytes # (0.90-5.00) 10*3/uL Monocytes # (0.20-1.00) 10*3/uL Eosinophils # (0.04-0.35) 10*3/uL Basophils # (0.00-0.10) 10*3/uL PT (10.0-12.5) sec INR (<1.2) APTT (22.0-30.0) sec D-Dimer (<0.60) mg/L FEU Sodium (137-145) mmol/L Potassium (3.5-5.1) mmol/L Chloride (98-107) mmol/L Carbon Dioxide (22-30) mmol/L Anion Gap mmol/L BUN (9-20) mg/dL Creatinine (0.66-1.25) mg/dL Est GFR (CKD-EPI)AfAm (>60 ml/min/1.73 sqM) Est GFR (CKD-EPI)NonAf (>60 ml/min/1.73 sqM) Glucose (74-99) mg/dL Plasma Lactic Acid Nico 1.8 (0.7-2.0) mmol/L Calcium (8.4-10.2) mg/dL Total Bilirubin (0.2-1.3) mg/dL AST (17-59) U/L ALT (4-49) U/L Alkaline Phosphatase (38-126) U/L Troponin I <0.012 (0.000-0.034) ng/mL NT-Pro-B Natriuret Pep pg/mL Total Protein (6.3-8.2) g/dL Albumin (3.5-5.0) g/dL Disposition Clinical Impression: Hyponatremia, Pleural effusion Disposition: HOME SELF-CARE Condition: Poor Is patient prescribed a controlled substance at d/c from ED?: No Referrals: Moise French MD [Primary Care Provider] - 1-2 days
[2024-08-29 15:55] LABS: Basophils # (A) 0.03 10*3/uL (0.00-0.10); Basophils % (A) 0.2 %; Eosinophils # (A) 0.15 10*3/uL (0.04-0.35); Eosinophils % (A) 1.1 %; HGB 13.9 g/dL (13.0-17.0); Lymphocytes # (A) 1.31 10*3/uL (0.90-5.00); Lymphocytes % (A) 9.6 %; MCH 29.1 pg (27.0-32.0); MCHC 34.8 g/dL (32.0-37.0); MCV 83.7 fL (80.0-97.0); Mean Platelet Volume 9.4 fL (9.5-12.2); Monocytes # (A) 1.26 10*3/uL (0.20-1.00); Monocytes % (A) 9.2 %; Neutrophils # (A) 10.85 10*3/uL (1.80-7.70); Neutrophils % (A) 79.6 %; Platelet Count 367 10*3/uL (140-440); RBC 4.78 10*6/uL (4.40-5.60); RDW 15.9 % (11.5-14.5); WBC 13.64 10*3/uL (4.50-10.00)
[2024-08-29 16:00] LABS: ALT 18 U/L (4-49); AST 26 U/L (17-59); African American GFR (CKD) >90 (>60 ml/min/1.73 sqM); Albumin 2.5 g/dL (3.5-5.0); Alkaline Phosphatase 114 U/L (38-126); Anion Gap 4 mmol/L; Blood Urea Nitrogen 10 mg/dL (9-20); Calcium 8.4 mg/dL (8.4-10.2); Carbon Dioxide 29 mmol/L (22-30); Chloride 91 mmol/L (98-107); Glucose 98 mg/dL (74-99); Non-African American GFR(CKD) >90 (>60 ml/min/1.73 sqM); Potassium 4.2 mmol/L (3.5-5.1); Sodium 124 mmol/L (137-145); Total Bilirubin 1.6 mg/dL (0.2-1.3); Total Protein 5.6 g/dL (6.3-8.2)
[2024-08-29 16:07] LABS: INR 1.1 (<1.2); Partial Thromboplastin Time 22.8 sec (22.0-30.0); Prothrombin Time 11.9 sec (10.0-12.5)
[2024-08-29 16:10] LABS: NT-Pro-B-Type Natriuretic Pept 529 pg/mL
--- NOTE | 2024-08-29 18:05 | CT ---
EXAMINATION TYPE: CT chest angio for PE DATE OF EXAM: 08/29/2024 5:49 PM COMPARISON: Numerous prior CT chest studies, most recently dated 06/29/2024. CLINICAL INDICATION: Male, 74 years old with history of possible PE; c/o SOB TECHNIQUE/CONTRAST: CTA scan of the thorax is performed with IV Contrast, patient injected with 100 mL of Isovue 370, MIP images are created and reviewed these are created on a separate workstation.. CT DLP: 241.7 mGycm, Automated exposure control for dose reduction was used. FINDINGS: Pulmonary Artery: There is no evidence for a filling defect within the pulmonary vasculature to sugge st acute pulmonary embolism. The pulmonary artery is of normal size. Lungs/Pleura: Emphysema. Masslike prominence in the right hilar/suprahilar region. Loculated right-si ded pleural effusions with percutaneous pleural drainage catheter in place. Right-sided lung volume l oss. Airway: Large airways are patent. Heart: Heart is within normal limits for size. Coronary artery calcifications. Vasculature: No evidence of a descending thoracic aortic aneurysm. Partially visualized abdominal aor tic stent graft, not well evaluated due to suboptimal timing contrast bolus. Mediastinum: Enlarged mediastinal and right hilar lymph nodes suspicious for metastatic disease. Musculoskeletal: No acute osseous abnormalities. Indeterminant mixed lucent/sclerotic lesion involvin g T10 vertebral body and posterior elements. Lower neck: No significant findings. Upper Abdomen: No significant acute findings. Cholelithiasis. Partially visualized hypodense lesion s uspicious for metastatic disease measuring up to 3.0 cm and the right hepatic lobe. IMPRESSION: 1. No evidence of acute pulmonary embolism. 2. Partially loculated moderate-sized right pleural effusion with adjacent lower lobe compressive at electasis. Percutaneous right-sided approach pleural drainage catheter in place. 3. Masslike prominence in the right hilar region and persistent pathologic mediastinal and right hil ar lymphadenopathy. 4. Hepatic metastatic disease with the largest liver lesion measuring 3 cm. [facility], , 08/29/2024 6:03 PM
[2024-08-29] MEDS: SODIUM CHLORIDE 0.9% 1,000 ML IV ONE (18:51)
[2024-08-29] MEDS ORDERED: NALOXONE 0.4 MG/ML 1 ML VIAL IV PRN (19:45)
[2024-08-29] MEDS ORDERED: ACETAMINOPHEN TAB 325 MG TAB PO PRN (19:45)
[2024-08-29] MEDS ORDERED: HYDROcodone/APAP 5-325MG 1 EACH TAB PO PRN (19:48)
[2024-08-29] MEDS ORDERED: ALBUTEROL NEBULIZED 2.5 MG/3 ML INHALATION PRN (19:48)
[2024-08-29] MEDS: SODIUM CHLORIDE 0.9% 1,000 ML IV SCH (20:02)
[2024-08-29 20:57] LABS: Influenza A Not Detected (Not Detectd); Influenza B Not Detected (Not Detectd); RSV Not Detected (Not Detectd)
[2024-08-29] MEDS: RIVAROXABAN 2.5 MG TABLET PO SCH (21:01)
[2024-08-29] MEDS: carvediloL 3.125 MG TAB PO SCH (21:01)
[2024-08-29] MEDS: ATORVASTATIN 40 MG TAB PO SCH (21:01)
[2024-08-30] MEDS: IPRATROPIUM-ALBUTEROL 3 ML NEB INHALATION SCH (07:35)
[2024-08-30] MEDS: SYMBICORT 160-4.5 MCG INHALER INHALATION SCH (07:37)
[2024-08-30] MEDS: ASPIRIN 81 MG PO SCH (09:23)
--- NOTE | 2024-08-30 10:01 | P.CNPUL ---
History of Present Illness Consult date: 08/30/24 Requesting physician: Dale Tidwell Reason for consult: dyspnea, abnormal CXR/CT Chief complaint: Shortness of breath History of present illness: This is a pleasant 74-year-old male with history of coronary artery disease, hyperlipidemia, CVA/TIA, abdominal aortic aneurysm with previous endovascular repair, prostate cancer with previous prostatectomy. He also has a history significant for recent diagnosis of metastatic non-small cell lung cancer, recurrent right-sided pleural effusion, COPD, chronic ongoing tobacco dependence. Patient has a recurrent right-sided pleural effusion that has been drained on 07/01/2024, as well as, 07/21/2024. He subsequently had a Pleurx catheter placed on 08/26/2024. Pleural fluid cytology previously positive for pulmonary adenocarcinoma. PET scan showing scattered metastatic disease with lymph node involvement, pleural-based deposits along the right chest with malignant pleural effusion, abdominal lymphadenopathy and intrahepatic metastatic foci of lesions as well as osseous foci. Possible T10 pathologic fracture with diffuse uptake throughout the vertebral body. He recently established with medical oncology. He was just discharged from here on 08/28/2024. He presented back here to the emergency room with increasing shortness of breath yesterday 08/29/2024. He was to start systemic chemotherapy tomorrow. He is seen today in consultation on the regular medical floor. He is resting in bed. He is quite weak and frail. He has a loose congested cough. Denies hemoptysis. He is maintaining O2 saturations in the mid 90s on 2 L/min per nasal cannula. He is been afebrile. Hemodynamically stable. CT angiogram ruled out pulmonary embolism. There is partially loculated moderate-sized right pleural effusion with adjacent lower lobe compressive atelectasis. Pleurx catheter in place. Masslike prominence in the right hilar region and persistent pathologic mediastinal and right hilar lymphadenopathy. Hepatic metastatic disease with the largest liver lesion measuring 3 cm. White count 13.6. Hemoglobin 13.9. Platelets 367. Sodium 124. Potassium 4.2. Bicarb 29. BUN 10. Creatinine 0.58. Glucose 98. Viral screen negative. proBNP 529. Troponin negative x 1. Review of Systems REVIEW OF SYSTEMS: CONSTITUTIONAL: Positive for generalized weakness. Denies any recent significant weight loss or weight gain. EYES: Denies change in vision. EARS, NOSE, MOUTH, THROAT: Denies headaches, denies sore throat. CARDIOVASCULAR: Denies chest pain, palpitations or syncopal episodes. RESPIRATORY: Positive for shortness of breath, cough, congestion no hemoptysis. GASTROINTESTINAL: Denies change in appetite, denies abdominal pain GENITOURINARY: Denies hematuria, denies infections. MUSKULOSKELETAL: Denies pain, denies swelling. INTEGUMENTARY: Denies rash, denies eczema. NEUROLOGICAL: Denies recent memory loss, no recent seizure activity. PSYCHIATRIC: Denies anxiety, denies depression. HEMATOLOGIC/LYMPHATIC: Denies anemia, denies enlarged lymph nodes. Past Medical History Past Medical History: Coronary Artery Disease (CAD), Cancer, COPD, CVA/TIA, Hype rlipidemia, Hypertension, Myocardial Infarction (ME), Prostate Disorder, Vascular Disorder Additional Past Medical History / Comment(s): Prostate CA, stroke x3 last 2011, peripheral vascular disease, recent fall at home, metastatic pulmonary adenocarcinoma with recurrent right-sided pleural effusion Last Myocardial Infarction Date:: 2008 History of Any Multi-Drug Resistant Organisms: None Reported Past Surgical History: Orthopedic Surgery, Prostate Surgery Additional Past Surgical History / Comment(s): abdominal aortic stent; right sided thoracentesis 07/01/24-fluid cytology positive for metastatic pulmonary adenocarcinoma, pleur-evac cath Past Anesthesia/Blood Transfusion Reactions: No Reported Reaction Past Psychological History: No Psychological Hx Reported Smoking Status: Former smoker Past Alcohol Use History: None Reported Additional Past Alcohol Use History / Comment(s): Used to drink beer "quite a bit", none since 1990. Past Drug Use History: None Reported - Past Family History Brother(s) Family Medical History: Diabetes Mellitus Sister(s) Family Medical History: Cancer Medications and Allergies Home Medications Medication Instructions Recorded Confirmed Type Atorvastatin Calcium [Lipitor] 40 mg PO HS 02/17/20 08/29/24 History HYDROcodone/APAP 5-325MG [[place] 0.5 - 1 tab PO Q6HR PRN 07/28/24 08/29/24 History 5-325] Albuterol Inhaler [Ventolin Hfa 1 puff INHALATION RT-Q4H PRN 08/24/24 08/29/24 History Inhaler] Ipratropium-Albuterol Nebulize 3 ml INHALATION RT-BID 08/24/24 08/29/24 History [Duoneb 0.5 mg-3 mg/3 ml Soln] Aspirin 81 mg PO DAILY #30 tab 08/28/24 08/29/24 Rx Rivaroxaban [Xarelto] 2.5 mg PO BID #60 tablet 08/28/24 08/29/24 Rx carvediloL [Coreg] 3.125 mg PO BID #60 tablet 08/28/24 08/29/24 Rx Allergies Allergy/AdvReac Type Severity Reaction Status Date / Time morphine AdvReac Nausea & Verified 08/29/24 18:48 Vomiting Physical Exam Vitals: Vital Signs Temp Pulse Pulse Resp BP BP Pulse Ox 08/30/24 07:47 92 08/30/24 07:38 94 08/30/24 07:37 96 08/30/24 07:08 98.6 F 93 19 112/64 95 08/30/24 02:00 98.0 F 83 16 102/68 94 L 08/29/24 21:35 98.7 F 79 18 102/67 93 L 08/29/24 21:07 94 20 112/63 95 08/29/24 18:19 87 20 92/65 99 08/29/24 17:05 96 20 117/69 94 L 08/29/24 15:11 97 08/29/24 15:07 98.5 F 89 20 118/79 94 L Intake and Output 08/29/24 08/30/24 08/30/24 22:59 06:59 14:59 Intake Total 590 Balance 590 Intake: Oral 590 Other: Voiding Method Urinal Indwelling Catheter # Voids 0 Weight 57.606 kg GENERAL EXAM: Alert, frail, cachectic 74-year-old male, on 2 L nasal cannula, fairly comfortable in no apparent distress. HEAD: Normocephalic. EYES: Normal reaction of pupils, equal size. NOSE: Clear with pink turbinates. THROAT: No erythema or exudates. NECK: No masses, no JVD. CHEST: No chest wall deformity. Right sided Pleurx catheter in place. LUNGS: Equal air entry with bilateral scattered rhonchi, diminished in the right posterior base. CVS: S1 and S2 normal with no audible murmur, regular rhythm. ABDOMEN: No hepatosplenomegaly, normal bowel sounds, no guarding or rigidity. SPINE: No scoliosis or deformity SKIN: No rashes CENTRAL NERVOUS SYSTEM: No focal deficits, tone is normal in all 4 extremities. EXTREMITIES: There is no peripheral edema. No clubbing, no cyanosis. Peripheral pulses are intact. Results - Laboratory Findings CBC and BMP: 08/29/24 15:37 08/29/24 15:37 PT/INR, D-dimer PT 11.9 sec (10.0-12.5) 08/29/24 15:37 INR 1.1 (<1.2) 08/29/24 15:37 D-Dimer 3.88 mg/L FEU (<0.60) H 08/29/24 15:37 Abnormal lab findings: Abnormal Labs 08/29/24 08/29/24 08/29/24 15:37 15:37 15:37 WBC 13.64 H MPV 9.4 L Neutrophils # 10.85 H Monocytes # 1.26 H D-Dimer 3.88 H Sodium 124 L Chloride 91 L Creatinine 0.58 L Total Bilirubin 1.6 H Total Protein 5.6 L Albumin 2.5 L - Diagnostic Findings Chest x-ray: image reviewed CT scan - chest: image reviewed Assessment and Plan Assessment: Acute on chronic hypoxic respiratory failure secondary to partially loculated moderate-sized right pleural effusion with adjacent lower lobe compressive atelectasis Recurrent right sided malignant pleural effusions with previous thoracentesis x 2, Pleurx catheter placed 08/26/2024 Metastatic pulmonary adenocarcinoma, PET scan showing scattered metastatic pulmonary disease with lymph node involvement, pleural-based deposits along the right chest with malignant right sided pleural effusion, abdominal lympha denopathy and intrahepatic metastatic foci of lesions as well as osseous foci. Possible T10 pathologic fracture with diffuse uptake throughout the vertebral body Hyponatremia, possibly SIADH from malignancy Leukocytosis, suspect reactive Normocytic, normochromic anemia, hemoglobin stable at 13.9 g/dL Chronic obstructive pulmonary disease, stable Chronic ongoing tobacco dependence History coronary artery disease History of hyperlipidemia History of CVA/TIA History of abdominal aortic aneurysm with previous endovascular repair History of prostate cancer with previous prostatectomy Plan: The patient was seen and evaluated Imaging, labs and medications reviewed Requested CT service to drain Pleurx catheter Initiated on DuoNeb and elations Initiated on Symbicort Anticoagulated with Xarelto Overall prognosis remains poor Dr. Andujar spoke with the patient and his daughter Recommending DNR/DNI CODE STATUS Recommending hospice consultation Consult to medical oncology as the patient was to start immuno/chemotherapy tomorrow We will continue to follow and make further recommendations based on his clinical status I have personally seen and examined the patient, performed the documentation and the assessment and plan as written. Number of minutes spent on the visit: 20 Dictation was produced using [employer] dictation software. Please excuse any grammatical, word or spelling errors. Time with Patient: Greater than 30
[2024-08-30 10:26] LABS: Calcium 7.6 mg/dL (8.7-10.3); Carbon Dioxide 23.7 mmol/L (21.6-31.8); Chloride 97 mmol/L (96-109); Glucose 86 mg/dL (70-110); Magnesium 1.7 mg/dL (1.5-2.4); Potassium 4.1 mmol/L (3.5-5.5); Sodium 130 mmol/L (135-145)
--- NOTE | 2024-08-30 11:38 | P.NPCON ---
History of Present Illness - Reason for Consult hyponatremia - History of Present Illness Reason for consultation: Hyponatremia History of present illness: Patient is a 74-year-old male seen in renal consultation for hyponatremia. Sodium level was 124 on admission and is 130 this morning. He is currently receiving IV fluids with normal saline running at 75 cc an hour. He did receive a liter bolus of normal saline on admission as well. Patient came to the hospital due to shortness of breath. Patient states he has had recurrent admissions for shortness of breath. Patient does have history of lung cancer with metastatic disease. Patient has a chronic right-sided pleural effusion and has a Pleurx catheter which she states was due to be drained yesterday but was not done. Echocardiogram from July 2024 showed mild to moderate tricuspid regurgitation. He was noted to have urinary retention with over 600 cc of urine on bladder scan and a [place] catheter placed this morning. He denies regular use of nonsteroidals. He denies vomiting. He does admit to loose bowel movements. Oral intake has been poor. He denies excessive fluid intake. Denies chest pain. Vital signs are stable. General: No acute distress. HEENT: Head exam is unremarkable. Ortho LUNGS: No audible rhonchi or wheezes. HEART: Rate and Rhythm are regular. ABDOMEN: Nontender. EXTREMITITES: No edema. 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 Last Myocardial Infarction Date:: 2008 History of Any Multi-Drug Resistant Organisms: None Reported Past Surgical History: Orthopedic Surgery, Prostate Surgery Additional Past Surgical History / Comment(s): abdominal aortic stent; right sided thoracentesis 07/01/24-fluid cytology positive for metastatic pulmonary adenocarcinoma, pleur-evac cath Past Anesthesia/Blood Transfusion Reactions: No Reported Reaction Past Psychological History: No Psychological Hx Reported Smoking Status: Former smoker Past Alcohol Use History: None Reported Additional Past Alcohol Use History / Comment(s): Used to drink beer "quite a bit", none since 1990. Past Drug Use History: None Reported - Past Family History Brother(s) Family Medical History: Diabetes Mellitus Sister(s) Family Medical History: Cancer Medications and Allergies Home Medications Medication Instructions Recorded Confirmed Type Atorvastatin Calcium [Lipitor] 40 mg PO HS 02/17/20 08/29/24 History HYDROcodone/APAP 5-325MG [[place] 0.5 - 1 tab PO Q6HR PRN 07/28/24 08/29/24 History 5-325] Albuterol Inhaler [Ventolin Hfa 1 puff INHALATION RT-Q4H PRN 08/24/24 08/29/24 History Inhaler] Ipratropium-Albuterol Nebulize 3 ml INHALATION RT-BID 08/24/24 08/29/24 History [Duoneb 0.5 mg-3 mg/3 ml Soln] Aspirin 81 mg PO DAILY #30 tab 08/28/24 08/29/24 Rx Rivaroxaban [Xarelto] 2.5 mg PO BID #60 tablet 08/28/24 08/29/24 Rx carvediloL [Coreg] 3.125 mg PO BID #60 tablet 08/28/24 08/29/24 Rx Allergies Allergy/AdvReac Type Severity Reaction Status Date / Time morphine AdvReac Nausea & Verified 08/29/24 18:48 Vomiting Physical Exam Vitals: Vital Signs Temp Pulse Pulse Resp BP BP Pulse Ox 08/30/24 07:47 92 08/30/24 07:38 94 08/30/24 07:37 96 08/30/24 07:08 98.6 F 93 19 112/64 95 08/30/24 02:00 98.0 F 83 16 102/68 94 L 08/29/24 21:35 98.7 F 79 18 102/67 93 L 08/29/24 21:07 94 20 112/63 95 08/29/24 18:19 87 20 92/65 99 08/29/24 17:05 96 20 117/69 94 L 08/29/24 15:11 97 08/29/24 15:07 98.5 F 89 20 118/79 94 L Intake and Output 08/29/24 08/30/24 08/30/24 22:59 06:59 14:59 Intake Total 590 Balance 590 Intake: Oral 590 Other: Voiding Method Urinal Indwelling Catheter # Voids 0 Weight 57.606 kg Results - Lab Results Most recent lab results Calcium 7.6 mg/dL (8.7-10.3) L 08/30/24 04:49 Magnesium 1.7 mg/dL (1.5-2.4) 08/30/24 04:49 08/29/24 15:37 08/30/24 04:49 Assessment and Plan Plan: Assessment: 1. Hypovolemic hyponatremia improved with normal saline. Sodium level 130 today. TSH normal. 2. Acute on chronic hypoxic respiratory failure. 3. Recurrent malignant pleural effusions. PleurX catheter placed August 26, 2024. 4. Metastatic lung cancer. Plan: Maintain normal saline. Encouraged oral intake. Add 1500 cc fluid restriction. Follow-up urine studies. Repeat labs in the morning. Thank you for the consultation. I will continue to follow the patient with you during his hospital stay.
[2024-08-30 11:58] LABS: Glucose,Whole Blood 99 mg/dL (70-110)
[2024-08-30] MEDS: MAGNESIUM OXIDE 400 MG TAB PO SCH (12:16)
--- NOTE | 2024-08-30 14:19 | P.HPIM ---
History of Present Illness H&P Date: 08/30/24 History of present illness: 74-year-old male patient with past medical history significant for coronary artery disease, history of CVA, hypertension, hyperlipidemia, history of abdominal aortic aneurysm with previous endovascular repair, history of prostate cancer with previous prostatectomy, history of metastatic non-small cell lung cancer, recurrent right-sided pleural effusion status post Pleurx catheter in place, COPD, chronic ongoing tobacco dependence. Patient has history of recurrent right-sided pleural effusion, had thoracentesis in the past, subsequently had a Pleurx catheter placed on 08/26/2024, pleural fluid cytology was positive for pulmonary adenocarcinoma. PET scan showed metastatic disease with lymph node involvement, pleural-based deposits along the right chest with malignant pleural effusion, abdominal lymphadenopathy, intrahepatic metastasis foci of lesions as well as osseous lesions, possible T10 pathologic fracture with diffuse uptake throughout the vertebral body, following oncology, was plan for immunotherapy who presented to ER with increasing shortness of breath on 08/29/2024. Patient was discharged from the hospital on 08/28/2024. Patient is afebrile, heart rate 92, respiratory rate 19, blood pressure 112/64, saturating 96% 2 L. WBCs 13.6 hemoglobin 13.9 platelet 367. Sodium 124, improved to 130 now, potassium 4.2, chloride 91, CO2 29, BUN 10, creatinine 0.58. CT angio chest negative for PE, showed partially loculated moderate size right pleural effusion with adjacent lower lobe compressive atelectasis, PleurX catheter in place, masslike prominence in the right hilar region, persistent pathologic mediastinal and right hilar lymphadenopathy, hepatic metastatic disease with largest liver lesion measuring 3 cm. Assessment and plan: Acute on chronic hypoxic respiratory failure: Recurrent right-sided pleural effusion, status post Pleurx catheter placement recently Right lower lobe compressive atelectasis Metastatic pulmonary adenocarcinoma with metastasis to liver, spine, mediastinal abdominal lymph node: Hyponatremia: Leukocytosis Chronic anemia COPD: History of CAD Hypertension Hyperlipidemia History of CVA Abdominal aortic medicine with previous endovascular repair History of prostate cancer with previous prostatectomy Plan: Presented with worsening shortness of breath, was discharged on 08/28/2024, , presented again on 08/29/2024 Pulmonary consulted and following Oncology consulted. Continue inhalers/bronchodilator protocol Anticoagulated with Xarelto Nephrology consulted for hyponatremia, urine osmolality, urine sodium, cortisol ordered. CTS service to drain Pleurx catheter Goals of care discussed with the patient and family at bedside, they requested hospice consult. DVT prophylaxis Xarelto 2.5 mg twice daily Monitor vital signs and labs Labs and medication were reviewed. Continue same treatment. Further recommendations as per clinical course of the patient PHYSICAL EXAMINATION: GENERAL: The patient is A&O x3, NAD, chronically ill-appearing HEENT: EOMI, Sclerae anicteric, Moist Mucous membranes Neck: Supple, Non tender, No JVD PULMONARY: Decreased breath sounds. CARDIOVASCULAR: S1, S2 present. No murmurs, rubs, or gallops. ABDOMEN: Soft, nontender, nondistended, normoactive bowel sounds. No guarding or rebound tenderness. MUSCULOSKELETAL: No edema, No cyanosis. No clubbing. Normal ROM. Intact perip heral pulses. NEUROLOGICAL: CN 2-12 grossly intact. No FND REVIEW OF SYSTEMS: CONSTITUTIONAL: Complains of fatigue HEENT: No recent visual problems or hearing problems. Denied any sore throat. CARDIOVASCULAR: No chest pain, orthopnea, PND, no palpitations, no syncope. PULMONARY: Complains of shortness of breath, cough. GASTROINTESTINAL: No diarrhea, no nausea, no vomiting, no abdominal pain. NEUROLOGICAL: No headaches, no weakness, no numbness. HEMATOLOGICAL: Denies any bleeding or petechiae. GENITOURINARY: Denies any burning micturition, frequency, or urgency. MUSCULOSKELETAL/RHEUMATOLOGICAL: Denies any joint pain, swelling, or any muscle pain. ENDOCRINE: Denies any polyuria or polydipsia. The rest of the 14-point review of systems is negative. Dictation was produced using Cherryation software. please excuse any grammatical, word or spelling errors. Past Medical History Past Medical History: Coronary Artery Disease (CAD), Cancer, COPD, CVA/TIA, Hyperlipidemia, Hypertension, Myocardial Infarction ([place]), Prostate Disorder, Vas cular Disorder Additional Past Medical History / Comment(s): Prostate CA, stroke x3 last 2011, peripheral vascular disease, recent fall at home, metastatic pulmonary adenocarc inoma with recurrent right-sided pleural effusion Last Myocardial Infarction Date:: 2008 History of Any Multi-Drug Resistant Organisms: None Reported Past Surgical History: Orthopedic Surgery, Prostate Surgery Additional Past Surgical History / Comment(s): abdominal aortic stent; right sided thoracentesis 07/01/24-fluid cytology positive for metastatic pulmonary adenocarcinoma, pleur-evac cath Past Anesthesia/Blood Transfusion Reactions: No Reported Reaction Past Psychological History: No Psychological Hx Reported Smoking Status: Former smoker Past Alcohol Use History: None Reported Additional Past Alcohol Use History / Comment(s): Used to drink beer "quite a bit", none since 1990. Past Drug Use History: None Reported - Past Family History Brother(s) Family Medical History: Diabetes Mellitus Sister(s) Family Medical History: Cancer Medications and Allergies Home Medications Medication Instructions Recorded Confirmed Type Atorvastatin Calcium [Lipitor] 40 mg PO HS 02/17/20 08/29/24 History HYDROcodone/APAP 5-325MG [[place] 0.5 - 1 tab PO Q6HR PRN 07/28/24 08/29/24 History 5-325] Albuterol Inhaler [Ventolin Hfa 1 puff INHALATION RT-Q4H PRN 08/24/24 08/29/24 History Inhaler] Ipratropium-Albuterol Nebulize 3 ml INHALATION RT-BID 08/24/24 08/29/24 History [Duoneb 0.5 mg-3 mg/3 ml Soln] Aspirin 81 mg PO DAILY #30 tab 08/28/24 08/29/24 Rx Rivaroxaban [Xarelto] 2.5 mg PO BID #60 tablet 08/28/24 08/29/24 Rx carvediloL [Coreg] 3.125 mg PO BID #60 tablet 08/28/24 08/29/24 Rx Allergies Allergy/AdvReac Type Severity Reaction Status Date / Time morphine AdvReac Nausea & Verified 08/29/24 18:48 Vomiting Physical Exam Vitals: Vital Signs Temp Pulse Pulse Resp BP BP Pulse Ox 08/30/24 07:47 92 08/30/24 07:38 94 08/30/24 07:37 96 08/30/24 07:08 98.6 F 93 19 112/64 95 08/30/24 02:00 98.0 F 83 16 102/68 94 L 08/29/24 21:35 98.7 F 79 18 102/67 93 L 08/29/24 21:07 94 20 112/63 95 08/29/24 18:19 87 20 92/65 99 08/29/24 17:05 96 20 117/69 94 L 08/29/24 15:11 97 08/29/24 15:07 98.5 F 89 20 118/79 94 L Intake and Output 08/29/24 08/30/24 08/30/24 22:59 06:59 14:59 Intake Total 590 Balance 590 Intake: Oral 590 Other: Voiding Method Urinal Indwelling Catheter # Voids 0 Weight 57.606 kg Results CBC & Chem 7: 08/29/24 15:37 08/30/24 04:49 Labs: Abnormal Lab Results - Last 24 Hours (Table) 08/29/24 08/29/24 08/29/24 Range/Units 15:37 15:37 15:37 WBC 13.64 H (4.50-10.00) 10*3/uL MPV 9.4 L (9.5-12.2) fL Neutrophils # 10.85 H (1.80-7.70) 10*3/uL Monocytes # 1.26 H (0.20-1.00) 10*3/uL D-Dimer 3.88 H (<0.60) mg/L FEU Sodium 124 L (137-145) mmol/L Chloride 91 L (98-107) mmol/L BUN (9.0-27.0) mg/dL Creatinine 0.58 L (0.66-1.25) mg/dL Osmolality (275-295) mOsm/kg Calcium (8.7-10.3) mg/dL Total Bilirubin 1.6 H (0.2-1.3) mg/dL Total Protein 5.6 L (6.3-8.2) g/dL Albumin 2.5 L (3.5-5.0) g/dL 08/29/24 08/30/24 Range/Units 15:37 04:49 WBC (4.50-10.00) 10*3/uL MPV (9.5-12.2) fL Neutrophils # (1.80-7.70) 10*3/uL Monocytes # (0.20-1.00) 10*3/uL D-Dimer (<0.60) mg/L FEU Sodium 130 L (137-145) mmol/L Chloride (98-107) mmol/L BUN 8.0 L (9.0-27.0) mg/dL Creatinine 0.5 L (0.66-1.25) mg/dL Osmolality 257 L (275-295) mOsm/kg Calcium 7.6 L (8.7-10.3) mg/dL Total Bilirubin (0.2-1.3) mg/dL Total Protein (6.3-8.2) g/dL Albumin (3.5-5.0) g/dL
[2024-08-30] MEDS: MIRTAZAPINE 15 MG TAB PO SCH (20:30)
[2024-08-31 08:10] VITALS: RESP 17
[2024-08-31 09:19] LABS: Blood Urea Nitrogen 5.7 mg/dL (9.0-27.0); Calcium 7.5 mg/dL (8.7-10.3); Carbon Dioxide 24.9 mmol/L (21.6-31.8); Chloride 100 mmol/L (96-109); Glucose 81 mg/dL (70-110); Potassium 3.9 mmol/L (3.5-5.5); Sodium 132 mmol/L (135-145)
[2024-08-31 09:43] LABS: Magnesium 1.7 mg/dL (1.5-2.4)
--- NOTE | 2024-08-31 11:26 | P.PN ---
Subjective Patient is seen in follow-up for hyponatremia. Improving with saline. Oral intake poor. Denies chest pain or shortness of breath. Vital signs are stable. General: No acute distress. HEENT: Head exam is unremarkable. On nasal cannula. LUNGS: No audible rhonchi or wheezes. HEART: Rate and Rhythm are regular. ABDOMEN: Nontender. EXTREMITITES: No edema. Objective - Vital Signs Vital signs: Vital Signs Temp 98.4 F 08/31/24 08:00 Pulse 94 08/31/24 08:00 Resp 17 08/31/24 08:00 BP 97/63 08/31/24 08:00 Pulse Ox 95 08/31/24 08:00 FiO2 Intake & Output 08/30/24 08/31/24 08/31/24 18:59 06:59 18:59 Intake Total 1315 Output Total 200 Balance 1115 Intake: Intake, IV Titration 725 Amount Sodium Chloride 0.9% 1, 725 000 ml @ 75 mls/hr IV . [id number] [facility] Rx#:[id number] Oral 590 Output: Urine 200 Other: Voiding Method Indwelling Catheter Indwelling Catheter Indwelling Catheter - Labs CBC & Chem 7: 08/29/24 15:37 08/31/24 05:07 Labs: Abnormal Lab Results - Last 24 Hours (Table) 08/30/24 08/31/24 Range/Units 10:00 05:07 Sodium 132 L (135-145) mmol/L BUN 5.7 L (9.0-27.0) mg/dL Creatinine 0.5 L (0.6-1.5) mg/dL BUN/Creatinine Ratio 11.40 L (12.00-20.00) Ratio Calcium 7.5 L (8.7-10.3) mg/dL Ur Random Sodium <20 L (40-220) mmol/L Assessment and Plan Plan: Assessment: 1. Hypovolemic hyponatremia improved with normal saline. Sodium level 132 today. TSH normal. Urine sodium less than 20 and urine osmolality 550. 2. Acute on chronic hypoxic respiratory failure. 3. Recurrent malignant pleural effusions. PleurX catheter placed August 26, 2024. 4. Metastatic lung cancer. Plan: Maintain normal saline. Encouraged oral intake. Maintain 1500 cc fluid restriction. Repeat labs in the morning.
[2024-08-31 13:02] VITALS: BP 92/55; PULSE 81; TEMP 97.8
--- NOTE | 2024-08-31 16:01 | P.PN ---
Subjective Progress Note Date: 08/31/24 This is a pleasant 74-year-old male with history of coronary artery disease, hyperlipidemia, CVA/TIA, abdominal aortic aneurysm with previous endovascular repair, prostate cancer with previous prostatectomy. He also has a history significant for recent diagnosis of metastatic non-small cell lung cancer, recurrent right-sided pleural effusion, COPD, chronic ongoing tobacco dependence. Patient has a recurrent right-sided pleural effusion that has been drained on 07/01/2024, as well as, 07/21/2024. He subsequently had a Pleurx catheter placed on 08/26/2024. Pleural fluid cytology previously positive for pulmonary adenocarcinoma. PET scan showing scattered metastatic disease with lymph node involvement, pleural-based deposits along the right chest with malignant pleural effusion, abdominal lymphadenopathy and intrahepatic metastatic foci of lesions as well as osseous foci. Possible T10 pathologic fracture with diffuse uptake throughout the vertebral body. He recently established with medical oncology. He was just discharged from here on 08/28/2024. He presented back here to the emergency room with increasing shortness of breath yesterday 08/29/2024. He was to start systemic chemotherapy tomorrow. He is seen today in consultation on the regular medical floor. He is resting in bed. He is quite weak and frail. He has a loose congested cough. Denies hemoptysis. He is maintaining O2 saturations in the mid 90s on 2 L/min per nasal cannula. He is been afebrile. Hemodynamically stable. CT angiogram ruled out pulmonary embolism. There is partially loculated moderate-sized right pleural effusion with adjacent lower lobe compressive atelectasis. Pleurx catheter in place. Masslike prominence in the right hilar region and persistent pathologic mediastinal and right hilar lymphadenopathy. Hepatic metastatic disease with the largest liver lesion measuring 3 cm. White count 13.6. Hemoglobin 13.9. Platelets 367. Sodium 124. Potassium 4.2. Bicarb 29. BUN 10. Creatinine 0.58. Glucose 98. Viral screen negative. proBNP 529. Troponin negative x 1. On 08/31/2024, I am seeing the patient in a joint evaluation that was done along with the nurse practitioner. This evaluation was done and 35 minutes. I also met family members. The patient has noted metastatic pulm adenocarcinoma with a negative malignant right-sided pleural effusion and the patient has a Pleurx catheter in place. The patient also has multiple comorbidities including previous history of CVA, abdominal aortic aneurysm with endovascular repair, prostate cancer with previous prostatectomy, coronary disease and hyperlipidemia. He is quite debilitated and is also known to have COPD. He is PET scan showed metastatic disease involving the liver and the skeletal system and possible T10 pathologic fracture with diffuse uptake throughout the vertebral body. He recently establish himself with oncology.. The patient has been noted to have some fever and based on that she was referred to the hospital for further evaluation. This was noted by the visiting nurses who has been doing periodic drainage of his right-sided pleural effusion and the patient was having drainage of the right-sided pleural effusion every 2 to 3 days and the total amount of output was ranging between 608 100 cc. On the day of admission, no drainage was done. CAT scan of the chest was also performed that showed no evidence of any pulmonary embolism. There is a moderate-sized right-sided pleural effusion in the right basilar consolidation/atelectasis and mild hepatic steatosis and splenomegaly. PleurX catheter was noted to be in good location. The patient also had some cardiomegaly. The patient's pleural fluid was drained yesterday and a total of 800 cc of fluid was aspirated.The patient is currently calm and comfortable. Denies having any significant respiratory distress. He is on Symbicort, DuoNeb regiment [id number], IV fluids normal saline at rate of 75 cc an hour. He is also on Coreg and anticoagulation with Xarelto. The sodium level is at 132, BUN is at 5 with a creatinine of 0.5. Serum bicarb is at 24. Objective - Vital Signs Vital signs: Vital Signs Temp 98.4 F 08/31/24 08:00 Pulse 94 08/31/24 08:00 Resp 17 08/31/24 08:00 BP 97/63 08/31/24 08:00 Pulse Ox 95 08/31/24 08:00 FiO2 Intake & Output 08/30/24 08/31/24 08/31/24 18:59 06:59 18:59 Intake Total 1315 Output Total 200 Balance 1115 Intake: Intake, IV Titration 725 Amount Sodium Chloride 0.9% 1, 725 000 ml @ 75 mls/hr IV . [id number] [facility] Rx#:[id number] Oral 590 Output: Urine 200 Other: Voiding Method Indwelling Catheter Indwelling Catheter Indwelling Catheter - Exam GENERAL EXAM: Alert, frail, cachectic 74-year-old male, on 2 L nasal cannula, fairly comfortable in no apparent distress. HEAD: Normocephalic. EYES: Normal reaction of pupils, equal size. NOSE: Clear with pink turbinates. THROAT: No erythema or exudates. NECK: No masses, no JVD. CHEST: No chest wall deformity. Right sided Pleurx catheter in place. LUNGS: Equal air entry with bilateral scattered rhonchi, diminished in the right posterior base. CVS: S1 and S2 normal with no audible murmur, regular rhythm. ABDOMEN: No hepatosplenomegaly, normal bowel sounds, no guarding or rigidity. SPINE: No scoliosis or deformity SKIN: No rashes CENTRAL NERVOUS SYSTEM: No focal deficits, tone is normal in all 4 extremities. EXTREMITIES: There is no peripheral edema. No clubbing, no cyanosis. Peripheral pulses are intact. - Labs CBC & Chem 7: 08/29/24 15:37 08/31/24 05:07 Labs: Abnormal Lab Results - Last 24 Hours (Table) 08/30/24 08/31/24 Range/Units 10:00 05:07 Sodium 132 L (135-145) mmol/L BUN 5.7 L (9.0-27.0) mg/dL Creatinine 0.5 L (0.6-1.5) mg/dL BUN/Creatinine Ratio 11.40 L (12.00-20.00) Ratio Calcium 7.5 L (8.7-10.3) mg/dL Ur Random Sodium <20 L (40-220) mmol/L Assessment and Plan Plan: Acute on chronic hypoxic respiratory failure secondary to partially loculated moderate-sized right pleural effusion with adjacent lower lobe compressive atelectasis, the patient had a pleural fluid drained via Pleurx catheter and total of 800 cc of fluid was aspirated. CAT scan of the chest was noted. Patient has recurrent malignant right-sided pleural effusion Recurrent right sided malignant pleural effusions with previous thoracentesis x 2, Pleurx catheter placed 08/26/2024 Metastatic pulmonary adenocarcinoma, PET scan showing scattered metastatic pulmonary disease with lymph node involvement, pleural-based deposits along the right chest with malignant right sided pleural effusion, abdominal lymphadenopathy and intrahepatic metastatic foci of lesions as well as osseous foci. Possible T10 pathologic fracture with diffuse uptake throughout the verte bral body Hyponatremia, possibly SIADH from malignancy Leukocytosis, suspect reactive Normocytic, normochromic anemia, hemoglobin stable at 13.9 g/dL Chronic obstructive pulmonary disease, stable Chronic ongoing tobacco dependence History coronary artery disease History of hyperlipidemia History of CVA/TIA History of abdominal aortic aneurysm with previous endovascular repair History of prostate cancer with previous prostatectomy Plan: Continue DuoNeb and elations Continue Symbicort Anticoagulated with Xarelto Overall prognosis remains poor Patient and family are interested in hospice care Recommending DNR/DNI CODE STATUS Recommending hospice consultation Time with Patient: Greater than 30
[2024-08-31 16:56] VITALS: BMI 18.2
--- NOTE | 2024-08-31 17:47 | P.CONS ---
History of Present Illness - Reason for Consult Consult date: 08/31/24 lung cancer Requesting physician: Myrna Garsia - Chief Complaint SOB ,weakness - History of Present Illness Consult note from 08/25/24 Mr. Bui is a 74-year-old male pt of Dr. Taina Salcedo with a PMH of abdominal aortic aneurysm on anticoagulation with Coumadin, COPD, CAD, and cigarette smoking who was initially admitted to [facility] on 06/29/2024 with increased dyspnea and was noted to be positive with COVID-[address] chest noted scattered small nodularities with increased density along the right mediastinal border along with enlarged mediastinal lymph nodes and potential hypodensity within the liver. It did also note right pleural effusion. T horacentesis was performed on 07/01/2024 removing 1.3 L of turbid colored fluid that was exudative in nature. Cytology was consistent with pulmonary adenocarcinoma. He was again admitted to [facility] on 07/18/2024 though 07/22/2024 at which time he had thoracentesis for symptoms. Brain MRI on 07/20/2024 revealed no evidence of intracranial metastasis and noted remote right cerebellar hemispheric injury. PET/CT on 07/24/2024 that noted FDG avidity in the right low paratracheal, subcarinal, and right hilar lymph nodes. There was an area in the right middle lobe medially that had FDG avidity with an SUV of 8.2. In addition, there was scattered uptake along the pleura most intense in the medial portion of the right lower lobe along with bilateral hepatic lobes, retroperitoneal lymph node, and L2 and T10 vertebral bodies. Molecular profiling from the right pleural fluid revealed KRAS and TP53 mutations with low tumor mutation burden (7.1 mutations per megabase) and negative for mi crosatellite instability. PD-L1 was noted to be positive at 3%. Molecular profiling from the peripheral blood revealed KRAS and TP53 mutations in addition to NF1 mutation ([id number]*). 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 Dual immunotherapy with PDL-1 and CTLA4 inhibitor. Pending start of the same. Patient was just admitted for epistaxis with coagulopathy and progressive SOB. He had right pleurx drain placed and was discharged on 08/28. He represented to the ER for SOB and weakness. Upon admission D-dimer was elevated at 3.88. Coags WNL. WBC 13.6, hemoglobin 13.9, platelets 267,000. CTA chest was negative for acute PE. Partially loculated moderate size right pleural effusion with adjacent lower lobe compr essive atelectasis masslike prominence in the right hilar region and persistent pathological mediastinal and right hilar lymphadenopathy. Hepatic metastatic disease with the largest liver lesion measuring up to 3 cm. Review of Systems 10 point ROS is negative except as stated in the HPI Past Medical History Past Medical History: Coronary Artery Disease (CAD), Cancer, COPD, CVA/TIA, Hyperlipidemia, Hypertension, Myocardial Infarction ([place]), Prostate Disorder, Vascular Disorder Additional Past Medical History / Comment(s): Prostate CA, stroke x3 last 2011, peripheral vascular disease, recent fall at home, metastatic pulmonary adenocarcinoma with recurrent right-sided pleural effusion Last Myocardial Infarction Date:: 2008 History of Any Multi-Drug Resistant Organisms: None Reported Past Surgical History: Orthopedic Surgery, Prostate Surgery Additional Past Surgical History / Comment(s): abdominal aortic stent; right sided thoracentesis 07/01/24-fluid cytology positive for metastatic pulmonary adenocarcinoma, pleur-evac cath Past Anesthesia/Blood Transfusion Reactions: No Reported Reaction Past Psychological History: No Psychological Hx Reported Smoking Status: Former smoker Past Alcohol Use History: None Reported Additional Past Alcohol Use History / Comment(s): Used to drink beer "quite a bit", none since 1990. Past Drug Use History: None Reported - Past Family History Brother(s) Family Medical History: Diabetes Mellitus Sister(s) Family Medical History: Cancer Medications and Allergies Home Medications Medication Instructions Recorded Confirmed Type Atorvastatin Calcium [Lipitor] 40 mg PO HS 02/17/20 08/29/24 History Albuterol Inhaler [Ventolin Hfa 1 puff INHALATION RT-Q4H PRN 08/24/24 08/29/24 History Inhaler] Ipratropium-Albuterol Nebulize 3 ml INHALATION RT-BID 08/24/24 08/29/24 History [Duoneb 0.5 mg-3 mg/3 ml Soln] Aspirin 81 mg PO DAILY #30 tab 08/28/24 08/29/24 Rx Rivaroxaban [Xarelto] 2.5 mg PO BID #60 tablet 08/28/24 08/29/24 Rx carvediloL [Coreg] 3.125 mg PO BID #60 tablet 08/28/24 08/29/24 Rx Acetaminophen Tab [Tylenol] 650 mg PO Q6HR PRN tab 08/31/24 Rx Budesonide-Formot 160-4.5 Mcg 2 puff INHALATION RT-BID 30 Days 08/31/24 Rx [Symbicort 160-4.5 Mcg Inhaler] #1 each HYDROcodone/APAP 5-325MG [[place] 1 each PO Q6HR PRN #12 tab 08/31/24 Rx 5-325] Magnesium Oxide [Mag-Ox] 400 mg PO BID #60 tab 08/31/24 Rx Mirtazapine [Remeron] 15 mg PO HS #30 tab 08/31/24 Rx Allergies Allergy/AdvReac Type Severity Reaction Status Date / Time morphine AdvReac Nausea & Verified 08/29/24 18:48 Vomiting Physical Exam Vitals: Vital Signs Temp Pulse Pulse Pulse Resp BP Pulse Ox 08/31/24 08:00 98.4 F 94 17 97/63 95 08/31/24 07:55 84 08/31/24 07:45 95 08/31/24 07:43 89 08/31/24 02:00 98.3 F 89 16 104/68 97 08/30/24 19:38 82 18 08/30/24 19:32 84 18 08/30/24 18:06 97.9 F 92 18 104/68 94 L Intake and Output 08/30/24 08/31/24 08/31/24 22:59 06:59 14:59 Intake Total 1315 Output Total 200 Balance 1115 Intake: Intake, IV Titration 725 Amount Sodium Chloride 0.9% 1, 725 000 ml @ 75 mls/hr IV . [id number] [facility] Rx#:[id number] Oral 590 Output: Urine 200 Other: Voiding Method Indwelling Catheter - Constitutional General appearance: no acute distress - EENT Eyes: anicteric sclerae, EOMI ENT: hearing grossly normal - Respiratory course throughout - Cardiovascular Rhythm: regular - Gastrointestinal General gastrointestinal: soft, no tenderness - Integumentary Integumentary: no cyanotic, no jaundiced - Musculoskeletal Musculoskeletal: generalized weakness - Psychiatric Psychiatric: A&O x's 3 Results CBC & Chem 7: 08/29/24 15:37 08/31/24 05:07 Labs: Abnormal Lab Results - Last 24 Hours (Table) 08/29/24 08/30/24 08/30/24 Range/Units 15:37 04:49 10:00 Sodium 130 L (135-145) mmol/L BUN 8.0 L (9.0-27.0) mg/dL Creatinine 0.5 L (0.6-1.5) mg/dL BUN/Creatinine Ratio (12.00-20.00) Ratio Osmolality 257 L (275-295) mOsm/kg Calcium 7.6 L (8.7-10.3) mg/dL Ur Random Sodium <20 L (40-220) mmol/L 08/31/24 Range/Units 05:07 Sodium 132 L (135-145) mmol/L BUN 5.7 L (9.0-27.0) mg/dL Creatinine 0.5 L (0.6-1.5) mg/dL BUN/Creatinine Ratio 11.40 L (12.00-20.00) Ratio Osmolality (275-295) mOsm/kg Calcium 7.5 L (8.7-10.3) mg/dL Ur Random Sodium (40-220) mmol/L CT scan - chest: report reviewed Assessment and Plan (1) Pleural effusion Status: Acute Priority: High Code(s): J90 - PLEURAL EFFUSION, NOT ELSEWHERE CLASSIFIED SNOMED Code(s): 29928472 (2) Stage 4 malignant neoplasm of lung Status: Acute Priority: High Code(s): C34.90 - MALIGNANT NEOPLASM OF UNSP PART OF UNSP BRONCHUS OR LUNG SNOMED Code(s): 05367237 Plan: Pleural effusion - History of malignant pleural effusion - Pleurx drain placed during last admission. This has helped improved patient's breathing when drained Stage IV non-small cell lung cancer - Diagnosis as documented in HPI - Dual immunotherapy treatment was planned. It is not been initiated yet. Plan was to start soon, however unfortunately pt has had repeat hospitalizations. He was scheduled for clinic f/u today -Had detailed discussion with patient and family at bedside regarding treatment options vs comfort care. At this time, pt is unsure if he wants to go on hospice, but has met with hospice team. We offered to set up family meeting so we could speak with his daughters as well, but pt declined at this time. -Will continue to follow and be available to answer any questions/concerns After visit today, Spoke with hospice nurse. Pt has decided to go home hospice, but grandson would like to speak with oncology team about treatment. Family meeting was set for tomorrow morning, however, we then spoke with admitting team and pt has decided he wanted to go home tonight with hospice. We will remain available if pt has any further questions/concerns Doctor attests: I performed a history and physical examination of this patient, developed impression and plan of care. Discussed with dictator. I agree with dictators note, documented as a scribe.
[2024-08-31] MEDS ORDERED: MAGNESIUM OXIDE 400 MG TAB PO SCH (21:00)
--- NOTE | 2024-09-03 12:05 | P.DS ---
Providers Date of admission: 08/29/24 19:48 Expected date of discharge: 08/31/24 Attending physician: Dale Tidwell MD Consults: 08/29/24 19:45 Consult Physician Routine Consulting Provider: Trevor Andujar Consult Reason/Comments: pleural effusion Do you want consulting provider notified?: Yes Consult Physician Routine Consulting Provider: John Bragg Consult Reason/Comments: hyponatremia Do you want consulting provider notified?: Yes 08/30/24 10:01 Consult Physician Routine Consulting Provider: Eric Salcedo Consult Reason/Comments: Metastatic lung cancer Do you want consulting provider notified?: Yes [facility] [place] [facility] Course: Final diagnosis Acute on chronic hypoxic respiratory failure secondary to pulmonary adenocarcinoma Recurrent right-sided pleural effusion, status post Pleurx catheter placement recently Right lower lobe compressive atelectasis Metastatic pulmonary adenocarcinoma with metastasis to liver, spine, mediastinal abdominal lymph node: Hyponatremia Leukocytosis Chronic anemia COPD History of CAD Hypertension Hyperlipidemia History of CVA Abdominal aortic aneurysm with previous endovascular repair History of prostate cancer with previous prostatectomy Mild protein calorie malnutrition with a BMI of 18.2 GI prophylaxis DVT prophylaxis No code Discharge disposition Patient is being discharged in a stable condition with guarded prognosis to home with [facility]. Total time taken is greater than 35 minutes. Hospital course 74-year-old male patient with past medical history significant for coronary artery disease, history of CVA, hypertension, hyperlipidemia, history of abdominal aortic aneurysm with previous endovascular repair, history of prostate cancer with previous prostatectomy, history of metastatic non-small cell lung cancer, recurrent right-sided pleural effusion status post Pleurx catheter in place, COPD, chronic ongoing tobacco dependence. Patient has history of recur rent right-sided pleural effusion, had thoracentesis in the past, subsequently had a Pleurx catheter placed on 08/26/2024, pleural fluid cytology was positive for pulmonary adenocarcinoma. PET scan showed metastatic disease with lymph node involvement, pleural-based deposits along the right chest with malignant pleural effusion, abdominal lymphadenopathy, intrahepatic metastasis foci of lesions as well as osseous lesions, possible T10 pathologic fracture with diffuse uptake throughout the vertebral body, following oncology, was plan for immunotherapy who presented to ER with increasing shortness of breath on 08/29/2024. Patient was discharged from the hospital on 08/28/2024. Patient is afebrile, heart rate 92, respiratory rate 19, blood pressure 112/64, saturating 96% 2 L. WBCs 13.6 hemoglobin 13.9 platelet 367. Sodium 124, improved to 130 now, potassium 4.2, chloride 91, CO2 29, BUN 10, creatinine 0.58. CT angio chest negative for PE, showed partially loculated moderate size right pleural effusion with adjacent lower lobe compressive atelectasis, PleurX catheter in place, masslike prominence in the right hilar region, persistent pathologic mediastinal and right hilar lymphadenopathy, hepatic metastatic disease with largest liver lesion measuring 3 cm. 08/31/2024 Patient and family have met with hospice and patient has made the decision he would like to go home with hospice and does not want to seek further oncological care. Lengthy discussion was had with oncology and multiple family members and are in agreement. [facility] consulted and met with family along with patient and will be going home with hospice this evening. Currently no reports of chest pain, no worsening shortness of breath, or palpitations. Patient is afebrile. No reports of nausea or vomiting and patient is tolerating diet. Patient will be going going home per patient request with [facility] today. PHYSICAL EXAMINATION: GENERAL: The patient is A&O x3, NAD, chronically ill-appearing HEENT: EOMI, Sclerae anicteric, Moist Mucous membranes Neck: Supple, Non tender, No JVD PULMONARY: Decreased breath sounds. CARDIOVASCULAR: S1, S2 present. No murmurs, rubs, or gallops. ABDOMEN: Soft, nontender, nondistended, normoactive bowel sounds. No guarding or rebound tenderness. MUSCULOSKELETAL: No edema, No cyanosis. No clubbing. Normal ROM. Intact peripheral pulses. NEUROLOGICAL: CN 2-12 grossly intact. No FND Please refer to medication reconciliation sheet for a list of medications. The impression and plan of care has been dictated by Natasha Huggins, Nurse Practitioner as directed. Dr. Jin MD I have performed a history and examination and MDM of this patient, discussed the same with the dictator, and agree with the dictator's assessment and plan as written ,documented as a scribe. Based on total visit time, I have performed more than 50% of the visit. Patient Condition at Discharge: Poor Plan - Discharge Summary Discharge Rx Participant: No New Discharge Prescriptions: New Mirtazapine [Remeron] 15 mg PO HS #30 tab Acetaminophen Tab [Tylenol] 650 mg PO Q6HR PRN tab PRN Reason: Mild Pain Or Fever > 100.5 Magnesium Oxide [Mag-Ox] 400 mg PO BID #60 tab HYDROcodone/APAP 5-325MG [[place] 5-325] 1 each PO Q6HR PRN #12 tab PRN Reason: Pain Budesonide-Formot 160-4.5 Mcg [Symbicort 160-4.5 Mcg Inhaler] 2 puff INHALATION RT-BID 30 Days #1 each Continue Atorvastatin Calcium [Lipitor] 40 mg PO HS Rivaroxaban [Xarelto] 2.5 mg PO BID #60 tablet Albuterol Inhaler [Ventolin Hfa Inhaler] 1 puff INHALATION RT-Q4H PRN PRN Reason: Shortness Of Breath Ipratropium-Albuterol Nebulize [Duoneb 0.5 mg-3 mg/3 ml Soln] 3 ml INHALATION RT-BID carvediloL [Coreg] 3.125 mg PO BID #60 tablet Aspirin 81 mg PO DAILY #30 tab Discontinued HYDROcodone/APAP 5-325MG [[place] 5-325] 0.5 - 1 tab PO Q6HR PRN PRN Reason: Pain Discharge Medication List Atorvastatin Calcium [Lipitor] 40 mg PO HS 02/17/20 [History] Albuterol Inhaler [Ventolin Hfa Inhaler] 1 puff INHALATION RT-Q4H PRN 08/24/24 [History] Ipratropium-Albuterol Nebulize [Duoneb 0.5 mg-3 mg/3 ml Soln] 3 ml INHALATION RT-BID 08/24/24 [History] Aspirin 81 mg PO DAILY #30 tab 08/28/24 [Rx] Rivaroxaban [Xarelto] 2.5 mg PO BID #60 tablet 08/28/24 [Rx] carvediloL [Coreg] 3.125 mg PO BID #60 tablet 08/28/24 [Rx] Acetaminophen Tab [Tylenol] 650 mg PO Q6HR PRN tab 08/31/24 [Rx] Budesonide-Formot 160-4.5 Mcg [Symbicort 160-4.5 Mcg Inhaler] 2 puff INHALATION RT-BID 30 Days #1 each 08/31/24 [Rx] HYDROcodone/APAP 5-325MG [[place] 5-325] 1 each PO Q6HR PRN #12 tab 08/31/24 [Rx] Magnesium Oxide [Mag-Ox] 400 mg PO BID #60 tab 08/31/24 [Rx] Mirtazapine [Remeron] 15 mg PO HS #30 tab 08/31/24 [Rx] Follow up Appointment(s)/Referral(s): Moise French MD [Primary Care Provider] - 1-2 days Activity/Diet/Wound Care/Special Instructions: Patient is going home with hospice [facility] hospice services Discharge Disposition: HOME WITH HOSPICE
== END 2024-08-31 17:25 | disposition hospice, home (50) ==
LOC: EC 15:06 → 5NMEDONC 19:48
PROVIDERS: ADMIT Internal Medicine; ATTEND Internal Medicine
DX: J96.21 Acute and chronic respiratory failure with hypoxia (principal); J91.0 Malignant pleural effusion; C34.90 Malignant neoplasm of unspecified part of unspecified bronchus or lung; E86.1 Hypovolemia; E87.1 Hypo-osmolality and hyponatremia; J98.11 Atelectasis; C78.7 Secondary malignant neoplasm of liver and intrahepatic bile duct; C77.9 Secondary and unspecified malignant neoplasm of lymph node, unspecified; C79.51 Secondary malignant neoplasm of bone; I10 Essential (primary) hypertension; I25.10 Atherosclerotic heart disease of native coronary artery without angina pectoris; J44.9 Chronic obstructive pulmonary disease, unspecified; E78.5 Hyperlipidemia, unspecified; I25.2 Old myocardial infarction; F17.200 Nicotine dependence, unspecified, uncomplicated; D72.829 Elevated white blood cell count, unspecified; D64.9 Anemia, unspecified; E44.1 Mild protein-calorie malnutrition; Z68.1 Body mass index [BMI] 19.9 or less, adult; Z85.46 Personal history of malignant neoplasm of prostate; Z86.73 Personal history of transient ischemic attack (TIA), and cerebral infarction without residual deficits; Z90.79 Acquired absence of other genital organ(s); Z79.899 Other long term (current) drug therapy; Z79.82 Long term (current) use of aspirin; Z79.01 Long term (current) use of anticoagulants; Z88.5 Allergy status to narcotic agent
CPT/HCPCS: 96360 ×2; 96361 ×2; 99285; 36415; 94640 ×4; 94760 ×2; 93005; 85379; 84300; 83930; 83880; 80053; 80048 ×2; 84443; 82533; 83605; 83735 ×2; 84484; 85025; 85610; 85730; 83935; 87636; 71275; G0378 ×3; Q9967